=== PATIENT | male | born 1950 | race Caucasian/White ===

== ENCOUNTER 2019-12-22 15:52 | Outpatient (CLI) | payer MEDICARE, SELFPAY ==
[2019-12-22 16:38] LABS: Hemoglobin 11.7 g/dL (14.0-18.0); Mean Corpuscular HGB Conc 34.4 g/dl (32-36); Mean Corpuscular Hemoglobin 28.7 pg (26-34); Mean Corpuscular Volume 83.3 fl (80-100); Mean Platelet Volume 11.1 fl (7.4-10.4); Platelet Count Result 207 k/mm3 (150-375); Red Blood Count 4.08 M/mm3 (4.6-6.20); Red Cell Distribution Width 14.3 % (11.5-14.5); White Blood Count 7.7 K/mm3 (4.5-10.0)
[2019-12-22 16:50] LABS: Alanine Aminotransferase 30 U/L (4-50); Albumin Level 4.1 g/dL (3.5-5.1); Alkaline Phosphatase 61 U/L (38-126); Aspartate Amino Transferase 41 U/L (17-59); Bilirubin,Total 0.4 mg/dL (0.2-1.3)
== END 2019-12-22 15:53 | disposition home or self-care (01) ==
LOC: ANHLAB 15:58
PROVIDERS: Visit Provider Internal Medicine Gastroenterology
DX: R10.11 Right upper quadrant pain (principal)
CPT/HCPCS: 36415; 80076; 85027

== ENCOUNTER 2019-12-27 00:27 | Outpatient (CLI) | payer MEDICARE, SELFPAY ==
[2019-12-27 16:10] LABS: SARS-CoV-2 RNA PCR Negative
== END 2019-12-27 00:28 | disposition home or self-care (01) ==
LOC: ANHCOVIDDT 00:27
PROVIDERS: Visit Provider Internal Medicine Gastroenterology
DX: Z01.818 Encounter for other preprocedural examination (principal); Z11.59 Encounter for screening for other viral diseases; R19.7 Diarrhea, unspecified
CPT/HCPCS: 87635; C9803; U0003

== ENCOUNTER 2019-12-29 01:17 | Day surgery (SDC) | payer MEDICARE, SELFPAY ==
[2019-12-23 11:50] VITALS: BMI 43.0
[2019-12-29] MEDS: LACTATED RINGERS 1,000 ML 150 ML IV CONT (07:42)
[2019-12-29 07:58] LABS: Glucose Point of Care 180 (65-105)
--- NOTE | 2019-12-29 08:06 | WPDANESEPPF ---
Anes - Initial Pre Proc Eval Procedure: Operation Date: 12/29/19 08:30 Proposed Procedures p Esophagogastroduodenoscopy & Colonoscopy - Kelvin Singh MD Date/Time: 12/29/19 08:06 Surgeon: Kelvin Singh MD Pre Op Diagnosis: diarrhea, occult GI bleed Patient Data Age: 69 Gender: M Height: 6 ft 3 in Weight: 156 kg Allergies Allergy/AdvReac Type Severity Reaction Status Date / Time exenatide Allergy Unknown Unknown Verified 12/29/19 07:32 metformin Allergy Unknown Nausea Verified 12/29/19 07:32 nebivolol Allergy Unknown Unknown Verified 12/29/19 07:32 pioglitazone Allergy Unknown sleepiness Verified 12/29/19 07:32 Home Medications Medication Instructions Recorded Confirmed Type furosemide 40 mg tablet 40 mg PO BID #180 tablet 07/26/19 12/23/19 Rx aspirin 81 mg tablet,delayed 81 mg PO DAILY 08/23/19 12/23/19 History release hydrochlorothiazide 25 mg tablet 25 mg PO DAILY 08/23/19 12/23/19 History hmindaspxtwe-vzohumzu-fssmzg 1 tablet PO DAILY 08/23/19 12/23/19 History pantoprazole 40 mg tablet,delayed 40 mg PO QAM 08/23/19 12/06/19 History release ubidecarenone-omega 3-vit E 25 1 cap PO DAILY 08/23/19 12/06/19 History mg-150 (90-60) mg-200 unit capsule insulin syringe-needle U-100 1 mL #200 each 08/24/19 12/06/19 Rx 31 gauge x 5/16 carvedilol 12.5 mg tablet 12.5 mg PO Q12H #60 tablet 09/30/19 12/23/19 Rx amitriptyline 25 mg tablet 25 mg PO .qhs #90 tablet 10/11/19 12/23/19 Rx insulin human U-100 NPH-regulr 65 unit SUB-Q BID 90 Days #120 ml 10/21/19 12/23/19 Rx 70-30 mix 100 unit/mL subcutaneous susp alprazolam 0.5 mg tablet See Rx Instructions PO DAILY #90 11/08/19 12/23/19 Rx tablet clonidine HCl 0.3 mg tablet 0.3 mg PO BID #60 tablet 11/29/19 12/23/19 Rx cholestyramine-aspartame 4 gram 4 gm PO TID #210 gm 12/06/19 12/23/19 Rx oral powder dextroamphetamine-amphetamine 10 10 mg PO BID #60 tablet 12/15/19 12/23/19 Rx mg tablet lisinopril 40 mg PO DAILY 12/23/19 12/23/19 History amlodipine 10 mg PO DAILY 12/29/19 12/29/19 History Laboratory Tests 12/29/19 07:54 POC Capillary Glucose 180 mg/dl H mg/dl (65-105) Patient hx anesthesia problems: none Family hx anesthesia problems: none [facility] Past Medical History Medical History (Updated 12/29/19 @ 07:58 by eNil Perez MD) Acquired lymphedema Lymphedema of upper extremity following lymphadenectomy Morbid obesity LOU (obstructive sleep apnea) Primary central sleep apnea Stress fracture, right foot, subsequent encounter for fracture with routine healing Type 2 diabetes mellitus with hyperglycemia Surgical History Surgical History (Updated 12/06/19 @ 10:56 by Lexi Mar MA) H/O foot surgery RIGHT 3RD TOE History of appendectomy History of cholecystectomy Social History Social History Smoking status: Never smoker Smoking end date: 08/04/94 Alcohol intake: never Gender identity (if verbalized by the patient): Male Anes - Eval Final PreProcedure Day of Procedure 12/29/19 08:06 Patient weight: morbidly obese Heart: regular rate and rhythm Lungs: clear to auscultation Airway: Mallampati scale class III Neurological: alert and oriented Last oral intake: >/= 8 hours ASA classification: IV Emergent: no Anesthetic plan: proceed Anesthesia type and monitoring: general GIVS and standard monitoring Informed Consent: The patient's anesthetic plan and its attendant risks and benefits were discussed with the patient/family/POA. Questions were solicited and answers provided to the satisfaction of the patient/family/POA.
[2019-12-29 08:09] VITALS: PULSE 82; TEMP 36.9; O2SAT 99; BMI 43.2
--- NOTE | 2019-12-29 08:13 | WPDGICN ---
Assessment and Plan Assessment and plan (1) Diarrhea: Code(s): R19.7 - Diarrhea, unspecified Status: Acute Assessment and Plan: Patient has ongoing alteration in bowel habits. He continues to have diarrhea intermittently for several months. Occult blood was noted in the stool sample. Plan is for GI endoscopy to evaluate more thoroughly. Previous right upper quadrant discomfort has improved. Will continue fiber supplements for now. (2) Occult blood in stools: Code(s): R19.5 - Other fecal abnormalities Status: Acute (3) Obesity (BMI 30.0-34.9): Code(s): E66.9 - Obesity, unspecified Status: Acute (4) Diabetes mellitus: Code(s): E11.9 - Type 2 diabetes mellitus without complications Status: Acute GI Consult Note Consult date/time: 12/29/19 08:13 HPI: Gulshan Voss is a 69 year old male Seen in evaluation at the request of Dr. Bhavik Davidson. patient reports diarrhea for the last 2-3 months. He reports intermittent loose stools associated with urgency. He denies any fever. He denies any bleeding. He has had mild right upper quadrant discomfort that has subsequently improved. Recent LFTs were noted. In primary care office found to have occult blood in stool. Family history is noncontributory. Previous surgery includes cholecystectomy. Past medical history is significant for hypertension, elevated cholesterol, he recently was given a trial of Questran which may or may not have helped stools but the diarrhea persists. Review of Systems Review of Systems: All systems reviewed & are unremarkable except as noted in HPI and below PMFSH Past Medical History Medical History Acquired lymphedema Lymphedema of upper extremity following lymphadenectomy Morbid obesity LOU (obstructive sleep apnea) Primary central sleep apnea Stress fracture, right foot, subsequent encounter for fracture with routine healing Type 2 diabetes mellitus with hyperglycemia Surgical History Surgical History H/O foot surgery RIGHT 3RD TOE History of appendectomy History of cholecystectomy Family History Family History Mother Diabetes mellitus Hypertension Cerebrovascular accident Father Family history of cardiovascular disease Other Family history of atrial fibrillation Family history of liver disease Family history of malignant neoplasm Social History Social History Smoking status: Never smoker Smoking end date: 08/04/94 Alcohol intake: never Gender identity (if verbalized by the patient): Male Meds Home Medications and Allergies Home Medications Medication Instructions Recorded Confirmed Type furosemide 40 mg tablet 40 mg PO BID #180 tablet 07/26/19 12/23/19 Rx aspirin 81 mg tablet,delayed 81 mg PO DAILY 08/23/19 12/23/19 History release hydrochlorothiazide 25 mg tablet 25 mg PO DAILY 08/23/19 12/23/19 History gklvxfwrhvvx-ljaammhc-onfloh 1 tablet PO DAILY 08/23/19 12/23/19 History pantoprazole 40 mg tablet,delayed 40 mg PO QAM 08/23/19 12/29/19 History release ubidecarenone-omega 3-vit E 25 1 cap PO DAILY 08/23/19 12/06/19 History mg-150 (90-60) mg-200 unit capsule insulin syringe-needle U-100 1 mL #200 each 08/24/19 12/06/19 Rx 31 gauge x 5/16 carvedilol 12.5 mg tablet 12.5 mg PO Q12H #60 tablet 09/30/19 12/23/19 Rx amitriptyline 25 mg tablet 25 mg PO .qhs #90 tablet 10/11/19 12/23/19 Rx insulin human U-100 NPH-regulr 65 unit SUB-Q BID 90 Days #120 ml 10/21/19 12/29/19 Rx 70-30 mix 100 unit/mL subcutaneous susp alprazolam 0.5 mg tablet See Rx Instructions PO DAILY #90 11/08/19 12/23/19 Rx tablet clonidine HCl 0.3 mg tablet 0.3 mg PO BID #60 tablet 11/29/19 12/23/19 Rx cholestyramine-aspartame 4 gram 4 gm PO TID #210 gm
[2019-12-29] MEDS: BENZOCAINE (*SP) 60 ML SPRAY CAN (HURRICAINE) 1 SPRAY MUCOUS MEM (08:23)
[2019-12-29 08:57] VITALS: BP 157/82; PULSE 72; RESP 17; O2SAT 96
[2019-12-29 09:07] VITALS: BP 166/62; PULSE 69; RESP 19; O2SAT 97
[2019-12-29 09:17] VITALS: BP 164/76; PULSE 67; RESP 22; O2SAT 98
[2019-12-29 09:17] LABS: Glucose Point of Care 171 (65-105)
== END 2019-12-29 09:35 | disposition home or self-care (01) ==
PROVIDERS: Visit Provider Internal Medicine Gastroenterology
PROC: 0DJ08ZZ Inspection of Upper Intestinal Tract, Via Natural or Artificial Opening Endoscopic (ICD-10-PCS; CPT 43235; principal; 2019-12-29 08:30)
DX: R19.5 Other fecal abnormalities (principal); D12.3 Benign neoplasm of transverse colon; K63.5 Polyp of colon; K62.1 Rectal polyp; R19.7 Diarrhea, unspecified; K64.8 Other hemorrhoids; E11.9 Type 2 diabetes mellitus without complications; G47.33 Obstructive sleep apnea (adult) (pediatric); E66.01 Morbid (severe) obesity due to excess calories; Z68.41 Body mass index [BMI] 40.0-44.9, adult; Z79.82 Long term (current) use of aspirin; Z79.4 Long term (current) use of insulin
CPT/HCPCS: 45385; 88305; J2704; J7120

== ENCOUNTER 2020-03-01 12:31 | Emergency (ER) | payer MEDICARE, SELFPAY ==
[2020-03-01] VITALS (26 sets, daily range): BP systolic 121–220; BP diastolic 75–201; PULSE 65–90; RESP 11–20; TEMP 36.4; O2SAT 95–100
--- NOTE | ~2020-03-01 | XR_ITS ---
EXAMINATION: XR chest 2V DATE: 03/01/2020 13:26 INDICATION: Shortness of breath TECHNIQUE: Frontal and lateral views of the chest are obtained COMPARISON: 01/16/2016 FINDINGS: Airspace opacities are present in the mid and lower lung zones. There are small pleural eff usions. No pneumothorax is identified. Cardiomegaly is noted. There are bridging osteophytes at multi ple levels in the spine, consistent with diffuse idiopathic skeletal hyperostosis (DISH). IMPRESSION: 1. Airspace opacities of the mid and lower lung zones, consistent with pneumonia and/or atelectasis a nd/or pulmonary edema. 2. Small pleural effusions. 3. Cardiomegaly. Reviewed, dictated and finalized at location B. IMPRESSION: 1. Airspace opacities of the mid and lower lung zones, consistent with pneumoni a and/or atelectasis and/or pulmonary edema. 2. Small pleural effusions. 3. Cardiomegaly.
--- NOTE | 2020-03-01 12:56 | ECG_ITS ---
Measurements Intervals [place] Rate: 83 P: 47 [place]: 244 QRS: -8 QRSD: 130 T: 101 QT: 388 QTc: 458 Interpretive Statements SINUS RHYTHM WITH FIRST DEGREE AV BLOCK VENTRICULAR PREMATURE COMPLEX LEFT VENTRICULAR HYPERTROPHY AND ST-T CHANGE BORDERLINE ST-T WAVE ABNORMALITY- LATERAL LEADS BASELINE ARTIFACT- I, II, AVR, AVL, AVF, V4-V5 ABNORMAL ECG Electronically Signed On 03-01-2020 13:06:43 CDT by Shelton Wyman D.O.
--- NOTE | 2020-03-01 13:15 | ED.SOB ---
HPI - SOB/Dyspnea General Chief Complaint: Shortness of Breath/Dyspnea Stated Complaint: SOB x1 week Time Seen by Provider: 03/01/20 12:49 History of Present Illness HPI Narrative: Patient presents with his for increasing shortness of breath. He has known asthma and has a Advair inhaler and an albuterol inhaler. He has had an occasional cough. No fever. He has had some chills and sweats. He has no pain. He has chronic bilateral leg edema. He denies congestive heart failure. He has uncontrolled hypertension. He takes his medication but says his pressures always high. He has not had significant wheezing. His appetite is good, bowels are moving. He does not smoke, has 2 alcoholic beverages a year, and does not do marijuana. His surgeries include appendectomy, parotid gland removal. MD elicited complaint: shortness of breath and cough Pertinent past history: asthma Onset (ago): day(s) Timing: constant Severity: moderate Exacerbating factors: exertion Relieving factors: nothing Known history of: asthma Associated symptoms: diaphoresis Treatment prior to arrival: none Related Data Home Medications Medication Instructions Recorded Confirmed aspirin 81 mg tablet,delayed 81 mg PO DAILY 08/23/19 02/25/20 release dhpwaoqivdmm-yyqqqsrl-uujaan 1 tablet PO DAILY 08/23/19 02/25/20 ubidecarenone-omega 3-vit E 25 1 cap PO DAILY 08/23/19 02/25/20 mg-150 (90-60) mg-200 unit capsule lisinopril 40 mg PO DAILY 12/23/19 02/25/20 amlodipine 10 mg PO DAILY 12/29/19 02/25/20 Allergies Allergy/AdvReac Type Severity Reaction Status Date / Time exenatide Allergy Unknown Unknown Verified 03/01/20 12:48 metformin Allergy Unknown Nausea Verified 03/01/20 12:48 nebivolol Allergy Unknown Unknown Verified 03/01/20 12:48 pioglitazone Allergy Unknown sleepiness Verified 03/01/20 12:48 Review of Systems Review of Systems: Narrative: CONSTITUTIONAL: Denies fever, but has had chills, and sweats. EYES: Denies visual changes, redness, or discharge. ENT: Denies rhinorrhea, congestion, sore throat, or otalgia. CARDIOVASCULAR: Denies chest pain, palpitations, but chronic leg edema. RESPIRATORY: Occasional cough, but continued dyspnea. GASTROINTESTINAL: Denies abdominal pain, nausea, vomiting, or diarrhea. GENITOURINARY: Denies dysuria or hematuria. SKIN: Denies rash or itching. MUSCULOSKELETAL: Denies back pain, joint pain, or myalgia. NEUROLOGIC: Denies headache, numbness, or weakness. PSYCHIATRIC: Denies anxiety or depression. [facility] Past Medical History Medical History Acquired lymphedema Hypertension Lymphedema of upper extremity following lymphadenectomy Morbid obesity Normal colonoscopy 4 polyps not cancerous LOU (obstructive sleep apnea) Primary central sleep apnea Stress fracture, right foot, subsequent encounter for fracture with routine healing Type 2 diabetes mellitus with hyperglycemia Surgical History Surgical History H/O foot surgery RIGHT 3RD TOE History of appendectomy History of cholecystectomy Social History Social History (Updated 03/01/20 @ 13:20 by Kristal Johansen MD) Smoking packs per day: 2 Smoking cigarettes per day: 40.0 Years smoked: 25 Smoking pack-years: 50.00 Smoking status: Former smoker Smoking end date: 08/04/94 Alcohol intake: current Alcohol use details: 2 alcoholic beverages a year Substance use: never Gender identity (if verbalized by the patient): Male Exam Narrative: Exam Narrative: GENERAL: Well-appearing, well-nourished, and in no acute distress. Morbid obesity. Charming character. HEAD: Normocephalic, atraumatic. EYES: PERRLA and EOMI. ENT: Nares clear, no rhinorrhea or epistaxis. Mucous membranes moist. NECK: Supple. CHEST: Decreased breath sounds on the left. No wheezes. No crackles. no respiratory distress. HEART: Regular rate and rhythm. No murmur he
[2020-03-01 13:27] LABS: Basophils Absolute Auto 0.1 K/mm3 (0.0-0.1); Eosinophils Absolute Auto 0.3 K/mm3 (0-0.3); Eosinophils Percent Auto 3.3 % (0-4.4); Hematocrit 36.9 % (42.0-52.0); Hemoglobin 12.8 g/dL (14.0-18.0); Immature Granulocyte Absolute 0.05 K/mm3 (0.00-0.031); Immature Granulocyte Percent A 0.6 % (0-0.5); Lymphocytes Absolute Auto 0.96 K/mm3 (0.9-3.2); Lymphocytes Percent Auto 11.6 % (18.3-44.2); Mean Corpuscular HGB Conc 34.7 g/dl (32-36); Mean Corpuscular Volume 83.5 fl (80-100); Mean Platelet Volume 11.7 fl (7.4-10.4); Monocytes Absolute Auto 0.5 K/mm3 (0.1-0.6); Monocytes Percent Auto 5.8 % (2.6-8.5); Neutrophils Absolute Auto 6.4 K/mm3 (1.3-6.7); Neutrophils Percent Auto 77.7 % (45.5-73.1); Platelet Count Result 208 k/mm3 (150-375); Red Blood Count 4.42 M/mm3 (4.6-6.20); Red Cell Distribution Width 14.1 % (11.5-14.5); White Blood Count 8.3 K/mm3 (4.5-10.0)
[2020-03-01] MEDS: ALBUTEROL SULFATE NEB 2.5 MG/3 ML INH 5 MG INHALATION (13:36)
[2020-03-01 13:39] LABS: Anion Gap 12.3 mmol/L (7-16); Blood Urea Nitrogen 18 mg/dL (9-20); Calcium 8.7 mg/dL (8.4-10.2); Carbon Dioxide 31 mmol/L (22-30); Chloride 94 mmol/L (98-107); Estimated CRCL calculation 63 ml/min; Estimated Glomerular Filt Rate 47; Glucose 303 mg/dL (75-110); Potassium 3.3 mmol/L (3.4-5.0); Sodium 134 mmol/L (137-145)
[2020-03-01 13:54] LABS: NT Pro B Type Natriuretic Pept 650 PG/ML (5-100); Troponin I 0.034 ng/mL (0.000-0.034)
[2020-03-01 13:56] LABS: Alveolar/Arterial O2 Gradient 20.9 mmHg; Base Excess ABG 1.8 mEq/l (+/-2.0); Device ROOM AIR; Fractional Inspired Oxygen 21 %; HCO3 ABG 26.4 mEq/l (22.0-26.0); Oxygen Content ABG 17.4 %vol (16.0-22.0); Oxyhemoglobin 94.8 % THb (90.0-100.0); PCO2 ABG 41.2 mmHg (35.0-45.0); PO2 ABG 79.5 mmHg (80.0-100.0); PO2 FiO2 Ratio Arterial Blood 3.79 %; Site Drawn LEFT BRACHIAL; pH ABG 7.424 (7.350-7.450)
[2020-03-01] MEDS: hydrALAZINE HCL 20 MG/ML VIAL 10 MG IV PUSH (13:57)
[2020-03-01 14:23] LABS: Hemoglobin A1C 7.8 % (<5.7)
[2020-03-01] MEDS: FUROSEMIDE INJ 100 MG/10 ML VIAL 80 MG IV PUSH (15:57)
== END 2020-03-01 16:20 | disposition home or self-care (01) ==
PROVIDERS: Emergency Provider Emergency Medicine; PCP Family Medicine
DX: I11.0 Hypertensive heart disease with heart failure (principal); I50.9 Heart failure, unspecified; R94.31 Abnormal electrocardiogram [ECG] [EKG]; Z87.891 Personal history of nicotine dependence; G47.30 Sleep apnea, unspecified; E11.9 Type 2 diabetes mellitus without complications; E66.9 Obesity, unspecified
CPT/HCPCS: 36415; 36600; 71046; 80048; 82805; 83036; 83880; 84484; 85025; 93005; 94640; 96374; 96375; 99284; J0360; J1940

== ENCOUNTER 2020-03-09 09:59 | Inpatient (IN) | payer MEDICARE, SELFPAY ==
[2020-03-09] VITALS (14 sets, daily range): BP systolic 157–195; BP diastolic 87–120; PULSE 69–124; RESP 13–22; TEMP 36.1–36.4; O2SAT 95–100; BMI 39.3
--- NOTE | ~2020-03-09 | XR_ITS ---
XR chest 1V portable DATE: 03/09/2020 10:45 INDICATION: Shortness of breath TECHNIQUE: Portable upright AP view on 03/09/2020 at 1040 hours COMPARISON: 03/01/2022 view chest FINDINGS: There is pulmonary vascular congestion and redistribution. There is prominence of the minor fissure. There are Patsy B-lines. There are bilateral pulmonary infiltrates which are more prominen t centrally and in the lower lung zones, suggestive of pulmonary edema. The right costophrenic angle is excluded from the examination. No apparent left pleural effusion. No pneumothorax. Borderline or increased heart size. Diffuse osteopenia. Degenerative spurring of the thoracic spine. IMPRESSION: Congestive heart failure, pulmonary edema cervical pulmonary edema is mildly increased si nce 03/01/2020 Reviewed, dictated and finalized at location B. IMPRESSION: Congestive heart failure, pulmonary edema cervical pulmonary edema is mildly increased since 03/01/2020
--- NOTE | ~2020-03-09 | US_ITS ---
EXAMINATION: US venous doppler [facility] DATE: 03/09/2020 15:01 INDICATION: Bilateral lower limb edema, respiratory failure TECHNIQUE: Young scale images without and with compression and Doppler images of the bilateral lower e xtremity veins were obtained. COMPARISON: 01/19/2016 FINDINGS: The right common femoral vein, profunda femoral vein, femoral vein, popliteal vein, peroneal trunk, p osterior tibial veins, and greater saphenous vein are patent. The left common femoral vein, profunda femoral vein, femoral vein, popliteal vein, peroneal trunk, po sterior tibial veins, and greater saphenous vein are patent. IMPRESSION: 1. Patent bilateral lower extremity veins. No evidence of deep venous thrombosis. Reviewed, dictated and finalized at location A. IMPRESSION: 1. Patent bilateral lower extremity veins. No evidence of deep venous thrombosi s.
--- NOTE | 2020-03-09 10:01 | ECG_ITS ---
Measurements Intervals [place] Rate: 99 P: 221 [place]: 278 QRS: 0 QRSD: 104 T: 123 QT: 309 QTc: 397 Interpretive Statements SINUS RHYTHM WITH FIRST DEGREE AV BLOCK DELAYED PRECORDIAL R/S TRANSITION LEFT VENTRICULAR HYPERTROPHYWITH ST-T CHANGE BORDERLINE ST-T WAVE ABNORMALITY- HIGH LATERAL LEADS BASELINE ARTIFACT- I, III, AVR, AVL, AVF, V1, V4-V6 ABNORMAL ECG Electronically Signed On 03-09-2020 10:09:27 CDT by Shelton Wyman D.O.
--- NOTE | 2020-03-09 10:01 | PC.NURSE ---
Respiratory in room at pts bedside.
[2020-03-09] MEDS: ONDANSETRON INJ 4 MG/2 ML VIAL (10:15)
[2020-03-09] MEDS: FUROSEMIDE INJ 40 MG/4 ML VIAL IV PUSH ×2 (10:15→20:43)
--- NOTE | 2020-03-09 10:23 | PC.NURSE ---
Pt given urinal to provide u/a.
[2020-03-09 10:34] LABS: Basophils Absolute Auto 0.2 K/mm3 (0.0-0.1); Basophils Percent Auto 1.7 % (0.2-1.2); Eosinophils Absolute Auto 0.6 K/mm3 (0-0.3); Eosinophils Percent Auto 4.5 % (0-4.4); Hematocrit 45.6 % (42.0-52.0); Hemoglobin 15.3 g/dL (14.0-18.0); Immature Granulocyte Absolute 0.07 K/mm3 (0.00-0.031); Immature Granulocyte Percent A 0.6 % (0-0.5); Lymphocytes Absolute Auto 2.99 K/mm3 (0.9-3.2); Lymphocytes Percent Auto 23.8 % (18.3-44.2); Mean Corpuscular HGB Conc 33.6 g/dl (32-36); Mean Corpuscular Hemoglobin 28.7 pg (26-34); Mean Corpuscular Volume 85.4 fl (80-100); Mean Platelet Volume 11.6 fl (7.4-10.4); Monocytes Absolute Auto 0.6 K/mm3 (0.1-0.6); Monocytes Percent Auto 4.7 % (2.6-8.5); Neutrophils Absolute Auto 8.1 K/mm3 (1.3-6.7); Neutrophils Percent Auto 64.7 % (45.5-73.1); Platelet Count Result 390 k/mm3 (150-375); Red Blood Count 5.34 M/mm3 (4.6-6.20); Red Cell Distribution Width 14.4 % (11.5-14.5); White Blood Count 12.5 K/mm3 (4.5-10.0)
[2020-03-09 10:52] LABS: Lactic Acid Reflex 1.6 mmol/L (0.7-2.1)
--- NOTE | 2020-03-09 11:01 | ED.SOB ---
HPI - SOB/Dyspnea General Chief Complaint: Shortness of Breath/Dyspnea Stated Complaint: SOB History of Present Illness HPI Narrative: Patient is a 70-year-old male who presents the ER with sudden onset shortness of breath. Was lying in bed when symptoms began. Recently diagnosed with CHF. Edema in legs going down since he started Lasix. Reports intermittent sweats and chills with cough over the last week that was felt to be related to his CHF. Last saw his PCP couple days ago. Denies fevers. No known COVID exposure. Denies chest pain or chest pressure at this time. Has some mild nausea. Hypoxic for EMS and placed on CPAP. Currently on BiPAP in the ER and feeling much more comfortable. Related Data Home Medications Medication Instructions Recorded Confirmed aspirin 81 mg tablet,delayed 81 mg PO DAILY 08/23/19 03/09/20 release quxebjzufwwd-npqerkvi-zgttpv 1 tablet PO DAILY 08/23/19 03/09/20 lisinopril 40 mg PO DAILY 12/23/19 03/09/20 amitriptyline 10 mg PO .qhs 03/09/20 03/09/20 Allergies Allergy/AdvReac Type Severity Reaction Status Date / Time exenatide Allergy Unknown Unknown Verified 03/09/20 10:04 metformin Allergy Unknown Nausea Verified 03/09/20 10:04 nebivolol Allergy Unknown Unknown Verified 03/09/20 10:04 pioglitazone Allergy Unknown sleepiness Verified 03/09/20 10:04 Review of Systems Review of Systems: All systems reviewed & are unremarkable except as noted in HPI and below Constitutional: Constitutional: Reports chills and Denies fever(s) ENT: Denies nasal congestion and Denies sore throat Cardiovascular: Cardiovascular: Denies chest pain and Denies radiating jaw, neck or arm pain Respiratory: Respiratory: Reports cough, Reports dyspnea and Denies wheezing Gastrointestinal: Gastrointestinal: Denies abdominal pain, Denies nausea and Denies vomiting [facility] Social History Social History Smoking packs per day: 2 Smoking cigarettes per day: 40.0 Years smoked: 25 Smoking pack-years: 50.00 Smoking status: Former smoker Smoking end date: 08/04/94 Alcohol intake: current Substance use: never Gender identity (if verbalized by the patient): Male Spiritual care concerns: No Exam Narrative: Exam Narrative: GENERAL: Ill-appearing, well-nourished, and in mild distress. HEAD: Normocephalic, atraumatic. EYES: PERRL and EOMI. ENT: Mucous membranes moist. CHEST: Coarse Rales bilaterally throughout. Requiring a BiPAP.. HEART: Regular rate and rhythm. Normal peripheral pulses. ABDOMEN: Soft, nontender, nondistended. EXTREMITIES: Normal range of motion. 2+ edema. SKIN: Warm, dry, no rash. NEURO: No focal deficits. Alert and oriented x3. PSYCH: Normal mood and affect. Course Course Emergency Course: Patient and family informed of results. Admit to hospitalist service. Lasix ordered for diuresis. Tolerating BiPAP well. Initially had some nausea that resolved with Zofran. Given sweats and cough over the last week COVID will be ordered. Vital Signs Vital signs: Vital Signs Temperature 97.6 F 03/09/20 09:57 Pulse Rate 108 H 03/09/20 09:57 Respiratory Rate 20 03/09/20 09:57 Blood Pressure 186/111 H 03/09/20 09:57 Pulse Oximetry 96 03/09/20 09:57 Temperature 97.0 F L 03/09/20 16:00 Pulse Rate 71 03/09/20 18:00 Respiratory Rate 20 03/09/20 17:39 Blood Pressure 195/104 H 03/09/20 16:00 Pulse Oximetry 100 03/09/20 17:39 MDM - SOB/Dyspnea Lab Data Result diagrams: 03/09/20 10:17 03/09/20 10:17 Labs: Lab Results 03/09/20 03/09/20 03/09/20 Range/Units 10:17 10:17 10:17 WBC 12.5 H (4.5-10.0) K/mm3 RBC 5.34 (4.6-6.20) M/mm3 Hgb 15.3 (14.0-18.0) g/dL Hct 45.6 (42.0-52.0) % MCV 85.4 (80-100) fl MCH 28.7 (26-34) pg MCHC 33.6 (32-36) g/dl RDW 14.4 (11.5-14.5) % Plt Count 390 H D (150-375) k/mm3 MPV 11.6 H (7.4
[2020-03-09 11:04] LABS: NT Pro B Type Natriuretic Pept 552 PG/ML (5-100); Troponin I 0.022 ng/mL (0.000-0.034)
--- NOTE | 2020-03-09 11:09 | PC.NURSE ---
RN report from
[2020-03-09 11:12] LABS: Anion Gap 12.7 mmol/L (7-16); Blood Urea Nitrogen 23 mg/dL (9-20); Calcium 8.7 mg/dL (8.4-10.2); Carbon Dioxide 29 mmol/L (22-30); Chloride 100 mmol/L (98-107); Estimated CRCL calculation 69 ml/min; Estimated Glomerular Filt Rate 50; Glucose 192 mg/dL (75-110); Potassium 3.7 mmol/L (3.4-5.0); Sodium 138 mmol/L (137-145)
[2020-03-09 11:28] LABS: Add Urine Microscopic? YES; Appearance Urine Clear (Clear); Bacteria Urine Trace /hpf; Bilirubin Urine Negative (Negative); Blood Urine 1+ (Negative); Color Urine Yellow (Yellow); Glucose Urine UA 1+ mg/dL (Negative); Ketones Urine Negative (Negative); Leukocyte Esterase Ur Negative LEU/UL (Negative); Mucus Urine Rare /lpf; Nitrate Urine Negative (Negative); Protein Urine 3+ mg/dL (Negative); RBC Urine 51-75 /hpf (0-2); Specific Grav Ur 1.015 (1.001-1.035); Squamous Epithelial Cell Urine Rare /hpf (Few); Urobilinogen Urine Negative mg/dL (<2.0)
--- NOTE | 2020-03-09 13:00 | PC.NURSE ---
rn at bedside to collect covid swab.
--- NOTE | 2020-03-09 14:20 | ADMGEN ---
This patient, Gulshan Voss, was admitted to Intensive Care Unit-2. Patient/family oriented to hospital policies and general routines including ID bracelet, bed and alarms, visiting hours, pain management, procedures, bathroom and other care routines, personal items, smoking policy, room service/diet, and visiting hours. Valuables list has been completed. Information on how to activate the Rapid Response Team has been discussed. Patient/Family are encouraged to report perceived risks to care and to ask questions if they do not understand what they are told or what they should do.
[2020-03-09 16:13] LABS: Lactate Dehydrogenase 444 U/L (313-618)
[2020-03-09 16:27] LABS: Troponin I 0.045 ng/mL (0.000-0.034)
[2020-03-09 19:28] LABS: Troponin I 0.041 ng/mL (0.000-0.034)
--- NOTE | 2020-03-09 20:10 | PM.IMHP ---
H&P: HPI History of Present Illness Date/Time: 03/09/20 21:00 Chief complaint: I could not breathe Narrative: Gulshan Voss is a 70 year old male with a past medical history of uncontrolled hypertension, insulin-dependent diabetes and recent diagnosis of CHF who presented to the ER with worsening shortness of breath. The patient does have a history of diastolic dysfunction on prior echocardiogram. He was evaluated in the ER on 03/01/2020 due to increasing shortness of breath and increased leg swelling. The patient had been having symptoms of shortness of breath for the last 2 weeks. He reports that he has been on Lasix for several years and review of his primary care physician's note states that if patient is on b.i.d. Lasix 40 mg. The patient was given a prescription for an additional 20 mg of Lasix and discharged home. With increased Lasix he thinks that his swelling in his legs may have improved slightly. however he has developed increasing orthopnea and paroxysmal nocturnal dyspnea over the last 3-4 days. His symptoms became precipitously worse just prior to coming to the ER. He reports that he was in so much distress he told his to call the ambulance. He denies any chest pain or palpitations. He reports that he has been eating a low-sodium diet. The patient jokingly asked me for a beebe sandwich before I left the room. He denies any recent cough or congestion instilled just before coming to the ER. He reported that when he tried to lay down he developed a cough that was dry. His cough went away after he received IV Lasix in the ER. His symptoms also improved on BiPAP. When the patient arrived to the ICU he was pulling 1200 in tidal volumes. He was not tolerating his mask very well. His initial BiPAP settings were discontinued and he decreased him back down to his home CPAP settings. Patient was satting 100% on 40% FiO2 with a CPAP of 15. He was resting comfortably and in no distress. Had resolution of his previously documented crackles. However shortly after my interview the patient attempted to get out of bed alone and climbed down to the foot of the bed. He pulled his CPAP often was not wearing oxygen. When nursing staff arrived at the bedside the patient's oxygen saturations were down in the 70s and he was tachypneic. he was diaphoretic and had labored respirations. The patient had had an incontinent urine all over the floor. This was his 2nd incontinent episode since arrival to the ICU. Subsequently a Mullins catheter was placed. Patient denies any difficulty with hematuria or urinary frequency at baseline. He states he does not usually have difficulty starting or stopping his urinary stream. He denies history of urinary incontinence. He did have a history in the past bowel issues but had an EGD and colonoscopy in recent months. He had a gastric polyp resected. He was supposed to follow-up this week for repeat EGD but has not done so. He denies any further GI symptoms. He denies any recent ill contacts/COVID-19. He has not been having fevers or chills. The patient's home med rec according to primary care physician's office is lisinopril 40 mg p.o. daily, clonidine 0.3 mg p.o. b.i.d., Lasix 40 mg p.o. b.i.d., hydrochlorothiazide 25 mg p.o. daily, Norvasc 10 mg p.o. daily, and his Coreg was increased on 03/08/2020 up to 12.5 mg p.o. daily. The patient's blood pressures as primary care physician's office were 170s over 90s. Review of Systems Review of Systems: Narrative: 12 systems were reviewed with pertinent positives and negatives per HPI. Except as documented in the HPI, all other systems were reviewed and are negative. [facility] Past Medical History Medical History (Updated 03/10/20 @ 01:07 by Violetta Martinez, ) Acquired lymphedema CHF (congestive heart failure) echocardiogram 2015 demonstrating normal ejection fraction with moderate left ventricular hypertrophy and diastolic dysfunction with mild left a
[2020-03-09] MEDS: ALPRAZolam 0.5 MG TABLET 1 MG PO (22:26)
[2020-03-09] MEDS: AMITRIPTYLINE HCL 10 MG TABLET PO (22:28)
[2020-03-09] MEDS: carvediloL 12.5 MG TABLET PO (22:28)
[2020-03-09 22:44] LABS: Glucose Point of Care 171 (65-105)
[2020-03-09] MEDS: hydrALAZINE HCL 20 MG/ML VIAL 10 MG IV PUSH (22:57)
[2020-03-09 23:54] LABS: SARS-CoV-2 RNA PCR Negative
[2020-03-10] VITALS (20 sets, daily range): BP systolic 125–190; BP diastolic 48–102; PULSE 64–93; RESP 16–22; TEMP 36.2–36.6; O2SAT 96–99
--- NOTE | 2020-03-10 | ECHO_ITS ---
Patient Info Name: Gulshan Voss Age: 70 years : 1950 Gender: Male Ht: 75 in Wt: 315 lbs BSA: 2.80 m2 HR: 82 bpm BP: 149 / 66 mmHg Heart Rhythm: Sinus Rhythm Technical Quality: Good Exam Date: 03/10/2020 9:38 AM Exam Location: [facility] Patient Status: Inpatient Admit Date: 03/09/2020 Staff Ordering Physician: Zhane Avila PA-C Biomedical Scientist: Jimmie Francisco RDCS Attending Provider: Deb Alex PA-C Referring Physician: Margarita HALEY; Exam Type: CA echo dop color flow w con Study Info Indications J81.0 - Acute pulmonary edema Complete two-dimensional, color flow and Doppler transthoracic echocardiogram is performed with contrast to opacify the left ventricle and to improve the deliniation of the left ventricle endocardial borders. Contrast/Agitated Saline Contrast/Ag. Saline: Definity Amount: 3.00 ml Administered By: Lesly Ennis RN Existing IV Access: Yes History/Risk Factors HFpEF w/ SOB and elevated trops; DM2, HTN, pulmonary edema. Summary 1. Left ventricular chamber dimension is mildly enlarged. 2. Left ventricular systolic function is mildly reduced, estimated at 40-45%. 3. Left atrial chamber dimension is mildly enlarged. 4. There is mild aortic valve sclerosis. 5. There is no mitral valve regurgitation. Left Ventricle Left ventricular chamber dimension is mildly enlarged. Left ventricular systolic function is mildly reduced, estimated at 40-45%. The left ventricular diastolic function is normal. Right Ventricle Right ventricular chamber dimension is normal. Left Atria Left atrial chamber dimension is mildly enlarged. Right Atria Right atrial chamber dimension is not well visualized. Aortic Valve The aortic valve is trileaflet. There is mild aortic valve sclerosis. Pulmonic Valve The pulmonic valve is not well visualized. Mitral Valve The mitral valve has normal leaflets. There is no mitral valve regurgitation. The mitral valve annulus is mildly calcified. Tricuspid Valve The tricuspid valve leaflets are not well visualized. Pericardium/Pleural The pericardium appears normal. Aorta The aortic root size at the sinus of Valsalva is normal. Left Ventricular Outflow Tract Name Value Normal LVOT 2D LVOT Diameter 2.07 cm LVOT Doppler LVOT Peak Gradient 6 mmHg LVOT Mean Gradient 3 mmHg LVOT VTI 23.35 cm LVOT VTI/AV VTI Ratio 0.72 LVOT Stroke Volume 78.67 ml LVOT CO 6.36 l/min LVOT CI 2.27 L/min/m2 Mitral Valve Name Value Normal MV Doppler MV Decel [place] 541.15 cm/s2 MV PHT
[2020-03-10] MEDS: cloNIDine HCL 0.1 MG TABLET 0.3 MG PO ×4 (01:27→21:11)
--- NOTE | 2020-03-10 02:32 | PC.NURSE ---
This patient, Gulshan Voss, was received from ICU-2 on 03/10/20 at 0232. REPORT FROM RUSTAM Paul RN Personal belongings list checked and signed. Patient/family oriented to unit policies and routines
--- NOTE | 2020-03-10 02:50 | PC.NURSE ---
This patient, Gulshan Voss, was transferred to [facility] [place] on 03/10/20 at 0230. Personal belongings sent with patient. Belongings list checked and signed with receiving. Report given to TYLER Al. Appropriate documentation sent with patient.
[2020-03-10 04:50] LABS: Basophils Absolute Auto 0.1 K/mm3 (0.0-0.1); Basophils Percent Auto 0.8 % (0.2-1.2); Eosinophils Absolute Auto 0.2 K/mm3 (0-0.3); Eosinophils Percent Auto 1.4 % (0-4.4); Hemoglobin 12.6 g/dL (14.0-18.0); Immature Granulocyte Absolute 0.06 K/mm3 (0.00-0.031); Immature Granulocyte Percent A 0.5 % (0-0.5); Lymphocytes Absolute Auto 0.99 K/mm3 (0.9-3.2); Lymphocytes Percent Auto 8.4 % (18.3-44.2); Mean Corpuscular HGB Conc 34.1 g/dl (32-36); Mean Corpuscular Volume 85.3 fl (80-100); Monocytes Absolute Auto 0.7 K/mm3 (0.1-0.6); Monocytes Percent Auto 6.1 % (2.6-8.5); Neutrophils Absolute Auto 9.7 K/mm3 (1.3-6.7); Neutrophils Percent Auto 82.8 % (45.5-73.1); Platelet Count Result 237 k/mm3 (150-375); Red Blood Count 4.34 M/mm3 (4.6-6.20); Red Cell Distribution Width 14.4 % (11.5-14.5); White Blood Count 11.8 K/mm3 (4.5-10.0)
[2020-03-10 05:09] LABS: Alanine Aminotransferase 26 U/L (4-50); Albumin Level 3.6 g/dL (3.5-5.1); Alkaline Phosphatase 72 U/L (38-126); Anion Gap 11.1 mmol/L (7-16); Aspartate Amino Transferase 28 U/L (17-59); Bilirubin,Total 0.4 mg/dL (0.2-1.3); Blood Urea Nitrogen 26 mg/dL (9-20); Calcium 8.2 mg/dL (8.4-10.2); Carbon Dioxide 29 mmol/L (22-30); Chloride 101 mmol/L (98-107); Estimated CRCL calculation 73 ml/min; Estimated Glomerular Filt Rate 50; Glucose 213 mg/dL (75-110); Potassium 4.1 mmol/L (3.4-5.0); Sodium 137 mmol/L (137-145)
[2020-03-10] MEDS: FLUTICASONE/SALMETEROL 115-21 MCG INHALER 1 PUFF 2 PUFF INHALATION ×2 (08:46→21:31)
[2020-03-10] MEDS: carvediloL 12.5 MG TABLET PO ×2 (09:39→21:10)
[2020-03-10] MEDS: OPTI-GEN TAB 1 TABLET PO (09:39)
[2020-03-10] MEDS: FUROSEMIDE INJ 40 MG/4 ML VIAL IV PUSH ×2 (09:39→21:10)
[2020-03-10] MEDS: ASPIRIN 81 MG ENTERIC TABLET PO (09:40)
[2020-03-10] MEDS: hydroCHLOROthiazide 25 MG TABLET PO (09:40)
[2020-03-10] MEDS: amLODIPine BESYLATE 5 MG TABLET 10 MG PO (09:40)
[2020-03-10] MEDS: GLIMEPIRIDE 2 MG TABLET PO ×3 (09:40→17:01)
[2020-03-10] MEDS: ALPRAZolam 0.5 MG TABLET PO ×2 (09:41→17:00)
[2020-03-10] MEDS: ACETAMINOPHEN 325 MG TABLET 650 MG PO (09:41)
[2020-03-10] MEDS: lisinopriL 20 MG TABLET 40 MG PO (09:41)
[2020-03-10] MEDS: PANTOPRAZOLE 40 MG TABLET PO (09:41)
[2020-03-10] MEDS: ENOXAPARIN 40 MG/0.4 ML SYRINGE SUB-Q (09:42)
[2020-03-10] MEDS: CHOLESTYRAMINE LIGHT 4 GM POWD.PACK PO ×3 (09:44→22:48)
[2020-03-10] MEDS: PERFLUTREN LIPID MICROSPHERES 1.5 ML VIAL DILUTED TO 10 ML TOTAL VOLUME IV PUSH (10:09)
[2020-03-10 10:15] LABS: NT Pro B Type Natriuretic Pept 749 PG/ML (5-100)
[2020-03-10] MEDS: INSULIN HUMAN ISOPHAN/REGULAR 70/30 (*BKC) 100 UNITS/ML 65 UNITS SUB-Q ×2 (12:00→17:01)
[2020-03-10] MEDS: INSULIN ASPART (*BKC) 100 UNITS/ML SUB-Q (12:01)
[2020-03-10 12:23] LABS: Glucose Point of Care 217 (65-105)
--- NOTE | 2020-03-10 13:02 | PM.CNCAR ---
Assessment and Plan Additional Plan 70-year-old gentleman with longstanding hypertension relatively severe hypertension judging by the medical regimen that is required to control this as mentioned above. He presents with decompensated congestive heart failure chronic edema but also evidence of some left-sided congestion on chest x-ray. He is better after about 24 hours of intravenous furosemide. Echocardiogram this morning demonstrates mild left ventricular systolic dysfunction with mild LV enlargement and modest systolic hypokinesis. He is not having any ischemic symptoms but obviously is at high risk for coronary artery disease given his comorbidities. I would recommend continuing IV furosemide at least until tomorrow. Then he should be shifted to an oral regimen. When he is euvolemic hopefully he will be able to come off of oxygen supplementation to be discharged home. My expectation would be to perform an ischemia evaluation with a Lexiscan nuclear study as an outpatient and consider angiography if this is found to be significantly abnormal. He does have some chronic kidney disease which is of some concern regarding contrast exposure. Thank you for asking me to see this man in consultation Cory Delacruz MD [facility] History of Present Illness History of Present Illness Consult date/time: 03/10/20 13:02 Consult reason: congestive heart failure Reason For Visit: I could not breathe Narrative: this is a 70-year-old man I am seeing at the request of the hospitalist for assistance with the management of congestive heart failure. The patient states that up until full recently he has not been found or known to have any cardiac problems but he has been seen by his PCP a couple of times recently and been told of evidence of congestive heart failure. Medical therapy with diuretics has been attempted as an outpatient but he continued to get progressively more short of breath and yesterday was hospitalized with relatively severe dyspnea. He denies any sense of chest pain pressure or heaviness. He does have chronic lower extremity edema and he does not perceive this to be any worse than the baseline. Again he denies any previous knowledge of cardiac problems. He has severe hypertension and is on a multi-drug regimen including amlodipine, carvedilol, clonidine and lisinopril. He also takes hydrochlorothiazide. Since admission to the hospital yesterday he has been treated with intravenous furosemide and has noticed prompt improvement in his breathing. His chest x-ray on admission does show some cardiomegaly with mild bibasilar pulmonary congestion according to my review of the films. His electrocardiogram shows a sinus mechanism with some nonspecific ST segment changes. He states that he was referred by his PCP for a stress test he describes having had what sounds like a Lexiscan nuclear study about 6 or 7 years ago by his estimation. He can't remember what was going on at that time a while stress test was done. He has never had a coronary angiogram performed. The patient's comorbidities include morbid obesity his BMI is 43 he has longstanding hypertension as well as diabetes. Review of Systems Constitutional: Constitutional: Reports lethargy Eyes: Eyes: Reports no additional eye complaints ENT: Reports system reviewed and no additional complaints, except as documented Cardiovascular: Cardiovascular: Reports as per HPI Gastrointestinal: Gastrointestinal: Reports no additional gastrointestinal complaints Genitourinary: Genitourinary: Reports no additional male genitourinary complaints Musculoskeletal: Musculoskeletal: Reports arthralgias Integumentary/Breasts: Skin/Breast: Reports system reviewed and no additional complaints, except as docu Neurologic: Reports system reviewed and no additional complaints, except as documented Psychiatric: Psychiatric: Reports no additional psychiatric complaints Endocrine: Endocrine: Reports no a
--- NOTE | 2020-03-10 15:33 | PM.IMPN ---
Progress Note: A&P Assessment and Plan (1) Acute respiratory failure: Qualifiers: Respiratory failure complication: hypoxia Qualified Code(s): J96.01 - Acute respiratory failure with hypoxia Code(s): J96.00 - Acute respiratory failure, unspecified whether with hypoxia or hypercapnia Status: Acute Assessment and Plan: Due to acute CHF exacerbation and uncontrolled hypertension. he is now resting comfortably on 2 L via nasal cannula. He is no longer requiring a BiPAP at this time. we will continue with IV Lasix and continue monitoring the patient's symptoms and slowly wean him off oxygen as tolerated Continue diuretic therapy and strict input and output measurements as well as daily weights. (2) CHF exacerbation: Qualifiers: Heart failure type: unspecified Qualified Code(s): I50.9 - Heart failure, unspecified Code(s): I50.9 - Heart failure, unspecified Status: Acute Assessment and Plan: Acute on chronic systolic CHF exacerbation.BNP was elevated at 749. Echo shows mild systolic congestive heart failure With an EF of 40-45%. Dr. Delacruz evaluated the patient and would like to continue with IV Lasix overnight and see how he is doing at that point. He would like an outpatient follow up for a Lexiscan stress test and further evaluation for his systolic CHF. Continue monitoring patient's symptoms.Strict input and output measurements via Mullins catheter. (3) Person under investigation for COVID-19: Code(s): Z20.828 - Contact with and (suspected) exposure to other viral communicable diseases Status: Acute Assessment and Plan: COVID-19 testing is negative (4) Uncontrolled hypertension: Code(s): I10 - Essential (primary) hypertension Status: Acute Assessment and Plan: patient is on multiple blood pressure medications and today it was much better controlled. Blood pressure at noon was 125/61. Stable. Continue monitoring patient's blood pressure and cardiology's input is greatly appreciated for dosing changes to regimen. (5) Type 2 diabetes mellitus with hyperglycemia: Code(s): E11.65 - Type 2 diabetes mellitus with hyperglycemia Status: Acute Assessment and Plan: the patient's most recent hemoglobin A1c was 7.1. H is glucoses were elevated to 303 192 on arrival to the ER. He has not checked his sugars or taking his insulin prior to arrival this morning glucose was 213. Will give him a partial dose of his evening 70 30 insulin. Continue monitoring Accu-Cheks and moderate sliding scale insulin have been ordered. Time Spent With Patient Time with patient: 25 - 35 minutes Subjective Date/time seen: 03/10/20 15:33 Interval history: date of service 03/10/2020: patient states he is feeling much better today and he is still requiring 2 L via nasal cannula. He does not feel as short of breath, denies any more coughing. He has chronic lymphedema in denies much increased to his lower extremity swelling. He denies any chest pain, fever, chills, nausea, vomiting, abdominal pain, constipation, diarrhea, calf pain or any other symptoms at this time. Review of Systems Review of Systems: All systems reviewed & are unremarkable except as noted in HPI and below Exam Narrative: Exam Narrative: General: 70-year-old man sitting up in bed resting comfortably on 2 L via nasal cannula. Appears comfortable. In no acute distress. Skin: No jaundice or cyanosis. Good skin turgor. Neck: Full range of motion. Supple. Respiratory: inspiratory crackles noted to bilateral lung bases. No wheezing.No bony chest wall tenderness. Cardiovascular: The heart has a reg
[2020-03-10 16:47] LABS: Glucose Point of Care 148 (65-105)
[2020-03-10] MEDS: ALPRAZolam 0.5 MG TABLET 1 MG PO (21:09)
[2020-03-10] MEDS: AMITRIPTYLINE HCL 10 MG TABLET PO (21:09)
[2020-03-10 23:38] LABS: Glucose Point of Care 98 (65-105)
[2020-03-11] VITALS (21 sets, daily range): BP systolic 120–168; BP diastolic 53–94; PULSE 54–111; RESP 12–27; TEMP 35.5–36.6; O2SAT 91–100
[2020-03-11 04:05] LABS: Glucose Point of Care 66 (65-105)
[2020-03-11] MEDS: GLUCOSE ORAL GEL 15 GM OF GLUCSE IN 37.5 GM TUBE PO (04:05)
[2020-03-11 04:35] LABS: Glucose Point of Care 104 (65-105)
[2020-03-11 04:58] LABS: Basophils Absolute Auto 0.1 K/mm3 (0.0-0.1); Basophils Percent Auto 0.7 % (0.2-1.2); Eosinophils Absolute Auto 0.2 K/mm3 (0-0.3); Eosinophils Percent Auto 2.5 % (0-4.4); Hematocrit 36.1 % (42.0-52.0); Hemoglobin 12.2 g/dL (14.0-18.0); Immature Granulocyte Absolute 0.05 K/mm3 (0.00-0.031); Immature Granulocyte Percent A 0.6 % (0-0.5); Lymphocytes Absolute Auto 0.91 K/mm3 (0.9-3.2); Lymphocytes Percent Auto 10.1 % (18.3-44.2); Mean Corpuscular HGB Conc 33.8 g/dl (32-36); Mean Corpuscular Volume 85.7 fl (80-100); Mean Platelet Volume 11.3 fl (7.4-10.4); Monocytes Absolute Auto 0.4 K/mm3 (0.1-0.6); Monocytes Percent Auto 4.7 % (2.6-8.5); Neutrophils Absolute Auto 7.4 K/mm3 (1.3-6.7); Neutrophils Percent Auto 81.4 % (45.5-73.1); Platelet Count Result 215 k/mm3 (150-375); Red Blood Count 4.21 M/mm3 (4.6-6.20); Red Cell Distribution Width 14.3 % (11.5-14.5)
[2020-03-11 05:12] LABS: Anion Gap 7 mmol/L (8-16); Blood Urea Nitrogen 30 mg/dL (9-20); Calcium 8.4 mg/dL (8.4-10.2); Carbon Dioxide 30 mmol/L (22-30); Chloride 99 mmol/L (98-107); Estimated CRCL calculation 57 ml/min; Estimated Glomerular Filt Rate 38; Glucose 109 mg/dL (75-110); Magnesium 1.9 mg/dL (1.6-2.3); Potassium 3.4 mmol/L (3.4-5.0); Sodium 136 mmol/L (137-145)
[2020-03-11] MEDS: cloNIDine HCL 0.1 MG TABLET 0.3 MG PO ×3 (06:50→21:31)
[2020-03-11 07:46] LABS: Glucose Point of Care 165 (65-105)
[2020-03-11] MEDS: FLUTICASONE/SALMETEROL 115-21 MCG INHALER 1 PUFF 2 PUFF INHALATION (08:30)
[2020-03-11] MEDS: ALPRAZolam 0.5 MG TABLET PO (10:03)
[2020-03-11] MEDS: PANTOPRAZOLE 40 MG TABLET PO (10:03)
[2020-03-11] MEDS: GLIMEPIRIDE 2 MG TABLET PO ×3 (10:04→17:32)
[2020-03-11] MEDS: hydroCHLOROthiazide 25 MG TABLET PO (10:04)
[2020-03-11] MEDS: amLODIPine BESYLATE 5 MG TABLET 10 MG PO (10:04)
[2020-03-11] MEDS: carvediloL 12.5 MG TABLET PO ×2 (10:04→20:06)
[2020-03-11] MEDS: lisinopriL 20 MG TABLET 40 MG PO (10:04)
[2020-03-11] MEDS: ASPIRIN 81 MG ENTERIC TABLET PO (10:04)
[2020-03-11] MEDS: INSULIN HUMAN ISOPHAN/REGULAR 70/30 (*BKC) 100 UNITS/ML 50 UNITS SUB-Q ×2 (10:06→17:33)
[2020-03-11] MEDS: FUROSEMIDE INJ 40 MG/4 ML VIAL IV PUSH (10:06)
[2020-03-11] MEDS: ENOXAPARIN 40 MG/0.4 ML SYRINGE SUB-Q (10:06)
[2020-03-11] MEDS: OPTI-GEN TAB 1 TABLET PO (10:11)
[2020-03-11 11:33] LABS: Glucose Point of Care 189 (65-105)
--- NOTE | 2020-03-11 12:18 | PM.PNCARD ---
Progress Note: A&P Assessment and Plan (1) Acute combined systolic and diastolic CHF, NYHA class 1: Code(s): I50.41 - Acute combined systolic (congestive) and diastolic (congestive) heart failure Status: Acute Assessment and Plan: New onset of acute CHF , likely due to hypertensive heart disease. He may have some underlying ischemic disease as well.. Excellent diuresis. Will change Lasix to p.o. Starting tomorrow. Ambulate, probably discontinue Mullins. Perhaps home tomorrow? (2) Hypertensive heart disease: Code(s): I11.9 - Hypertensive heart disease without heart failure Status: Acute Assessment and Plan: Resistant hypertension, on multiple meds. Clonidine and carvedilol have been increased this hospitalization Will change hydrochlorothiazide to spironolactone, but will need to follow his potassium levels. (3) Acute renal failure superimposed on chronic kidney disease: Code(s): N17.9 - Acute kidney failure, unspecified; N18.9 - Chronic kidney disease, unspecified Status: Acute Assessment and Plan: Rising BUN and creatinine noted ; will discontinue IV Lasix. Stage II CKD on admission. BMP tomorrow (4) Cardiomyopathy: Code(s): I42.9 - Cardiomyopathy, unspecified Status: Acute Assessment and Plan: Cardiomyopathy, hypertensive and possibly ischemic, EF 40-45% Taking lisinopril and carvedilol, and I will add spironolactone (5) Sleep apnea with hypersomnolence: Code(s): G47.10 - Hypersomnia, unspecified; G47.30 - Sleep apnea, unspecified Status: Acute Assessment and Plan: Patient told respiratory therapy that the fountain jerk told him he did not need to wear his BiPAP. Encouraging CPAP Subjective Date/time seen: 03/11/20 12:18 Follow-up for New onset decompensated CHF, hypertension and cardiomyopathy with EF of 40-45% and left ventricular enlargement. Date of service 03/11/2020: Feels good enough to go home, but has not been out of bed. No breathing problems anymore and no swelling. Systolic blood pressure 135-168 mmHg. Diuresing well, 1700 cc yesterday and 1200 out so far today. Review of Systems Constitutional: Constitutional: Denies fatigue and Denies weakness ENT: Denies epistaxis Cardiovascular: Cardiovascular: Denies chest pain, Reports pedal edema, Reports leg edema ( Chronic lymphedema with foot pumps at home), Denies lightheadedness and Denies palpitations Respiratory: Respiratory: Denies chest congestion and Denies dyspnea Gastrointestinal: Gastrointestinal: Denies abdominal pain Genitourinary: Genitourinary: Denies dysuria ( has a catheter) Musculoskeletal: Musculoskeletal: Denies back pain Integumentary/Breasts: Skin/Breast: Reports erythema ( chronic skin changes secondary to lymphedema) and Denies rash Neurologic: Denies confusion Psychiatric: Psychiatric: Denies behavioral changes Exam Const: General: comfortable and no acute distress HENMT: General nose exam: no epistaxis Eyes: EOM: EOMs intact bilaterally Neck: Neck: supple Resp: Effort & Inspection: normal respiratory effort Auscultation: clear to auscultation bilaterally Cardio: Rate: regular rate Rhythm: regular rhythm Heart sounds: no murmurs GI: Inspection: non-distended Other: soft and nontender Urinary Catheter: Urinary Catheter: patent and draining and urine clear Skin: General skin exam: erythema ( chronic skin changes of over lower extremities secondary to lymphedema) Neuro: Speech: normal speech Motor exam (neuro): Normal motor muscle tone present throughout Extrem: General: edema ( trace lower extremity edema) Psych: Mental Status: mental status grossly normal Affect: normal affect Objective Data Vital
[2020-03-11] MEDS: CHOLESTYRAMINE LIGHT 4 GM POWD.PACK PO ×3 (12:22→21:32)
--- NOTE | 2020-03-11 14:33 | PM.IMPN ---
Progress Note: A&P Assessment and Plan (1) Acute respiratory failure: Qualifiers: Respiratory failure complication: hypoxia Qualified Code(s): J96.01 - Acute respiratory failure with hypoxia Code(s): J96.00 - Acute respiratory failure, unspecified whether with hypoxia or hypercapnia Status: Acute Assessment and Plan: Due to acute CHF exacerbation and uncontrolled hypertension. he is now resting comfortably on room air. He is no longer requiring a BiPAP at this time. we will continue with IV Lasix and continue monitoring the patient's symptom Continue diuretic therapy and strict input and output measurements as well as daily weights. (2) CHF exacerbation: Qualifiers: Heart failure type: unspecified Qualified Code(s): I50.9 - Heart failure, unspecified Code(s): I50.9 - Heart failure, unspecified Status: Acute Assessment and Plan: Acute on chronic systolic CHF exacerbation.BNP was elevated at 749. Echo shows mild systolic congestive heart failure With an EF of 40-45%. Dr. Harris evaluated the patient and would like to continue with IV Lasix overnight and start PO in the morning. He would like an outpatient follow up for a Lexiscan stress test and further evaluation for his systolic CHF. Continue monitoring patient's symptoms.Strict input and output measurements via Mullins catheter. (3) Person under investigation for COVID-19: Code(s): Z20.828 - Contact with and (suspected) exposure to other viral communicable diseases Status: Acute Assessment and Plan: COVID-19 testing is negative (4) Uncontrolled hypertension: Code(s): I10 - Essential (primary) hypertension Status: Acute Assessment and Plan: patient is on multiple blood pressure medications and today it was much better controlled. Blood pressure at noon was 138/60. Stable. Continue monitoring patient's blood pressure and cardiology's input is greatly appreciated for dosing changes to regimen. (5) Type 2 diabetes mellitus with hyperglycemia: Code(s): E11.65 - Type 2 diabetes mellitus with hyperglycemia Status: Acute Assessment and Plan: the patient's most recent hemoglobin A1c was 7.1. H is glucoses were elevated to 303 192 on arrival to the ER. He has not checked his sugars or taking his insulin prior to arrival this morning glucose was 189 Will give him a partial dose of his evening 70 30 insulin. Continue monitoring Accu-Cheks and moderate sliding scale insulin have been ordered. Time Spent With Patient Time with patient: 25 - 35 minutes Subjective Date/time seen: 03/11/20 14:33 Interval history: date of service 03/11/2020: Patient states he is feeling much better today and is breathing on room air. He has narcolepsy and has been falling asleep all day. His states we held his medication for narcolepsy and she wants to know if we will restart it. He does not feel as short of breath, denies any more coughing. He has chronic lymphedema in denies much increased to his lower extremity swelling. He denies any chest pain, fever, chills, nausea, vomiting, abdominal pain, constipation, diarrhea, calf pain or any other symptoms at this time. Review of Systems Review of Systems: All systems reviewed & are unremarkable except as noted in HPI and below Exam Narrative: Exam Narrative: General: 70-year-old man sitting up in bed resting comfortably on room air. Appears comfortable. In no acute distress. Skin: No jaundice or cyanosis. Good skin turgor. Neck: Full range of motion. Supple. Respiratory: inspiratory crackles noted to bilateral lung bases. No wheezing.No bony chest
--- NOTE | 2020-03-11 15:14 | PCOTNOTE ---
Attempted OT evaluation. Patient declined. Patient states he does not feel that he needs any therapy at this time.
--- NOTE | 2020-03-11 15:16 | PCPTNOTE ---
PT/OT orders to eval and treat...patient declined...not interested in any more ...of that crap
[2020-03-11 17:09] LABS: Glucose Point of Care 189 (65-105)
[2020-03-11] MEDS: AMITRIPTYLINE HCL 10 MG TABLET PO (20:06)
[2020-03-11] MEDS: ALPRAZolam 0.5 MG TABLET 1 MG PO (20:06)
[2020-03-11 21:12] LABS: Glucose Point of Care 195 (65-105)
[2020-03-12] VITALS (9 sets, daily range): BP systolic 159–168; BP diastolic 74–77; PULSE 60–88; RESP 18–20; TEMP 36.6; O2SAT 92–96
[2020-03-12 05:11] LABS: Anion Gap 6 mmol/L (8-16); Blood Urea Nitrogen 28 mg/dL (9-20); Calcium 8.6 mg/dL (8.4-10.2); Carbon Dioxide 30 mmol/L (22-30); Chloride 98 mmol/L (98-107); Estimated CRCL calculation 60 ml/min; Estimated Glomerular Filt Rate 40; Glucose 72 mg/dL (75-110); Potassium 3.3 mmol/L (3.4-5.0); Sodium 134 mmol/L (137-145)
[2020-03-12] MEDS: cloNIDine HCL 0.1 MG TABLET 0.3 MG PO (05:30)
[2020-03-12 07:52] LABS: Glucose Point of Care 74 (65-105)
[2020-03-12 08:31] LABS: Magnesium 1.9 mg/dL (1.6-2.3)
[2020-03-12] MEDS: INSULIN HUMAN ISOPHAN/REGULAR 70/30 (*BKC) 100 UNITS/ML 50 UNITS SUB-Q (08:31)
[2020-03-12] MEDS: carvediloL 12.5 MG TABLET PO (08:34)
[2020-03-12] MEDS: POTASSIUM CHLORIDE 20 MEQ TABLET 40 MEQ PO (08:35)
[2020-03-12] MEDS: SPIRONOLACTONE 25 MG TABLET PO (08:35)
[2020-03-12] MEDS: FUROSEMIDE 40 MG TABLET PO (08:35)
[2020-03-12] MEDS: OPTI-GEN TAB 1 TABLET PO (08:35)
[2020-03-12] MEDS: ALPRAZolam 0.5 MG TABLET PO (08:35)
[2020-03-12] MEDS: GLIMEPIRIDE 2 MG TABLET PO (08:35)
[2020-03-12] MEDS: PANTOPRAZOLE 40 MG TABLET PO (08:35)
[2020-03-12] MEDS: ASPIRIN 81 MG ENTERIC TABLET PO (08:35)
[2020-03-12] MEDS: lisinopriL 20 MG TABLET 40 MG PO (08:35)
[2020-03-12] MEDS: amLODIPine BESYLATE 5 MG TABLET 10 MG PO (08:35)
[2020-03-12] MEDS: ENOXAPARIN 40 MG/0.4 ML SYRINGE SUB-Q (08:36)
[2020-03-12] MEDS: FLUTICASONE/SALMETEROL 115-21 MCG INHALER 1 PUFF 2 PUFF INHALATION (08:47)
--- NOTE | 2020-03-12 10:53 | PM.PNCARD ---
Progress Note: A&P Assessment and Plan (1) Acute combined systolic and diastolic CHF, NYHA class 1: Code(s): I50.41 - Acute combined systolic (congestive) and diastolic (congestive) heart failure Status: Acute Assessment and Plan: New onset of acute CHF , likely due to hypertensive heart disease. There are case reports of Adderall causing cardiomyopathy as well. He may have some underlying ischemic disease as well. Outpatient Lexiscan is planned. Excellent diuresis. Okay for discharge from my point of view. Has an appointment in our office on March 28, and also instructions to get a BMP prior to the visit. (2) Hypertensive heart disease: Code(s): I11.9 - Hypertensive heart disease without heart failure Status: Acute Assessment and Plan: Resistant hypertension, on multiple meds. Clonidine and carvedilol have been increased this hospitalization Will change hydrochlorothiazide to spironolactone, but will need to follow his potassium levels. Potassium is a bit low today. (3) Acute renal failure superimposed on chronic kidney disease: Code(s): N17.9 - Acute kidney failure, unspecified; N18.9 - Chronic kidney disease, unspecified Status: Acute Assessment and Plan: Rising BUN and creatinine noted ; will discontinue IV Lasix. Stage II CKD on admission. Renal function is slightly improved today. (4) Cardiomyopathy: Code(s): I42.9 - Cardiomyopathy, unspecified Status: Acute Assessment and Plan: Cardiomyopathy, hypertensive and possibly ischemic, EF 40-45% Taking lisinopril and carvedilol, and added spironolactone (5) Sleep apnea with hypersomnolence: Code(s): G47.10 - Hypersomnia, unspecified; G47.30 - Sleep apnea, unspecified Status: Acute Assessment and Plan: Has sleep apnea , compliant with CPAP at home, and narcolepsy. Takes Adderall. Literature shows that Adderall can increase blood pressure, increase risk of a arrhythmias ( AFib in ventricular arrhythmias), and there are case reports of long-term use resulting in cardiomyopathy and PA secondary to vasospasm. The FDA says amphetamine is contraindicated with any cardiovascular disease. I recommend he talk to Dr. Bruno or see a sleep medicine doctor to find an alternative. Subjective Date/time seen: 03/12/20 10:53 Follow-up for New onset decompensated CHF, hypertension and cardiomyopathy with EF of 40-45% and left ventricular enlargement. Date of Visit 03/11/2020: Feels good enough to go home, but has not been out of bed. No breathing problems anymore and no swelling. Systolic blood pressure 135-168 mmHg. Diuresing well, 1700 cc yesterday and 1200 out so far today. Date of service 03/12/2020: Very eager to go home. Slept all day yesterday but could not sleep last night. No shortness of breath walking to the bathroom, swelling is better. BP 1 20-170 / 50/94 mmHg. I's and O's yesterday were 2700/ 5000 . Review of Systems Constitutional: Constitutional: Reports fatigue Eyes: Eyes: Reports no additional eye complaints ENT: Denies epistaxis Cardiovascular: Cardiovascular: Denies chest pain, Reports pedal edema, Denies lightheadedness and Denies palpitations Respiratory: Respiratory: Denies chest congestion, Denies dyspnea and Denies dyspnea on exertion Gastrointestinal: Gastrointestinal: Denies abdominal pain Genitourinary: Genitourinary: Denies dysuria Musculoskeletal: Musculoskeletal: Denies back pain Integumentary/Breasts: Skin/Breast: Denies rash Neurologic: Reports system reviewed and no additional complaints, except as documented Psychiatric: Psychiatric: Reports no additional psychiatric complaints Exam Narrative: Exam Narrative: Obese male sitting up in chair, does not ap
--- NOTE | 2020-03-12 11:27 | PM.DS ---
DS: Admitting Diagnosis Admitting Diagnosis Admitting Diagnosis: Acute respiratory failure with hypoxia DS: Discharge Diagnosis Discharge Diagnosis (1) Acute respiratory failure: Qualifiers: Respiratory failure complication: hypoxia Qualified Code(s): J96.01 - Acute respiratory failure with hypoxia Code(s): J96.00 - Acute respiratory failure, unspecified whether with hypoxia or hypercapnia Status: Acute Assessment and Plan: Due to acute CHF exacerbation and uncontrolled hypertension. he is now resting comfortably on room air. He is no longer requiring a BiPAP at this time. he is feeling much better at this time in stable for discharge. (2) CHF exacerbation: Qualifiers: Heart failure type: unspecified Qualified Code(s): I50.9 - Heart failure, unspecified Code(s): I50.9 - Heart failure, unspecified Status: Acute Assessment and Plan: Acute systolic CHF exacerbation. BNP was elevated at 749. Echo shows mild systolic congestive heart failure with an EF of 40-45%. Dr. Harris evaluated the patient And started him on oral Lasix today and otherwise feels he is stable for discharge. He would like an outpatient follow up for a Lexiscan stress test and further evaluation for his systolic CHF. (3) Person under investigation for COVID-19: Code(s): Z20.828 - Contact with and (suspected) exposure to other viral communicable diseases Status: Acute Assessment and Plan: COVID-19 testing is negative (4) Uncontrolled hypertension: Code(s): I10 - Essential (primary) hypertension Status: Acute Assessment and Plan: patient is on multiple blood pressure medications and today it was much better controlled. Blood pressure at noon was 159/77. Stable. 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 (5) Type 2 diabetes mellitus with hyperglycemia: Code(s): E11.65 - Type 2 diabetes mellitus with hyperglycemia Status: Acute Assessment and Plan: the patient's most recent hemoglobin A1c was 7.1. H Have him continue his home insulin and oral medications. Recommended checking his glucose 5 times a day and hypoglycemic warnings given. DS: Summary Hospital Course Reason for hospitalization: patient is a 70-year-old man with a history of uncontrolled hypertension, insulin-dependent diabetes, and recent diagnosis of Diastolic CHF, who presented to the emergency department with worsening shortness of breath. initial vitals showed temperature of 97.6?, elevated blood pressure to 186/111, tachycardic heart rate 108, respiratory rate 20, oxygen saturation 96% on CPAP via EMS. Initial labs showed leukocytosis at 12,500, normal neutrophil count, slightly elevated platelets at 390, BMP showed baseline creatinine at 1.4, BUN 23, glucose 192. troponins were slightly elevated at 0.022, 0.045, 0.041. Urinalysis showed 3+ protein, 1+ glucose, 51-75 RBCs, and white blood cells 4-6. COVID test was negative. Chest x-ray showed congestive heart failure, pulmonary edema, cervical pulmonary edema it is mildly increased since 03/01/2020. patient was admitted into the hospital and given IV Lasix and state on a BiPAP until stable. Cardiology was consulted for further evaluation workup, venous Doppler ultrasounds, echocardiogram and further diuresis. Please see above under each diagnosis as a what transpired during his admission. Status at Discharge Cognitive/behavi
== END 2020-03-12 12:19 | disposition home or self-care (01) | DRG 291 ==
LOC: ANHED 11:21 → ANHICU 12:17 → ANHIMU 03-10 02:34 → ANHICU 03-15 13:14 → ANHIMU 03-15 13:14
PROVIDERS: Internal Medicine Cardiovascular Disease; Physician Assistant; Admitting Provider Family Medicine; Emergency Provider Emergency Medicine; PCP Family Medicine; Visit Provider Physician Assistant
DX: I13.0 Hypertensive heart and chronic kidney disease with heart failure and stage 1 through stage 4 chronic kidney disease, or unspecified chronic kidney disease (principal); J96.00 Acute respiratory failure, unspecified whether with hypoxia or hypercapnia; I50.23 Acute on chronic systolic (congestive) heart failure; N17.9 Acute kidney failure, unspecified; I42.9 Cardiomyopathy, unspecified; Z20.828 Contact with and (suspected) exposure to other viral communicable diseases; E11.40 Type 2 diabetes mellitus with diabetic neuropathy, unspecified; G47.33 Obstructive sleep apnea (adult) (pediatric); E78.5 Hyperlipidemia, unspecified; E11.65 Type 2 diabetes mellitus with hyperglycemia; E11.22 Type 2 diabetes mellitus with diabetic chronic kidney disease; N18.2 Chronic kidney disease, stage 2 (mild); G47.30 Sleep apnea, unspecified
CPT/HCPCS: 36415; 71045; 80048; 80053; 81001; 82728; 83605; 83615; 83735; 83880; 84484; 85025; 86140; 87086; 87635; 93005; 93970; 94002; 94640; 96374; 96375; 97161; 97165; 99291; A9270; C8929; C9803; J0360; J1650; J1815; J1940; J2405; Q9957; U0003

== ENCOUNTER 2020-03-21 07:59 | Outpatient (CLI) | payer MEDICARE, SELFPAY ==
[2020-03-21 08:55] LABS: Anion Gap 7 mmol/L (8-16); Blood Urea Nitrogen 30 mg/dL (9-20); Calcium 8.8 mg/dL (8.4-10.2); Carbon Dioxide 27 mmol/L (22-30); Chloride 101 mmol/L (98-107); Estimated Glomerular Filt Rate 43; Glucose 187 mg/dL (75-110); Potassium 4.7 mmol/L (3.4-5.0); Sodium 135 mmol/L (137-145)
== END 2020-03-21 08:00 | disposition home or self-care (01) ==
LOC: ANHLAB 08:01
PROVIDERS: PCP Family Medicine; Visit Provider Nurse Practitioner Adult Health
DX: I50.20 Unspecified systolic (congestive) heart failure (principal)
CPT/HCPCS: 36415; 80048

== ENCOUNTER 2020-05-02 01:21 | Outpatient (CLI) | payer MEDICARE, SELFPAY ==
[2020-05-02 19:24] LABS: SARS-CoV-2 RNA PCR Negative
== END 2020-05-02 01:22 | disposition home or self-care (01) ==
LOC: ANHCOVIDDT 01:22
PROVIDERS: PCP Family Medicine; Visit Provider Internal Medicine Cardiovascular Disease
DX: Z01.812 Encounter for preprocedural laboratory examination (principal); Z20.828 Contact with and (suspected) exposure to other viral communicable diseases
CPT/HCPCS: 87635; C9803; U0003

== ENCOUNTER 2020-05-02 09:35 | Outpatient (CLI) | payer MEDICARE, SELFPAY ==
[2020-05-02 10:34] LABS: Anion Gap 7 mmol/L (8-16); Blood Urea Nitrogen 37 mg/dL (9-20); Calcium 8.9 mg/dL (8.4-10.2); Carbon Dioxide 31 mmol/L (22-30); Chloride 104 mmol/L (98-107); Estimated Glomerular Filt Rate 40; Glucose 209 mg/dL (75-110); Potassium 4.1 mmol/L (3.4-5.0); Sodium 142 mmol/L (137-145)
== END 2020-05-02 09:36 | disposition home or self-care (01) ==
PROVIDERS: PCP Family Medicine; Visit Provider Nurse Practitioner Adult Health
DX: I50.42 Chronic combined systolic (congestive) and diastolic (congestive) heart failure (principal)
CPT/HCPCS: 36415; 80048; 87635; C9803; U0003

== ENCOUNTER 2020-05-04 05:18 | Day surgery (SDC) | payer MEDICARE, SELFPAY ==
[2020-05-04] VITALS (29 sets, daily range): BP systolic 137–188; BP diastolic 61–97; PULSE 59–73; RESP 10–20; TEMP 36.2–37.4; O2SAT 92–100; BMI 43.5
[2020-05-04 08:39] LABS: Basophils Absolute Auto 0.1 K/mm3 (0.0-0.1); Basophils Percent Auto 1.1 % (0.2-1.2); Eosinophils Absolute Auto 0.4 K/mm3 (0-0.3); Eosinophils Percent Auto 5.6 % (0-4.4); Hematocrit 32.7 % (42.0-52.0); Hemoglobin 11.3 g/dL (14.0-18.0); Immature Granulocyte Absolute 0.04 K/mm3 (0.00-0.031); Immature Granulocyte Percent A 0.6 % (0-0.5); Lymphocytes Absolute Auto 1.68 K/mm3 (0.9-3.2); Lymphocytes Percent Auto 23.6 % (18.3-44.2); Mean Corpuscular HGB Conc 34.6 g/dl (32-36); Mean Corpuscular Hemoglobin 30.5 pg (26-34); Mean Corpuscular Volume 88.1 fl (80-100); Mean Platelet Volume 11.4 fl (7.4-10.4); Monocytes Absolute Auto 0.4 K/mm3 (0.1-0.6); Neutrophils Absolute Auto 4.5 K/mm3 (1.3-6.7); Neutrophils Percent Auto 63.1 % (45.5-73.1); Platelet Count Result 182 k/mm3 (150-375); Red Blood Count 3.71 M/mm3 (4.6-6.20); Red Cell Distribution Width 15.2 % (11.5-14.5); White Blood Count 7.1 K/mm3 (4.5-10.0)
[2020-05-04 08:49] LABS: INR 1.1; Prothrombin Time 13.4 Seconds (11.1-14.7)
[2020-05-04 08:51] LABS: Anion Gap 9 mmol/L (8-16); Blood Urea Nitrogen 38 mg/dL (9-20); Calcium 8.8 mg/dL (8.4-10.2); Carbon Dioxide 26 mmol/L (22-30); Chloride 105 mmol/L (98-107); Estimated Glomerular Filt Rate 43; Glucose 122 mg/dL (75-110); Potassium 4.3 mmol/L (3.4-5.0); Sodium 140 mmol/L (137-145)
--- NOTE | 2020-05-04 10:46 | WPDMODSED ---
Moderate Sedation Note-Pt Data Patient Data Diagnosis: New cardiomyopathy, abnormal stress test Present Complaint: none Procedure to be performed/Plan: left heart catheterization with selective left and right coronary angiography with left ventriculography and hemodynamics and possible percutaneous intervention and stent implantation. Allergies Allergy/AdvReac Type Severity Reaction Status Date / Time exenatide Allergy Unknown Unknown Verified 05/03/20 16:05 metformin Allergy Unknown Nausea Verified 05/03/20 16:05 nebivolol Allergy Unknown Unknown Verified 05/03/20 16:05 pioglitazone Allergy Unknown sleepiness Verified 05/03/20 16:05 Home Medications Medication Instructions Recorded Confirmed Type aspirin 81 mg tablet,delayed 81 mg PO DAILY 08/23/19 05/04/20 History release qxwfsxyppmxj-feruozdk-ltoksi 1 tablet PO DAILY 08/23/19 05/04/20 History pantoprazole 40 mg tablet,delayed 40 mg PO QAM #90 tablet 01/06/20 05/04/20 Rx release albuterol sulfate 90 mcg/actuation 2 inhalation INHALATION Q4H #8.5 gm 02/09/20 05/04/20 Rx aerosol inhaler glimepiride 2 mg tablet 2 mg PO TID 90 Days #270 tablet 02/25/20 05/04/20 Rx insulin human U-100 NPH-regulr 65 unit SUB-Q BID 90 Days #120 ml 02/25/20 05/04/20 Rx 70-30 mix 100 unit/mL subcutaneous susp insulin syringe-needle U-100 1 mL #200 each 02/25/20 05/04/20 Rx 31 gauge x 5/16 alprazolam 1 mg PO HS 03/09/20 05/04/20 History amitriptyline 10 mg PO .qhs 03/09/20 05/04/20 History amlodipine 10 mg PO DAILY 03/10/20 05/04/20 History clonidine HCl 0.3 mg PO Q8H 30 Days #90 tablet 03/12/20 05/04/20 Rx furosemide 40 mg PO BID #60 tablet 03/12/20 05/04/20 Rx carvedilol 25 mg tablet 25 mg PO Q12H #60 tablet 03/17/20 05/04/20 Rx alprazolam 0.5 mg tablet 0.5 mg PO DAILY #120 tablet 04/11/20 05/04/20 Rx cholestyramine-aspartame 4 gram 4 gm PO TID #210 gm 04/11/20 05/04/20 Rx oral powder lisinopril 40 mg tablet 40 mg PO DAILY #90 tablet 04/17/20 05/04/20 Rx spironolactone 25 mg tablet 25 mg PO QAM #30 tablet 04/17/20 05/04/20 Rx Current Medications: Active Medications Sodium Chloride (Normal Saline Iv) 500 mls @ 100 mls/hr IV CONT .Q5H [facility] Sedation/Anesthesia: No previous sedation/anesthesia problems (including family history). [facility] Past Medical History Medical History Acquired lymphedema Cardiomyopathy CHF (congestive heart failure) echocardiogram 2015 demonstrating normal ejection fraction with moderate left ventricular hypertrophy and diastolic dysfunction with mild left atrial enlargement Chronic venous stasis dermatitis Diabetes mellitus on long-term insulin therapy with a last hemoglobin A1c of 7.1 Diabetic neuropathy Essential (primary) hypertension Hepatic steatosis Hypertensive heart disease Lymphedema of upper extremity following lymphadenectomy Mixed hyperlipidemia Morbid obesity Narcolepsy per patient report. He has never had a multi sleep latency test. 8- he did have a multiple sleep latency test that showed the narcolepsy Obesity (BMI 30.0-34.9) LOU (obstructive sleep apnea) Stress fracture, right foot, subsequent encounter for fracture with routine healing Surgical History Surgical History H/O foot surgery June 2016 debridement of the right diabetic foot ulcer with proximal resection of 2nd and 3rd metatarsal head performed by Dr. Chahal History of appendectomy in the 1980s History of cholecystectomy in the History of colonoscopy with polypectomy for polyps resected that were benign History of esophagogastroduodenoscopy (EGD) with gastric polypectomy December 2019 History of parotid gland excision 1998 with benign pathology Status post excision of lipoma left neck September 2018 Family History Family History Mother Diabetes mellitus Hypertension Cerebr
--- NOTE | 2020-05-04 10:49 | WPDHPUPDATE1 ---
History and Physical Update Update Date/Time: 05/04/20 10:49 History and Physical has been reviewed, including an updated exam of the patient. There are NO changes in the patient's condition. Risks, benefits, and alternatives have been discussed and questions answered. Patient agrees to proceed with procedure.
--- NOTE | 2020-05-04 10:49 | PM.PROC ---
Procedure Note - Detailed Date of procedure: 05/04/20 Pre-op diagnosis: Abnormal Stress Test new diagnosis cardiomyopathy Post-op diagnosis: same Procedure performed: left heart catheterization with selective left and right coronary angiography with left ventricular hemodynamics Description of procedure: BRIEF HISTORY OF PRESENT ILLNESS: Patient is a pleasant 70-year-old male with a history of hypertension, diabetes mellitus, dyslipidemia admitted with recent heart failure found have LV dysfunction for which she underwent noninvasive ischemic evaluation as an outpatient which was abnormal with ischemia in the basal anteroseptal and mid anteroseptal wall and fixed infarction the apex.EF by Echo 40-45% and Lexiscan stress test 51%. He was referred for coronary angiography for delineation of his coronary anatomy PROCEDURES PERFORMED: 1. Left heart catheterization 2. Selective left and right coronary angiography 3. Left ventricular hemodynamics 4. Moderate/conscious sedation administration CATHETERS UTILIZED: Left coronary system- 5 Micronesian JL4 catheter Right coronary system- 5 Micronesian JR4 catheter Left ventricular hemodynamics- 5 Micronesian angled pigtail catheter PROCEDURE IN DETAIL: After verbal and written informed consent was obtained the patient, risks, benefits, and alternatives explained in detail the patient agreed to proceed with the plan of care as outlined above. The patient was subsequently brought to the cardiac catheterization lab, placed on the cardiac catheterization table, and prepped and draped in the usual sterile fashion. Utilizing approximately 15cc of 1% subcutaneous Lidocaine, the right groin was then locally anesthetized. Utilizing the modified Seldinger technique, a 5 Micronesian arterial vascular access sheath was inserted in the right common femoral artery easily and without complications. Through this access, coronary angiography was subsequently obtained in multiple standard re-projections. Following this, a 5 Micronesian angled pigtail catheter was advanced retrograde across aortic valve into the cavity of the left ventricle. Left ventricular hemodynamics were obtained and pullback across aortic valve was subsequently recorded. The vascular access sheath and angiographic catheters were flushed before and after catheter exchanges. At the conclusion of the diagnostic portion of the procedure, all angiographic guidewires and catheters were removed and the 5 Micronesian arterial vascular access sheath left in place in anticipation for percutaneous intervention There no complications noted at the conclusion of the diagnostic portion of the study. MODERATE SEDATION/ANESTHESIA ADMINISTRATION: Patient reports no prior problems with sedation/anesthesia. Please see pre-sedation noted for physical examination documentation. Sedation start time was 1100 and end time was 1132 for a total intra-service/procedure face-face time of 32 minutes. A total of 1 mg intravenous Versed and a total of 50 mcg intravenous Fentanyl in multiple divided doses was administered for moderate sedation. Moderate sedation was administered by qualified/certified observer Merly Pastor RN under my supervision with intra-procedure [id number] observation and management throughout the entirety of the procedure. There were no other issues or complications and patient tolerated the procedure well. See post-anesthesia documentation. Anesthesia: local and other ( moderate/conscious sedation) Surgeon: Praveen Lawrence MD Drains: No Packing: No Pathology: none sent Complications: No immediate complications Condition: stable Disposition: same day Findings: CORONARY ANGIOGRAPHY: The LEFT MAIN arose from the left coronary cusp and was without angiographically significant disease. The left main then bifurcated into the left anterior descending artery and circumflex coronary artery. LEFT ANTERIOR DESCENDING ARTERY: Moderate to large caliber vessel extending to
--- NOTE | 2020-05-04 12:15 | P.PCNCC_ITS ---
Cardiac Cath Procedure Note Date of procedure:: 05/04/20 Performing physician:: Candido Andrade MD Date of service 05/04/2020 Indication:: abnormality coronary angiogram abnormal stress test. Brief clinical history:: This 70-year-old patient who was recently diagnosed with CHF and mild systolic dysfunction. As part of his evaluation he underwent stress test that shows some abnormality in the LAD territory and therefore he just had a coronary angiogram by that showed to intermediate lesions in the LAD 1 in the proximal 2nd 1 in the mid segment. Each is about 60 to 70%. I was asked to evaluate this and to see if we need to stent. Procedure Procedure performed:: 1- IFR of LAD. 2- deployed drug-eluting stent 2.75 x 15 to mid LAD. 3- Selective right common femoral arterial angiogram. Sedation/Medication given:: Moderate sedation was given during the previously and therefore I did not have to give more sedation. Access site:: right common femoral artery. Estimated blood loss:: 5cc Procedure note:: after informed consent the 5 Kiswahili right femoral sheath was exchanged for 6 Kiswahili sheath. After that 6 Kiswahili guide catheter CLS 3.5 was advanced and engaged in the left main. IFR wire was zeroed outside the body and advanced through the guide and outside the guide and normalization pressure is done. The pressure wire was advanced to distal LAD and Measurement of ifr was done. the measurement was 0.88. At that time we decided to intervene on the mid LAD and therefore we took 2.5 x 12 balloon and inflated it on the 16 DALI for 25 seconds. And then deployment ofdrug-eluting stent 2.75 by 15 under normal pressure for 25 seconds. Then after that we pulled the wire to proximal to the stent and we measured again IFR and at that time it was 0.94 and determined that the proximal lesion was not significant enough to be fixed. the right common femoral artery angiogram was done. Findings:: 1- IFR on the combination of the proximal and mid LAD stenosis was 0.88 2- IFR over the proximal LAD stenosis after fixing the mid LAD stenosis was 0.94. 3- right common femoral artery angiogram shows no significant disease of the right common femoral artery however the sheath has entered at the bifurcation. Conclusion:: Successful stenting of mid LAD stenosis. there is stenosis of the proximal LAD but By ifr was not significant to be fixed and therefore will be managed medically. Assessment and Plan Additional Plan 1- Continue aspirin and Brilinta. 2- continue risk factor modification for CAD.
--- NOTE | 2020-05-04 12:23 | SUR.PHASEII ---
BEGIN PHASE II RECOVERY. RETURNS TO [facility]IRD 4 S/P C W/ PCI W/ DR'S LESVIA AND ALEXANDREA. AWAKE AND ALERT ON RETURN. DENIES CP OR SOB. REVIEWED POST PROCEDURE ORDERS, PLAN OF CARE AND BEDREST ACTIVITY RESTRICTIONS. 6FR SHEATH INTACT R. GROIN POST PROCEDURE. SITE CLEAR, NO DRAINAGE. GUAZE DRESSING C/D/I. R. PEDAL PULSE STRONG. EKG POST PROCEDURE IN PROGRESS AND DR. LAKHANI HERE TO SPEAK W/ PT'S . WILL CONTINUE TO MONITOR. SHEATH ABLE TO BE DISCONTINUED AFTER 1405 DUE TO 1205 ENDING OF ANGIOMAX.
--- NOTE | 2020-05-04 12:28 | ECG_ITS ---
Measurements Intervals [place] Rate: 66 P: 51 CO: 255 QRS: -13 QRSD: 117 T: 135 QT: 415 QTc: 438 Interpretive Statements SINUS RHYTHM WITH FIRST DEGREE AV BLOCK INTRAVENTRICULAR CONDUCTION DELAY DELAYED PRECORDIAL R/S TRANSITION ST-T WAVE ABNORMALITY IN HIGH LATERAL LEADS- CONSIDER ISCHEMIA BASELINE ARTIFACT- I, III, AVL, AVF ABNORMAL ECG Electronically Signed On 05-04-2020 12:35:36 CDT by Shelton Wyman D.O.
[2020-05-04] MEDS: SODIUM CHLORIDE 0.9% IV 1,000 ML 100 ML IV CONT (14:00)
--- NOTE | 2020-05-04 14:25 | SUR.PHASEII ---
MANUAL SHEATH PULL FROM R. GROIN PER PROTOCOL BY SHWAN HOGUE RN. FIRM, STEADY MANUAL PRESSURE TO SITE UNTIL HEMOSTASIS ACHIEVED. KAMERON WELL. WILL CONTINUE TO MONITOR.
--- NOTE | 2020-05-04 15:00 | SUR.PHASEII ---
HEMOSTASIS ACHIEVED TO R. GROIN PUNCTURE SITE AFTER 35 MINUTES MANUAL PRESSURE HOLD TO SITE BY SHAWN HOGUE RN. TOLERATED WELL. BEDREST X 6 HOURS BEGINS. UP AT 2100. REVIEWED BEDREST ACTIVITY RESTRICTIONS TO PT, . BOTH VOICED UNDERSTANDING.
--- NOTE | 2020-05-04 16:00 | SUR.PHASEII ---
END PHASE II RECOVERY AT THIS TIME. NO NEW CHANGES NOTED TO R. GROIN PUNCTURE SITE AND DRESSING. VOICES NO C/O. VOIDING WELL VIA URINAL. R. PEDAL PULSE REMAINS STRONG. WILL CONTINUE TO MONITOR CLOSELY. TO REMAIN IN AIR QUALITY CHEMIST 4 AT THIS TIME EXTENDED RECOVERY AFTER OUTPT. PROCEDURE. SEE PCS FOR FURTHER DOCUMENTATION.
--- NOTE | 2020-05-04 16:01 | ADMGEN ---
This patient, Gulshan Voss, was admitted TO THE [facility] 4 EXTENDED RECOVERY POST OUTPATIENT [facility] W/ PCI W/ DR. LAKHANI AND DR. LECHUGA. SEE [facility] PHASE II FOR PREVIOUS DOCUMENTATION. HEMOSTASIS TO R. GROIN PUNCTURE SITE AFTER 35 MINUTES MANUAL PRESSURE HOLD AT 1500. BEDREST CONTINUES X 6 HOURS UNTIL 2100. HAVE REVIEWED BEDREST ACTIVITY RESTRICTIONS W/ PT AND . BOTH VOICE UNDERSTANDING. R. GROIN PUNCTURE SITE W/ C/D/I STAT SEAL AND TEGADERM DRESSING. SITE SOFT, NONTENDER. NO BLEEDING OR HEMATOMA NOTED. STRONG R. PEDAL PULSE PRESENT. Patient/family oriented to hospital policies and general routines including ID bracelet, bed and alarms, visiting hours, pain management, procedures, bathroom and other care routines, personal items, smoking policy, room service/diet, and visiting hours. Valuables list has been completed. Information on how to activate the Rapid Response Team has been discussed. Patient/Family are encouraged to report perceived risks to care and to ask questions if they do not understand what they are told or what they should do.
--- NOTE | 2020-05-04 16:06 | SUR.PHASEII ---
SEAL MIXER Tika Rainey made aware of patient's blood pressure and CPAP requirements. Awaiting further orders at this time.
[2020-05-04 16:11] LABS: Glucose Point of Care 127 (65-105)
[2020-05-04] MEDS: cloNIDine HCL 0.1 MG TABLET PO (16:55)
[2020-05-04] MEDS: cloNIDine HCL 0.2 MG TABLET PO (16:55)
[2020-05-04 20:50] LABS: Glucose Point of Care 187 (65-105)
--- NOTE | 2020-05-04 21:39 | PC.NURSE ---
Patient to take 2100 medications before he goes to sleep. Does not want meds at this time.
[2020-05-04] MEDS: ALPRAZolam (*CRX) 0.5 MG TABLET 1 MG PO (22:33)
[2020-05-04] MEDS: TICAGRELOR 90 MG TABLET PO (22:33)
[2020-05-04] MEDS: AMITRIPTYLINE HCL 10 MG TABLET PO (22:33)
[2020-05-04] MEDS: carvediloL 25 MG TABLET PO (22:34)
[2020-05-05] VITALS (9 sets, daily range): BP systolic 133–143; BP diastolic 60–65; PULSE 60–72; RESP 16–18; TEMP 36.3–36.6; O2SAT 98–99
[2020-05-05 05:32] LABS: Anion Gap 10 mmol/L (8-16); Blood Urea Nitrogen 26 mg/dL (9-20); Calcium 8.6 mg/dL (8.4-10.2); Carbon Dioxide 26 mmol/L (22-30); Chloride 103 mmol/L (98-107); Estimated CRCL calculation 64 ml/min; Estimated Glomerular Filt Rate 43; Glucose 200 mg/dL (75-110); Potassium 3.7 mmol/L (3.4-5.0); Sodium 139 mmol/L (137-145)
[2020-05-05] MEDS: cloNIDine HCL 0.1 MG TABLET PO (05:57)
[2020-05-05] MEDS: cloNIDine HCL 0.2 MG TABLET PO (05:57)
[2020-05-05] MEDS: carvediloL 25 MG TABLET PO (08:33)
[2020-05-05] MEDS: TICAGRELOR 90 MG TABLET PO (08:33)
[2020-05-05] MEDS: PANTOPRAZOLE 40 MG TABLET PO (08:33)
[2020-05-05] MEDS: ASPIRIN 81 MG ENTERIC TABLET PO (08:33)
[2020-05-05] MEDS: ALPRAZolam (*CRX) 0.5 MG TABLET PO (08:33)
[2020-05-05] MEDS: SPIRONOLACTONE 25 MG TABLET PO (08:34)
[2020-05-05] MEDS: amLODIPine BESYLATE 5 MG TABLET 10 MG PO (08:34)
--- NOTE | 2020-05-05 11:43 | PM.DS ---
DS: Admitting Diagnosis Admitting Diagnosis Admitting Diagnosis: Abnormal Stress Test DS: Discharge Diagnosis Discharge Diagnosis (1) CAD (coronary artery disease): Code(s): I25.10 - Atherosclerotic heart disease of [place] coronary artery without angina pectoris Status: Acute Assessment and Plan: Status post stent to mid LAD 05/04/2020. Aspirin 81 mg daily, Brilinta 90 mg every 12 hours. Rosuvastatin 20 mg daily added to his regimen. Continue carvedilol 25 mg q.12 hours, lisinopril 40 mg daily, spironolactone 25 mg daily. Recheck BMP next week. DS: Summary Hospital Course Reason for hospitalization: Abnormal stress test Hospital Course: 70-year-old male with a history of hypertension, diabetes mellitus, dyslipidemia admitted with recent heart failure found have LV dysfunction for which he underwent noninvasive ischemic evaluation as an outpatient which was abnormal with ischemia in the basal anteroseptal and mid anteroseptal wall and fixed infarction the apex.EF by Echo 40-45% and Lexiscan stress test 51% He was referred for coronary angiography for delineation of his coronary anatomy. Cardiac catheterization was performed by Dr. Lawrence on 05/04/2020 with a significant findings of:One vessel severe obstructive coronary disease with tandem 70% and 80% lesions in the proximal and mid LAD, respectively. Systemic hypertension Moderate elevation left ventricular end-diastolic filling pressures consistent with diastolic dysfunction. He proceeded on to intervention with Dr Andrade: IFR on the combination of the proximal and mid LAD stenosis was 0.88. IFR over the proximal LAD stenosis after fixing the mid LAD stenosis was 0.94. This was treated with successful with drug-eluting stent 2.75 x 15 to mid LAD. There is stenosis of the proximal LAD but by IFR was not significant enough to be fixed. Therefore will be managed medically. He was monitored overnight. No arrhythmias. Right femoral groin site was without swelling or bleeding. No femoral bruit. Distal pulses intact. He was discharged home in stable and pain-free condition. Status at Discharge Functional status at discharge: independent ambulation Overall status at discharge: patient is back to baseline Time Spent with Patient Time attestation: Total time spent providing and/or coordinating discharge services: 25 minutes in the room with his present discussing medications, diet, activity restrictions, coronary artery disease, cardiomyopathy, CHF. Questions were answered to her satisfaction.meds diet exercise coronary artery disease cardiomyopathy with . 10 minutes to do discharge order. 15 minutes to discharge summary. Total time spent on discharge: 50 minutes Exam Const: General: cooperative and comfortable Nutritional Appearance: obese Orientation/consciousness: patient oriented x3 Limitations: no limitations HENMT: General nose exam: Normal nares present Mouth: Yes moist mucous membranes Eyes: General: appearance normal, both eyes and all related structures Neck: Neck: supple and no JVD Resp: Effort & Inspection: normal respiratory effort and able to speak in complete sentences Auscultation: clear to auscultation bilaterally Cardio: Jugular venous distension: no JVD Rate: regular rate Rhythm: regular rhythm Heart sounds: no murmurs Bruits: no femoral bruits Peripheral pulses: Peripheral pulses 2+ throughout Other: Right groin site without swelling or bleeding. Faint ecchymosis at the lateral side of the puncture site. No femoral bruit. Distal pulses intact. GI: Inspection: obesity GI Palp: Yes Soft to palpation Auscultation: normal bowel sounds Skin: General skin exam: normal color and no rashes or lesions noted Neuro: General: patient oriented x3 Cognition (Neuro): normal cognition Speech: normal speech Extrem: General: nati
== END 2020-05-05 12:35 | disposition home or self-care (01) ==
LOC: ANHCATHLAB 08:36 → ANHCPC 16:10 → ANHIMU 05-05 11:26
PROVIDERS: Internal Medicine Cardiovascular Disease; Nurse Practitioner Adult Health; PCP Family Medicine; Visit Provider Internal Medicine Cardiovascular Disease
PROC: 4A023N7 Measurement of Cardiac Sampling and Pressure, Left Heart, Percutaneous Approach (ICD-10-PCS; CPT 93452; principal; 2020-05-04 10:00)
PROC: 4A033BC Measurement of Arterial Pressure, Coronary, Percutaneous Approach (ICD-10-PCS; CPT 93571; 2020-05-04 10:00)
DX: I25.10 Atherosclerotic heart disease of native coronary artery without angina pectoris (principal); R94.39 Abnormal result of other cardiovascular function study; I42.9 Cardiomyopathy, unspecified; I11.0 Hypertensive heart disease with heart failure; I50.1 Left ventricular failure, unspecified; I50.30 Unspecified diastolic (congestive) heart failure; I87.8 Other specified disorders of veins; K76.0 Fatty (change of) liver, not elsewhere classified; E11.40 Type 2 diabetes mellitus with diabetic neuropathy, unspecified; E78.2 Mixed hyperlipidemia; G47.33 Obstructive sleep apnea (adult) (pediatric); Z79.82 Long term (current) use of aspirin; Z79.4 Long term (current) use of insulin; Z87.891 Personal history of nicotine dependence
CPT/HCPCS: 36415; 80048; 85025; 85610; 93005; 93458; 93571; A9270; C1725; C1769; C1874; C1887; C1894; C9600; J0583; J1644; J2250; J3010; J7030; J7040

== ENCOUNTER 2020-05-10 10:49 | Outpatient (CLI) | payer MEDICARE, SELFPAY ==
[2020-05-10 12:34] LABS: Anion Gap 8 mmol/L (8-16); Blood Urea Nitrogen 33 mg/dL (9-20); Carbon Dioxide 29 mmol/L (22-30); Chloride 102 mmol/L (98-107); Estimated Glomerular Filt Rate 43; Glucose 144 mg/dL (75-110); Sodium 139 mmol/L (137-145)
== END 2020-05-10 10:50 | disposition home or self-care (01) ==
PROVIDERS: PCP Family Medicine; Visit Provider Nurse Practitioner Adult Health
DX: I25.10 Atherosclerotic heart disease of native coronary artery without angina pectoris (principal); I42.9 Cardiomyopathy, unspecified; Z98.890 Other specified postprocedural states
CPT/HCPCS: 36415; 80048

== ENCOUNTER 2020-07-04 15:40 | Outpatient (CLI) | payer MEDICARE, SELFPAY ==
[2020-07-04 16:23] LABS: Basophils Absolute Auto 0.1 K/mm3 (0.0-0.1); Basophils Percent Auto 0.8 % (0.2-1.2); Eosinophils Absolute Auto 0.4 K/mm3 (0-0.3); Hematocrit 29.2 % (42.0-52.0); Hemoglobin 9.8 g/dL (14.0-18.0); Immature Granulocyte Absolute 0.02 K/mm3 (0.00-0.031); Immature Granulocyte Percent A 0.3 % (0-0.5); Lymphocytes Absolute Auto 1.27 K/mm3 (0.9-3.2); Lymphocytes Percent Auto 17.8 % (18.3-44.2); Mean Corpuscular HGB Conc 33.6 g/dl (32-36); Mean Corpuscular Hemoglobin 30.3 pg (26-34); Mean Corpuscular Volume 90.4 fl (80-100); Mean Platelet Volume 11.4 fl (7.4-10.4); Monocytes Absolute Auto 0.4 K/mm3 (0.1-0.6); Monocytes Percent Auto 5.5 % (2.6-8.5); Neutrophils Absolute Auto 5.1 K/mm3 (1.3-6.7); Neutrophils Percent Auto 70.6 % (45.5-73.1); Platelet Count Result 199 k/mm3 (150-375); Red Blood Count 3.23 M/mm3 (4.6-6.20); White Blood Count 7.2 K/mm3 (4.5-10.0)
[2020-07-04 16:34] LABS: Anion Gap 6 mmol/L (8-16); Blood Urea Nitrogen 41 mg/dL (9-20); Calcium 8.9 mg/dL (8.4-10.2); Carbon Dioxide 30 mmol/L (22-30); Chloride 102 mmol/L (98-107); Estimated Glomerular Filt Rate 43; Glucose 101 mg/dL (75-110); Sodium 138 mmol/L (137-145)
== END 2020-07-04 15:41 | disposition home or self-care (01) ==
LOC: ANHLAB 15:45
PROVIDERS: PCP Family Medicine; Visit Provider Internal Medicine Cardiovascular Disease
DX: R42 Dizziness and giddiness (principal)
CPT/HCPCS: 36415; 80048; 85025

== ENCOUNTER 2020-07-10 12:12 | Outpatient (CLI) | payer MEDICARE, SELFPAY ==
[2020-07-10 12:55] LABS: Basophils Absolute Auto 0.1 K/mm3 (0.0-0.1); Basophils Percent Auto 1.1 % (0.2-1.2); Eosinophils Absolute Auto 0.5 K/mm3 (0-0.3); Eosinophils Percent Auto 5.6 % (0-4.4); Hematocrit 30.8 % (42.0-52.0); Hemoglobin 10.3 g/dL (14.0-18.0); Immature Granulocyte Absolute 0.04 K/mm3 (0.00-0.031); Immature Granulocyte Percent A 0.5 % (0-0.5); Immature Reticulocyte Fraction 15.6 % (3.0-15.9); Lymphocytes Absolute Auto 1.36 K/mm3 (0.9-3.2); Lymphocytes Percent Auto 15.4 % (18.3-44.2); Mean Corpuscular HGB Conc 33.4 g/dl (32-36); Mean Corpuscular Hemoglobin 29.9 pg (26-34); Mean Corpuscular Volume 89.5 fl (80-100); Mean Platelet Volume 11.3 fl (7.4-10.4); Monocytes Absolute Auto 0.5 K/mm3 (0.1-0.6); Monocytes Percent Auto 5.5 % (2.6-8.5); Neutrophils Absolute Auto 6.4 K/mm3 (1.3-6.7); Neutrophils Percent Auto 71.9 % (45.5-73.1); Platelet Count Result 205 k/mm3 (150-375); Red Blood Count 3.44 M/mm3 (4.6-6.20); Reticulocyte Hemoglobin Conten 35.1 pg (28.2-35.7); Reticulocyte Percent 2.33 % (0.7-4.3); Reticulocytes Absolute 0.08 B/L (32.2-175.7); White Blood Count 8.9 K/mm3 (4.5-10.0)
[2020-07-13 14:32] LABS: Red Blood Cell Folate >1000 ng/mL RBC (>280)
== END 2020-07-10 12:13 | disposition home or self-care (01) ==
LOC: ANHLAB 12:13
PROVIDERS: PCP Family Medicine; Visit Provider Family Medicine
DX: D64.9 Anemia, unspecified (principal); R60.9 Edema, unspecified
CPT/HCPCS: 36415; 82607; 82747; 85025; 85046

== ENCOUNTER 2020-07-23 07:34 | Outpatient (CLI) | payer MEDICARE, SELFPAY ==
--- NOTE | ~2020-07-23 | US_ITS ---
EXAMINATION: US renal BI DATE: 07/23/2020 08:14 INDICATION: Disorder of kidney and ureter. TECHNIQUE: Multiple ultrasound grayscale images of the kidneys were obtained. COMPARISON: Ultrasound 01/17/2016 FINDINGS: The right kidney measures 13.8 x 5.3 x 5.1 cm. The left kidney measures 13.1 x 6.1 x 8.0 cm. The kidn eys demonstrate normal parenchymal echogenicity. There is no hydronephrosis. The bladder is normal. T here is diffuse hepatic steatosis. IMPRESSION: 1. Normal kidneys. No hydronephrosis. 2. Diffuse hepatic steatosis. Reviewed, dictated and finalized at location A. OR HRIS ANALYST
== END 2020-07-23 07:35 | disposition home or self-care (01) ==
LOC: ANHIMG 07:35
PROVIDERS: PCP Family Medicine; Visit Provider Family Medicine
DX: N28.9 Disorder of kidney and ureter, unspecified (principal); D64.9 Anemia, unspecified; K76.0 Fatty (change of) liver, not elsewhere classified
CPT/HCPCS: 76775

== ENCOUNTER 2020-09-22 11:42 | Outpatient (CLI) | payer MEDICARE, SELFPAY ==
[2020-09-22 12:02] LABS: Hematocrit 33.2 % (42.0-52.0); Hemoglobin 11.3 g/dL (14.0-18.0); Mean Corpuscular Hemoglobin 29.9 pg (26-34); Mean Corpuscular Volume 87.8 fl (80-100); Mean Platelet Volume 11.1 fl (7.4-10.4); Platelet Count Result 209 k/mm3 (150-375); Red Blood Count 3.78 M/mm3 (4.6-6.20); Red Cell Distribution Width 13.8 % (11.5-14.5)
== END 2020-09-22 11:43 | disposition home or self-care (01) ==
LOC: ANHLAB 11:43
PROVIDERS: PCP Family Medicine; Visit Provider Nurse Practitioner Adult Health
DX: D64.9 Anemia, unspecified (principal)
CPT/HCPCS: 36415; 85027

== ENCOUNTER 2020-11-03 01:05 | Observation (INO) | payer MEDICARE, SELFPAY ==
[2020-11-03] VITALS (20 sets, daily range): BP systolic 130–182; BP diastolic 64–99; PULSE 61–98; RESP 13–21; TEMP 36.4–38.5; O2SAT 94–99
--- NOTE | ~2020-11-03 | CT_ITS ---
EXAMINATION: CT brain wo con DATE: 11/03/2020 02:26 INDICATION: Status post fall. Altered mental status. TECHNIQUE: Computed tomography (CT) of the abdomen and pelvis was performed without intravenous contr ast. The dose-length product was 681.00 mGy-cm. Automated exposure control and iterative reconstructi on technique were employed. COMPARISON: CT dated 01/06/2016 FINDINGS: Generalized atrophy. There are scattered mild periventricular and subcortical white matter changes, most likely related to small vessel ischemic disease (microangiopathy). No acute intracrania l hemorrhage, infarction, mass or mass effect. No ventriculomegaly or midline shift. Minimal mucosal thickening of the white sinuses. Mastoids are pneumatized. No depressed skull fractures. There is int racranial atherosclerosis. IMPRESSION: 1. No acute intracranial abnormality. Reviewed, dictated and finalized at location B.
--- NOTE | ~2020-11-03 | CT_ITS ---
EXAMINATION: CT abdomen pelvis w con DATE: 11/03/2020 02:27 INDICATION: Nausea and vomiting TECHNIQUE: Computed tomography (CT) of the abdomen and pelvis was performed with 100 cc Omnipaque 350 intravenous contrast. The dose-length product was 1763.77 mGy-cm. Automated exposure control and ite rative reconstruction technique were employed. COMPARISON: CT dated 04/14/2012 FINDINGS: Lung bases are unremarkable. Dependent atelectasis. Cardiomegaly. No significant pleural or pericardial effusion. There are calcified granulomas of the liver. There is hepatosplenomegaly. No s ignificant vascular abnormality. No lymphadenopathy. Mild distal esophageal wall thickening, suspicio us for esophagitis. Nonobstructive bowel gas pattern. Moderate colonic fecal loading. Fatty infiltration of the liver. The adrenal glands and kidneys are unremarkable. Status post cholecy stectomy. Moderate lower thoracic and lumbar spondylosis. No focal lytic or blastic lesions. IMPRESSION: 1. No acute abdominal abnormality. 2: Hepatosplenomegaly. 3: Cardiomegaly. Reviewed, dictated and finalized at location B.
--- NOTE | 2020-11-03 01:14 | ED.NAVMDI ---
HPI - Nausea/Vomiting/Diarrhea General Chief complaint: Nausea/Vomiting/Diarrhea Stated complaint: N/V/D Time Seen by Provider: 11/03/20 01:11 History of Present Illness HPI Narrative: 70 yo male brought in by EMS from home for nausea and vomiting. He reports that symptoms started today. No abdominal pain. unsure if he has had any diarrhea. He did have a syncopal or near syncopal episode. It is unclear if he hit his head in the fall. No cough, congestion, SOB. He was febrile during triage. History limited by mental status. Related Data Home Medications Medication Instructions Recorded Confirmed aspirin 81 mg tablet,delayed 81 mg PO DAILY 08/23/19 06/02/20 release yiqrvsblhnde-elqklfqe-dykain tablet 1 tablet PO DAILY 08/23/19 06/02/20 alprazolam 1 mg PO HS 03/09/20 06/02/20 Allergies Allergy/AdvReac Type Severity Reaction Status Date / Time exenatide Allergy Unknown Unknown Verified 11/03/20 03:07 metformin Allergy Unknown Nausea Verified 11/03/20 03:07 nebivolol Allergy Unknown Unknown Verified 11/03/20 03:07 pioglitazone Allergy Unknown sleepiness Verified 11/03/20 03:07 Review of Systems Review of Systems: ROS unobtainable: Yes unobtainable due to mental status Genitourinary: Genitourinary: Reports urinary incontinence [facility] Past Medical History Medical History Acquired lymphedema Cardiomyopathy CHF (congestive heart failure) echocardiogram 2015 demonstrating normal ejection fraction with moderate left ventricular hypertrophy and diastolic dysfunction with mild left atrial enlargement Chronic venous stasis dermatitis Diabetes mellitus on long-term insulin therapy with a last hemoglobin A1c of 7.1 Diabetic neuropathy Diarrhea Essential (primary) hypertension Hepatic steatosis Hypertension Hypertensive heart disease Lymphedema of upper extremity following lymphadenectomy Mixed hyperlipidemia Morbid obesity Mucous in stools Narcolepsy per patient report. He has never had a multi sleep latency test. - he did have a multiple sleep latency test that showed the narcolepsy Obesity (BMI 30.0-34.9) LOU (obstructive sleep apnea) Other obesity Person under investigation for COVID-19 Stress fracture, right foot, subsequent encounter for fracture with routine healing Surgical History Surgical History H/O foot surgery June 2016 debridement of the right diabetic foot ulcer with proximal resection of 2nd and 3rd metatarsal head performed by Dr. Chahal History of appendectomy in the History of cholecystectomy in the History of colonoscopy with polypectomy for polyps resected that were benign History of esophagogastroduodenoscopy (EGD) with gastric polypectomy December 2019 History of parotid gland excision 1998 with benign pathology Status post excision of lipoma left neck September 2018 Family History Family History Mother Diabetes mellitus Hypertension Cerebrovascular accident Pancreatic cancer Father Coronary artery disease his father had a total of 7 coronary stents and at age 71. Atrial fibrillation Sibling Healthy female adult Social History Social History Social History: Primary care physician: Dr. Bhavik Davidson Code status: Full code per patient request Smoking packs per day: 2 Smoking cigarettes per day: 40.0 Years smoked: 25 Smoking pack-years: 50.00 Smoking end date: 08/04/94 Alcohol intake: former Substance use: never Additional living arrangements comments: He lives with his of nearly 40 years. He has 1 biological child and 2 step children. 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 Gender identity (if verbalized by the patient): Male
[2020-11-03 01:30] LABS: Basophils Absolute Auto 0.1 K/mm3 (0.0-0.1); Basophils Percent Auto 0.5 % (0.2-1.2); Eosinophils Percent Auto 0.4 % (0-4.4); Hemoglobin 12.1 g/dL (14.0-18.0); Immature Granulocyte Absolute 0.06 K/mm3 (0.00-0.031); Immature Granulocyte Percent A 0.6 % (0-0.5); Lymphocytes Absolute Auto 0.24 K/mm3 (0.9-3.2); Lymphocytes Percent Auto 2.2 % (18.3-44.2); Mean Corpuscular HGB Conc 34.6 g/dl (32-36); Mean Corpuscular Hemoglobin 29.9 pg (26-34); Mean Corpuscular Volume 86.4 fl (80-100); Mean Platelet Volume 11.5 fl (7.4-10.4); Monocytes Absolute Auto 0.3 K/mm3 (0.1-0.6); Monocytes Percent Auto 2.4 % (2.6-8.5); Neutrophils Absolute Auto 10.1 K/mm3 (1.3-6.7); Neutrophils Percent Auto 93.9 % (45.5-73.1); Platelet Count Result 232 k/mm3 (150-375); Red Blood Count 4.05 M/mm3 (4.6-6.20); Red Cell Distribution Width 14.5 % (11.5-14.5); White Blood Count 10.7 K/mm3 (4.5-10.0)
--- NOTE | 2020-11-03 01:37 | PC.NURSE ---
added on labs. PTT and PT INR . Called down to LAB .
--- NOTE | 2020-11-03 01:40 | PC.NURSE ---
Pt. asked for urine thinks he cannot go at this time.
[2020-11-03] MEDS: ONDANSETRON INJ 4 MG/2 ML VIAL IV PUSH (01:47)
[2020-11-03] MEDS: SODIUM CHLORIDE 0.9% IV 1,000 ML 999 ML IV CONT ×2 (01:47→02:46)
[2020-11-03 01:49] LABS: Alanine Aminotransferase 33 U/L (4-50); Albumin Level 4.8 g/dL (3.5-5.1); Alkaline Phosphatase 61 U/L (38-126); Anion Gap 15 mmol/L (8-16); Aspartate Amino Transferase 38 U/L (17-59); Bilirubin,Total 0.6 mg/dL (0.2-1.3); Blood Urea Nitrogen 46 mg/dL (9-20); Carbon Dioxide 21 mmol/L (22-30); Chloride 104 mmol/L (98-107); Estimated CRCL calculation 52 ml/min; Estimated Glomerular Filt Rate 35; Glucose 285 mg/dL (75-110); Lipase 116 U/L (23-300); Potassium 3.9 mmol/L (3.4-5.0); Sodium 140 mmol/L (137-145)
--- NOTE | 2020-11-03 01:55 | PC.NURSE ---
Pt. provided with urinal for urine sample.
--- NOTE | 2020-11-03 02:00 | PC.NURSE ---
P. did not provided urine at this time.
--- NOTE | 2020-11-03 02:00 | PC.NURSE ---
Pt. to CT
[2020-11-03 02:03] LABS: CRP 1.9 mg/dL (<1.0)
[2020-11-03 02:04] LABS: INR 1.2; Prothrombin Time 15.4 Seconds (11.1-14.7)
[2020-11-03 02:05] LABS: Partial Thromboplastin Time 32.3 SECONDS (22.3-36.8)
[2020-11-03 02:08] LABS: Beta-Hydroxybutyrate/Acetoacetate 0.23 mmol/L (0.02-0.27)
[2020-11-03 02:26] LABS: Lactic Acid Reflex 3.4 mmol/L (0.7-2.1)
[2020-11-03 03:23] LABS: Add Urine Microscopic? YES; Appearance Urine Clear (Clear); Bacteria Urine Trace /hpf; Bilirubin Urine Negative (Negative); Blood Urine Negative (Negative); Color Urine Yellow (Yellow); Glucose Urine UA 1+ mg/dL (Negative); Ketones Urine Negative (Negative); Leukocyte Esterase Ur Negative LEU/UL (Negative); Nitrate Urine Negative (Negative); Protein Urine 3+ mg/dL (Negative); RBC Urine 0-2 /hpf (0-2); Specific Grav Ur 1.022 (1.001-1.035); Squamous Epithelial Cell Urine Rare /hpf (Few); Urobilinogen Urine Negative mg/dL (<2.0); WBC Urine 0-3 /hpf
--- NOTE | 2020-11-03 04:28 | PM.IMHP ---
H&P: HPI History of Present Illness Date/Time: 11/03/20 04:28 Chief Complaint: nausea and vomiting Narrative: This is a morbidly obese 70-year-old diabetic male with known history of coronary artery disease status post #1 stent placed, GERD, hyperlipidemia, and hypertension who presented to the hospital [facility] with a complaint of increased confusion, falls, nausea and vomiting. The patient's who is at bedside remarks that his symptoms started yesterday morning. She noticed that he was increasingly confused and started experiencing nausea and vomiting. She tried to give him a Sprite although he immediately vomited up. Throughout the day the patient did fall twice while in the bathroom. She reports that he had about 10-12 episodes of nonbloody emesis. In the afternoon the patient started to have episodes of diarrhea. She denies that he has been on any recent antibiotics. No one else is sick at home. The patient did not take his insulin yesterday as he could not eat any food secondary to nausea and vomiting. Patient denies any fevers, chills, headache, blurry vision, chest pain, abdominal pain, dysuria, hematuria, rectal bleeding, or focal neurological deficits. He was evaluated emergency room [facility] and found to be dehydrated as well as acidotic. CT abdomen pelvis was obtained which was concerning for possible enteritis. He was also found to have an elevated lactic acid of 3.4. CT brain was unremarkable for any acute pathology. We been asked to admit the patient to the hospital for his acute dehydration, metabolic acidosis, and confusion. Review of Systems Review of Systems: All systems reviewed & are unremarkable except as noted in HPI and below PMFSH Past Medical History Medical History Acquired lymphedema Cardiomyopathy CHF (congestive heart failure) echocardiogram 2016 demonstrating normal ejection fraction with moderate left ventricular hypertrophy and diastolic dysfunction with mild left atrial enlargement Chronic venous stasis dermatitis Diabetes mellitus on long-term insulin therapy with a last hemoglobin A1c of 7.1 Diabetic neuropathy Diarrhea Essential (primary) hypertension Hepatic steatosis Hypertension Hypertensive heart disease Lymphedema of upper extremity following lymphadenectomy Mixed hyperlipidemia Morbid obesity Mucous in stools Narcolepsy per patient report. He has never had a multi sleep latency test. 8-20 he did have a multiple sleep latency test that showed the narcolepsy Obesity (BMI 30.0-34.9) LOU (obstructive sleep apnea) Other obesity Person under investigation for COVID-19 Stress fracture, right foot, subsequent encounter for fracture with routine healing Surgical History Surgical History H/O foot surgery June 2016 debridement of the right diabetic foot ulcer with proximal resection of 2nd and 3rd metatarsal head performed by Dr. Chahal History of appendectomy in the History of cholecystectomy in the History of colonoscopy with polypectomy for polyps resected that were benign History of esophagogastroduodenoscopy (EGD) with gastric polypectomy December 2019 History of parotid gland excision 1998 with benign pathology Status post excision of lipoma left neck September 2018 Family History Family History Mother Diabetes mellitus Hypertension Cerebrovascular accident Pancreatic cancer Father Coronary artery disease his father had a total of 7 coronary stents and at age 71. Atrial fibrillation Sibling Healthy female adult Social History Social History Social History: Primary care physician: Dr. Bhavik Davidson Code status: Full code per patient request Smoking packs per day: 1 Smoking cigarettes per day: 20.0 Years smoked: 25 Sm
[2020-11-03 05:10] LABS: Reflex Lactic Acid Yes or No Add Lactic
[2020-11-03] MEDS: LACTATED RINGERS 1,000 ML 75 ML IV CONT (05:17)
--- NOTE | 2020-11-03 05:40 | PC.NURSE ---
This patient, Gulshan Voss, was admitted to 2 Medical Room 248-. Patient/family oriented to hospital policies and general routines including ID bracelet, bed and alarms, visiting hours, pain management, procedures, bathroom and other care routines, personal items, smoking policy, room service/diet, and visiting hours. Information on how to activate the Rapid Response Team has been discussed. Patient/Family are encouraged to report perceived risks to care and to ask questions if they do not understand what they are told or what they should do. Attempted to call to clarify meds there was no answer, will try again.
[2020-11-03] MEDS: INSULIN ASPART (*BKC) 100 UNITS/ML SUB-Q ×3 (06:20→16:55)
[2020-11-03 06:25] LABS: Lactic Acid 2.4 mmol/L (0.7-2.1)
[2020-11-03 08:12] LABS: Glucose Point of Care 253 (65-105)
--- NOTE | 2020-11-03 09:57 | PC.NURSE ---
Morning meds given late as meds had to be clarified with pharmacy.
--- NOTE | 2020-11-03 10:14 | P.PNIM_ITS ---
Progress Note: A&P Assessment and Plan (1) Enteritis: Code(s): K52.9 - Noninfective gastroenteritis and colitis, unspecified Status: Acute Assessment and Plan: Preliminary read on CT abd/pelvis suggested enteritis. Symptoms appear to have improved. Possibly viral. * ADAT to bland diabetic diet * If tolerating diet, likely home tomorrow * Will d/c fluids after current bag completed * Monitor (2) Dehydration: Code(s): E86.0 - Dehydration Status: Acute Assessment and Plan: Likely 2/2 above. Appears hydrated this morning. Willing to advance diet * Continue IV hydration; d/c fluids when bag complete. * Monitor urine output and vital signs. * Hold diuretics for now (3) Acute confusion: Code(s): R41.0 - Disorientation, unspecified Status: Acute Assessment and Plan: Likely secondary to enteritis and metabolic acidosis. CT brain was unremarkable for acute pathology. This appears to have resolved * Neurochecks. * Monitor Labs (4) Metabolic acidosis: Code(s): E87.2 - Acidosis Status: Acute Assessment and Plan: Likely secondary to acute dehydration from N/V/D. * Continue IV fluids. * Monitor acid-base status this afternoon (5) Sepsis: Qualifiers: Sepsis type: sepsis due to unspecified organism Sepsis acute organ dysfunction status: with acute organ dysfunction Severe sepsis acute organ dysfunction type: encephalopathy Severe sepsis shock status: without septic shock Qualified Code(s): A41.9 - Sepsis, unspecified organism; R65.20 - Severe sepsis without septic shock; G93.40 - Encephalopathy, unspecified Code(s): A41.9 - Sepsis, unspecified organism Status: Acute Assessment and Plan: w/ fever, tachycardia, and elevated lactic acid. Source of sepsis appears to be GI and likely enteritis. * Continue IV fluids. * Monitor acid-base status, urine output, vital signs. * Blood cultures pending. Follow after d/c (6) Chronic anemia: Code(s): D64.9 - Anemia, unspecified Status: Chronic Assessment and Plan: No signs of acute blood loss. * Monitor H/H, transfuse prn. (7) Elevated lactic acid level: Code(s): R79.89 - Other specified abnormal findings of blood chemistry Status: Acute Assessment and Plan: May be secondary to acute dehydration. Lactic acid improving today * Monitor (8) Essential (primary) hypertension: Code(s): I10 - Essential (primary) hypertension Status: Chronic Assessment and Plan: BP 140s sys this morning * Monitor blood pressure. * PRN IV antihypertensives and * resume lisinopril, amlodipine, carvedilol, clinidine today * Hold diuretics for now (9) CAD (coronary artery disease): Qualifiers: Coronary Disease-Associated Artery/Lesion type: [place] artery [place] vs. transplanted heart: [place] heart Associated angina: without angina Qualified Code(s): I25.10 - Atherosclerotic heart disease of [place] coronary artery without angina pectoris Code(s): I25.10 - Atherosclerotic heart disease of [place] coronary artery without angina pectoris Status: Chronic Assessment and Plan: stable. * Continue Brillinta and aspirin
--- NOTE | 2020-11-03 10:14 | PM.IMPN ---
Progress Note: A&P Assessment and Plan (1) Enteritis: Code(s): K52.9 - Noninfective gastroenteritis and colitis, unspecified Status: Acute Assessment and Plan: Preliminary read on CT abd/pelvis suggested enteritis. Symptoms appear to have improved. Possibly viral. ADAT to bland diabetic diet If tolerating diet, likely home tomorrow Will d/c fluids after current bag completed Monitor (2) Dehydration: Code(s): E86.0 - Dehydration Status: Acute Assessment and Plan: Likely 2/2 above. Appears hydrated this morning. Willing to advance diet Continue IV hydration; d/c fluids when bag complete. Monitor urine output and vital signs. Hold diuretics for now (3) Acute confusion: Code(s): R41.0 - Disorientation, unspecified Status: Acute Assessment and Plan: Likely secondary to enteritis and metabolic acidosis. CT brain was unremarkable for acute pathology. This appears to have resolved Neurochecks. Monitor Labs (4) Metabolic acidosis: Code(s): E87.2 - Acidosis Status: Acute Assessment and Plan: Likely secondary to acute dehydration from N/V/D. Continue IV fluids. Monitor acid-base status this afternoon (5) Sepsis: Qualifiers: Sepsis type: sepsis due to unspecified organism Sepsis acute organ dysfunction status: with acute organ dysfunction Severe sepsis acute organ dysfunction type: encephalopathy Severe sepsis shock status: without septic shock Qualified Code(s): A41.9 - Sepsis, unspecified organism; R65.20 - Severe sepsis without septic shock; G93.40 - Encephalopathy, unspecified Code(s): A41.9 - Sepsis, unspecified organism Status: Acute Assessment and Plan: w/ fever, tachycardia, and elevated lactic acid. Source of sepsis appears to be GI and likely enteritis. Continue IV fluids. Monitor acid-base status, urine output, vital signs. Blood cultures pending. Follow after d/c (6) Chronic anemia: Code(s): D64.9 - Anemia, unspecified Status: Chronic Assessment and Plan: No signs of acute blood loss. Monitor H/H, transfuse prn. (7) Elevated lactic acid level: Code(s): R79.89 - Other specified abnormal findings of blood chemistry Status: Acute Assessment and Plan: May be secondary to acute dehydration. Lactic acid improving today Monitor (8) Essential (primary) hypertension: Code(s): I10 - Essential (primary) hypertension Status: Chronic Assessment and Plan: BP 140s sys this morning Monitor blood pressure. PRN IV antihypertensives and resume lisinopril, amlodipine, carvedilol, clinidine today Hold diuretics for now (9) CAD (coronary artery disease): Qualifiers: Coronary Disease-Associated Artery/Lesion type: [place] artery [place] vs. transplanted heart: [place] heart Associated angina: without angina Qualified Code(s): I25.10 - Atherosclerotic heart disease of [place] coronary artery without angina pectoris Code(s): I25.10 - Atherosclerotic heart disease of [place] coronary artery without angina pectoris Status: Chronic Assessment and Plan: stable. 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
[2020-11-03] MEDS: INSULIN HUMAN ISOPHAN/REGULAR 70/30 (*BKC) 100 UNITS/ML 37 UNITS SUB-Q (10:17)
[2020-11-03] MEDS: lisinopriL 20 MG TABLET 40 MG PO (10:21)
[2020-11-03] MEDS: cloNIDine HCL 0.1 MG TABLET 0.3 MG PO ×2 (10:21→21:11)
[2020-11-03] MEDS: PANTOPRAZOLE 40 MG TABLET PO (10:21)
[2020-11-03] MEDS: ASPIRIN 81 MG ENTERIC TABLET PO (10:21)
[2020-11-03] MEDS: amLODIPine BESYLATE 5 MG TABLET 10 MG PO (11:19)
[2020-11-03] MEDS: TICAGRELOR 90 MG TABLET PO ×2 (11:20→21:12)
[2020-11-03] MEDS: carvediloL 6.25 MG TABLET PO ×2 (11:20→21:11)
[2020-11-03 13:17] LABS: Glucose Point of Care 284 (65-105)
[2020-11-03 13:45] LABS: Basophils Percent Auto 0.4 % (0.2-1.2); Eosinophils Percent Auto 0.1 % (0-4.4); Hematocrit 29.5 % (42.0-52.0); Hemoglobin 9.8 g/dL (14.0-18.0); Immature Granulocyte Absolute 0.05 K/mm3 (0.00-0.031); Immature Granulocyte Percent A 0.7 % (0-0.5); Lymphocytes Absolute Auto 0.43 K/mm3 (0.9-3.2); Lymphocytes Percent Auto 6.4 % (18.3-44.2); Mean Corpuscular HGB Conc 33.2 g/dl (32-36); Mean Corpuscular Hemoglobin 29.6 pg (26-34); Mean Corpuscular Volume 89.1 fl (80-100); Mean Platelet Volume 11.6 fl (7.4-10.4); Monocytes Absolute Auto 0.4 K/mm3 (0.1-0.6); Neutrophils Absolute Auto 5.8 K/mm3 (1.3-6.7); Neutrophils Percent Auto 86.4 % (45.5-73.1); Platelet Count Result 170 k/mm3 (150-375); Red Blood Count 3.31 M/mm3 (4.6-6.20); Red Cell Distribution Width 14.9 % (11.5-14.5); White Blood Count 6.7 K/mm3 (4.5-10.0)
[2020-11-03 13:59] LABS: Hemoglobin A1C 6.2 % (<5.7)
[2020-11-03 14:02] LABS: Alanine Aminotransferase 26 U/L (4-50); Albumin Level 3.9 g/dL (3.5-5.1); Alkaline Phosphatase 45 U/L (38-126); Anion Gap 10 mmol/L (8-16); Aspartate Amino Transferase 33 U/L (17-59); Bilirubin,Total 0.5 mg/dL (0.2-1.3); Blood Urea Nitrogen 45 mg/dL (9-20); Carbon Dioxide 23 mmol/L (22-30); Chloride 103 mmol/L (98-107); Estimated CRCL calculation 52 ml/min; Estimated Glomerular Filt Rate 35; Glucose 314 mg/dL (75-110); Magnesium 1.6 mg/dL (1.6-2.3); Potassium 3.6 mmol/L (3.4-5.0); Sodium 136 mmol/L (137-145)
--- NOTE | 2020-11-03 14:25 | PC.NURSE ---
On 11/03/20, the student, [Scott Cantu], provided care and [facility]. I have reviewed the student's documentation and agree with the findings.
--- NOTE | 2020-11-03 14:26 | PCOTNOTE ---
Patient refusal of all therapy services on multiple occasions this date. Physician notified and agreeable to D/C patient from skilled therapy services this date.
[2020-11-03] MEDS: INSULIN HUMAN ISOPHAN/REGULAR 70/30 (*BKC) 100 UNITS/ML 50 UNITS SUB-Q (16:56)
[2020-11-03 17:03] LABS: Glucose Point of Care 251 (65-105)
[2020-11-03] MEDS: AMITRIPTYLINE HCL 25 MG TABLET PO (21:11)
[2020-11-03] MEDS: FLUTICASONE/SALMETEROL 115-21 MCG INHALER 1 PUFF 2 PUFF INHALATION (21:21)
[2020-11-03 21:50] LABS: Glucose Point of Care 197 (65-105)
[2020-11-04] VITALS: PULSE 74
[2020-11-04 05:13] VITALS: BP 147/61; PULSE 65; RESP 20; TEMP 36.6; O2SAT 95
[2020-11-04 06:09] LABS: Basophils Absolute Auto 0.1 K/mm3 (0.0-0.1); Basophils Percent Auto 0.6 % (0.2-1.2); Eosinophils Absolute Auto 0.2 K/mm3 (0-0.3); Eosinophils Percent Auto 2.6 % (0-4.4); Hematocrit 30.1 % (42.0-52.0); Hemoglobin 10.1 g/dL (14.0-18.0); Immature Granulocyte Absolute 0.02 K/mm3 (0.00-0.031); Immature Granulocyte Percent A 0.3 % (0-0.5); Lymphocytes Absolute Auto 1.41 K/mm3 (0.9-3.2); Mean Corpuscular HGB Conc 33.6 g/dl (32-36); Mean Corpuscular Hemoglobin 29.5 pg (26-34); Mean Platelet Volume 11.6 fl (7.4-10.4); Monocytes Absolute Auto 0.7 K/mm3 (0.1-0.6); Monocytes Percent Auto 8.4 % (2.6-8.5); Neutrophils Absolute Auto 5.5 K/mm3 (1.3-6.7); Neutrophils Percent Auto 70.1 % (45.5-73.1); Platelet Count Result 193 k/mm3 (150-375); Red Blood Count 3.42 M/mm3 (4.6-6.20); Red Cell Distribution Width 14.7 % (11.5-14.5); White Blood Count 7.8 K/mm3 (4.5-10.0)
[2020-11-04 06:25] LABS: Anion Gap 9 mmol/L (8-16); Blood Urea Nitrogen 42 mg/dL (9-20); Calcium 8.3 mg/dL (8.4-10.2); Carbon Dioxide 26 mmol/L (22-30); Chloride 103 mmol/L (98-107); Estimated CRCL calculation 48 ml/min; Estimated Glomerular Filt Rate 32; Glucose 115 mg/dL (75-110); Magnesium 1.8 mg/dL (1.6-2.3); Potassium 3.5 mmol/L (3.4-5.0); Sodium 138 mmol/L (137-145)
[2020-11-04 07:42] LABS: Glucose Point of Care 103 (65-105)
[2020-11-04] MEDS: TICAGRELOR 90 MG TABLET PO (08:47)
[2020-11-04] MEDS: PANTOPRAZOLE 40 MG TABLET PO (08:47)
[2020-11-04 08:48] VITALS: PULSE 65
[2020-11-04] MEDS: lisinopriL 20 MG TABLET 40 MG PO (08:48)
[2020-11-04] MEDS: carvediloL 6.25 MG TABLET PO (08:48)
[2020-11-04] MEDS: amLODIPine BESYLATE 5 MG TABLET 10 MG PO (08:48)
[2020-11-04] MEDS: cloNIDine HCL 0.1 MG TABLET 0.3 MG PO (08:49)
[2020-11-04] MEDS: INSULIN HUMAN ISOPHAN/REGULAR 70/30 (*BKC) 100 UNITS/ML 37 UNITS SUB-Q (08:49)
--- NOTE | 2020-11-04 08:51 | PM.DS ---
DS: Admitting Diagnosis Admitting Diagnosis Admitting Diagnosis: Enteritis, sepsis, dehydration, lactic acidosis, metabolic acidosis DS: Discharge Diagnosis Discharge Diagnosis (1) Enteritis: Code(s): K52.9 - Noninfective gastroenteritis and colitis, unspecified Status: Acute Assessment and Plan: Preliminary read on CT abd/pelvis suggested enteritis. Symptoms appear to have improved/resolved; tolerating diet. Possibly viral, as has same symptoms now at home. Dare diabetic diet He has appt with PCP on 11/06 (2) Dehydration: Code(s): E86.0 - Dehydration Status: Acute Assessment and Plan: Likely 2/2 above. Appears hydrated this morning. Tolerating diet Encouraged PO intake Monitor BMP 11/06 Hold diuretics until 11/06 when he sees his PCP (3) Acute renal failure superimposed on chronic kidney disease: Code(s): N17.9 - Acute kidney failure, unspecified; N18.9 - Chronic kidney disease, unspecified Status: Acute Assessment and Plan: Cr 2.10 today; likely from dehydration from #1; improved PO intake. He has gotten several L of IV fluids during stay, as well. Baseline ~1.60-1.70, but am wondering if he possibly has some worsening of his CKD Instructed him to hold diuretics until 11/06 when he sees his PCP or if he showing signs of volume overload (ie, sob, LE swelling, etc.) BMP on 11/06 prior to PCP visit Further management per PCP (4) Acute confusion: Code(s): R41.0 - Disorientation, unspecified Status: Acute Assessment and Plan: Likely secondary to enteritis and metabolic acidosis. CT brain was unremarkable for acute pathology. This appears to have resolved; A&Ox4, answering questions appropriately Neurochecks during stay. BMP on 11/06 (5) Metabolic acidosis: Code(s): E87.2 - Acidosis Status: Resolved Assessment and Plan: Likely secondary to acute dehydration from N/V/D. IV fluids during stay BMP on 11/06 (6) Sepsis: Qualifiers: Sepsis acute organ dysfunction status: with acute organ dysfunction Sepsis type: sepsis due to unspecified organism Severe sepsis acute organ dysfunction type: encephalopathy Severe sepsis shock status: without septic shock Qualified Code(s): A41.9 - Sepsis, unspecified organism; R65.20 - Severe sepsis without septic shock; G93.40 - Encephalopathy, unspecified Code(s): A41.9 - Sepsis, unspecified organism Status: Acute Assessment and Plan: w/ fever, tachycardia, and elevated lactic acid. Source of sepsis appears to be GI and likely enteritis. VSS, afebrile, normal WBC IV fluids during stay. Blood cultures pending. Follow after d/c (7) Chronic anemia: Code(s): D64.9 - Anemia, unspecified Status: Chronic Assessment and Plan: No signs of acute blood loss. (8) Elevated lactic acid level: Code(s): R79.89 - Other specified abnormal findings of blood chemistry Status: Acute Assessment and Plan: May be secondary to acute dehydration. Lactic acid improving during stay (9) Essential (primary) hypertension: Code(s): I10 - Essential (primary) hypertension Status: Chronic Assessment and Plan: BP 140s sys this morning Monitor blood pressure at home Continue lisinopril, amlodipine, carvedilol, clonidine Hold diuretics until at least jeanine 4/5 when he sees his PCP (10) CAD (coronary artery disease): Qualifiers: Associated angina: without angina Coronary Disease-Associated Artery/Lesion type: [place] artery [place] vs. transplanted heart: [place] heart Qualified Code(s): I25
[2020-11-04] MEDS: FLUTICASONE/SALMETEROL 115-21 MCG INHALER 1 PUFF 2 PUFF INHALATION (08:53)
[2020-11-04 09:01] VITALS: RESP 20; O2SAT 94
--- NOTE | 2020-11-09 13:32 | PC.NURSE ---
Blood cx are negative.
== END 2020-11-04 10:05 | disposition home or self-care (01) ==
LOC: ANHED 03:49 → ANH2MED 04:09
PROVIDERS: Physician Assistant; Admitting Provider Family Medicine; Emergency Provider Emergency Medicine; PCP Family Medicine; Visit Provider Internal Medicine
DX: K52.9 Noninfective gastroenteritis and colitis, unspecified (principal); E86.0 Dehydration; I13.0 Hypertensive heart and chronic kidney disease with heart failure and stage 1 through stage 4 chronic kidney disease, or unspecified chronic kidney disease; I50.42 Chronic combined systolic (congestive) and diastolic (congestive) heart failure; N17.9 Acute kidney failure, unspecified; N18.9 Chronic kidney disease, unspecified; E78.5 Hyperlipidemia, unspecified; E66.01 Morbid (severe) obesity due to excess calories; E11.22 Type 2 diabetes mellitus with diabetic chronic kidney disease; E11.65 Type 2 diabetes mellitus with hyperglycemia; F17.210 Nicotine dependence, cigarettes, uncomplicated; K21.9 Gastro-esophageal reflux disease without esophagitis; Z68.41 Body mass index [BMI] 40.0-44.9, adult; Z95.5 Presence of coronary angioplasty implant and graft; Z79.4 Long term (current) use of insulin
CPT/HCPCS: 36415; 51701; 70450; 74177; 80048; 80053; 81001; 82010; 83036; 83605; 83690; 83735; 85025; 85610; 85730; 86140; 87040; 94640; 96361; 96374; 96375; 97161; 99285; A9270; G0378; J0131; J1815; J2405; J7030; J7120; Q9967

== ENCOUNTER 2020-11-06 15:33 | Outpatient (CLI) | payer MEDICARE, SELFPAY ==
[2020-11-06 16:18] LABS: Anion Gap 8 mmol/L (8-16); Blood Urea Nitrogen 29 mg/dL (9-20); Calcium 8.9 mg/dL (8.4-10.2); Carbon Dioxide 27 mmol/L (22-30); Chloride 107 mmol/L (98-107); Estimated Glomerular Filt Rate 38; Glucose 150 mg/dL (75-110); Potassium 4.2 mmol/L (3.4-5.0); Sodium 142 mmol/L (137-145)
== END 2020-11-06 15:34 | disposition home or self-care (01) ==
PROVIDERS: PCP Family Medicine; Visit Provider Physician Assistant
DX: N17.9 Acute kidney failure, unspecified (principal); N18.9 Chronic kidney disease, unspecified
CPT/HCPCS: 36415; 80048

== ENCOUNTER 2021-03-22 12:15 | Outpatient (CLI) | payer MEDICARE, SELFPAY ==
--- NOTE | ~2021-03-22 | XR_ITS ---
XR wrist RT min 3V DATE: 03/22/2021 12:37 INDICATION: Recurring falls with right wrist injury, pain TECHNIQUE: 4 views of right wrist COMPARISON: None FINDINGS: There is osteoarthritis involving first carpometacarpal and second metacarpophalangeal join ts. No fracture or dislocation, periosteal reaction or bone destruction. IMPRESSION: Osteoarthritis No fracture or dislocation Reviewed, dictated and finalized at location A.
[2021-03-22 12:55] LABS: Basophils Absolute Auto 0.1 K/mm3 (0.0-0.1); Eosinophils Absolute Auto 0.5 K/mm3 (0-0.3); Eosinophils Percent Auto 5.3 % (0-4.4); Hematocrit 35.2 % (42.0-52.0); Hemoglobin 11.8 g/dL (14.0-18.0); Immature Granulocyte Absolute 0.05 K/mm3 (0.00-0.031); Immature Granulocyte Percent A 0.5 % (0-0.5); Lymphocytes Absolute Auto 2.37 K/mm3 (0.9-3.2); Lymphocytes Percent Auto 23.9 % (18.3-44.2); Mean Corpuscular HGB Conc 33.5 g/dl (32-36); Mean Corpuscular Hemoglobin 29.4 pg (26-34); Mean Corpuscular Volume 87.8 fl (80-100); Mean Platelet Volume 10.9 fl (7.4-10.4); Monocytes Absolute Auto 0.7 K/mm3 (0.1-0.6); Monocytes Percent Auto 7.2 % (2.6-8.5); Neutrophils Absolute Auto 6.2 K/mm3 (1.3-6.7); Neutrophils Percent Auto 62.1 % (45.5-73.1); Platelet Count Result 271 k/mm3 (150-375); Red Blood Count 4.01 M/mm3 (4.6-6.20); Red Cell Distribution Width 14.2 % (11.5-14.5); White Blood Count 9.9 K/mm3 (4.5-10.0)
[2021-03-22 13:10] LABS: Hemoglobin A1C 6.5 % (<5.7)
[2021-03-22 13:11] LABS: Alanine Aminotransferase 26 U/L (4-50); Albumin Level 4.7 g/dL (3.5-5.1); Alkaline Phosphatase 52 U/L (38-126); Anion Gap 8 mmol/L (8-16); Aspartate Amino Transferase 32 U/L (17-59); Bilirubin,Total 0.5 mg/dL (0.2-1.3); Blood Urea Nitrogen 32 mg/dL (9-20); Calcium 9.4 mg/dL (8.4-10.2); Carbon Dioxide 27 mmol/L (22-30); Chloride 106 mmol/L (98-107); Cholesterol 110 mg/dL (0-200); Estimated Glomerular Filt Rate 30; Glucose 113 mg/dL (65-110); HDL Direct 31 mg/dL; Potassium 4.3 mmol/L (3.4-5.0); Sodium 141 mmol/L (137-145); Triglycerides 241 mg/dL (<150)
[2021-03-22 13:23] LABS: LDL Cholesterol Direct 42 mg/dL
[2021-03-22 13:43] LABS: Prostate Specific Antigen 0.7 ng/mL (< OR = 4.0)
[2021-03-22 13:59] LABS: Hypochromasia 1+ (NORMAL); Platelet Estimate Adequate (Adequate)
[2021-03-22 14:02] LABS: Iron 71 ug/dL (49-181)
[2021-03-22 14:12] LABS: Percent Iron Saturation 18 % (20-50)
[2021-03-22 14:19] LABS: Free T4 Free Thyroxine 1.06 ng/mL (0.78-2.19)
[2021-03-27 13:50] LABS: Red Blood Cell Folate >1000 ng/mL RBC (>280)
== END 2021-03-22 12:16 | disposition home or self-care (01) ==
LOC: ANHIMG 12:18
PROVIDERS: PCP Family Medicine; Visit Provider Family Medicine
DX: M25.539 Pain in unspecified wrist (principal); D64.9 Anemia, unspecified; E11.65 Type 2 diabetes mellitus with hyperglycemia; E16.2 Hypoglycemia, unspecified; E88.81 Metabolic syndrome and other insulin resistance; I10 Essential (primary) hypertension; I50.42 Chronic combined systolic (congestive) and diastolic (congestive) heart failure; N17.9 Acute kidney failure, unspecified; N18.9 Chronic kidney disease, unspecified; Z79.4 Long term (current) use of insulin; Z79.899 Other long term (current) drug therapy; E11.42 Type 2 diabetes mellitus with diabetic polyneuropathy; Z12.5 Encounter for screening for malignant neoplasm of prostate; M19.031 Primary osteoarthritis, right wrist
CPT/HCPCS: 36415; 73110; 80053; 80061; 82607; 82728; 82747; 83036; 83540; 83550; 84153; 84439; 84443; 85025; G0103

== ENCOUNTER 2021-03-29 00:04 | Emergency (ER) | payer MEDICARE, SELFPAY ==
--- NOTE | ~2021-03-29 | XR_ITS ---
EXAMINATION: XR chest 2V EXAM DATE: 03/29/2021 00:29 INDICATION: Shortness of breath. Asthma. Hypertension. TECHNIQUE: Frontal and lateral projections of the chest obtained and reviewed. Comparison is made to prior examination from 03/09/2020. FINDINGS: The lungs are clear. There are no pleural effusions. Cardiac silhouette is prominent but magnified on this AP technique. There is no pneumothorax suspected. Patient has diffuse idiopathic skeletal hyperostosis (DISH). IMPRESSION: No acute cardiopulmonary findings. Reviewed, dictated and finalized at location A.
--- NOTE | 2021-03-29 00:10 | ECG_ITS ---
Measurements Intervals [place] Rate: 60 P: 39 VA: 250 QRS: -14 QRSD: 111 T: 145 QT: 410 QTc: 410 Interpretive Statements SINUS RHYTHM WITH FIRST DEGREE AV BLOCK INTRAVENTRICULAR CONDUCTION DELAY ST-T WAVE ABNORMALITY IN HIGH LATERAL LEADS- CONSIDER ISCHEMIA ABNORMAL ECG Electronically Signed On 03-29-2021 5:53:02 CDT by Shelton Wyman D.O.
[2021-03-29 00:11] VITALS: BP 182/77; PULSE 61; RESP 16; TEMP 36.9; O2SAT 99
[2021-03-29 00:31] LABS: Basophils Absolute Auto 0.1 K/mm3 (0.0-0.1); Eosinophils Absolute Auto 0.4 K/mm3 (0-0.3); Eosinophils Percent Auto 3.9 % (0-4.4); Hematocrit 34.5 % (42.0-52.0); Hemoglobin 11.4 g/dL (14.0-18.0); Immature Granulocyte Absolute 0.04 K/mm3 (0.00-0.031); Immature Granulocyte Percent A 0.4 % (0-0.5); Lymphocytes Absolute Auto 1.28 K/mm3 (0.9-3.2); Lymphocytes Percent Auto 14.3 % (18.3-44.2); Mean Corpuscular Hemoglobin 29.8 pg (26-34); Mean Corpuscular Volume 90.1 fl (80-100); Mean Platelet Volume 11.2 fl (7.4-10.4); Monocytes Absolute Auto 0.5 K/mm3 (0.1-0.6); Monocytes Percent Auto 5.5 % (2.6-8.5); Neutrophils Absolute Auto 6.7 K/mm3 (1.3-6.7); Neutrophils Percent Auto 74.9 % (45.5-73.1); Platelet Count Result 238 k/mm3 (150-375); Red Blood Count 3.83 M/mm3 (4.6-6.20); Red Cell Distribution Width 14.3 % (11.5-14.5)
[2021-03-29 00:40] LABS: Anion Gap 7 mmol/L (8-16); Blood Urea Nitrogen 34 mg/dL (9-20); Calcium 9.2 mg/dL (8.4-10.2); Carbon Dioxide 27 mmol/L (22-30); Chloride 103 mmol/L (98-107); Estimated CRCL calculation 46 ml/min; Estimated Glomerular Filt Rate 30; Glucose 108 mg/dL (65-110); Potassium 4.9 mmol/L (3.4-5.0); Sodium 137 mmol/L (137-145)
[2021-03-29 00:52] LABS: NT Pro B Type Natriuretic Pept 184 pg/mL (5-100); Troponin I < 0.012 ng/mL (0.000-0.034)
[2021-03-29 01:11] VITALS: PULSE 60; RESP 12; O2SAT 98
[2021-03-29 01:22] LABS: INR 1.1; Prothrombin Time 14.3 Seconds (11.1-14.7)
[2021-03-29 01:23] LABS: Partial Thromboplastin Time 32.1 SECONDS (22.3-36.8)
--- NOTE | 2021-03-29 01:48 | ED.SOB ---
HPI - SOB/Dyspnea General Chief Complaint: Shortness of Breath/Dyspnea Stated Complaint: diff breathing Time Seen by Provider: 03/29/21 01:39 Source: patient Mode of arrival: ambulatory Limitations: no limitations History of Present Illness HPI Narrative: Patient is a 71-year-old male complaining of shortness of breath that started today. Patient currently denies being short of breath. Patient also noticed increased lower extremity edema for the past week. Patient denies any cough, chest congestion, chest pain, abdominal pain or distention, nausea, vomiting, diaphoresis, fever or chills. Related Data Home Medications Medication Instructions Recorded Confirmed aspirin 81 mg tablet,delayed 81 mg PO DAILY 08/23/19 03/21/21 release [id number] tablet 1 tablet PO DAILY 08/23/19 03/21/21 amlodipine 10 mg PO DAILY 11/03/20 03/21/21 calcium carbonate 600 mg PO HS 11/03/20 03/21/21 carvedilol 6.25 mg PO Q12H 11/03/20 03/21/21 clonidine HCl 0.3 mg PO BID 11/03/20 03/21/21 fenofibrate 160 mg PO HS 11/03/20 03/21/21 furosemide 40 mg PO HS 11/03/20 03/21/21 hydrochlorothiazide 25 mg PO DAILY 11/03/20 03/21/21 magnesium 250 mg PO DAILY 11/03/20 03/21/21 Allergies Allergy/AdvReac Type Severity Reaction Status Date / Time exenatide Allergy Unknown Unknown Verified 03/29/21 01:16 metformin Allergy Unknown Nausea Verified 03/29/21 01:16 nebivolol Allergy Unknown Unknown Verified 03/29/21 01:16 pioglitazone Allergy Unknown sleepiness Verified 03/29/21 01:16 Review of Systems Review of Systems: All systems reviewed & are unremarkable except as noted in HPI and below Constitutional: Constitutional: Denies body ache(s), Denies chills, Denies excessive sweating, Denies fatigue, Denies fever(s), Denies headache(s), Denies lethargy, Denies malaise, Denies weakness and Denies weight loss Eyes: Eyes: Denies blurry vision, Denies change in vision and Denies loss of vision ENT: Denies dizziness, Denies ear discharge, Denies headache(s), Denies lip swelling, Denies epistaxis, Denies nasal congestion, Denies neck pain, Denies throat swelling and Denies tongue swelling Cardiovascular: Cardiovascular: Denies chest pain, Denies chest pain at rest, Denies chest pain with activity, Denies diaphoresis, Denies rapid heart rate, Denies irregular heart rhythm, Denies lightheadedness and Denies palpitations Respiratory: Respiratory: Denies chest congestion, Denies cough and Denies hemoptysis Gastrointestinal: Gastrointestinal: Denies abdominal pain, Denies melena, Denies hematochezia, Denies diarrhea, Denies nausea, Denies vomiting and Denies hematemesis Musculoskeletal: Musculoskeletal: Denies abnormal gait, Denies deformity, Denies joint swelling, Denies limited range of motion, Denies neck pain and Denies numbness Neurologic: Denies Abnormal speech present, Denies abnormal gait, Denies confusion, Denies dizziness, Denies headache(s), Denies focal weakness, Denies loss of vision, Denies numbness, Denies Other visual disturbances, Denies Sensory deficit (Neuro) and Denies weakness Psychiatric: Psychiatric: Denies confusion, Denies depression, Denies auditory hallucinations, Denies homicidal ideation and Denies suicidal ideation Endocrine: Endocrine: Denies cold intolerance, Denies excessive sweating, Denies fatigue, Denies heat intolerance and Denies palpitations Hematologic/Lymphatic: Hematologic/Lymphatic: Denies easy bleeding and Denies easy bruising Allergic/Immunologic: Allergic/Immunologic: Denies lip swelling, Denies throat swelling and Denies tongue swelling PMFSH Past Medical History Medical History Acquired lymphedema Acute confusion Acute renal failure superimposed on chronic kidney disease Adenomatous polyps repeat colonoscopy 2024 Cardiomyopathy CHF (congestive heart failure) echocardiogram 2016 demonstrating normal ejection fraction with moderate left ventricular hypertr
[2021-03-29] MEDS: FUROSEMIDE INJ 40 MG/4 ML VIAL 20 MG IV PUSH (02:01)
[2021-03-29 02:45] VITALS: BP 181/91; PULSE 68; RESP 18; O2SAT 98
== END 2021-03-29 02:45 | disposition home or self-care (01) ==
PROVIDERS: Emergency Provider Emergency Medicine; PCP Family Medicine
DX: I13.0 Hypertensive heart and chronic kidney disease with heart failure and stage 1 through stage 4 chronic kidney disease, or unspecified chronic kidney disease (principal); I50.9 Heart failure, unspecified; E11.22 Type 2 diabetes mellitus with diabetic chronic kidney disease; N18.9 Chronic kidney disease, unspecified; N17.9 Acute kidney failure, unspecified; Z79.4 Long term (current) use of insulin; Z79.82 Long term (current) use of aspirin; I89.0 Lymphedema, not elsewhere classified; E11.40 Type 2 diabetes mellitus with diabetic neuropathy, unspecified; E78.2 Mixed hyperlipidemia; E66.01 Morbid (severe) obesity due to excess calories; Z68.41 Body mass index [BMI] 40.0-44.9, adult; G47.419 Narcolepsy without cataplexy; G47.33 Obstructive sleep apnea (adult) (pediatric); Z86.010 Personal history of colon polyps; Z87.891 Personal history of nicotine dependence; I44.0 Atrioventricular block, first degree; R94.31 Abnormal electrocardiogram [ECG] [EKG]
CPT/HCPCS: 36415; 71046; 80048; 83880; 84484; 85025; 85610; 85730; 93005; 96374; 99284; J1940

== ENCOUNTER 2021-06-14 14:07 | Outpatient (CLI) | payer MEDICARE, SELFPAY ==
[2021-06-14 15:02] LABS: Albumin Level 4.6 g/dL (3.5-5.1); Anion Gap 10 mmol/L (8-16); Blood Urea Nitrogen 32 mg/dL (9-20); Calcium 9.3 mg/dL (8.4-10.2); Carbon Dioxide 25 mmol/L (22-30); Chloride 104 mmol/L (98-107); Estimated Glomerular Filt Rate 30; Glucose 169 mg/dL (65-110); Phosphorus 3.4 mg/dL (2.5-4.5); Sodium 139 mmol/L (137-145)
[2021-06-14 15:09] LABS: Complement C3 119 mg/dL (88-165)
[2021-06-18 16:25] LABS: Albumin 4.2 g/dL (3.8-4.8); Alpha 1 Globulin 0.3 g/dL (0.2-0.3); Alpha 2 Globulin 0.7 g/dL (0.5-0.9); Beta 1 Globulin 0.5 g/dL (0.4-0.6); Gamma Globulin 1.2 g/dL (0.8-1.7); Protein, Total 7.2 g/dL (6.1-8.1)
[2021-06-19 11:52] LABS: ANCA Screen Negative (Negative)
[2021-06-20 12:48] LABS: Anti Glomerular Basement Memb <1.0 AI (<1.0)
== END 2021-06-14 14:08 | disposition home or self-care (01) ==
PROVIDERS: PCP Family Medicine; Visit Provider Internal Medicine Nephrology
DX: E11.29 Type 2 diabetes mellitus with other diabetic kidney complication (principal); I12.9 Hypertensive chronic kidney disease with stage 1 through stage 4 chronic kidney disease, or unspecified chronic kidney disease; N18.32 Chronic kidney disease, stage 3b
CPT/HCPCS: 36415; 80069; 83520; 84155; 84165; 86021; 86038; 86160; 86225

== ENCOUNTER 2021-06-19 14:03 | Outpatient (CLI) | payer OTHER, MEDICARE, SELFPAY ==
[2021-06-19 15:41] LABS: HIV 1/2 Ab P24 Ag Result Negative (Negative)
[2021-06-19 15:51] LABS: HAV RESULT Negative (Negative); Hepatitis B Core IgM Result Negative (Negative); Hepatitis B Surface Antigen Negative (Negative)
[2021-06-19 16:15] LABS: Hepatitis C Virus Antibody Negative (Negative)
== END 2021-06-19 14:04 | disposition home or self-care (01) ==
LOC: ANHLAB 14:15
PROVIDERS: PCP Family Medicine; Visit Provider Family Medicine
DX: Z11.4 Encounter for screening for human immunodeficiency virus [HIV] (principal)
CPT/HCPCS: 36415; 80074; 86703; G0432

== ENCOUNTER 2021-06-19 14:23 | Outpatient (CLI) | payer MEDICARE, SELFPAY ==
[2021-06-19 14:53] LABS: Total Protein Urine Random 163 mg/dL; Ur Ttl Prot Creatinine Ratio 1.27 mg/mg (0-0.20)
[2021-06-19 15:53] LABS: Eosinophil Urine Rare % (None Seen)
[2021-06-23 21:23] LABS: Creatinine, Random Urine 126 mg/dL (20-320); Total Protein/Creatinine Ratio 1048 mg/g creat (22-128)
== END 2021-06-19 14:24 | disposition home or self-care (01) ==
LOC: ANHLAB 14:25
PROVIDERS: PCP Family Medicine; Visit Provider Internal Medicine Nephrology
DX: E11.29 Type 2 diabetes mellitus with other diabetic kidney complication (principal); I12.9 Hypertensive chronic kidney disease with stage 1 through stage 4 chronic kidney disease, or unspecified chronic kidney disease; N18.32 Chronic kidney disease, stage 3b
CPT/HCPCS: 82570; 84156; 84166; 85999

== ENCOUNTER 2021-06-27 13:41 | Outpatient (CLI) | payer MEDICARE, SELFPAY ==
--- NOTE | ~2021-06-27 | US_ITS ---
US renal BI 06/27/2021 14:25 Procedure: Realtime transabdominal ultrasound of the kidneys and bladder. Indication: Chronic kidney disease. Comparison: Ultrasound dated 07/23/2020 Findings: Renal echotexture is normal bilaterally without hydronephrosis, contour deforming mass or r enal calculus. The right kidney measures 13 cm and left kidney measures 12.4 cm. Bladder within norm al limits. Incidental note is made of hepatic steatosis. Impression: 1: Unremarkable renal ultrasound. No stones, masses or hydronephrosis. Reviewed, dictated and finalized at location A. RONMENTAL RESEARCH SCIENTIST Impression: 1: Unremarkable renal ultrasound. No stones, masses or hydronephrosis.
== END 2021-06-27 13:42 | disposition home or self-care (01) ==
PROVIDERS: PCP Family Medicine; Visit Provider Internal Medicine Nephrology
DX: N18.32 Chronic kidney disease, stage 3b (principal)
CPT/HCPCS: 76775

== ENCOUNTER 2021-07-24 13:00 | Outpatient (RCR) | payer MEDICARE, SELFPAY ==
--- NOTE | 2021-06-06 17:06 | PTOPEVAL ---
PHYSICAL THERAPY EVALUATION AND PLAN OF CARE Thank you for referring Gulshan Voss to [facility].? The patient is scheduled to be seen for therapy? 2x/week for 4 weeks. Please review, sign, date and return this plan of care RICKY. I agree with and certify that the following plan of care is medically necessary. Referring Physician Date Attending Provider: Ellis Davidson MD Evaluation Outpatient Past Medical History Neurological History Hx Neurological Disorders No Significant History Cardiovascular History Hx Coronary Stent Yes Hx Hypercholesterolemia Yes Hx Hypertension Yes Respiratory History Hx Asthma Yes Hx Sleep Apnea Yes Gastrointestinal History Hx Appendectomy Yes Hx Cholecystectomy Yes Hx Gastroesophageal Reflux Disease Yes Hx Polyps Yes: colon and gastric polyps Endocrine History Hx Diabetes Yes: insulin controlled Diagnosis poor balance, falls Onset 6months Subjective Information Gulshan is here today because Query Text:As Reported By Patient/ of increased falling at home. Family There have been at least 4 falls in the last 2 months that caused physical damange to his home, but he states there have been more. There has been one fall outside the home where he fell in the grass. States no injuries from falls. Usually gets up by pulling himself up from the floor with a chair. Does have a lot of neuropathy in bilateral feet. Has 2 steps to enter the home right now - no rail but thinks he could have them put in. Prior Level of Function Home Setting Mobility Assistive Devices (Used Last 3 Cane Months) Pain Assessment Timing of Pain Assessment Timing of Pain Assessment Assessment Self Report Self Report Pain Level 0 Pain Score Pain Score 0: Self Report Lower Extremity Range of Motion General Lower Extremity Range of Motion Reason Not Measured WFL/Left,WFL/Right Lower Extremity Muscle Strength Testing Hip Strength Bilateral Hip Flexion Strength 4+ Good + Hip Extension Strength 3- Fair - Hip Abduction Strength 3- Fair - Knee Strength Bilateral Knee Flexion Strength 5 Normal Knee Extension Strength 5 Normal Ankle Strength Bilateral Ankle Dorsiflexion Strength
--- NOTE | 2021-06-15 09:01 | PCPTNOTE ---
Patient called & cancelled scheduled appointment this date due to not feeling well after covid booster shot.
--- NOTE | 2021-06-29 12:47 | PCPTNOTE ---
Patient called and states he needs to cancel appointment because he does not have a ride this date.
--- NOTE | 2021-07-05 13:12 | PTOPEVAL ---
PHYSICAL THERAPY PROGRESS REPORT Thank you for referring Gulshan Voss to [facility] [place].? The patient is scheduled to be seen for therapy? 1x/week for 5 weeks. Please review, sign, date and return this plan of care RICKY. I agree with and certify that the following plan of care is medically necessary. Referring Physician Date Attending Provider: Ellis Davidson MD Progress Diagnosis poor balance, falls Onset 6months Subjective Information Gulshan reports that he does Query Text:As Reported By Patient/ see some benefit from therapy. Family His last fall was a week ago - states that he fell off the toilet by leaning forward too far. He was able to get himself up off the floor using the door jam. States he cannot recall the last time he fell while standing or from walking. 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 Pain Assessment Timing of Pain Assessment Timing of Pain Assessment Assessment Self Report Self Report Pain Level 0 Pain Score Pain Score 0: Self Report Lower Extremity Muscle Strength Testing Hip Strength Bilateral Hip Flexion Strength 4+ Good + Hip Extension Strength 3 Fair Hip Abduction Strength 3 Fair Knee Strength Bilateral Knee Flexion Strength 5 Normal Knee Extension Strength 5 Normal Ankle Strength Bilateral Ankle Dorsiflexion Strength 4- Good - Ankle Plantarflexion Strength 4- Good - Balance Assessment Simms Balance Assessment Sitting to Standing Independent w/Hands Unsupported Stance Ability Supervision- 2 minutes Sitting Unsupported, Feet on Floor Safely- 2 minutes Standing to Sitting Assist, Control w/Hands Transfer Ability Supervision, Verbal Cues Unsupported Stance- Eyes Closed 3 seconds Unsupported Stance- Feet Together Supervision to maintain Reaching Forward while Standing Supervision 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
--- NOTE | 2021-07-31 12:39 | PCPTNOTE ---
Patient called & cancelled scheduled appointment this date due to being bed with a headache.
--- NOTE | 2021-08-06 13:36 | PCPTNOTE ---
Patient did not show up for scheduled appointment this date. Called patient. Unable to leave a voicemail.
--- NOTE | 2021-08-14 10:11 | PCPTNOTE ---
PHYSICAL THERAPY DISCHARGE NOTE Attending Provider: Ellis Davidson MD Patient:Gulshan Voss Date of :1950 Patient has not returned for any further treatments since 07/24/2021, therefore he will be discharged at this time. Patient?s initial visit was on 06/06/2021 and had a total of 9 visits. The goals were partially met. Thank you [facility] referring this patient [facility]. Please review, sign, date and return this discharge summary RICKY. I have been updated about the patient's current status and I agree with discharge from the above service at this time. Referring Physician Date
== END 2021-08-14 13:56 | disposition home or self-care (01) ==
LOC: ANHPT 13:00
PROVIDERS: PCP Family Medicine; Visit Provider Family Medicine
DX: R26.89 Other abnormalities of gait and mobility (principal)
CPT/HCPCS: 97110; 97116; 97163

== ENCOUNTER 2021-12-04 20:24 | Emergency (ER) | payer MEDICARE, SELFPAY ==
--- NOTE | ~2021-12-04 | CT_ITS ---
EXAMINATION: CT facial & cervical spine wo DATE: 12/04/2021 21:25 INDICATION: glf TECHNIQUE: Computed tomography (CT) of the maxillofacial region and cervical spine was performed with out intravenous contrast. Automated exposure control and iterative reconstruction technique were empl oyed. The dose-length product was 684.90 mGy-cm. COMPARISON: None FINDINGS: CERVICAL: Counting reference: Craniocervical junction. There are seven cervical type vertebral bodies.. Anatomic Variants: None.. Vertebral Body Alignment: Intact. Craniocervical junction: Moderate degenerative change. Alignment intact. Osseous structures/fracture: No evidence of a lytic or blastic process in the visualized spine. N o evidence of acute fracture. Cervical soft tissues: The paraspinal soft tissues planes are maintained. Degenerative changes: Multilevel severe degenerative disc disease and severe bilateral neural foramin al narrowing. FACE: Soft Tissues: Significant soft tissue swelling over the right orbit. Facial bones: Inferiorly displaced right orbital floor fracture. Minimally displaced right medial or bital wall fracture.. No lytic or blastic process. Eyes: The globes are intact. Heterogeneous density material and subcutaneous gas extend from the rig ht maxillary sinus into the right orbit. Marked herniation of orbital fat on the right, with right pr optosis. Paranasal Sinuses: Air-fluid levels present in right frontal anterior ethmoid and left maxillary sin uses. Retention cyst or polyp in the left inferior maxillary sinus. Near complete opacification of th e right maxillary sinus. Foreign Bodies: No radiopaque foreign bodies. Other Findings: None. IMPRESSION: No acute fracture or traumatic malalignment in the cervical spine. Right orbital blow in type fractur e with marked proptosis and herniation of orbital fat. Reviewed, dictated and finalized at location K. IMPRESSION: No acute fracture or traumatic malalignment in the cervical spine. Right orbita l blow in type fracture with marked proptosis and herniation of orbital fat.
--- NOTE | ~2021-12-04 | CT_ITS ---
EXAMINATION: CT brain wo con DATE: 12/04/2021 21:22 INDICATION: glf TECHNIQUE: Computed tomography (CT) of the head was performed without intravenous contrast. The mA wa s adjusted according to patient size. Iterative reconstruction technique was employed. The dose-lengt h product was 681.00 mGy-cm. COMPARISON: 11/03/20 FINDINGS: No acute intracranial hemorrhage or extra-axial fluid collection. No hydrocephalus, mass, or herniation. No acute ischemic infarct. Unremarkable dural venous sinus attenuation. No acute osseous abnormality. Multiple air-fluid levels in the paranasal sinuses. The mastoid air cells are clear. Mild atrophy and chronic white matter change. Atherosclerotic intracranial calcifications. IMPRESSION: No acute intracranial process. Reviewed, dictated and finalized at location K.
--- NOTE | ~2021-12-04 | CT_ITS ---
EXAMINATION: CT chest abdomen pelvis w con DATE: 12/04/2021 21:24 INDICATION: Ground-level fall TECHNIQUE: Computed tomography (CT) of the chest, abdomen, and pelvis was performed with 100 mL Omnip aque-350 intravenous contrast. Automated exposure control and iterative reconstruction technique were employed. The dose-length product was 1992.06 mGy-cm. COMPARISON: CT abdomen and pelvis 11/03/2020 FINDINGS: CHEST: No thoracic aortic injury. No mediastinal hematoma. No pericardial effusion. No acute lung injury. No pleural effusion or pneumothorax. ABDOMEN/PELVIS: No solid organ injury. No evidence of bowel or mesenteric injury. No free fluid or free air. No retroperitoneal hematoma. Pelvic contents are atraumatic. MUSCULOSKELETAL: No acute fracture. No fracture or traumatic malalignment of the thoracic or lumbar spine. IMPRESSION: No acute process detected in the chest, abdomen, or pelvis. Reviewed, dictated and finalized at location K.
--- NOTE | 2021-12-04 20:27 | ECG_ITS ---
Measurements Intervals [place] Rate: 65 P: 73 MN: 208 QRS: -6 QRSD: 117 T: 124 QT: 429 QTc: 447 Interpretive Statements ATRIAL FLUTTER/TACHYCARDIA INTRAVENTRICULAR CONDUCTION DELAY BASELINE ARTIFACT- I, II, III, AVR, AVF ABNORMAL ECG Electronically Signed On 12-05-2021 7:03:35 CDT by Shelton Wyman D.O.
--- NOTE | 2021-12-04 20:27 | ED.ABDPAIN ---
HPI - Abdominal Pain General Chief Complaint: Abdominal Pain Stated Complaint: LEFT SIDE ABD PAIN WITH PARTIAL BLOCKAGE Time Seen by Provider: 12/04/21 20:26
[2021-12-04 20:38] VITALS: BP 227/135; PULSE 74; RESP 22; TEMP 36.6; O2SAT 100
[2021-12-04 20:43] LABS: Basophils Absolute Auto 0.2 K/mm3 (0.0-0.1); Basophils Percent Auto 1.1 % (0.2-1.2); Eosinophils Absolute Auto 0.6 K/mm3 (0-0.3); Eosinophils Percent Auto 4.5 % (0-4.4); Hematocrit 39.9 % (42.0-52.0); Hemoglobin 13.2 g/dL (14.0-18.0); Immature Granulocyte Absolute 0.08 K/mm3 (0.00-0.031); Immature Granulocyte Percent A 0.6 % (0-0.5); Lymphocytes Absolute Auto 2.88 K/mm3 (0.9-3.2); Lymphocytes Percent Auto 20.1 % (18.3-44.2); Mean Corpuscular HGB Conc 33.1 g/dl (32-36); Mean Corpuscular Hemoglobin 30.1 pg (26-34); Mean Corpuscular Volume 90.9 fl (80-100); Mean Platelet Volume 11.5 fl (7.4-10.4); Monocytes Absolute Auto 1.3 K/mm3 (0.1-0.6); Monocytes Percent Auto 8.7 % (2.6-8.5); Neutrophils Absolute Auto 9.3 K/mm3 (1.3-6.7); Platelet Count Result 367 k/mm3 (150-375); Red Blood Count 4.39 M/mm3 (4.6-6.20); Red Cell Distribution Width 14.5 % (11.5-14.5); White Blood Count 14.3 K/mm3 (4.5-10.0)
[2021-12-04] MEDS: SODIUM CHLORIDE 0.9% IV 1,000 ML 999 ML IV CONT (20:43)
[2021-12-04] MEDS: ONDANSETRON INJ 4 MG/2 ML VIAL IV PUSH (20:43)
[2021-12-04 20:45] LABS: Appearance Urine Clear (Clear); Bilirubin Urine Negative (Negative); Blood Urine 2+ (Negative); Color Urine Yellow (Yellow); Glucose Urine UA Negative (Negative); Ketones Urine Negative (Negative); Leukocyte Esterase Ur Negative LEU/UL (Negative); Nitrate Urine Negative (Negative); Protein Urine 3+ mg/dL (Negative); Urobilinogen Urine 0.2 mg/dL (<2.0)
[2021-12-04] MEDS: FLUORESCEIN SOD 1 MG/STRIP EACH EYE (20:45)
[2021-12-04 20:47] VITALS: RESP 22
[2021-12-04 20:48] VITALS: BP 211/111; PULSE 66; RESP 18; O2SAT 100
[2021-12-04 20:50] LABS: Bacteria Urine Trace /hpf; Mucus Urine Rare /lpf; Squamous Epithelial Cell Urine Rare /hpf (Few); WBC Urine 0-3 /hpf
[2021-12-04 20:55] LABS: INR 1.2; Prothrombin Time 14.8 Seconds (11.1-14.7)
[2021-12-04 20:56] LABS: Add Urine Microscopic? YES; Partial Thromboplastin Time 32.6 SECONDS (22.3-36.8)
[2021-12-04 20:56] LABS: Glucose Point of Care 191 mg/dl (65-105)
[2021-12-04 20:57] LABS: Alanine Aminotransferase 28 U/L (4-50); Albumin Level 5.2 g/dL (3.5-5.1); Alkaline Phosphatase 52 U/L (38-126); Anion Gap 14 mmol/L (8-16); Aspartate Amino Transferase 44 U/L (17-59); Bilirubin,Total 0.5 mg/dL (0.2-1.3); Blood Urea Nitrogen 41 mg/dL (9-20); Calcium 9.4 mg/dL (8.4-10.2); Carbon Dioxide 19 mmol/L (22-30); Chloride 105 mmol/L (98-107); Estimated CRCL calculation 43 ml/min; Estimated Glomerular Filt Rate 30; Glucose 187 mg/dL (65-110); Potassium 4.6 mmol/L (3.4-5.0); Sodium 138 mmol/L (137-145)
--- NOTE | 2021-12-04 20:58 | ED.FALL ---
HPI - Fall General Chief Complaint: Fall Stated Complaint: fall Time Seen by Provider: 12/04/21 20:26 Source: patient History of Present Illness HPI Narrative: Patient presents with a fall. Patient was walking outside reports he tripped on the ground and fell to the concrete he did strike his face he denied any loss of consciousness. Reports he was previously on Brilinta but stopped that in August and is only taking a baby aspirin. Reports severe headache nausea and a bloody nose. Rates pain around his right orbit as well as his right hip. Denied prodrome prior to fall such as chest pain, lightheadedness, dizziness Related Data Allergies Allergy/AdvReac Type Severity Reaction Status Date / Time No Known Allergies Allergy Verified 12/04/21 20:41 Review of Systems Review of Systems: CONSTITUTIONAL: Denies fever, chills, or sweats. EYES: Denies visual changes, redness, or discharge. ENT: Denies rhinorrhea, congestion, sore throat, or otalgia. CARDIOVASCULAR: Denies chest pain, palpitations, or edema. RESPIRATORY: Denies cough or dyspnea. GASTROINTESTINAL: Denies abdominal pain, nausea, vomiting, or diarrhea. GENITOURINARY: Denies dysuria or hematuria. SKIN: Denies rash or itching. MUSCULOSKELETAL: Denies back pain, or myalgia. NEUROLOGIC: Denies numbness, dizziness, or weakness. PSYCHIATRIC: Denies anxiety or depression. All systems reviewed & are unremarkable except as noted in HPI and below PMFSH Social History Social History (Updated 12/04/21 @ 21:01 by Rui Jules MD) Living arrangements: with family Exam Narrative: GENERAL: Well-appearing, well-nourished, and in no acute distress. HEAD: Large periorbital edema around the right orbit EYES: PERRLA and EOMI. there is severe periorbital edema around the right arm with severe chemosis anterior chamber does appear quiet. Right ocular exam is limited due to severity of edema there is no fluorescein uptake on the part of the eye that was visualized intraocular pressure on the right eyes 60, 16 on the left eye ENT: Bilateral epistaxis NECK: Supple. No masses. No JVD CHEST: Clear to auscultation. No respiratory distress. No wheezes rales or rhonchi HEART: Regular rate and rhythm. No murmur heard. Normal peripheral pulses. ABDOMEN: Soft, nontender, nondistended, normal active bowel sounds. EXTREMITIES: Normal range of motion. No edema. SKIN: Warm, dry, no rash. NEURO: No nerves II through XII are intact patient is 5 out of 5 strength in all extremities sensation intact light touch in all extremities alert and oriented x3. PSYCH: Normal mood and affect. Course Reevaluation(s) Reevaluation #1: Patient feeling somewhat improved after a lateral canthotomy reports his vision is slightly better and his pain is improved. Date: 12/04/21 Time: 21:38 Vital Signs Vital signs: Vital Signs Temperature 36.6 C 12/04/21 20:38 Pulse Rate 74 12/04/21 20:38 Respiratory Rate 22 H 12/04/21 20:38 Blood Pressure 227/135 H 12/04/21 20:38 Pulse Oximetry 100 12/04/21 20:38 Temperature 36.6 C 12/04/21 20:38 Pulse Rate 88 12/04/21 22:03 Respiratory Rate 18 12/04/21 22:03 Blood Pressure 218/110 H 12/04/21 22:03 Pulse Oximetry 98 12/04/21 22:03 Procedures Other Procedure Procedure 1: Other Procedure: 213412/04/2021 discussed canthotomy with the patient and family only verbal consent was obtained due to the emergent nature of the procedure. The lateral canthus was cleaned with alcohol and was patient anesthetized with 1% lidocaine proxy 1 mL. Hemostasis was obtained with hemostats along the lateral canthus. Lateral canthal tendons were felt with scissors and cut. Repeat ocular pressures were 10. MDM - Fall MDM Narrative Medical decision making narrative: Patient presented after a mechanical ground-level fall striking his face. He had severe periorbital edema on the right side with diminished vision on that right side. Labs and imaging ordered.
--- NOTE | 2021-12-04 21:03 | PC.NURSE ---
pt in CT
[2021-12-04 21:22] VITALS: BP 201/132; PULSE 68; RESP 18; O2SAT 98
--- NOTE | 2021-12-04 21:25 | PC.NURSE ---
Pt noted to have approx 200 ml bloody emesis. ERp primo and ERP Rajeev at bedside for procedure.
[2021-12-04] MEDS: LIDO 1%/EPINEPHRINE 1:100,000 10 ML VIAL (21:26)
[2021-12-04 21:36] VITALS: BP 268/100; PULSE 67; RESP 12; O2SAT 95
--- NOTE | 2021-12-04 21:42 | PC.NURSE ---
Stefany has been called for standy by and DESIRAE tillman on phone with [facility]
--- NOTE | 2021-12-04 21:43 | PC.NURSE ---
ct contacted to push images to [facility] and print a disk at this time.
--- NOTE | 2021-12-04 21:47 | PC.NURSE ---
Call [facility] at [phone].
--- NOTE | 2021-12-04 21:48 | PC.NURSE ---
vrbo erp dr tillman 4mg morphine iv push.
[2021-12-04] MEDS: MORPHINE SULFATE (*CRX) 4 MG/ML INJ IV PUSH (21:50)
[2021-12-04 22:03] VITALS: BP 218/110; PULSE 88; RESP 18; O2SAT 98
[2021-12-04 23:40] LABS: Reflex Lactic Acid Yes or No Add Lactic
== END 2021-12-04 22:04 | disposition short-term general hospital (02) ==
PROVIDERS: Emergency Medicine; Emergency Provider Emergency Medicine; PCP Family Medicine
DX: S02.31XA Fracture of orbital floor, right side, initial encounter for closed fracture (principal); S09.90XA Unspecified injury of head, initial encounter; R04.0 Epistaxis; I10 Essential (primary) hypertension; E11.40 Type 2 diabetes mellitus with diabetic neuropathy, unspecified; Z79.4 Long term (current) use of insulin; Z79.84 Long term (current) use of oral hypoglycemic drugs; Z79.82 Long term (current) use of aspirin; Z87.891 Personal history of nicotine dependence; W01.0XXA Fall on same level from slipping, tripping and stumbling without subsequent striking against object, initial encounter; I48.92 Unspecified atrial flutter; R00.0 Tachycardia, unspecified; I45.9 Conduction disorder, unspecified
CPT/HCPCS: 36415; 67715; 70450; 70486; 71260; 72125; 74177; 80053; 81001; 82948; 83605; 85025; 85610; 85730; 93005; 96361; 96374; 96375; 99285; J2270; J2405; J7030; Q9967

== ENCOUNTER 2022-01-23 15:46 | Outpatient (CLI) | payer MEDICARE, SELFPAY ==
[2022-01-23 16:18] LABS: Basophils Absolute Auto 0.1 K/mm3 (0.0-0.1); Basophils Percent Auto 0.5 % (0.2-1.2); Eosinophils Absolute Auto 0.1 K/mm3 (0-0.3); Eosinophils Percent Auto 0.7 % (0-4.4); Hematocrit 32.3 % (42.0-52.0); Hemoglobin 10.2 g/dL (14.0-18.0); Immature Granulocyte Absolute 0.09 K/mm3 (0.00-0.031); Immature Granulocyte Percent A 0.8 % (0-0.5); Lymphocytes Absolute Auto 0.77 K/mm3 (0.9-3.2); Lymphocytes Percent Auto 6.6 % (18.3-44.2); Mean Corpuscular HGB Conc 31.6 g/dl (32-36); Mean Corpuscular Hemoglobin 29.1 pg (26-34); Mean Corpuscular Volume 92.3 fl (80-100); Mean Platelet Volume 10.8 fl (7.4-10.4); Monocytes Absolute Auto 0.3 K/mm3 (0.1-0.6); Monocytes Percent Auto 2.5 % (2.6-8.5); Neutrophils Absolute Auto 10.3 K/mm3 (1.3-6.7); Neutrophils Percent Auto 88.9 % (45.5-73.1); Platelet Count Result 301 k/mm3 (150-375); Red Cell Distribution Width 13.5 % (11.5-14.5); White Blood Count 11.6 K/mm3 (4.5-10.0)
[2022-01-23 16:27] LABS: Alanine Aminotransferase 17 U/L (6-50); Albumin Level 4.3 g/dL (3.5-5.1); Alkaline Phosphatase 46 U/L (38-126); Anion Gap 11 mmol/L (8-16); Aspartate Amino Transferase 19 U/L (17-59); Bilirubin,Total 0.2 mg/dL (0.2-1.3); Blood Urea Nitrogen 41 mg/dL (9-20); Calcium 8.7 mg/dL (8.4-10.2); Carbon Dioxide 23 mmol/L (22-30); Chloride 107 mmol/L (98-107); Cholesterol 91 mg/dL (0-200); Estimated Glomerular Filt Rate 30; Glucose 127 mg/dL (65-110); HDL Direct 29 mg/dL; Potassium 4.9 mmol/L (3.4-5.0); Sodium 141 mmol/L (137-145); Triglycerides 105 mg/dL (<150)
[2022-01-23 16:38] LABS: LDL Cholesterol Direct 42 mg/dL
[2022-01-23 21:09] LABS: Hemoglobin A1C 6.1 % (<5.7)
== END 2022-01-23 15:47 | disposition home or self-care (01) ==
PROVIDERS: PCP Family Medicine; Visit Provider Physician Assistant
DX: L03.115 Cellulitis of right lower limb (principal); E78.5 Hyperlipidemia, unspecified; Z79.899 Other long term (current) drug therapy; E11.42 Type 2 diabetes mellitus with diabetic polyneuropathy; Z79.4 Long term (current) use of insulin
CPT/HCPCS: 36415; 80053; 80061; 83036; 84443; 85025

== ENCOUNTER 2022-03-11 13:52 | Outpatient (NON) | payer MEDICARE, SELFPAY ==
[2022-03-11 14:27] LABS: Anion Gap 11 mmol/L (8-16); Blood Urea Nitrogen 29 mg/dL (9-20); Calcium 8.4 mg/dL (8.4-10.2); Carbon Dioxide 27 mmol/L (22-30); Chloride 101 mmol/L (98-107); Estimated Glomerular Filt Rate 40; Glucose 188 mg/dL (65-110); Potassium 4.3 mmol/L (3.4-5.0); Sodium 139 mmol/L (137-145)
[2022-03-11 14:31] LABS: Creatinine Urine 82.2 mg/dL
[2022-03-11 14:32] LABS: Total Protein Urine Random > 200 mg/dL
[2022-03-11 14:40] LABS: Parathyroid Intact 125.3 pg/mL (7.5-53.5)
[2022-03-11 15:05] LABS: Vitamin D 25 Hydroxy 38.3 ng/mL
== END 2022-03-11 13:53 | disposition home or self-care (01) ==
PROVIDERS: PCP Family Medicine; Visit Provider Internal Medicine Nephrology
DX: E11.29 Type 2 diabetes mellitus with other diabetic kidney complication (principal); I12.9 Hypertensive chronic kidney disease with stage 1 through stage 4 chronic kidney disease, or unspecified chronic kidney disease; N18.32 Chronic kidney disease, stage 3b; E55.9 Vitamin D deficiency, unspecified
CPT/HCPCS: 36415; 80069; 82306; 82570; 83970; 84156

== ENCOUNTER 2022-04-01 14:51 | Outpatient (RCR) | payer MEDICARE, SELFPAY ==
[2022-03-04 13:15] LABS: Basophils Absolute Auto 0.1 K/mm3 (0.0-0.1); Basophils Percent Auto 0.7 % (0.2-1.2); Eosinophils Absolute Auto 0.3 K/mm3 (0-0.3); Eosinophils Percent Auto 3.2 % (0-4.4); Hematocrit 29.1 % (42.0-52.0); Hemoglobin 8.9 g/dL (14.0-18.0); Immature Granulocyte Absolute 0.08 K/mm3 (0.00-0.031); Immature Granulocyte Percent A 0.8 % (0-0.5); Lymphocytes Absolute Auto 1.02 K/mm3 (0.9-3.2); Lymphocytes Percent Auto 10.2 % (18.3-44.2); Mean Corpuscular HGB Conc 30.6 g/dl (32-36); Mean Corpuscular Hemoglobin 27.5 pg (26-34); Mean Corpuscular Volume 89.8 fl (80-100); Mean Platelet Volume 10.5 fl (7.4-10.4); Monocytes Absolute Auto 0.5 K/mm3 (0.1-0.6); Monocytes Percent Auto 4.6 % (2.6-8.5); Neutrophils Percent Auto 80.5 % (45.5-73.1); Platelet Count Result 286 k/mm3 (150-375); Red Blood Count 3.24 M/mm3 (4.6-6.20)
[2022-03-04 13:27] LABS: Alanine Aminotransferase 19 U/L (6-50); Albumin Level 3.6 g/dL (3.5-5.1); Alkaline Phosphatase 47 U/L (38-126); Anion Gap 10 mmol/L (8-16); Aspartate Amino Transferase 25 U/L (17-59); Bilirubin,Total 0.3 mg/dL (0.2-1.3); Blood Urea Nitrogen 31 mg/dL (9-20); Calcium 8.6 mg/dL (8.4-10.2); Carbon Dioxide 24 mmol/L (22-30); Chloride 103 mmol/L (98-107); Estimated Glomerular Filt Rate 40; Glucose 109 mg/dL (65-110); Potassium 4.3 mmol/L (3.4-5.0); Sodium 137 mmol/L (137-145)
[2022-03-11 14:18] LABS: Basophils Absolute Auto 0.1 K/mm3 (0.0-0.1); Basophils Percent Auto 1.2 % (0.2-1.2); Eosinophils Absolute Auto 0.4 K/mm3 (0-0.3); Eosinophils Percent Auto 4.3 % (0-4.4); Hematocrit 29.9 % (42.0-52.0); Hemoglobin 9.3 g/dL (14.0-18.0); Immature Granulocyte Absolute 0.03 K/mm3 (0.00-0.031); Immature Granulocyte Percent A 0.4 % (0-0.5); Lymphocytes Absolute Auto 0.98 K/mm3 (0.9-3.2); Lymphocytes Percent Auto 12.1 % (18.3-44.2); Mean Corpuscular HGB Conc 31.1 g/dl (32-36); Mean Corpuscular Hemoglobin 27.8 pg (26-34); Mean Corpuscular Volume 89.5 fl (80-100); Monocytes Absolute Auto 0.5 K/mm3 (0.1-0.6); Neutrophils Absolute Auto 6.2 K/mm3 (1.3-6.7); Platelet Count Result 271 k/mm3 (150-375); Red Blood Count 3.34 M/mm3 (4.6-6.20); Red Cell Distribution Width 15.7 % (11.5-14.5); White Blood Count 8.1 K/mm3 (4.5-10.0)
[2022-03-11 14:30] LABS: Alanine Aminotransferase 21 U/L (6-50); Alkaline Phosphatase 49 U/L (38-126); Anion Gap 10 mmol/L (8-16); Aspartate Amino Transferase 27 U/L (17-59); Bilirubin,Total 0.3 mg/dL (0.2-1.3); Blood Urea Nitrogen 29 mg/dL (9-20); Calcium 8.4 mg/dL (8.4-10.2); Carbon Dioxide 26 mmol/L (22-30); Chloride 102 mmol/L (98-107); Estimated Glomerular Filt Rate 43; Glucose 190 mg/dL (65-110); Potassium 4.3 mmol/L (3.4-5.0); Sodium 138 mmol/L (137-145)
[2022-03-18 12:59] LABS: Basophils Absolute Auto 0.1 K/mm3 (0.0-0.1); Basophils Percent Auto 0.8 % (0.2-1.2); Eosinophils Absolute Auto 0.5 K/mm3 (0-0.3); Eosinophils Percent Auto 7.5 % (0-4.4); Hematocrit 28.7 % (42.0-52.0); Hemoglobin 9.1 g/dL (14.0-18.0); Immature Granulocyte Absolute 0.02 K/mm3 (0.00-0.031); Immature Granulocyte Percent A 0.3 % (0-0.5); Lymphocytes Absolute Auto 1.01 K/mm3 (0.9-3.2); Lymphocytes Percent Auto 14.3 % (18.3-44.2); Mean Corpuscular HGB Conc 31.7 g/dl (32-36); Mean Corpuscular Hemoglobin 28.3 pg (26-34); Mean Corpuscular Volume 89.4 fl (80-100); Mean Platelet Volume 10.9 fl (7.4-10.4); Monocytes Absolute Auto 0.4 K/mm3 (0.1-0.6); Monocytes Percent Auto 6.1 % (2.6-8.5); Platelet Count Result 224 k/mm3 (150-375); Red Blood Count 3.21 M/mm3 (4.6-6.20); White Blood Count 7.1 K/mm3 (4.5-10.0)
[2022-03-18 13:12] LABS: Alanine Aminotransferase 14 U/L (6-50); Albumin Level 3.7 g/dL (3.5-5.1); Alkaline Phosphatase 41 U/L (38-126); Anion Gap 10 mmol/L (8-16); Aspartate Amino Transferase 21 U/L (17-59); Bilirubin,Total 0.3 mg/dL (0.2-1.3); Blood Urea Nitrogen 32 mg/dL (9-20); CRP 0.9 mg/dL (<1.0); Calcium 8.7 mg/dL (8.4-10.2); Carbon Dioxide 26 mmol/L (22-30); Chloride 99 mmol/L (98-107); Estimated Glomerular Filt Rate 37; Glucose 108 mg/dL (65-110); Potassium 4.2 mmol/L (3.4-5.0); Sodium 135 mmol/L (137-145)
[2022-03-18 13:58] LABS: Erythrocyte Sedimentation Rate 110 mm/hr (0-20)
[2022-03-25 13:13] LABS: Basophils Absolute Auto 0.1 K/mm3 (0.0-0.1); Basophils Percent Auto 1.3 % (0.2-1.2); Eosinophils Absolute Auto 0.4 K/mm3 (0-0.3); Eosinophils Percent Auto 5.2 % (0-4.4); Immature Granulocyte Absolute 0.05 K/mm3 (0.00-0.031); Immature Granulocyte Percent A 0.7 % (0-0.5); Lymphocytes Absolute Auto 1.21 K/mm3 (0.9-3.2); Lymphocytes Percent Auto 16.1 % (18.3-44.2); Mean Corpuscular Hemoglobin 27.9 pg (26-34); Mean Corpuscular Volume 89.8 fl (80-100); Mean Platelet Volume 11.3 fl (7.4-10.4); Monocytes Absolute Auto 0.5 K/mm3 (0.1-0.6); Monocytes Percent Auto 6.9 % (2.6-8.5); Neutrophils Absolute Auto 5.3 K/mm3 (1.3-6.7); Neutrophils Percent Auto 69.8 % (45.5-73.1); Platelet Count Result 229 k/mm3 (150-375); Red Blood Count 3.23 M/mm3 (4.6-6.20); Red Cell Distribution Width 16.5 % (11.5-14.5); White Blood Count 7.5 K/mm3 (4.5-10.0)
[2022-03-25 13:27] LABS: Alanine Aminotransferase 15 U/L (6-50); Albumin Level 3.9 g/dL (3.5-5.1); Alkaline Phosphatase 42 U/L (38-126); Anion Gap 10 mmol/L (8-16); Aspartate Amino Transferase 22 U/L (17-59); Bilirubin,Total 0.2 mg/dL (0.2-1.3); Blood Urea Nitrogen 39 mg/dL (9-20); Calcium 8.4 mg/dL (8.4-10.2); Carbon Dioxide 27 mmol/L (22-30); Chloride 103 mmol/L (98-107); Estimated Glomerular Filt Rate 30; Glucose 61 mg/dL (65-110); Potassium 3.9 mmol/L (3.4-5.0); Sodium 140 mmol/L (137-145)
[2022-04-01 15:00] LABS: Basophils Absolute Auto 0.1 K/mm3 (0.0-0.1); Eosinophils Absolute Auto 0.5 K/mm3 (0-0.3); Eosinophils Percent Auto 6.3 % (0-4.4); Hematocrit 28.9 % (42.0-52.0); Hemoglobin 9.2 g/dL (14.0-18.0); Immature Granulocyte Absolute 0.03 K/mm3 (0.00-0.031); Immature Granulocyte Percent A 0.4 % (0-0.5); Lymphocytes Absolute Auto 1.02 K/mm3 (0.9-3.2); Lymphocytes Percent Auto 12.8 % (18.3-44.2); Mean Corpuscular HGB Conc 31.8 g/dl (32-36); Mean Corpuscular Volume 88.1 fl (80-100); Mean Platelet Volume 11.4 fl (7.4-10.4); Monocytes Absolute Auto 0.6 K/mm3 (0.1-0.6); Monocytes Percent Auto 6.9 % (2.6-8.5); Neutrophils Absolute Auto 5.8 K/mm3 (1.3-6.7); Neutrophils Percent Auto 72.6 % (45.5-73.1); Platelet Count Result 243 k/mm3 (150-375); Red Blood Count 3.28 M/mm3 (4.6-6.20); Red Cell Distribution Width 16.4 % (11.5-14.5)
[2022-04-01 15:10] LABS: Alanine Aminotransferase 16 U/L (6-50); Albumin Level 4.3 g/dL (3.5-5.1); Alkaline Phosphatase 52 U/L (38-126); Anion Gap 5 mmol/L (8-16); Aspartate Amino Transferase 29 U/L (17-59); Bilirubin,Total 0.4 mg/dL (0.2-1.3); Blood Urea Nitrogen 49 mg/dL (9-20); Calcium 8.6 mg/dL (8.4-10.2); Carbon Dioxide 25 mmol/L (22-30); Chloride 101 mmol/L (98-107); Estimated Glomerular Filt Rate 33; Glucose 70 mg/dL (65-110); Sodium 131 mmol/L (137-145)
== END 2022-06-02 23:59 | disposition home or self-care (01) ==
LOC: ANHLAB 14:51
PROVIDERS: Family Medicine; PCP Family Medicine; Visit Provider Family Medicine
DX: M86.9 Osteomyelitis, unspecified (principal); E11.621 Type 2 diabetes mellitus with foot ulcer; M86.171 Other acute osteomyelitis, right ankle and foot; Z45.2 Encounter for adjustment and management of vascular access device; Z48.00 Encounter for change or removal of nonsurgical wound dressing
CPT/HCPCS: 36415; 80053; 80069; 82306; 82570; 83970; 84156; 85025; 85652; 86140

== ENCOUNTER 2022-04-03 07:16 | Outpatient (RCR) | payer MEDICARE, SELFPAY ==
[2022-02-14 13:00] VITALS: BMI 45.1
== END 2022-04-18 10:53 | disposition home or self-care (01) ==
LOC: ANHWOC 07:16
PROVIDERS: PCP Family Medicine; Visit Provider Podiatrist Foot & Ankle Surgery
DX: I89.0 Lymphedema, not elsewhere classified (principal)
CPT/HCPCS: 29581; 99214; A9270; G0463

== ENCOUNTER 2022-04-08 09:23 | Outpatient (NON) | payer MEDICARE, SELFPAY ==
[2022-04-08 10:11] LABS: Basophils Absolute Auto 0.1 K/mm3 (0.0-0.1); Basophils Percent Auto 1.1 % (0.2-1.2); Eosinophils Absolute Auto 0.6 K/mm3 (0-0.3); Hematocrit 30.9 % (42.0-52.0); Immature Granulocyte Absolute 0.04 K/mm3 (0.00-0.031); Immature Granulocyte Percent A 0.5 % (0-0.5); Lymphocytes Absolute Auto 1.49 K/mm3 (0.9-3.2); Lymphocytes Percent Auto 18.7 % (18.3-44.2); Mean Corpuscular HGB Conc 32.4 g/dl (32-36); Mean Corpuscular Hemoglobin 28.6 pg (26-34); Mean Corpuscular Volume 88.3 fl (80-100); Mean Platelet Volume 10.9 fl (7.4-10.4); Monocytes Absolute Auto 0.5 K/mm3 (0.1-0.6); Monocytes Percent Auto 6.3 % (2.6-8.5); Neutrophils Absolute Auto 5.2 K/mm3 (1.3-6.7); Neutrophils Percent Auto 65.4 % (45.5-73.1); Platelet Count Result 256 k/mm3 (150-375); Red Cell Distribution Width 16.3 % (11.5-14.5)
[2022-04-08 10:22] LABS: Alanine Aminotransferase 29 U/L (6-50); Albumin Level 4.4 g/dL (3.5-5.1); Alkaline Phosphatase 64 U/L (38-126); Anion Gap 11 mmol/L (8-16); Aspartate Amino Transferase 39 U/L (17-59); Bilirubin,Total 0.3 mg/dL (0.2-1.3); Blood Urea Nitrogen 46 mg/dL (9-20); CRP 0.9 mg/dL (<1.0); Carbon Dioxide 25 mmol/L (22-30); Chloride 103 mmol/L (98-107); Estimated Glomerular Filt Rate 33; Glucose 69 mg/dL (65-110); Potassium 3.8 mmol/L (3.4-5.0); Sodium 139 mmol/L (137-145)
[2022-04-08 10:51] LABS: Erythrocyte Sedimentation Rate 94 mm/hr (0-20)
== END 2022-04-08 09:24 | disposition home or self-care (01) ==
LOC: ANHLAB 09:25
PROVIDERS: PCP Family Medicine; Visit Provider Family Medicine
DX: M86.9 Osteomyelitis, unspecified (principal); E11.621 Type 2 diabetes mellitus with foot ulcer
CPT/HCPCS: 36415; 80053; 85025; 85652; 86140

== ENCOUNTER 2022-05-22 07:39 | Outpatient (RCR) | payer MEDICARE, SELFPAY ==
--- NOTE | 2022-06-05 13:54 | PCWOUND ---
CWON NOTE Patient did not show up for appointment. Call was placed to Rachel SCOTT for [facility] who states that patient was seen by her earlier this morning. Was not aware he had an appointment with us. States that patient had outpatient debridement and bone biospy of foot by Dr. Evans yesterday 06/04/22 with wound vac placement. At this time wound clinic to step back as patient will be followed by HH 3 times a week and will be seeing Dr next week. Will follow as needed.
== END 2022-07-23 23:59 | disposition home or self-care (01) ==
LOC: ANHWOC 07:39
PROVIDERS: PCP Family Medicine; Visit Provider Student in an Organized Health Care Education/Training Program
DX: E11.621 Type 2 diabetes mellitus with foot ulcer (principal); L97.412 Non-pressure chronic ulcer of right heel and midfoot with fat layer exposed; L97.411 Non-pressure chronic ulcer of right heel and midfoot limited to breakdown of skin; L97.421 Non-pressure chronic ulcer of left heel and midfoot limited to breakdown of skin
CPT/HCPCS: 99213; G0463

== ENCOUNTER 2022-07-19 14:51 | Outpatient (NON) | payer MEDICARE, SELFPAY ==
[2022-07-19 15:41] LABS: Add Urine Microscopic? YES; Appearance Urine Clear (Clear); Bilirubin Urine Negative (Negative); Blood Urine Negative (Negative); Color Urine Light Yellow (Yellow); Glucose Urine UA Negative (Negative); Ketones Urine Negative (Negative); Leukocyte Esterase Ur Negative LEU/UL (Negative); Nitrate Urine Negative (Negative); Protein Urine 2+ mg/dL (Negative); Urobilinogen Urine 0.2 mg/dL (<2.0); pH Urine 5.5 (5.0-9.0)
[2022-07-19 15:50] LABS: Squamous Epithelial Cell Urine Rare /hpf (Few)
== END 2022-07-19 14:52 | disposition home or self-care (01) ==
LOC: ANHLAB 14:54
PROVIDERS: PCP Family Medicine; Visit Provider Family Medicine
DX: N39.0 Urinary tract infection, site not specified (principal); E11.621 Type 2 diabetes mellitus with foot ulcer; L97.419 Non-pressure chronic ulcer of right heel and midfoot with unspecified severity; Z48.00 Encounter for change or removal of nonsurgical wound dressing; Z79.82 Long term (current) use of aspirin
CPT/HCPCS: 81001

== ENCOUNTER 2022-12-06 11:54 | Outpatient (NON) | payer MEDICARE, SELFPAY ==
[2022-12-06 12:58] LABS: Appearance Urine Clear (Clear); Bacteria Urine None Seen /hpf; Bilirubin Urine Negative (Negative); Blood Urine Negative (Negative); Color Urine Yellow (Yellow); Glucose Urine UA Negative (Negative); Ketones Urine Negative (Negative); Leukocyte Esterase Ur Negative LEU/UL (Negative); Nitrate Urine Negative (Negative); Non Pathogenic Casts 0-2; Protein Urine 3+ mg/dL (Negative); RBC Urine 0-2 /hpf (0-2); Specific Grav Ur 1.014 (1.001-1.035); Squamous Epithelial Cell Urine None seen /hpf (Few); Urobilinogen Urine 0.2 mg/dL (<2.0); WBC Urine 0-5 /hpf; pH Urine 5.5 (5.0-9.0)
[2022-12-06 13:09] LABS: Add Urine Microscopic? YES
== END 2022-12-06 11:55 | disposition home or self-care (01) ==
LOC: HOME HLTH 11:57
PROVIDERS: PCP Family Medicine; Visit Provider Family Medicine
DX: R30.0 Dysuria (principal)
CPT/HCPCS: 81001

== ENCOUNTER 2023-01-17 11:13 | Outpatient (NON) | payer MEDICARE, SELFPAY ==
[2023-01-17 11:57] LABS: Alanine Aminotransferase 24 U/L (6-50); Albumin Level 4.7 g/dL (3.5-5.1); Alkaline Phosphatase 59 U/L (38-126); Anion Gap 11 mmol/L (8-16); Aspartate Amino Transferase 28 U/L (17-59); Bilirubin,Total 0.5 mg/dL (0.2-1.3); Blood Urea Nitrogen 61 mg/dL (9-20); Calcium 8.8 mg/dL (8.4-10.2); Carbon Dioxide 25 mmol/L (22-30); Chloride 100 mmol/L (98-107); Cholesterol 108 mg/dL (0-200); Estimated Glomerular Filt Rate 27; Glucose 160 mg/dL (65-110); HDL Direct 29 mg/dL; Potassium 5.2 mmol/L (3.4-5.0); Sodium 136 mmol/L (137-145); Triglycerides 173 mg/dL (<150)
[2023-01-17 12:08] LABS: LDL Cholesterol Direct 52 mg/dL
[2023-01-17 12:41] LABS: Hemoglobin A1C 7.9 % (<5.7)
[2023-01-17 14:15] LABS: Free T4 Free Thyroxine Reflex 1.04 ng/dL (0.78-2.19)
== END 2023-01-17 11:14 | disposition home or self-care (01) ==
PROVIDERS: PCP Family Medicine; Visit Provider Family Medicine
DX: E11.9 Type 2 diabetes mellitus without complications (principal); E78.5 Hyperlipidemia, unspecified; Z13.228 Encounter for screening for other metabolic disorders; E03.9 Hypothyroidism, unspecified
CPT/HCPCS: 80053; 80061; 83036; 84439; 84443; 84480

== ENCOUNTER 2023-03-07 13:30 | Outpatient (NON) | payer MEDICARE, SELFPAY ==
[2023-03-07 14:06] LABS: Albumin Level 4.2 g/dL (3.5-5.1); Anion Gap 9 mmol/L (8-16); Blood Urea Nitrogen 86 mg/dL (9-20); Calcium 8.9 mg/dL (8.4-10.2); Carbon Dioxide 22 mmol/L (22-30); Chloride 100 mmol/L (98-107); Estimated Glomerular Filt Rate 24; Glucose 83 mg/dL (65-110); Phosphorus 4.2 mg/dL (2.5-4.5); Potassium 4.7 mmol/L (3.4-5.0); Sodium 131 mmol/L (137-145)
[2023-03-07 14:10] LABS: Creatinine Urine 47.7 mg/dL; Total Protein Urine Random 37 mg/dL; Ur Ttl Prot Creatinine Ratio 0.78 mg/mg (0-0.20)
[2023-03-07 14:24] LABS: Parathyroid Intact 136.1 pg/mL (7.5-53.5)
[2023-03-07 14:25] LABS: Vitamin D 25 Hydroxy 47.2 ng/mL
== END 2023-03-07 13:31 | disposition home or self-care (01) ==
LOC: HOME HLTH 13:35
PROVIDERS: PCP Family Medicine; Visit Provider Internal Medicine Nephrology
DX: E55.9 Vitamin D deficiency, unspecified (principal); I12.9 Hypertensive chronic kidney disease with stage 1 through stage 4 chronic kidney disease, or unspecified chronic kidney disease; N18.4 Chronic kidney disease, stage 4 (severe); N25.81 Secondary hyperparathyroidism of renal origin; Z48.00 Encounter for change or removal of nonsurgical wound dressing; E11.621 Type 2 diabetes mellitus with foot ulcer; L97.419 Non-pressure chronic ulcer of right heel and midfoot with unspecified severity; Z79.82 Long term (current) use of aspirin
CPT/HCPCS: 80069; 82306; 82570; 83970; 84156

== ENCOUNTER 2023-04-13 13:24 | Inpatient (IN) | payer MEDICARE, SELFPAY ==
[2023-04-13] VITALS (30 sets, daily range): BP systolic 154–164; BP diastolic 80–113; PULSE 67–122; RESP 10–21; TEMP 36.2; O2SAT 97–100
--- NOTE | ~2023-04-13 | XR_ITS ---
EXAMINATION: XR chest 1V portable INDICATION: Acute kidney injury, shortness of breath TECHNIQUE: Portable AP chest at 1813 hours COMPARISON: 04/13/2023 FINDINGS: Cardiomegaly is noted. There are diffuse interstitial and airspace opacities throughout all lung zones. No pleural effusion or pneumothorax. IMPRESSION: 1. Diffuse lung disease, consistent with pneumonia and/or pulmonary edema. 2. Cardiomegaly. Reviewed, dictated and finalized at location F.
--- NOTE | ~2023-04-13 | XR_ITS ---
EXAMINATION: XR chest 1V portable DATE: 04/18/2023 15:52 INDICATION: Pulmonary edema. TECHNIQUE: A single frontal view of the chest was obtained on 2 radiographs. COMPARISON: Chest single view 04/16/2023 FINDINGS: There is no pneumonia, pleural effusion, or pneumothorax. Cardiomegaly is noted. IMPRESSION: 1. Cardiomegaly. Reviewed, dictated and finalized at location A. IMPRESSION: 1. Cardiomegaly.
--- NOTE | ~2023-04-13 | US_ITS ---
US renal BI 04/14/2023 10:09 Procedure: Realtime transabdominal ultrasound of the kidneys and bladder. Indication: Acute renal insufficiency Comparison: Ultrasound dated 06/27/2021 Findings: Renal echotexture is normal bilaterally without hydronephrosis, contour deforming mass or r enal calculus. There is a 1.7 cm right renal cysts. There is a 2.3 cm left renal cyst. The right kidn ey measures 12.8 cm and left kidney measures 12.3 cm. Bladder within normal limits. Impression: 1: Bilateral renal cysts. Reviewed, dictated and finalized at location B. Impression: 1: Bilateral renal cysts.
--- NOTE | ~2023-04-13 | XR_ITS ---
EXAMINATION: XR chest 1V portable Exam Date/Time: 04/13/2023 16:05 CDT HISTORY: Chest pain, short of breath, fall Comparison: 03/29/2021. RESULT: Lines, tubes, and devices: None. Lungs and pleura: Low volumes with crowding. Lingular scar. Cardiomediastinal silhouette: Stable cardiomegaly. Other: No acute osseous or upper abdominal finding. IMPRESSION: No acute cardiopulmonary process. Reviewed, dictated and finalized at location K.
--- NOTE | ~2023-04-13 | CT_ITS ---
EXAMINATION: CT cervical spine wo con DATE: 04/13/2023 17:34 INDICATION: Fall TECHNIQUE: Computed tomography (CT) of the cervical spine was performed without intravenous contrast. Automated exposure control and iterative reconstruction technique were employed. The dose-length pro duct was 644.39 mGy-cm. COMPARISON: 12/04/2021. FINDINGS: Mild motion artifact. Vertebral Body Alignment: Intact. Craniocervical and atlantoaxial alignment: Moderate degenerative change. Alignment intact. Osseous structures/fracture: No evidence of a lytic or blastic process in the visualized spine. No e vidence of acute fracture. Cervical soft tissues: The paraspinal soft tissues planes are maintained. Degenerative changes: Severe multilevel degenerative disc disease and facet arthropathy. Severe right neural foraminal narrowing at C3-4. No severe central canal narrowing.. IMPRESSION: No acute fracture or traumatic malalignment in the cervical spine. Reviewed, dictated and finalized at location K.
--- NOTE | ~2023-04-13 | CT_ITS ---
EXAMINATION: CT chst ab pel gill lum wo DATE: 04/13/2023 17:34 INDICATION: RIght upper quadrant pain, MID BACK PAIN, FALL . TECHNIQUE: Computed tomography (CT) of the chest, abdomen, and pelvis was performed without intraveno us contrast. Automated exposure control and iterative reconstruction technique were employed. The dos e-length product was 1856.85 mGy-cm. COMPARISON: 12/04/2021 FINDINGS: CHEST: Mild arch calcification. No mediastinal hematoma. Aortic, mitral, and coronary artery calcification. Mild cardiomegaly. No pericardial effusion. No acute lung injury. Minimal dependent atelectasis. Lingular scar. No pleural effusion or pneumothorax. ABDOMEN/PELVIS: No solid organ injury, within the limitations of a noncontrast study. Hepatomegaly. Bilateral renal a trophy, scarring, and perinephric stranding. No evidence of bowel or mesenteric injury. Cholecystectomy. No free fluid or free air. No retroperitoneal hematoma. Pelvic contents are atraumatic. Distended urinary bladder with wall thickening likely due to outlet o bstruction from prostatomegaly MUSCULOSKELETAL: Moderate bilateral gynecomastia.. Transversely oriented fracture through the superior aspect of the T12 vertebral body with anterior di straction. Mild chronic appearing height loss at T8. Nondisplaced fractures of the left L1-3 transver se processes. Multilevel degenerative disc disease in the thoracic and lumbar spine. Multilevel sever e right-sided lumbar neural foramen narrowing and severe central canal narrowing at L4-5, on a degene rative basis. IMPRESSION: Hyperextension distraction type fracture of T12. Nondisplaced fractures of the left L1-3 transverse processes. Otherwise, no additional acute process detected in the chest, abdomen, or pelvis. Reviewed, dictated and finalized at location K. IMPRESSION: Hyperextension distraction type fracture of T12. Nondisplaced fractures of the left L1-3 transverse processes. Otherwise, no additional acute process detected in the chest, abdomen, or pelvi s.
[2023-04-13] MEDS: ONDANSETRON INJ 4 MG/2 ML VIAL IV PUSH (15:56)
[2023-04-13] MEDS: MORPHINE SULFATE (*CRX) 4 MG/ML INJ IV PUSH ×2 (15:56→22:37)
[2023-04-13 16:08] LABS: Basophils Absolute Auto 0.1 K/mm3 (0.0-0.1); Basophils Percent Auto 0.3 % (0.2-1.2); Eosinophils Absolute Auto 0.2 K/mm3 (0-0.3); Eosinophils Percent Auto 1.1 % (0-4.4); Hematocrit 34.2 % (42.0-52.0); Hemoglobin 11.4 g/dL (14.0-18.0); Immature Granulocyte Absolute 0.24 K/mm3 (0.00-0.031); Immature Granulocyte Percent A 1.5 % (0-0.5); Lymphocytes Absolute Auto 0.72 K/mm3 (0.9-3.2); Lymphocytes Percent Auto 4.4 % (18.3-44.2); Mean Corpuscular HGB Conc 33.3 g/dl (32-36); Mean Corpuscular Hemoglobin 29.2 pg (26-34); Mean Corpuscular Volume 87.5 fl (80-100); Monocytes Absolute Auto 0.8 K/mm3 (0.1-0.6); Monocytes Percent Auto 4.8 % (2.6-8.5); Neutrophils Absolute Auto 14.4 K/mm3 (1.3-6.7); Neutrophils Percent Auto 87.9 % (45.5-73.1); Platelet Count Result 253 k/mm3 (150-375); Red Blood Count 3.91 M/mm3 (4.6-6.20); Red Cell Distribution Width 14.1 % (11.5-14.5); White Blood Count 16.4 K/mm3 (4.5-10.0)
[2023-04-13 16:26] LABS: Alanine Aminotransferase 28 U/L (6-50); Albumin Level 4.4 g/dL (3.5-5.1); Alkaline Phosphatase 66 U/L (38-126); Anion Gap 18 mmol/L (8-16); Aspartate Amino Transferase 29 U/L (17-59); Bilirubin,Total 0.5 mg/dL (0.2-1.3); Calcium 9.2 mg/dL (8.4-10.2); Carbon Dioxide 21 mmol/L (22-30); Chloride 97 mmol/L (98-107); Estimated CRCL calculation 24 ml/min; Estimated Glomerular Filt Rate 14; Glucose 139 mg/dL (65-110); Potassium 4.3 mmol/L (3.4-5.0); Sodium 136 mmol/L (137-145)
[2023-04-13 16:35] LABS: Blood Urea Nitrogen 127 mg/dL (9-20)
[2023-04-13 16:37] LABS: INR 1.2; Prothrombin Time 15.9 Seconds (11.1-14.7)
--- NOTE | 2023-04-13 17:35 | ED.FALL ---
HPI - Fall General Chief Complaint: Fall Stated Complaint: flank pain after a fall Time Seen by Provider: 04/13/23 15:04 History of Present Illness HPI Narrative: This is a 73-year-old male, with past history of diabetes, typically wheelchair-bound who presents emergency department after a fall at approximately 3:00 this morning. The patient was in his home, when he stood in the bathroom. He has a painful lesion on the right foot that caused him to fall. He struck his right anterior abdomen and chest wall on a sink. He did not hit his head he did not lose consciousness. He complains of right anterior abdomen and chest wall pain as well as mid back pain radiated 5/10. He has no other complaints at this time. Related Data Home Medications Medication Instructions Recorded Confirmed [id number] tablet 1 tablet PO DAILY 08/23/19 01/16/23 calcium carbonate 600 mg lozenges 600 mg PO HS 11/03/20 01/16/23 furosemide 40 mg tablet 40 mg PO HS 11/03/20 03/11/23 magnesium 250 mg tablet 250 mg PO DAILY 11/03/20 01/16/23 amitriptyline 25 mg tablet 25 mg PO 01/16/23 03/11/23 mirabegron 50 mg tablet,extended mg PO 01/16/23 03/11/23 release 24 hr (Myrbetriq) solifenacin 10 mg tablet 10 mg PO 01/16/23 03/11/23 insulin human U-100 NPH-regulr 60 unit subcut BID 03/11/23 03/11/23 70-30 mix 100 unit/mL subcutaneous susp (Novolin 70/30 U-100 Insulin) Allergies Allergy/AdvReac Type Severity Reaction Status Date / Time exenatide Allergy Unknown Unknown Verified 03/11/23 13:55 nebivolol Allergy Unknown Unknown Verified 03/11/23 13:55 metformin AdvReac Unknown Nausea Verified 03/11/23 13:55 pioglitazone AdvReac Unknown sleepiness Verified 03/11/23 13:55 Review of Systems Review of Systems: CONSTITUTIONAL: Denies fever, chills, or sweats. CARDIOVASCULAR: Right lower chest wall pain denies palpitations, or edema. RESPIRATORY: Denies cough or dyspnea. GASTROINTESTINAL: Right upper abdominal pain denies nausea, vomiting, or diarrhea. GENITOURINARY: Denies dysuria or hematuria. SKIN: Denies rash or itching. MUSCULOSKELETAL: Mid back pain denies joint pain, or myalgia. NEUROLOGIC: Denies headache, numbness, dizziness, or weakness. PSYCHIATRIC: Denies anxiety or depression. [facility] Past Medical History Medical History Acquired lymphedema Acute confusion Acute renal failure superimposed on chronic kidney disease Adenomatous polyps repeat colonoscopy 2024 Cardiomyopathy CHF (congestive heart failure) echocardiogram 2015 demonstrating normal ejection fraction with moderate left ventricular hypertrophy and diastolic dysfunction with mild left atrial enlargement CHF exacerbation Chronic venous stasis dermatitis Dehydration Diabetes mellitus on long-term insulin therapy with a last hemoglobin A1c of 7.1 Diabetic neuropathy Diarrhea Dizziness Elevated lactic acid level Enteritis Essential (primary) hypertension Gastric polyp Hepatic steatosis Hypertension Hypertensive heart disease Lymphedema of upper extremity following lymphadenectomy Mixed hyperlipidemia Mucous in stools Narcolepsy per patient report. He has never had a multi sleep latency test. 8-20 he did have a multiple sleep latency test that showed the narcolepsy Obesity (BMI 30.0-34.9) Occult blood in stools LOU (obstructive sleep apnea) Other obesity Person under investigation for COVID-19 Sepsis Stress fracture, right foot, subsequent encounter for fracture with routine healing Uncontrolled hypertension Surgical History Surgical History H/O foot surgery June 2016 debridement of the right diabetic foot ulcer with proximal resection of 2nd and 3rd metatarsal head performed by Dr. Chahal History of appendectomy in the History of cholecystectomy in the History of colonoscopy with polypectomy for polyps resected that were
--- NOTE | 2023-04-13 21:25 | ECG_ITS ---
Measurements Intervals [place] Rate: 71 P: 30 MN: 221 QRS: -14 QRSD: 131 T: 120 QT: 408 QTc: 445 Interpretive Statements SINUS RHYTHM WITH FIRST DEGREE AV BLOCK VENTRICULAR TRIGEMINY LEFT VENTRICULAR HYPERTROPHY WITH ST-T CHANGE BASELINE ARTIFACT- I, II, III, AVR, AVL ABNORMAL ECG COMPARED TO ECG 03/29/2021 00:21:12 NO SIGNIFICANT CHANGES Electronically Signed On 04-14-2023 6:26:25 CDT by Shelton Wyman D.O.
[2023-04-13] MEDS: SODIUM CHLORIDE 0.9% IV 1,000 ML 150 ML IV CONT (22:24)
[2023-04-13 22:26] LABS: Creatine Kinase 128 U/L (55-170)
[2023-04-14] VITALS (11 sets, daily range): BP systolic 133–162; BP diastolic 69–76; PULSE 69–83; RESP 16–19; TEMP 36.2–36.9; O2SAT 97–99
--- NOTE | 2023-04-14 00:15 | ADMGEN ---
This patient, Gulshan Voss, was admitted to Medical Room 246-. Patient/family oriented to hospital policies and general routines including ID bracelet, bed and alarms, visiting hours, pain management, procedures, bathroom and other care routines, personal items, smoking policy, room service/diet, and visiting hours. Information on how to activate the Rapid Response Team has been discussed. Patient/Family are encouraged to report perceived risks to care and to ask questions if they do not understand what they are told or what they should do.
[2023-04-14] MEDS: MORPHINE SULFATE (*CRX) 4 MG/ML INJ 2 MG IV PUSH ×2 (00:34→10:21)
[2023-04-14] MEDS: INSULIN GLARGINE (*BKC) 100 UNITS/ML 32 UNITS SUB-Q ×2 (00:34→21:25)
[2023-04-14 01:10] LABS: Glucose Point of Care 157 mg/dl (65-105)
[2023-04-14 02:48] LABS: Appearance Urine Cloudy (Clear); Bacteria Urine 4+ /hpf; Bilirubin Urine Negative (Negative); Color Urine Yellow (Yellow); Glucose Urine UA Negative (Negative); Ketones Urine Negative (Negative); Leukocyte Esterase Ur 3+ LEU/UL (Negative); Nitrate Urine Negative (Negative); Protein Urine 1+ mg/dL (Negative); RBC Urine 0-2 /hpf (0-2); Specific Grav Ur 1.013 (1.001-1.035); Squamous Epithelial Cell Urine None seen /hpf (Few); Urobilinogen Urine 0.2 mg/dL (<2.0); WBC Urine >100 /hpf
[2023-04-14 03:05] LABS: Add Urine Microscopic? YES
[2023-04-14 05:33] LABS: Basophils Percent Auto 0.3 % (0.2-1.2); Eosinophils Absolute Auto 0.3 K/mm3 (0-0.3); Eosinophils Percent Auto 2.2 % (0-4.4); Hematocrit 33.9 % (42.0-52.0); Hemoglobin 11.3 g/dL (14.0-18.0); Immature Granulocyte Absolute 0.21 K/mm3 (0.00-0.031); Immature Granulocyte Percent A 1.5 % (0-0.5); Lymphocytes Percent Auto 7.9 % (18.3-44.2); Mean Corpuscular HGB Conc 33.3 g/dl (32-36); Mean Corpuscular Hemoglobin 29.5 pg (26-34); Mean Corpuscular Volume 88.5 fl (80-100); Mean Platelet Volume 10.9 fl (7.4-10.4); Neutrophils Absolute Auto 11.2 K/mm3 (1.3-6.7); Neutrophils Percent Auto 81.1 % (45.5-73.1); Platelet Count Result 246 k/mm3 (150-375); Red Blood Count 3.83 M/mm3 (4.6-6.20); Red Cell Distribution Width 13.9 % (11.5-14.5); White Blood Count 13.8 K/mm3 (4.5-10.0)
[2023-04-14 05:44] LABS: Anion Gap 15 mmol/L (8-16); Calcium 8.8 mg/dL (8.4-10.2); Carbon Dioxide 21 mmol/L (22-30); Chloride 99 mmol/L (98-107); Estimated CRCL calculation 26 ml/min; Estimated Glomerular Filt Rate 15; Glucose 144 mg/dL (65-110); Sodium 135 mmol/L (137-145)
[2023-04-14 05:56] LABS: Blood Urea Nitrogen 123 mg/dL (9-20)
--- NOTE | 2023-04-14 08:26 | PM.IMHP ---
H&P: HPI History of Present Illness Date/Time: 04/14/23 08:26 Chief Complaint: Back pain Narrative: This is a 73-year-old male, with past history of diabetes, typically wheelchair-bound who presents emergency department after a fall at approximately 3:00 this morning.? The patient was in his home, when he stood in the bathroom.? He has a painful lesion on the right foot that caused him to fall.? He struck his right anterior abdomen and chest wall on a sink.? He did not hit his head he did not lose consciousness.? He complains of right anterior abdomen and chest wall pain as well as mid back pain radiated 5/10.? He has no other complaints at this time. Review of Systems Review of Systems: - CONSTITUTIONAL: Denies weight loss, fever and chills. - HEENT: Denies changes in vision and hearing - RESPIRATORY: Denies SOB and cough. - CV: Denies palpitations and CP. - GI: Denies abdominal pain, nausea, vomiting and diarrhea. - : Denies dysuria and urinary frequency. - MSK: Reports back pain - SKIN: Denies rash and pruritus. - NEUROLOGICAL: Denies headache and syncope. - PSYCHIATRIC: Denies recent changes in mood. Denies anxiety and depression. [facility] Past Medical History Medical History Acquired lymphedema Acute confusion Acute renal failure superimposed on chronic kidney disease Adenomatous polyps repeat colonoscopy 2024 Cardiomyopathy CHF (congestive heart failure) echocardiogram 2015 demonstrating normal ejection fraction with moderate left ventricular hypertrophy and diastolic dysfunction with mild left atrial enlargement CHF exacerbation Chronic venous stasis dermatitis Dehydration Diabetes mellitus on long-term insulin therapy with a last hemoglobin A1c of 7.1 Diabetic neuropathy Diarrhea Dizziness Elevated lactic acid level Enteritis Essential (primary) hypertension Gastric polyp Hepatic steatosis Hypertension Hypertensive heart disease Lymphedema of upper extremity following lymphadenectomy Mixed hyperlipidemia Mucous in stools Narcolepsy per patient report. He has never had a multi sleep latency test. 8-20 he did have a multiple sleep latency test that showed the narcolepsy Obesity (BMI 30.0-34.9) Occult blood in stools LOU (obstructive sleep apnea) Other obesity Person under investigation for COVID-19 Sepsis Stress fracture, right foot, subsequent encounter for fracture with routine healing Uncontrolled hypertension Surgical History Surgical History H/O foot surgery June 2016 debridement of the right diabetic foot ulcer with proximal resection of 2nd and 3rd metatarsal head performed by Dr. Chahal History of appendectomy in the History of cholecystectomy in the History of colonoscopy with polypectomy for polyps resected that were benign History of esophagogastroduodenoscopy (EGD) with gastric polypectomy December 2019 History of parotid gland excision 1998 with benign pathology Status post excision of lipoma left neck September 2018 Family History Family History Mother Diabetes mellitus Hypertension Cerebrovascular accident Pancreatic cancer Father Coronary artery disease his father had a total of 7 coronary stents and at age 71. Atrial fibrillation Sibling Healthy female adult Social History Social History Social History: Primary care physician: Dr. Bhavik Davidson Code status: Full code per patient request Smoking packs per day: 2 Smoking cigarettes per day: 40.0 Years smoked: 2 Smoking pack-years: 4.00 Smoking status: Former smoker Tobacco type: cigarettes Smoking end date: 08/04/94 Alcohol intake: current Drinks per week: 4 Alcohol use details: he reports he has not drank any alcohol in
[2023-04-14] MEDS: amLODIPine BESYLATE 5 MG TABLET 10 MG PO (09:51)
[2023-04-14] MEDS: OMEGA 3 POLYUNSAT FATTY ACIDS 1 GM CAP 2 GM PO (09:51)
[2023-04-14] MEDS: ROSUVASTATIN 10 MG TABLET 20 MG PO (09:51)
[2023-04-14] MEDS: SOLIFENACIN 5 MG TABLET 10 MG PO (09:52)
[2023-04-14] MEDS: carvediloL 12.5 MG TABLET BY MOUTH ×2 (09:53→21:25)
[2023-04-14] MEDS: MIRABEGRON 50 MG ER TABLET PO (09:53)
[2023-04-14] MEDS: OPTI-GEN TAB 1 TABLET PO (09:53)
[2023-04-14] MEDS: BETAMETHASONE/CLOTRIMAZOLE CR 15 GM TUBE 1 APPLIC TOPICAL (09:54)
[2023-04-14] MEDS: PANTOPRAZOLE 40 MG TABLET BY MOUTH (09:54)
[2023-04-14] MEDS: PYRIDOXINE HCL 50 MG TABLET 100 MG PO (09:54)
[2023-04-14] MEDS: SACCHAROMYCES BOULARDII 250 MG CAPSULE PO (09:57)
--- NOTE | 2023-04-14 10:10 | PM.CNNEP ---
Assessment and Plan Assessment and plan (1) MEJIA (acute kidney injury): Code(s): N17.9 - Acute kidney failure, unspecified Status: Acute Assessment and Plan: etiology? possible overdiuresis in the context on MARIA TERESA-I use(?) hold diuretics for now trial of IVFs check urine studies, CPK, and renal ultrasound follow trend of repeat labs and UOP (2) Chronic kidney disease, stage IV (severe): Code(s): N18.4 - Chronic kidney disease, stage 4 (severe) Status: Chronic Assessment and Plan: baseline creatinine runs 2.4 - 2.6mg/dl in the last year or so due hypertension, diabetes, vasculat disease, and age-related change (based on outpatient evaluation) (3) Closed fracture of transverse process of lumbar vertebra: Qualifiers: Encounter type: initial encounter Qualified Code(s): S32.009A - Unspecified fracture of unspecified lumbar vertebra, initial encounter for closed fracture Code(s): S32.009A - Unspecified fracture of unspecified lumbar vertebra, initial encounter for closed fracture Status: Acute Assessment and Plan: secondary to fall pain control Neurosurgery consulted PT/OT as tolerated (4) Anemia: Qualifiers: Anemia type: unspecified type Qualified Code(s): D64.9 - Anemia, unspecified Code(s): D64.9 - Anemia, unspecified Status: Chronic Assessment and Plan: chronic issue partly related to underlying CKD follow trend of H/H (5) Benign hypertension with chronic kidney disease: Code(s): I12.9 - Hypertensive chronic kidney disease with stage 1 through stage 4 chronic kidney disease, or unspecified chronic kidney disease Status: Chronic Assessment and Plan: reasonable control at this time follow trend of hemodynamics (6) Diabetes mellitus with chronic kidney disease: Code(s): E11.22 - Type 2 diabetes mellitus with diabetic chronic kidney disease Status: Acute Assessment and Plan: follow accu-cheks glycemic control per hospitalists I will continue to follow the patient with you while he remains hospitalized and make further recommendations as needed. Thank you for allowing me to participate in the care this patient. History of Present Illness Reason for Consult Consult date: 04/14/23 Reason for consult: acute renal failure (on chronic kidney disease) Chief Complaint Chief complaint: Thoracic spine fracture History of Present Illness Narrative: The patient is a 73-year-old male with a past medical history as outlined below who presented to [facility] Emergency room after sustaining a fall. The fall apparently happened early yesterday morning at around 3:00 a.m.. He was in his home when he states during the bathroom and put pressure on a right foot painful lesion that caused him to fall. He struck his right anterior abdomen and chest wall on a sink but he did not hit his head or lose consciousness. Following the fall, he had immediate pain / discomfort in the right anterior abdominal area as well as his anterior chest wall with radiation of the pain to his mid back rated about 5 and a 10 in severity. He had no other acute complaints but because of the severe get significant discomfort following the fall, he presented to the emergency room for further assessment. Workup and evaluation emergency room demonstrated the patient be hemodynamically stable if not a bit hypertensive thought to be secondary to his pain issues. Subsequent imaging studies demonstrates a?hyperextension distraction type fracture of T12 and transverse process fractures of left L1-3 vertebrae. routine blood test demonstrated a mildly elevated white blood cell count of 16 with a stable hemoglobin hematocrit. His chemistry showed a markedly elevated BUN and creatinine far above his baseline but with no critical electrolyte abnormalities present. Given these findings, Neurosurgery was c
[2023-04-14 11:51] LABS: Creatinine Urine 73.8 mg/dL; Total Protein Urine Random 38 mg/dL; Ur Ttl Prot Creatinine Ratio 0.51 mg/mg (0-0.20); Urea Random Urine 710 MG/DL
[2023-04-14 11:54] LABS: Sodium Urine Random 42 meq/L
[2023-04-14 12:08] LABS: Eosinophil Urine Rare % (None Seen); Urine Eos QC 2nd Tech Confirmed
[2023-04-14] MEDS: MULTIVITAMINS /C LUTEIN (CENTRUM SILVER) TABLET *BKC 1 TAB PO (12:26)
[2023-04-14] MEDS: MAGNESIUM OXIDE 400 MG TABLET PO (12:26)
[2023-04-14 12:27] LABS: Glucose Point of Care 184 mg/dl (65-105)
[2023-04-14 17:14] LABS: Glucose Point of Care 189 mg/dl (65-105)
[2023-04-14] MEDS: SODIUM CHLORIDE 0.9% IV 1,000 ML 75 ML IV CONT (18:01)
[2023-04-14] MEDS: INSULIN ASPART (*BKC) 100 UNITS/ML 11 UNITS SUB-Q (18:02)
[2023-04-14] MEDS: MORPHINE SULFATE (*CRX) 2 MG/ML INJ IV PUSH (18:05)
[2023-04-14] MEDS: FLUTICASONE/SALMETEROL 115-21 MCG INHALER 1 PUFF 2 PUFF INHALATION (20:51)
--- NOTE | 2023-04-14 21:07 | WPDNEUROSGCN ---
Assessment and Plan Assessment and plan (1) Closed T12 fracture: Qualifiers: Encounter type: initial encounter Fracture morphology: other fracture Qualified Code(s): S22.088A - Other fracture of T11-T12 vertebra, initial encounter for closed fracture Code(s): S22.089A - Unspecified fracture of T11-T12 vertebra, initial encounter for closed fracture Status: Acute (2) Closed fracture of transverse process of lumbar vertebra: Qualifiers: Encounter type: initial encounter Qualified Code(s): S32.009A - Unspecified fracture of unspecified lumbar vertebra, initial encounter for closed fracture Code(s): S32.009A - Unspecified fracture of unspecified lumbar vertebra, initial encounter for closed fracture Status: Acute Plan Gulshan is a 73-year-old gentleman with an acute T12 transverse body fracture and nondisplaced lumbar transverse process fractures. This can likely be managed in a brace as it does not involve the posterior elements. However, surgery would be difficult under any conditions because he is in renal failure and diabetic and is not likely to heal which could result in a worse prognostic event than a fracture some cells. He may be out of bed with the brace and participate in physical and occupational therapy. He will need to follow up with me in a month with a new CT scan of his lumbar spine. I should be contacted by any change in his neurologic status in the lower extremities. Please avoid NSAIDs. Consult date: 04/14/23 Reason for consult: Gulshan is a 73-year-old gentleman who has diabetes, chronic renal failure and a recent diabetic wound on his right foot who has been nonweightbearing because of the and foot issue who fell in the bathroom and was brought to [facility] room. There he was found to have fractures in his thoracic and lumbar spine. He is not experiencing any neurologic issues. He has pain in his low back. Again, he is nonweightbearing on his right foot. He does not have new bowel or bladder difficulty. He underwent CT imaging in the ER which is available for my review. HPI: Gulshan Voss is a 73 year old male Review of Systems Review of Systems: Patient denies shortness of breath, cough, fever, chills, nausea, vomiting, weight loss, weight gain, chest pain. He has back pain and fractures as above. he is in renal failure. He has a diabetic foot ulcer. His review systems is otherwise negative except as noted elsewhere. [facility] Past Medical History Medical History Acquired lymphedema Acute confusion Acute renal failure superimposed on chronic kidney disease Adenomatous polyps repeat colonoscopy 2024 Cardiomyopathy CHF (congestive heart failure) echocardiogram 2015 demonstrating normal ejection fraction with moderate left ventricular hypertrophy and diastolic dysfunction with mild left atrial enlargement CHF exacerbation Chronic venous stasis dermatitis Dehydration Diabetes mellitus on long-term insulin therapy with a last hemoglobin A1c of 7.1 Diabetic neuropathy Diarrhea Dizziness Elevated lactic acid level Enteritis Essential (primary) hypertension Gastric polyp Hepatic steatosis Hypertension Hypertensive heart disease Lymphedema of upper extremity following lymphadenectomy Mixed hyperlipidemia Mucous in stools Narcolepsy per patient report. He has never had a multi sleep latency test. 8-20 he did have a multiple sleep latency test that showed the narcolepsy Obesity (BMI 30.0-34.9) Occult blood in stools LOU (obstructive sleep apnea) Other obesity Person under investigation for COVID-19 Sepsis Stress fracture, right foot, subsequent encounter for fracture with routine healing Uncontrolled hypertension Surgical History Surgical History H/O foot surgery June 2016 debridement of the right diabetic foot ulcer wi
[2023-04-14] MEDS: AMITRIPTYLINE HCL 25 MG TABLET PO (21:25)
[2023-04-14 21:33] LABS: Glucose Point of Care 153 mg/dl (65-105)
[2023-04-15] VITALS (14 sets, daily range): BP systolic 112–151; BP diastolic 63–97; PULSE 65–82; RESP 16–18; TEMP 36.6–36.8; O2SAT 96–98
[2023-04-15] MEDS: MORPHINE SULFATE (*CRX) 2 MG/ML INJ IV PUSH ×4 (01:17→09:46)
[2023-04-15] MEDS: LEVOTHYROXINE SODIUM 75 MCG TABLET PO (05:26)
[2023-04-15 06:02] LABS: Basophils Absolute Auto 0.1 K/mm3 (0.0-0.1); Basophils Percent Auto 0.6 % (0.2-1.2); Eosinophils Absolute Auto 0.4 K/mm3 (0-0.3); Eosinophils Percent Auto 2.5 % (0-4.4); Hematocrit 35.1 % (42.0-52.0); Hemoglobin 11.6 g/dL (14.0-18.0); Immature Granulocyte Absolute 0.23 K/mm3 (0.00-0.031); Immature Granulocyte Percent A 1.5 % (0-0.5); Lymphocytes Absolute Auto 1.11 K/mm3 (0.9-3.2); Mean Corpuscular Hemoglobin 29.7 pg (26-34); Mean Corpuscular Volume 89.8 fl (80-100); Mean Platelet Volume 11.1 fl (7.4-10.4); Monocytes Percent Auto 6.2 % (2.6-8.5); Neutrophils Percent Auto 82.2 % (45.5-73.1); Platelet Count Result 286 k/mm3 (150-375); Red Blood Count 3.91 M/mm3 (4.6-6.20); White Blood Count 15.8 K/mm3 (4.5-10.0)
[2023-04-15 06:17] LABS: Alanine Aminotransferase 26 U/L (6-50); Albumin Level 4.3 g/dL (3.5-5.1); Alkaline Phosphatase 66 U/L (38-126); Anion Gap 12 mmol/L (8-16); Aspartate Amino Transferase 31 U/L (17-59); Bilirubin,Total 0.6 mg/dL (0.2-1.3); Blood Urea Nitrogen 111 mg/dL (9-20); Calcium 9.2 mg/dL (8.4-10.2); Carbon Dioxide 24 mmol/L (22-30); Chloride 100 mmol/L (98-107); Creatine Kinase 150 U/L (55-170); Estimated CRCL calculation 31 ml/min; Estimated Glomerular Filt Rate 19; Glucose 142 mg/dL (65-110); Magnesium 2.3 mg/dL (1.6-2.3); Sodium 136 mmol/L (137-145)
[2023-04-15 08:03] LABS: Glucose Point of Care 167 mg/dl (65-105)
[2023-04-15] MEDS: FLUTICASONE/SALMETEROL 115-21 MCG INHALER 1 PUFF 2 PUFF INHALATION ×2 (08:30→19:26)
[2023-04-15] MEDS: OMEGA 3 POLYUNSAT FATTY ACIDS 1 GM CAP 2 GM PO (09:52)
[2023-04-15] MEDS: amLODIPine BESYLATE 5 MG TABLET 10 MG PO (09:52)
[2023-04-15] MEDS: ROSUVASTATIN 10 MG TABLET 20 MG PO (09:52)
[2023-04-15] MEDS: MIRABEGRON 50 MG ER TABLET PO (09:53)
[2023-04-15] MEDS: PYRIDOXINE HCL 50 MG TABLET 100 MG PO (09:53)
[2023-04-15] MEDS: carvediloL 12.5 MG TABLET BY MOUTH ×2 (09:53→20:27)
[2023-04-15] MEDS: OPTI-GEN TAB 1 TABLET PO (09:53)
[2023-04-15] MEDS: PANTOPRAZOLE 40 MG TABLET BY MOUTH (09:54)
[2023-04-15] MEDS: SACCHAROMYCES BOULARDII 250 MG CAPSULE PO (09:54)
[2023-04-15] MEDS: SOLIFENACIN 5 MG TABLET 10 MG PO (09:54)
--- NOTE | 2023-04-15 11:32 | PM.PNNEP ---
Progress Note: A&P Assessment and Plan (1) MEJIA (acute kidney injury): Code(s): N17.9 - Acute kidney failure, unspecified Status: Acute Assessment and Plan: etiology? possible overdiuresis in the context on MARIA TERESA-I use(?) holding diuretics for now trial of IVFs evaluation to date: urine electrolytes slightly prerenal urine eosinophils rare -- likely due to infection renal ultrasound noted CPK normal follow trend of repeat labs and UOP (2) Chronic kidney disease, stage IV (severe): Code(s): N18.4 - Chronic kidney disease, stage 4 (severe) Status: Chronic Assessment and Plan: baseline creatinine runs 2.4 - 2.6mg/dl in the last year or so due hypertension, diabetes, vasculat disease, and age-related change (based on outpatient evaluation) an element of CKD progression(?) (3) Closed fracture of transverse process of lumbar vertebra: Qualifiers: Encounter type: initial encounter Qualified Code(s): S32.009A - Unspecified fracture of unspecified lumbar vertebra, initial encounter for closed fracture Code(s): S32.009A - Unspecified fracture of unspecified lumbar vertebra, initial encounter for closed fracture Status: Acute Assessment and Plan: secondary to fall pain control Neurosurgery recommendations noted PT/OT as tolerated (4) Anemia: Qualifiers: Anemia type: unspecified type Qualified Code(s): D64.9 - Anemia, unspecified Code(s): D64.9 - Anemia, unspecified Status: Chronic Assessment and Plan: chronic issue partly related to underlying CKD follow trend of H/H (5) Benign hypertension with chronic kidney disease: Code(s): I12.9 - Hypertensive chronic kidney disease with stage 1 through stage 4 chronic kidney disease, or unspecified chronic kidney disease Status: Chronic Assessment and Plan: reasonable control at this time follow trend of hemodynamics (6) Diabetes mellitus with chronic kidney disease: Code(s): E11.22 - Type 2 diabetes mellitus with diabetic chronic kidney disease Status: Acute Assessment and Plan: follow accu-cheks glycemic control per hospitalists Will continue to follow. Subjective Date/time seen: 04/15/23 11:32 Interval history: Follow-up for acute kidney injury/acute renal failure on chronic kidney disease. Renal function improving with IVFs in the last 24 hours although BUN remains elevated; his pain has been difficult to control as well; aside from pain, no acute distress; no issues/events overnight or earlier this morning. Exam Narrative: General: elderly but WD/WN male Heart: normal S1 and S2; no rub Lungs: clear to auscultation Abdomen: soft, nontender, nondistended, positive bowel sounds Extremities: no cyanosis or clubbing; no edema Skin: warm and dry Objective Data Vital Signs Vital Signs: Vital Signs Temp Pulse Resp BP Pulse Ox O2 Del Method 04/15/23 09:15 112/96 H 04/15/23 09:53 80 04/15/23 08:33 77 04/15/23 06:00 97.8 F 73 18 151/97 H 98 04/15/23 04:00 71 04/15/23 00:00 70 04/14/23 20:00 71 16 99 Room Air 04/14/23 21:25 71 04/14/23 20:52 80 16 04/14/23 19:59 98.5 F 70 18 162/76 H 99 04/14/23 16:00 69 04/14/23 14:39 97.1 F L 70 19 133/69 99 Intake/Output Intake/Output: Intake & Output 04/12/23 04/13/23 04/14/23 04/15/23 23:59 23:59 23:59 23:59 Intake Total 2080 360 Output Total 753 400 Balance 1327 -40 Meds/Results Medications: Active Medications Generic Name Dose Route Start Last Admin Trade Name Freq PRN Reason Stop Dose Admin Acetaminophen 650 mg 04/14/23 08:26 Acetaminophen 325 Mg Tablet PO Q6H PRN pain 1-4 Albuterol 2 puff 04/14/23 08:31 Albuterol Sulfate (*Sp) Aerosol 1 Puff INHALATION Q4HRT PRN Shortness Of Breath Amitr
--- NOTE | 2023-04-15 11:32 | P.PNNP_ITS ---
Progress Note: A&P Assessment and Plan (1) MEJIA (acute kidney injury): Code(s): N17.9 - Acute kidney failure, unspecified Status: Acute Assessment and Plan: * etiology? * possible overdiuresis in the context on MARIA TERESA-I use(?) * holding diuretics for now * trial of IVFs * evaluation to date: * urine electrolytes slightly prerenal * urine eosinophils rare -- likely due to infection * renal ultrasound noted * CPK normal * follow trend of repeat labs and UOP (2) Chronic kidney disease, stage IV (severe): Code(s): N18.4 - Chronic kidney disease, stage 4 (severe) Status: Chronic Assessment and Plan: * baseline creatinine runs 2.4 - 2.6mg/dl in the last year or so * due hypertension, diabetes, vasculat disease, and age-related change (based on outpatient evaluation) * an element of CKD progression(?) (3) Closed fracture of transverse process of lumbar vertebra: Qualifiers: Encounter type: initial encounter Qualified Code(s): S32.009A - Unspecified fracture of unspecified lumbar vertebra, initial encounter for closed fracture Code(s): S32.009A - Unspecified fracture of unspecified lumbar vertebra, initial encounter for closed fracture Status: Acute Assessment and Plan: * secondary to fall * pain control * Neurosurgery recommendations noted * PT/OT as tolerated (4) Anemia: Qualifiers: Anemia type: unspecified type Qualified Code(s): D64.9 - Anemia, unspecified Code(s): D64.9 - Anemia, unspecified Status: Chronic Assessment and Plan: * chronic issue * partly related to underlying CKD * follow trend of H/H (5) Benign hypertension with chronic kidney disease: Code(s): I12.9 - Hypertensive chronic kidney disease with stage 1 through stage 4 chronic kidney disease, or unspecified chronic kidney disease Status: Chronic Assessment and Plan: * reasonable control at this time * follow trend of hemodynamics (6) Diabetes mellitus with chronic kidney disease: Code(s): E11.22 - Type 2 diabetes mellitus with diabetic chronic kidney disease Status: Acute Assessment and Plan: * follow accu-cheks * glycemic control per hospitalists Will continue to follow. Subjective Date/time seen: 04/15/23 11:32 Interval history: Follow-up for acute kidney injury/acute renal failure on chronic kidney disease. Renal function improving with IVFs in the last 24 hours although BUN remains elevated; his pain has been difficult to control as well; aside from pain, no acute distress; no issues/events overnight or earlier this morning. Exam Narrative: General: elderly but WD/WN male Heart: normal S1 and S2; no rub Lungs: clear to auscultation Abdomen: soft, nontender, nondistended, positive bowel sounds Extremities: no cyanosis or clubbing; no edema Skin: warm and dry Objective Data Vital Signs Vital Signs: Vital Signs Temp Pulse Resp BP Pulse Ox O2 Del Method 04/15/23 09:15 112/96 H 04/15/23 09:53 80 04/15/23 08:33 77 04/15/23 06:00 97.8 F 73 18 151/97 H 98 04/15/23 04:00 71 04/15/23 00:00 70 04/14/23 20:00 71 16 99 Room Air 04/14/23 21:25 71 04/14/23 20:52 80 16 04/14/23 19:59 98.5 F 70 18 1
[2023-04-15 12:07] LABS: Glucose Point of Care 215 mg/dl (65-105)
[2023-04-15] MEDS: INSULIN ASPART (*BKC) 100 UNITS/ML 11 UNITS SUB-Q (12:22)
[2023-04-15] MEDS: MAGNESIUM OXIDE 400 MG TABLET PO (12:26)
[2023-04-15] MEDS: MULTIVITAMINS /C LUTEIN (CENTRUM SILVER) TABLET *BKC 1 TAB PO (12:26)
--- NOTE | 2023-04-15 13:28 | PM.IMPN ---
Progress Note: A&P Assessment and Plan (1) Acute mid back pain: Code(s): M54.9 - Dorsalgia, unspecified Status: Acute (2) Closed T12 fracture: Qualifiers: Encounter type: initial encounter Fracture morphology: other fracture Qualified Code(s): S22.088A - Other fracture of T11-T12 vertebra, initial encounter for closed fracture Code(s): S22.089A - Unspecified fracture of T11-T12 vertebra, initial encounter for closed fracture Status: Acute (3) Closed fracture of transverse process of lumbar vertebra: Qualifiers: Encounter type: initial encounter Qualified Code(s): S32.009A - Unspecified fracture of unspecified lumbar vertebra, initial encounter for closed fracture Code(s): S32.009A - Unspecified fracture of unspecified lumbar vertebra, initial encounter for closed fracture Status: Acute (4) Acute kidney injury superimposed on CKD: Code(s): N17.9 - Acute kidney failure, unspecified; N18.9 - Chronic kidney disease, unspecified Status: Acute (5) Diabetes mellitus with chronic kidney disease: Code(s): E11.22 - Type 2 diabetes mellitus with diabetic chronic kidney disease Status: Acute (6) Benign hypertension with chronic kidney disease: Code(s): I12.9 - Hypertensive chronic kidney disease with stage 1 through stage 4 chronic kidney disease, or unspecified chronic kidney disease Status: Chronic (7) Chronic kidney disease, stage IV (severe): Code(s): N18.4 - Chronic kidney disease, stage 4 (severe) Status: Chronic (8) Hypothyroidism: Qualifiers: Hypothyroidism type: acquired Qualified Code(s): E03.9 - Hypothyroidism, unspecified Code(s): E03.9 - Hypothyroidism, unspecified Status: Acute (9) Anemia: Qualifiers: Anemia type: unspecified type Qualified Code(s): D64.9 - Anemia, unspecified Code(s): D64.9 - Anemia, unspecified Status: Chronic (10) Hyperlipidemia: Qualifiers: Hyperlipidemia type: mixed hyperlipidemia Qualified Code(s): E78.2 - Mixed hyperlipidemia Code(s): E78.5 - Hyperlipidemia, unspecified Status: Acute Plan Fall mechanical Acute hyper extension distraction type fracture of T12: Transversely oriented fractures of the superior aspect of the T12 vertebral body with anterior distraction. Mild chronic appearing height loss at T8. Nondisplaced fractures of the left L1-3 transverse processes. Multilevel degenerative disc disease in the thoracic and lumbar spine. Multilevel 6 severe right to sided lumbar neural foraminal narrowing and severe central canal narrowing at L4-5 on a degenerative basis. TLSO brace. Neurosurgery has been consulted and appreciate his recommendations. PT OT to see. Increase oxycodone an add Flexeril for pain control MEJIA and CKD stage 3 or hydrochlorothiazide Lasix spironolactone. Nephrology consulted. Creatinine improving UTI on ceftriaxone Type 2 diabetes on insulin A1c 7 point Lymphedema Congestive heart failure Chronic venous stasis dermatitis Hypertension Hyperlipidemia Obstructive sleep apnea DVT prophylaxis SCDs Code status full code Subjective Date/time seen: 04/15/23 13:28 Interval history: Pain is pretty bad. Nonradiating in mid back. No other complaints. Review of Systems Review of Systems: All systems reviewed & are unremarkable except as noted in HPI and below Exam Narrative: GENERAL: Well-developed, well-nourished, and in no acute distress. HEAD: Normocephalic, atraumatic. EYES: PERRLA and EOMI. ENT: Nares clear, no rhinorrhea or epistaxis.? Mucous membranes moist. NECK: Supple. CHEST: Clear to auscultation.? No respiratory distress.? No wheezes rales or rhonchi HEART: Regular rate and rhythm.? No murmur heard.? Normal peripheral pulses. ABDOMEN: Soft, nontender, nondistended, normal active bowel sounds. EXTREMITIES: Normal range of motion.? No edema. SKIN: A 1 x 2 c
[2023-04-15 16:56] LABS: Glucose Point of Care 161 mg/dl (65-105)
[2023-04-15 20:19] LABS: Glucose Point of Care 160 mg/dl (65-105)
[2023-04-15] MEDS: SODIUM CHLORIDE 0.9% IV 500 ML 75 ML IV CONT (20:27)
[2023-04-15] MEDS: INSULIN GLARGINE (*BKC) 100 UNITS/ML 32 UNITS SUB-Q (20:27)
[2023-04-15] MEDS: AMITRIPTYLINE HCL 25 MG TABLET PO (20:28)
[2023-04-15] MEDS: oxyCODONE/ACETAMINOPHEN (*CRX) 10-325 MG TABLET 1 TAB PO (20:28)
[2023-04-16] VITALS (13 sets, daily range): BP systolic 149–164; BP diastolic 62–83; PULSE 61–69; RESP 16–18; TEMP 36.3–36.5; O2SAT 93–99
[2023-04-16] MEDS: LEVOTHYROXINE SODIUM 75 MCG TABLET PO (05:26)
[2023-04-16 05:32] LABS: Basophils Absolute Auto 0.1 K/mm3 (0.0-0.1); Basophils Percent Auto 0.5 % (0.2-1.2); Eosinophils Absolute Auto 0.4 K/mm3 (0-0.3); Eosinophils Percent Auto 3.2 % (0-4.4); Hematocrit 33.2 % (42.0-52.0); Hemoglobin 10.8 g/dL (14.0-18.0); Immature Granulocyte Absolute 0.25 K/mm3 (0.00-0.031); Immature Granulocyte Percent A 1.9 % (0-0.5); Lymphocytes Absolute Auto 1.22 K/mm3 (0.9-3.2); Lymphocytes Percent Auto 9.2 % (18.3-44.2); Mean Corpuscular HGB Conc 32.5 g/dl (32-36); Mean Corpuscular Hemoglobin 29.3 pg (26-34); Mean Corpuscular Volume 90.2 fl (80-100); Mean Platelet Volume 10.8 fl (7.4-10.4); Monocytes Absolute Auto 0.8 K/mm3 (0.1-0.6); Monocytes Percent Auto 5.7 % (2.6-8.5); Neutrophils Absolute Auto 10.6 K/mm3 (1.3-6.7); Neutrophils Percent Auto 79.5 % (45.5-73.1); Platelet Count Result 267 k/mm3 (150-375); Red Blood Count 3.68 M/mm3 (4.6-6.20); Red Cell Distribution Width 13.8 % (11.5-14.5); White Blood Count 13.3 K/mm3 (4.5-10.0)
[2023-04-16 05:48] LABS: Alanine Aminotransferase 25 U/L (6-50); Albumin Level 4.1 g/dL (3.5-5.1); Alkaline Phosphatase 60 U/L (38-126); Anion Gap 11 mmol/L (8-16); Aspartate Amino Transferase 27 U/L (17-59); Bilirubin,Total 0.6 mg/dL (0.2-1.3); Blood Urea Nitrogen 106 mg/dL (9-20); Calcium 9.2 mg/dL (8.4-10.2); Carbon Dioxide 24 mmol/L (22-30); Chloride 101 mmol/L (98-107); Estimated CRCL calculation 32 ml/min; Estimated Glomerular Filt Rate 20; Glucose 144 mg/dL (65-110); Magnesium 2.3 mg/dL (1.6-2.3); Potassium 4.1 mmol/L (3.4-5.0); Sodium 136 mmol/L (137-145)
[2023-04-16 08:19] LABS: Glucose Point of Care 143 mg/dl (65-105)
[2023-04-16] MEDS: INSULIN ASPART (*BKC) 100 UNITS/ML 11 UNITS SUB-Q ×3 (08:37→17:07)
[2023-04-16] MEDS: carvediloL 12.5 MG TABLET BY MOUTH ×2 (08:40→20:40)
[2023-04-16] MEDS: PYRIDOXINE HCL 50 MG TABLET 100 MG PO (08:40)
[2023-04-16] MEDS: MIRABEGRON 50 MG ER TABLET PO (08:41)
[2023-04-16] MEDS: amLODIPine BESYLATE 5 MG TABLET 10 MG PO (08:41)
[2023-04-16] MEDS: SOLIFENACIN 5 MG TABLET 10 MG PO (08:41)
[2023-04-16] MEDS: ROSUVASTATIN 10 MG TABLET 20 MG PO (08:42)
[2023-04-16] MEDS: PANTOPRAZOLE 40 MG TABLET BY MOUTH (08:42)
[2023-04-16] MEDS: OMEGA 3 POLYUNSAT FATTY ACIDS 1 GM CAP 2 GM PO (08:42)
[2023-04-16] MEDS: OPTI-GEN TAB 1 TABLET PO (08:42)
[2023-04-16] MEDS: SACCHAROMYCES BOULARDII 250 MG CAPSULE PO (08:42)
[2023-04-16] MEDS: oxyCODONE/ACETAMINOPHEN (*CRX) 10-325 MG TABLET 1 TAB PO ×2 (09:22→18:34)
[2023-04-16] MEDS: FLUTICASONE/SALMETEROL 115-21 MCG INHALER 1 PUFF 2 PUFF INHALATION ×2 (10:22→20:26)
--- NOTE | 2023-04-16 10:26 | P.CDI_ITS ---
CDI Query Clarification Request Documented history of CHF. CHF noted in the assessment and plan. Lasix listed as a home medication. Edema noted in the documentation. Please specify type and acuity of heart failure if known. * Acute * Chronic * Acute on Chronic * Unknown * Systolic * Diastolic * Combined Systolic and Diastolic * Unknown
--- NOTE | 2023-04-16 10:26 | WPDCDIQUERY2 ---
CDI Query Clarification Request Documented history of CHF. CHF noted in the assessment and plan. Lasix listed as a home medication. Edema noted in the documentation. Please specify type and acuity of heart failure if known. Acute Chronic Acute on Chronic Unknown Systolic Diastolic Combined Systolic and Diastolic Unknown
--- NOTE | 2023-04-16 11:35 | PCPTNOTE ---
Patient refused treatment this session. Patient reported not today meaning therapy and did not give reason why.
[2023-04-16 11:51] LABS: Glucose Point of Care 130 mg/dl (65-105)
[2023-04-16] MEDS: MULTIVITAMINS /C LUTEIN (CENTRUM SILVER) TABLET *BKC 1 TAB PO (11:56)
[2023-04-16] MEDS: polyethylene glycoL 3350 17 GM POWD.PACK PO (11:56)
[2023-04-16] MEDS: MAGNESIUM OXIDE 400 MG TABLET PO (11:56)
--- NOTE | 2023-04-16 13:03 | P.PNNP_ITS ---
Progress Note: A&P Assessment and Plan (1) MEJIA (acute kidney injury): Code(s): N17.9 - Acute kidney failure, unspecified Status: Acute Assessment and Plan: * etiology? * possible overdiuresis in the context on MARIA TERESA-I use(?) * holding diuretics for now * s/p trial of IVFs * evaluation to date: * urine electrolytes slightly prerenal * urine eosinophils rare -- likely due to infection * renal ultrasound noted * CPK normal * repeat CXR prior to further IVFs * follow trend of repeat labs and UOP (2) Chronic kidney disease, stage IV (severe): Code(s): N18.4 - Chronic kidney disease, stage 4 (severe) Status: Chronic Assessment and Plan: * baseline creatinine runs 2.4 - 2.6mg/dl in the last year or so * due hypertension, diabetes, vasculat disease, and age-related change (based on outpatient evaluation) * an element of CKD progression(?) (3) Closed fracture of transverse process of lumbar vertebra: Qualifiers: Encounter type: initial encounter Qualified Code(s): S32.009A - Unspecified fracture of unspecified lumbar vertebra, initial encounter for closed fracture Code(s): S32.009A - Unspecified fracture of unspecified lumbar vertebra, initial encounter for closed fracture Status: Acute Assessment and Plan: * secondary to fall * pain control * Neurosurgery recommendations noted * PT/OT as tolerated (4) Anemia: Qualifiers: Anemia type: unspecified type Qualified Code(s): D64.9 - Anemia, unspecified Code(s): D64.9 - Anemia, unspecified Status: Chronic Assessment and Plan: * chronic issue * partly related to underlying CKD * follow trend of H/H (5) Benign hypertension with chronic kidney disease: Code(s): I12.9 - Hypertensive chronic kidney disease with stage 1 through stage 4 chronic kidney disease, or unspecified chronic kidney disease Status: Chronic Assessment and Plan: * reasonable control at this time * follow trend of hemodynamics (6) Diabetes mellitus with chronic kidney disease: Code(s): E11.22 - Type 2 diabetes mellitus with diabetic chronic kidney disease Status: Acute Assessment and Plan: * follow accu-cheks * glycemic control per hospitalists Will continue to follow. Subjective Date/time seen: 04/16/23 13:03 Interval history: Follow-up for acute kidney injury/acute renal failure on chronic kidney disease. Slow improvement in renal function/creatinine with ongoing therapy/interventions (IVF administration and holding diuretic therapy) but BUN remains elevated; pain control seems to be doing a bit better; no other acute issues noted at this. Exam Narrative: General: elderly but WD/WN male Heart: normal S1 and S2; no rub Lungs: clear to auscultation Abdomen: soft, nontender, nondistended, positive bowel sounds Extremities: no cyanosis or clubbing; no edema Skin: warm and intact Objective Data Vital Signs Vital Signs: Vital Signs Temp Pulse Resp BP Pulse Ox O2 Del Method FiO2 04/16/23 14:00 97.6 F 64 16 164/83 H 97 04/16/23 12:00 66 04/16/23 10:24 68 18 04/16/23 10:24 97 Room Air 21 04/16/23 08:00 69 04/16/23 08:40 67 04/16/23 05:47 97.4 F L 66 18 149/65 H 99 04/16/23 04:00 6
--- NOTE | 2023-04-16 13:03 | PM.PNNEP ---
Progress Note: A&P Assessment and Plan (1) MEJIA (acute kidney injury): Code(s): N17.9 - Acute kidney failure, unspecified Status: Acute Assessment and Plan: etiology? possible overdiuresis in the context on MARIA TERESA-I use(?) holding diuretics for now s/p trial of IVFs evaluation to date: urine electrolytes slightly prerenal urine eosinophils rare -- likely due to infection renal ultrasound noted CPK normal repeat CXR prior to further IVFs follow trend of repeat labs and UOP (2) Chronic kidney disease, stage IV (severe): Code(s): N18.4 - Chronic kidney disease, stage 4 (severe) Status: Chronic Assessment and Plan: baseline creatinine runs 2.4 - 2.6mg/dl in the last year or so due hypertension, diabetes, vasculat disease, and age-related change (based on outpatient evaluation) an element of CKD progression(?) (3) Closed fracture of transverse process of lumbar vertebra: Qualifiers: Encounter type: initial encounter Qualified Code(s): S32.009A - Unspecified fracture of unspecified lumbar vertebra, initial encounter for closed fracture Code(s): S32.009A - Unspecified fracture of unspecified lumbar vertebra, initial encounter for closed fracture Status: Acute Assessment and Plan: secondary to fall pain control Neurosurgery recommendations noted PT/OT as tolerated (4) Anemia: Qualifiers: Anemia type: unspecified type Qualified Code(s): D64.9 - Anemia, unspecified Code(s): D64.9 - Anemia, unspecified Status: Chronic Assessment and Plan: chronic issue partly related to underlying CKD follow trend of H/H (5) Benign hypertension with chronic kidney disease: Code(s): I12.9 - Hypertensive chronic kidney disease with stage 1 through stage 4 chronic kidney disease, or unspecified chronic kidney disease Status: Chronic Assessment and Plan: reasonable control at this time follow trend of hemodynamics (6) Diabetes mellitus with chronic kidney disease: Code(s): E11.22 - Type 2 diabetes mellitus with diabetic chronic kidney disease Status: Acute Assessment and Plan: follow accu-cheks glycemic control per hospitalists Will continue to follow. Subjective Date/time seen: 04/16/23 13:03 Interval history: Follow-up for acute kidney injury/acute renal failure on chronic kidney disease. Slow improvement in renal function/creatinine with ongoing therapy/interventions (IVF administration and holding diuretic therapy) but BUN remains elevated; pain control seems to be doing a bit better; no other acute issues noted at this. Exam Narrative: General: elderly but WD/WN male Heart: normal S1 and S2; no rub Lungs: clear to auscultation Abdomen: soft, nontender, nondistended, positive bowel sounds Extremities: no cyanosis or clubbing; no edema Skin: warm and intact Objective Data Vital Signs Vital Signs: Vital Signs Temp Pulse Resp BP Pulse Ox O2 Del Method FiO2 04/16/23 14:00 97.6 F 64 16 164/83 H 97 04/16/23 12:00 66 04/16/23 10:24 68 18 04/16/23 10:24 97 Room Air 21 04/16/23 08:00 69 04/16/23 08:40 67 04/16/23 05:47 97.4 F L 66 18 149/65 H 99 04/16/23 04:00 65 04/16/23 00:00 67 04/15/23 20:00 65 18 96 Room Air 04/15/23 20:00 68 04/15/23 19:50 98.3 F 82 18 137/63 96 04/15/23 20:27 65 04/15/23 19:27 75 16 Intake/Output Intake/Output: Intake & Output 04/13/23 04/14/23 04/15/23 04/16/23 23:59 23:59 23:59 23:59 Intake Total 2080 530 990 Output Total 753 2400 650 Balance 1327 -1870 340 Meds/Results Medications: Active Medications Generic Name Dose Route Start Last Admin Trade Name Dustinq PRN Reason Stop Dose Admin Acetaminophen 650 mg 04/14/23 08:26 Acetaminophen 325 Mg Tablet PO Q6H PRN
[2023-04-16 16:52] LABS: Glucose Point of Care 112 mg/dl (65-105)
--- NOTE | 2023-04-16 18:10 | PM.IMPN ---
Progress Note: A&P Assessment and Plan (1) MEJIA (acute kidney injury): Code(s): N17.9 - Acute kidney failure, unspecified Status: Acute (2) Acute mid back pain: Code(s): M54.9 - Dorsalgia, unspecified Status: Acute (3) Acute kidney injury superimposed on CKD: Code(s): N17.9 - Acute kidney failure, unspecified; N18.9 - Chronic kidney disease, unspecified Status: Acute (4) Closed T12 fracture: Qualifiers: Encounter type: initial encounter Fracture morphology: other fracture Qualified Code(s): S22.088A - Other fracture of T11-T12 vertebra, initial encounter for closed fracture Code(s): S22.089A - Unspecified fracture of T11-T12 vertebra, initial encounter for closed fracture Status: Acute (5) Diabetes mellitus with chronic kidney disease: Code(s): E11.22 - Type 2 diabetes mellitus with diabetic chronic kidney disease Status: Acute Plan 73M w/ PMH CKD stage 3, HF borderline reduced EF, HTN, IDDM, decub ulcer and diabetic neuropathy, LOU, obesity, presented after mechanical fall at home. Admitted on 04/13 with closed T12 fracture. Diagnoses: closed T12 fracture mid back pain MEJIA on CKD compensated CHF UTI IDDM HTN, LOU 1) Closed T12 fracture following mechanical fall at home with persistent mid back pain - neurosurgery consulted. advised non surgical approach. cont TLSO brace with rehab. pending dispo with care coordinators, likely to [place]. current pain regiment working well, continue, then tailor for discharge. 2) UTI - switch ceftriaxone to PO today. to receive total 10 day course 3) MEJIA on CKD - appreciate nephrology recs. on 04/16 sCR is 3.1, near his baseline. CPM FEN: cardiac diabetic diet GI prophylaxis: protonix DVT prophylaxis: SCDs Lines: pIV Code Status: Full Code Dispo: pending auth to [facility] for rehab. More than 35 minutes spent on chart review, patient interaction and assessment and plan. Subjective Date/time seen: 04/16/23 18:10 Interval history: Pt seen at bedside with and daughter present. He denies complaints, and reports great pain control. He is amenable to rehab at [facility]. is requesting wound care for his ongoing decub ulcer of right plantar foot. Review of Systems Cardiovascular: Cardiovascular: Denies chest pain and Denies dyspnea Respiratory: Respiratory: Denies cough and Denies dyspnea Gastrointestinal: Gastrointestinal: Denies abdominal pain and Denies vomiting Exam Const: General: no acute distress, alert and Physically active Other: obese Resp: Effort & Inspection: normal respiratory effort Auscultation: clear to auscultation bilaterally Cardio: Rate: regular rate Rhythm: regular rhythm Heart sounds: S1 normal heart sound present and S2 normal heart sound present GI: Inspection: non-distended GI Palp: No abdominal tenderness Auscultation: normal bowel sounds Extrem: Right upper extremity: no edema Objective Data Vital Signs Vital Signs: Vital Signs - 24 hr 04/15/23 19:27 04/15/23 20:27 04/15/23 19:50 Temperature 98.3 F Pulse Rate 75 65 82 Respiratory Rate 16 18 Blood Pressure 137/63 Pulse Oximetry 96 Oxygen Delivery Fraction of Inspired Oxygen 04/15/23 20:00 04/15/23 20:00 04/16/23 00:00 Temperature Pulse Rate 68 65 67 Respiratory Rate 18 Blood Pressure Pulse Oximetry 96 Oxygen Delivery Room Air Fraction of Inspired Oxygen 04/16/23 04:00 04/16/23 05:47 04/16/23 08:40 Temperature 97.4 F L Pulse Rate 65 66 67 Respiratory Rate 18 Blood Pressure 149/65 H Pulse Oximetry 99 Oxygen Delivery Fraction of Inspired Oxygen 04/16/23 08:00 04/16/23 10:24 04/16/23 10:24 Temperature Pulse Rate 69 68 Respiratory Rate 18 Blood Pressure Pulse Oximetry 97 Oxygen Delivery Room Air Fraction of Inspired Oxygen 04/16/23 12:00 04/16/23 14:00 04/16/23 08:35 Temperature 97.6 F Pulse Rate
[2023-04-16] MEDS: AMITRIPTYLINE HCL 25 MG TABLET PO (20:40)
[2023-04-16 20:47] LABS: Glucose Point of Care 114 mg/dl (65-105)
[2023-04-16] MEDS: INSULIN GLARGINE (*BKC) 100 UNITS/ML 32 UNITS SUB-Q (21:21)
[2023-04-17] VITALS (12 sets, daily range): BP systolic 104–133; BP diastolic 51–66; PULSE 55–69; RESP 17–18; TEMP 36.4–36.7; O2SAT 96–98
[2023-04-17] MEDS: CEPHALEXIN 500 MG CAPSULE PO ×4 (05:48→23:31)
[2023-04-17] MEDS: oxyCODONE/ACETAMINOPHEN (*CRX) 10-325 MG TABLET 1 TAB PO ×3 (05:48→20:12)
[2023-04-17] MEDS: LEVOTHYROXINE SODIUM 75 MCG TABLET PO (05:48)
[2023-04-17 06:03] LABS: Hematocrit 30.8 % (42.0-52.0); Hemoglobin 10.1 g/dL (14.0-18.0); Mean Corpuscular HGB Conc 32.8 g/dl (32-36); Mean Corpuscular Hemoglobin 29.5 pg (26-34); Mean Corpuscular Volume 90.1 fl (80-100); Mean Platelet Volume 10.9 fl (7.4-10.4); Platelet Count Result 243 k/mm3 (150-375); Red Blood Count 3.42 M/mm3 (4.6-6.20); Red Cell Distribution Width 13.9 % (11.5-14.5); White Blood Count 14.5 K/mm3 (4.5-10.0)
[2023-04-17 06:04] LABS: Glucose Point of Care 138 mg/dl (65-105)
[2023-04-17 06:20] LABS: Anion Gap 9 mmol/L (8-16); Blood Urea Nitrogen 104 mg/dL (9-20); Carbon Dioxide 23 mmol/L (22-30); Chloride 100 mmol/L (98-107); Estimated CRCL calculation 31 ml/min; Estimated Glomerular Filt Rate 19; Glucose 131 mg/dL (65-110); Sodium 132 mmol/L (137-145)
[2023-04-17 08:22] LABS: Glucose Point of Care 136 mg/dl (65-105)
[2023-04-17] MEDS: INSULIN ASPART (*BKC) 100 UNITS/ML 11 UNITS SUB-Q ×2 (08:42→12:22)
[2023-04-17] MEDS: amLODIPine BESYLATE 5 MG TABLET 10 MG PO (08:46)
[2023-04-17] MEDS: MIRABEGRON 50 MG ER TABLET PO (08:46)
[2023-04-17] MEDS: SOLIFENACIN 5 MG TABLET 10 MG PO (08:46)
[2023-04-17] MEDS: ROSUVASTATIN 10 MG TABLET 20 MG PO (08:46)
[2023-04-17] MEDS: carvediloL 12.5 MG TABLET BY MOUTH ×2 (08:46→20:12)
[2023-04-17] MEDS: OMEGA 3 POLYUNSAT FATTY ACIDS 1 GM CAP 2 GM PO (08:47)
[2023-04-17] MEDS: PYRIDOXINE HCL 50 MG TABLET 100 MG PO (08:47)
[2023-04-17] MEDS: PANTOPRAZOLE 40 MG TABLET BY MOUTH (08:47)
[2023-04-17] MEDS: polyethylene glycoL 3350 17 GM POWD.PACK PO (08:47)
[2023-04-17] MEDS: OPTI-GEN TAB 1 TABLET PO (08:47)
[2023-04-17] MEDS: SACCHAROMYCES BOULARDII 250 MG CAPSULE PO (08:48)
[2023-04-17] MEDS: FLUTICASONE/SALMETEROL 115-21 MCG INHALER 1 PUFF 2 PUFF INHALATION (09:21)
[2023-04-17 12:09] LABS: Glucose Point of Care 150 mg/dl (65-105)
[2023-04-17] MEDS: SILVERGEL (ELTA) 45 ML 1 APPLIC TOPICAL (12:23)
[2023-04-17] MEDS: MULTIVITAMINS /C LUTEIN (CENTRUM SILVER) TABLET *BKC 1 TAB PO (12:23)
[2023-04-17] MEDS: MAGNESIUM OXIDE 400 MG TABLET PO (12:23)
--- NOTE | 2023-04-17 12:27 | PM.IMPN ---
Progress Note: A&P Assessment and Plan (1) MEJIA (acute kidney injury): Code(s): N17.9 - Acute kidney failure, unspecified Status: Acute (2) Acute mid back pain: Code(s): M54.9 - Dorsalgia, unspecified Status: Acute (3) Acute kidney injury superimposed on CKD: Code(s): N17.9 - Acute kidney failure, unspecified; N18.9 - Chronic kidney disease, unspecified Status: Acute (4) Closed T12 fracture: Qualifiers: Encounter type: initial encounter Fracture morphology: other fracture Qualified Code(s): S22.088A - Other fracture of T11-T12 vertebra, initial encounter for closed fracture Code(s): S22.089A - Unspecified fracture of T11-T12 vertebra, initial encounter for closed fracture Status: Acute Plan 73M w/ PMH CKD stage 3, HF borderline reduced EF, HTN, IDDM, decub ulcer and diabetic neuropathy, LOU, obesity, presented after mechanical fall at home. Admitted on 04/13 with closed T12 fracture. Diagnoses: closed T12 fracture mid back pain MEJIA on CKD compensated CHF UTI IDDM HTN, LOU 1) Closed T12 fracture following mechanical fall at home with persistent mid back pain - neurosurgery consulted. advised non surgical approach. cont TLSO brace with rehab. pending dispo with care coordinators, likely to [place]. current pain regiment working well, continue, then tailor for discharge. 2) UTI - switch ceftriaxone to PO on 04/17/23. to receive total 10 day course. asymptomatic currently 3) MEJIA on CKD - sCR 3.3 --> 3.1 --> 3.3 now with downtrending serum NA. will appreciate nephrology recs but he likely needs more volume. switch D5W to normal saline @ 150ml/hr. baseline sCR mid 2's FEN: cardiac diabetic diet GI prophylaxis: protonix DVT prophylaxis: SCDs Lines: pIV Code Status: Full Code Dispo: pending auth to [place] for rehab. Subjective Date/time seen: 04/17/23 12:27 Interval history: NAOE. the patient rests comfortably in bed, tired as usual. he denies complaints. Review of Systems Cardiovascular: Cardiovascular: Denies chest pain and Denies dyspnea Respiratory: Respiratory: Denies cough and Denies dyspnea Gastrointestinal: Gastrointestinal: Denies abdominal pain and Denies vomiting Exam Const: General: no acute distress, alert and Physically active Other: obese Resp: Effort & Inspection: normal respiratory effort Auscultation: clear to auscultation bilaterally Cardio: Rate: regular rate Rhythm: regular rhythm Heart sounds: S1 normal heart sound present and S2 normal heart sound present GI: Inspection: non-distended GI Palp: No abdominal tenderness Auscultation: normal bowel sounds Extrem: Right upper extremity: no edema Objective Data Vital Signs Vital Signs: Vital Signs - 24 hr 04/16/23 14:00 04/16/23 16:03 04/16/23 19:15 Temperature 97.6 F 97.7 F Pulse Rate 64 61 63 Respiratory Rate 16 18 Blood Pressure 164/83 H 150/62 H Pulse Oximetry 97 94 Oxygen Delivery Fraction of Inspired Oxygen 04/16/23 20:40 04/16/23 20:00 04/17/23 00:00 Temperature Pulse Rate 63 62 64 Respiratory Rate Blood Pressure Pulse Oximetry Oxygen Delivery Fraction of Inspired Oxygen 04/16/23 20:14 04/17/23 04:00 04/17/23 06:00 Temperature 97.5 F L Pulse Rate 67 63 Respiratory Rate 18 Blood Pressure 104/66 Pulse Oximetry 93 96 Oxygen Delivery Room Air Fraction of Inspired Oxygen 04/17/23 08:46 04/17/23 09:23 04/17/23 09:23 Temperature Pulse Rate 69 Respiratory Rate 18 Blood Pressure Pulse Oximetry 97 Oxygen Delivery Room Air Fraction of Inspired Oxygen 21 Intake/Output Intake/Output: Intake & Output 04/14/23 04/15/23 04/16/23 04/17/23 23:59 23:59 23:59 23:59 Intake Total 2080 530 1780 360 Output Total 753 2400 3350 600 Balance 7107 -1960 -1570 -240 Meds/Results Medications: Active Medications Generic Name Dose Route Start Last Admin Trade Name F
[2023-04-17] MEDS: SODIUM CHLORIDE 0.9% IV 1,000 ML 150 ML IV CONT (13:04)
--- NOTE | 2023-04-17 13:14 | PM.PNNEP ---
Progress Note: A&P Assessment and Plan (1) MEJIA (acute kidney injury): Code(s): N17.9 - Acute kidney failure, unspecified Status: Acute Assessment and Plan: etiology? possible overdiuresis in the context on MARIA TERESA-I use(?) and UTI holding diuretics for now s/p trial of IVFs repeat CXR results noted I worry about givening more IVFs given these CXR results evaluation to date: urine electrolytes slightly prerenal urine eosinophils rare -- likely due to infection renal ultrasound noted CPK normal repeat CXR prior to further IVFs follow trend of repeat labs and UOP (2) Chronic kidney disease, stage IV (severe): Code(s): N18.4 - Chronic kidney disease, stage 4 (severe) Status: Chronic Assessment and Plan: baseline creatinine runs 2.4 - 2.6mg/dl in the last year or so due hypertension, diabetes, vasculat disease, and age-related change (based on outpatient evaluation) an element of CKD progression(?) (3) Closed fracture of transverse process of lumbar vertebra: Qualifiers: Encounter type: initial encounter Qualified Code(s): S32.009A - Unspecified fracture of unspecified lumbar vertebra, initial encounter for closed fracture Code(s): S32.009A - Unspecified fracture of unspecified lumbar vertebra, initial encounter for closed fracture Status: Acute Assessment and Plan: secondary to fall pain control Neurosurgery recommendations noted PT/OT as tolerated (4) Anemia: Qualifiers: Anemia type: unspecified type Qualified Code(s): D64.9 - Anemia, unspecified Code(s): D64.9 - Anemia, unspecified Status: Chronic Assessment and Plan: chronic issue partly related to underlying CKD follow trend of H/H (5) Benign hypertension with chronic kidney disease: Code(s): I12.9 - Hypertensive chronic kidney disease with stage 1 through stage 4 chronic kidney disease, or unspecified chronic kidney disease Status: Chronic Assessment and Plan: reasonable control at this time follow trend of hemodynamics (6) Diabetes mellitus with chronic kidney disease: Code(s): E11.22 - Type 2 diabetes mellitus with diabetic chronic kidney disease Status: Acute Assessment and Plan: follow accu-cheks glycemic control per hospitalists Will continue to follow. Subjective Date/time seen: 04/17/23 13:14 Interval history: Follow-up for acute kidney injury/acute renal failure on chronic kidney disease. Creatinine up a tad by AM labs but making good urine output; continues to work work PT/OT with [employer] brace in place; pain control seems reasonable. Exam Narrative: General: elderly but WD/WN male Heart: normal S1 and S2; no rub Lungs: clear to auscultation Abdomen: soft, nontender, nondistended, positive bowel sounds Extremities: no cyanosis or clubbing; no edema Skin: no rash Objective Data Vital Signs Vital Signs: Vital Signs Temp Pulse Resp BP Pulse Ox O2 Del Method FiO2 04/17/23 12:01 68 04/17/23 08:03 55 L 04/17/23 08:45 Room Air 04/17/23 09:23 18 04/17/23 09:23 97 Room Air 04/17/23 08:46 69 04/17/23 06:00 97.5 F L 63 18 104/66 96 04/17/23 04:00 67 04/16/23 20:14 93 Room Air 04/17/23 00:00 64 04/16/23 20:00 62 04/16/23 20:40 63 04/16/23 19:15 97.7 F 63 18 150/62 H 94 Intake/Output Intake/Output: Intake & Output 04/14/23 04/15/23 04/16/23 04/17/23 23:59 23:59 23:59 23:59 Intake Total 2080 530 1780 480 Output Total 753 2400 3350 600 Balance 1327 -1870 -1570 -120 Meds/Results Medications: Active Medications Generic Name Dose Route Start Last Admin Trade Name Dustinq PRN Reason Stop Dose Admin Acetaminophen 650 mg 04/14/23 08:26 Acetaminophen 325 Mg Tablet PO Q6H PRN pain 1-4 Albuterol 2 puff 04/14/23
--- NOTE | 2023-04-17 13:14 | P.PNNP_ITS ---
Progress Note: A&P Assessment and Plan (1) MEJIA (acute kidney injury): Code(s): N17.9 - Acute kidney failure, unspecified Status: Acute Assessment and Plan: * etiology? * possible overdiuresis in the context on MARIA TERESA-I use(?) and UTI * holding diuretics for now * s/p trial of IVFs * repeat CXR results noted * I worry about givening more IVFs given these CXR results * evaluation to date: * urine electrolytes slightly prerenal * urine eosinophils rare -- likely due to infection * renal ultrasound noted * CPK normal * repeat CXR prior to further IVFs * follow trend of repeat labs and UOP (2) Chronic kidney disease, stage IV (severe): Code(s): N18.4 - Chronic kidney disease, stage 4 (severe) Status: Chronic Assessment and Plan: * baseline creatinine runs 2.4 - 2.6mg/dl in the last year or so * due hypertension, diabetes, vasculat disease, and age-related change (based on outpatient evaluation) * an element of CKD progression(?) (3) Closed fracture of transverse process of lumbar vertebra: Qualifiers: Encounter type: initial encounter Qualified Code(s): S32.009A - Unspecified fracture of unspecified lumbar vertebra, initial encounter for closed fracture Code(s): S32.009A - Unspecified fracture of unspecified lumbar vertebra, initial encounter for closed fracture Status: Acute Assessment and Plan: * secondary to fall * pain control * Neurosurgery recommendations noted * PT/OT as tolerated (4) Anemia: Qualifiers: Anemia type: unspecified type Qualified Code(s): D64.9 - Anemia, unspecified Code(s): D64.9 - Anemia, unspecified Status: Chronic Assessment and Plan: * chronic issue * partly related to underlying CKD * follow trend of H/H (5) Benign hypertension with chronic kidney disease: Code(s): I12.9 - Hypertensive chronic kidney disease with stage 1 through stage 4 chronic kidney disease, or unspecified chronic kidney disease Status: Chronic Assessment and Plan: * reasonable control at this time * follow trend of hemodynamics (6) Diabetes mellitus with chronic kidney disease: Code(s): E11.22 - Type 2 diabetes mellitus with diabetic chronic kidney disease Status: Acute Assessment and Plan: * follow accu-cheks * glycemic control per hospitalists Will continue to follow. Subjective Date/time seen: 04/17/23 13:14 Interval history: Follow-up for acute kidney injury/acute renal failure on chronic kidney disease. Creatinine up a tad by AM labs but making good urine output; continues to work work PT/OT with [employer] brace in place; pain control seems reasonable. Exam Narrative: General: elderly but WD/WN male Heart: normal S1 and S2; no rub Lungs: clear to auscultation Abdomen: soft, nontender, nondistended, positive bowel sounds Extremities: no cyanosis or clubbing; no edema Skin: no rash Objective Data Vital Signs Vital Signs: Vital Signs Temp Pulse Resp BP Pulse Ox O2 Del Method FiO2 04/17/23 12:01 68 04/17/23 08:03 55 L 04/17/23 08:45 Room Air 04/17/23 09:23 18 04/17/23 09:23 97 Room Air 04/17/23 08:46 69 04/17/23 06:00 97.5 F L 63 18 104/66 96 04/17/23 04:00 67
[2023-04-17 17:09] LABS: Glucose Point of Care 94 mg/dl (65-105)
[2023-04-17] MEDS: INSULIN GLARGINE (*BKC) 100 UNITS/ML 32 UNITS SUB-Q (20:06)
[2023-04-17] MEDS: AMITRIPTYLINE HCL 25 MG TABLET PO (20:12)
[2023-04-17 22:20] LABS: Glucose Point of Care 142 mg/dl (65-105)
[2023-04-18] VITALS (14 sets, daily range): BP systolic 118–141; BP diastolic 53–57; PULSE 53–69; RESP 18–20; TEMP 36.4; O2SAT 94–99
[2023-04-18] MEDS: oxyCODONE/ACETAMINOPHEN (*CRX) 10-325 MG TABLET 1 TAB PO ×3 (05:44→20:24)
[2023-04-18] MEDS: CEPHALEXIN 500 MG CAPSULE PO ×4 (05:44→23:43)
[2023-04-18] MEDS: LEVOTHYROXINE SODIUM 75 MCG TABLET PO (05:44)
[2023-04-18 06:15] LABS: Hematocrit 29.8 % (42.0-52.0); Hemoglobin 9.8 g/dL (14.0-18.0); Mean Corpuscular HGB Conc 32.9 g/dl (32-36); Mean Corpuscular Hemoglobin 29.3 pg (26-34); Mean Corpuscular Volume 89.2 fl (80-100); Mean Platelet Volume 10.7 fl (7.4-10.4); Platelet Count Result 247 k/mm3 (150-375); Red Blood Count 3.34 M/mm3 (4.6-6.20); Red Cell Distribution Width 13.7 % (11.5-14.5); White Blood Count 15.3 K/mm3 (4.5-10.0)
[2023-04-18 06:23] LABS: Anion Gap 9 mmol/L (8-16); Blood Urea Nitrogen 105 mg/dL (9-20); Calcium 8.6 mg/dL (8.4-10.2); Carbon Dioxide 23 mmol/L (22-30); Chloride 99 mmol/L (98-107); Estimated CRCL calculation 31 ml/min; Estimated Glomerular Filt Rate 19; Glucose 125 mg/dL (65-110); Magnesium 2.3 mg/dL (1.6-2.3); Potassium 4.1 mmol/L (3.4-5.0); Sodium 131 mmol/L (137-145)
[2023-04-18 06:48] LABS: Procalcitonin 0.3 ng/mL
[2023-04-18 08:19] LABS: Glucose Point of Care 133 mg/dl (65-105)
[2023-04-18] MEDS: amLODIPine BESYLATE 5 MG TABLET 10 MG PO (08:35)
[2023-04-18] MEDS: carvediloL 12.5 MG TABLET BY MOUTH ×2 (08:35→20:24)
[2023-04-18] MEDS: INSULIN ASPART (*BKC) 100 UNITS/ML 11 UNITS SUB-Q (08:35)
[2023-04-18] MEDS: PYRIDOXINE HCL 50 MG TABLET 100 MG PO (08:36)
[2023-04-18] MEDS: ROSUVASTATIN 10 MG TABLET 20 MG PO (08:36)
[2023-04-18] MEDS: OMEGA 3 POLYUNSAT FATTY ACIDS 1 GM CAP 2 GM PO (08:36)
[2023-04-18] MEDS: SOLIFENACIN 5 MG TABLET 10 MG PO (08:36)
[2023-04-18] MEDS: SACCHAROMYCES BOULARDII 250 MG CAPSULE PO (08:36)
[2023-04-18] MEDS: PANTOPRAZOLE 40 MG TABLET BY MOUTH (08:36)
[2023-04-18] MEDS: OPTI-GEN TAB 1 TABLET PO (08:36)
[2023-04-18] MEDS: MIRABEGRON 50 MG ER TABLET PO (08:36)
[2023-04-18] MEDS: SILVERGEL (ELTA) 45 ML 1 APPLIC TOPICAL (08:37)
[2023-04-18] MEDS: polyethylene glycoL 3350 17 GM POWD.PACK PO (08:37)
[2023-04-18] MEDS: FLUTICASONE/SALMETEROL 115-21 MCG INHALER 1 PUFF 2 PUFF INHALATION (08:58)
--- NOTE | 2023-04-18 10:31 | PM.IMPN ---
Progress Note: A&P Assessment and Plan (1) MEJIA (acute kidney injury): Code(s): N17.9 - Acute kidney failure, unspecified Status: Acute (2) Acute mid back pain: Code(s): M54.9 - Dorsalgia, unspecified Status: Acute (3) Acute kidney injury superimposed on CKD: Code(s): N17.9 - Acute kidney failure, unspecified; N18.9 - Chronic kidney disease, unspecified Status: Acute (4) Closed T12 fracture: Qualifiers: Encounter type: initial encounter Fracture morphology: other fracture Qualified Code(s): S22.088A - Other fracture of T11-T12 vertebra, initial encounter for closed fracture Code(s): S22.089A - Unspecified fracture of T11-T12 vertebra, initial encounter for closed fracture Status: Acute (5) Hyponatremia: Code(s): E87.1 - Hypo-osmolality and hyponatremia Status: Acute Plan 73M w/ PMH CKD stage 3, HF borderline reduced EF, HTN, IDDM, decub ulcer and diabetic neuropathy, LOU, obesity, presented after mechanical fall at home. Admitted on 04/13 with closed T12 fracture. Diagnoses: closed T12 fracture mid back pain MEJIA on CKD compensated CHF UTI IDDM HTN, LOU 1) Closed T12 fracture following mechanical fall at home with persistent mid back pain - neurosurgery consulted. advised non surgical approach. cont TLSO brace with rehab. pending dispo with care coordinators, likely to [place]. current pain regiment working well, continue, then tailor for discharge. 2) UTI - switch ceftriaxone to PO on 04/17/23. to receive total 10 day course. asymptomatic currently - WBC elevated today to 15. no active symptoms. ctm. procalcitonin wnl. can nixon workup again tomorrow if still rising 3) MEJIA on CKD - sCR 3.3 --> 3.1 --> 3.3 now with downtrending serum NA. he appears euvolemic, which is relatively lower than his baseline, so likely this will be his new baseline sCR. ctm off fluids as nephrology decided against it. appreciate nephrology recs. FEN: cardiac diabetic diet GI prophylaxis: protonix DVT prophylaxis: SCDs and heparin TID Lines: pIV, remove rivera today Code Status: Full Code Dispo: pending auth to [place] for rehab. More than 35 minutes spent on chart review, patient interaction and assessment and plan. Subjective Date/time seen: 04/18/23 10:31 Interval history: NAOE. Arzola, son, at bedside. all questions answered the patient is sitting up in chair and complaints of 10/10 lower back pain. nurse reports he did not complain of any pain with physical therapy. he also complains of nausea. he denies cough, fever, abdominal pain, SOB. Review of Systems Cardiovascular: Cardiovascular: Denies chest pain and Denies dyspnea Respiratory: Respiratory: Denies cough and Denies dyspnea Gastrointestinal: Gastrointestinal: Denies abdominal pain, Reports nausea and Denies vomiting Musculoskeletal: Musculoskeletal: Reports back pain Exam Const: General: no acute distress, alert and Physically active Other: morbidly obese Resp: Effort & Inspection: normal respiratory effort Auscultation: rales (bibasilar, minimal) Cardio: Rate: regular rate Rhythm: regular rhythm Heart sounds: S1 normal heart sound present and S2 normal heart sound present GI: Inspection: non-distended GI Palp: No abdominal tenderness Auscultation: normal bowel sounds Extrem: Right upper extremity: no edema Objective Data Vital Signs Vital Signs: Vital Signs - 24 hr 04/17/23 12:01 04/17/23 14:00 04/17/23 16:03 Temperature 98.1 F Pulse Rate 68 66 62 Respiratory Rate 17 Blood Pressure 131/65 Pulse Oximetry 96 Oxygen Delivery Fraction of Inspired Oxygen 04/17/23 20:12 04/17/23 20:14 04/17/23 20:00 Temperature 97.7 F Pulse Rate 66 66 64 Respiratory Rate 18 Blood Pressure 133/51 L Pulse Oximetry 98 Oxygen Delivery Fraction of Inspired Oxygen 04/17/23 20:00 04/18/23 00:00 04/18/23 04:29 Temperature 97.6 F Pulse Rate 68
[2023-04-18] MEDS: ONDANSETRON INJ 4 MG/2 ML VIAL IV PUSH (10:37)
[2023-04-18] MEDS: SENNA/DOCUSATE SODIUM TABLET 1 TAB PO ×2 (10:38→17:01)
--- NOTE | 2023-04-18 11:46 | P.PNNP_ITS ---
Progress Note: A&P Assessment and Plan (1) MEJIA (acute kidney injury): Code(s): N17.9 - Acute kidney failure, unspecified Status: Acute Assessment and Plan: * etiology? * possible overdiuresis in the context on MARIA TEERSA-I use(?) and UTI * holding diuretics for now * s/p trial of IVFs * repeat CXR results noted * will give another trial of gentle fluid hydration * evaluation to date: * urine electrolytes slightly prerenal * urine eosinophils rare -- likely due to infection * renal ultrasound noted * CPK normal * follow respiratory status with IVF hydration * follow trend of repeat labs and UOP (2) Chronic kidney disease, stage IV (severe): Code(s): N18.4 - Chronic kidney disease, stage 4 (severe) Status: Chronic Assessment and Plan: * baseline creatinine runs 2.4 - 2.6mg/dl in the last year or so * due hypertension, diabetes, vasculat disease, and age-related change (based on outpatient evaluation) * an element of CKD progression -- is current creatinine his new baseline? (3) Closed fracture of transverse process of lumbar vertebra: Qualifiers: Encounter type: initial encounter Qualified Code(s): S32.009A - Unspecified fracture of unspecified lumbar vertebra, initial encounter for closed fracture Code(s): S32.009A - Unspecified fracture of unspecified lumbar vertebra, initial encoun ter for closed fracture Status: Acute Assessment and Plan: * secondary to fall * pain control * Neurosurgery recommendations noted * PT/OT as tolerated (4) Anemia: Qualifiers: Anemia type: unspecified type Qualified Code(s): D64.9 - Anemia, unspecified Code(s): D64.9 - Anemia, unspecified Status: Chronic Assessment and Plan: * chronic issue * partly related to underlying CKD * follow trend of H/H (5) Benign hypertension with chronic kidney disease: Code(s): I12.9 - Hypertensive chronic kidney disease with stage 1 through stage 4 chronic kidney disease, or unspecified chronic kidney disease Status: Chronic Assessment and Plan: * reasonable control at this time * follow trend of hemodynamics (6) Diabetes mellitus with chronic kidney disease: Code(s): E11.22 - Type 2 diabetes mellitus with diabetic chronic kidney disease Status: Acute Assessment and Plan: * follow accu-cheks * glycemic control per hospitalists Will continue to follow. Subjective Date/time seen: 04/18/23 11:46 Interval history: Follow-up for acute kidney injury/acute renal failure on chronic kidney disease. Creatinine/renal function remains relatively stable (but BUN remain elevated); still with significant pain at times but medications help; despite CXR findings, breathing/respiratory status remains stable; continues to have good urine output despite diuretics being on hold. Exam Narrative: General: elderly but WD/WN male Heart: normal S1 and S2; no rub Lungs: clear to auscultation Abdomen: soft, nontender, nondistended, positive bowel sounds Extremities: no cyanosis or clubbing; no edema Skin: no nodules Objective Data Vital Signs Vital Signs: Vital Signs Temp Pulse Resp BP Pulse Ox O2 Del Method FiO2 04/18/23 11:30 64 04/18/23 08:40 Room Air 04/18/23 08:00 64 04/18/23 08:58 20
--- NOTE | 2023-04-18 11:46 | PM.PNNEP ---
Progress Note: A&P Assessment and Plan (1) MEJIA (acute kidney injury): Code(s): N17.9 - Acute kidney failure, unspecified Status: Acute Assessment and Plan: etiology? possible overdiuresis in the context on MARIA TERESA-I use(?) and UTI holding diuretics for now s/p trial of IVFs repeat CXR results noted will give another trial of gentle fluid hydration evaluation to date: urine electrolytes slightly prerenal urine eosinophils rare -- likely due to infection renal ultrasound noted CPK normal follow respiratory status with IVF hydration follow trend of repeat labs and UOP (2) Chronic kidney disease, stage IV (severe): Code(s): N18.4 - Chronic kidney disease, stage 4 (severe) Status: Chronic Assessment and Plan: baseline creatinine runs 2.4 - 2.6mg/dl in the last year or so due hypertension, diabetes, vasculat disease, and age-related change (based on outpatient evaluation) an element of CKD progression -- is current creatinine his new baseline? (3) Closed fracture of transverse process of lumbar vertebra: Qualifiers: Encounter type: initial encounter Qualified Code(s): S32.009A - Unspecified fracture of unspecified lumbar vertebra, initial encounter for closed fracture Code(s): S32.009A - Unspecified fracture of unspecified lumbar vertebra, initial encounter for closed fracture Status: Acute Assessment and Plan: secondary to fall pain control Neurosurgery recommendations noted PT/OT as tolerated (4) Anemia: Qualifiers: Anemia type: unspecified type Qualified Code(s): D64.9 - Anemia, unspecified Code(s): D64.9 - Anemia, unspecified Status: Chronic Assessment and Plan: chronic issue partly related to underlying CKD follow trend of H/H (5) Benign hypertension with chronic kidney disease: Code(s): I12.9 - Hypertensive chronic kidney disease with stage 1 through stage 4 chronic kidney disease, or unspecified chronic kidney disease Status: Chronic Assessment and Plan: reasonable control at this time follow trend of hemodynamics (6) Diabetes mellitus with chronic kidney disease: Code(s): E11.22 - Type 2 diabetes mellitus with diabetic chronic kidney disease Status: Acute Assessment and Plan: follow accu-cheks glycemic control per hospitalists Will continue to follow. Subjective Date/time seen: 04/18/23 11:46 Interval history: Follow-up for acute kidney injury/acute renal failure on chronic kidney disease. Creatinine/renal function remains relatively stable (but BUN remain elevated); still with significant pain at times but medications help; despite CXR findings, breathing/respiratory status remains stable; continues to have good urine output despite diuretics being on hold. Exam Narrative: General: elderly but WD/WN male Heart: normal S1 and S2; no rub Lungs: clear to auscultation Abdomen: soft, nontender, nondistended, positive bowel sounds Extremities: no cyanosis or clubbing; no edema Skin: no nodules Objective Data Vital Signs Vital Signs: Vital Signs Temp Pulse Resp BP Pulse Ox O2 Del Method FiO2 04/18/23 11:30 64 04/18/23 08:40 Room Air 04/18/23 08:00 64 04/18/23 08:58 20 04/18/23 08:58 96 Autopap 21 04/18/23 08:35 64 04/18/23 08:33 60 18 125/57 L 99 04/18/23 04:00 57 L 04/18/23 04:29 97.6 F 69 20 141/55 H 99 04/18/23 00:00 68 04/17/23 20:00 Room Air 04/17/23 20:00 64 04/17/23 20:14 97.7 F 66 18 133/51 L 98 04/17/23 20:12 66 04/17/23 16:03 62 Intake/Output Intake/Output: Intake & Output 04/15/23 04/16/23 04/17/23 04/18/23 23:59 23:59 23:59 23:59 Intake Total 530 1780 2200 730 Output Total 2400 3350 1200 1400 Balance -1870 -1570 1000 -670 Meds/Results Medications: A
[2023-04-18 11:53] LABS: Glucose Point of Care 108 mg/dl (65-105)
[2023-04-18] MEDS: MULTIVITAMINS /C LUTEIN (CENTRUM SILVER) TABLET *BKC 1 TAB PO (13:10)
[2023-04-18] MEDS: MAGNESIUM OXIDE 400 MG TABLET PO (13:10)
[2023-04-18] MEDS: HEPARIN SODIUM 5,000 UNITS/ML VIAL 5000 UNITS SUB-Q ×2 (13:10→20:25)
[2023-04-18] MEDS: CYCLOBENZAPRINE HCL 10 MG TABLET PO (13:11)
[2023-04-18] MEDS: SODIUM CHLORIDE 0.9% IV 500 ML 50 ML IV CONT (17:01)
[2023-04-18 17:08] LABS: Glucose Point of Care 118 mg/dl (65-105)
[2023-04-18 18:29] LABS: Glucose Point of Care 124 mg/dl (65-105)
[2023-04-18] MEDS: INSULIN ASPART (*BKC) 100 UNITS/ML SUB-Q (18:35)
[2023-04-18] MEDS: AMITRIPTYLINE HCL 25 MG TABLET PO (20:24)
[2023-04-18] MEDS: INSULIN GLARGINE (*BKC) 100 UNITS/ML 32 UNITS SUB-Q (20:29)
[2023-04-18 20:50] LABS: Glucose Point of Care 123 mg/dl (65-105)
[2023-04-19] VITALS (12 sets, daily range): BP systolic 138–154; BP diastolic 57–84; PULSE 55–81; RESP 16–20; TEMP 36.4–36.5; O2SAT 96–99
[2023-04-19] MEDS: LEVOTHYROXINE SODIUM 75 MCG TABLET PO (05:13)
[2023-04-19] MEDS: CEPHALEXIN 500 MG CAPSULE PO ×4 (05:14→23:31)
[2023-04-19] MEDS: HEPARIN SODIUM 5,000 UNITS/ML VIAL 5000 UNITS SUB-Q ×3 (05:16→23:31)
[2023-04-19] MEDS: CYCLOBENZAPRINE HCL 10 MG TABLET PO (05:16)
[2023-04-19 05:53] LABS: Hematocrit 29.1 % (42.0-52.0); Hemoglobin 9.3 g/dL (14.0-18.0); Mean Corpuscular Volume 90.7 fl (80-100); Mean Platelet Volume 10.5 fl (7.4-10.4); Platelet Count Result 236 k/mm3 (150-375); Red Blood Count 3.21 M/mm3 (4.6-6.20); White Blood Count 11.1 K/mm3 (4.5-10.0)
[2023-04-19 06:02] LABS: Anion Gap 9 mmol/L (8-16); Blood Urea Nitrogen 102 mg/dL (9-20); Calcium 8.5 mg/dL (8.4-10.2); Carbon Dioxide 23 mmol/L (22-30); Chloride 100 mmol/L (98-107); Estimated CRCL calculation 28 ml/min; Estimated Glomerular Filt Rate 17; Glucose 108 mg/dL (65-110); Potassium 4.2 mmol/L (3.4-5.0); Sodium 132 mmol/L (137-145)
[2023-04-19 06:20] LABS: Procalcitonin 0.3 ng/mL
[2023-04-19] MEDS: FLUTICASONE/SALMETEROL 115-21 MCG INHALER 1 PUFF 2 PUFF INHALATION ×2 (07:15→19:29)
[2023-04-19 08:00] LABS: Glucose Point of Care 107 mg/dl (65-105)
[2023-04-19] MEDS: amLODIPine BESYLATE 5 MG TABLET 10 MG PO (08:42)
[2023-04-19] MEDS: carvediloL 12.5 MG TABLET BY MOUTH ×2 (08:42→20:18)
[2023-04-19] MEDS: SENNA/DOCUSATE SODIUM TABLET 1 TAB PO ×2 (08:42→17:07)
[2023-04-19] MEDS: OMEGA 3 POLYUNSAT FATTY ACIDS 1 GM CAP 2 GM PO (08:42)
[2023-04-19] MEDS: MIRABEGRON 50 MG ER TABLET PO (08:43)
[2023-04-19] MEDS: SACCHAROMYCES BOULARDII 250 MG CAPSULE PO (08:43)
[2023-04-19] MEDS: PYRIDOXINE HCL 50 MG TABLET 100 MG PO (08:43)
[2023-04-19] MEDS: polyethylene glycoL 3350 17 GM POWD.PACK PO (08:43)
[2023-04-19] MEDS: OPTI-GEN TAB 1 TABLET PO (08:43)
[2023-04-19] MEDS: ROSUVASTATIN 10 MG TABLET 20 MG PO (08:43)
[2023-04-19] MEDS: SOLIFENACIN 5 MG TABLET 10 MG PO (08:43)
[2023-04-19] MEDS: PANTOPRAZOLE 40 MG TABLET BY MOUTH (08:43)
[2023-04-19] MEDS: SILVERGEL (ELTA) 45 ML 1 APPLIC TOPICAL (08:44)
--- NOTE | 2023-04-19 09:47 | PM.IMPN ---
Progress Note: A&P Assessment and Plan (1) Hyponatremia: Code(s): E87.1 - Hypo-osmolality and hyponatremia Status: Acute (2) MEJIA (acute kidney injury): Code(s): N17.9 - Acute kidney failure, unspecified Status: Acute (3) Acute mid back pain: Code(s): M54.9 - Dorsalgia, unspecified Status: Acute (4) Acute kidney injury superimposed on CKD: Code(s): N17.9 - Acute kidney failure, unspecified; N18.9 - Chronic kidney disease, unspecified Status: Acute (5) Closed T12 fracture: Qualifiers: Encounter type: initial encounter Fracture morphology: other fracture Qualified Code(s): S22.088A - Other fracture of T11-T12 vertebra, initial encounter for closed fracture Code(s): S22.089A - Unspecified fracture of T11-T12 vertebra, initial encounter for closed fracture Status: Acute (6) Urinary retention: Code(s): R33.9 - Retention of urine, unspecified Status: Acute (7) Constipation: Code(s): K59.00 - Constipation, unspecified Status: Acute Plan 73M w/ PMH CKD stage 3, HF borderline reduced EF, HTN, IDDM, decub ulcer and diabetic neuropathy, LOU, obesity, presented after mechanical fall at home. Admitted on 04/13 with closed T12 fracture. Diagnoses: closed T12 fracture mid back pain MEJIA on CKD compensated CHF UTI IDDM HTN, LOU constipation hyponatremia urinary retention 1) Closed T12 fracture following mechanical fall at home with persistent mid back pain - neurosurgery consulted. advised non surgical approach. cont TLSO brace with rehab. pending dispo with care coordinators, likely to [facility]. current pain regiment working well, continue, then tailor for discharge. 2) UTI - switch ceftriaxone to PO keflex. to receive total 10 day course ending on 04/21. asymptomatic currently - leukcytosis downtrending. cont to trend 3) MEJIA on CKD - sCR 3.3 --> 3.1 --> 3.3 --> 3.6. It is likely he was overdiuresed due to clinical overload. However, he has had leg swelling chronically, now he appears dry. we have likely made a new baseline creatinine by drying him out. received 500ml by nephrology on 04/18. restarting NS @ 50ml/hr which should also bring up his sodium. monitor closely for fluid overload. appreciate nephrology recs. We will likely need to accept his new baseline if there are no other renal investigations to be done. 4) urinary retention - replaced rivera on 04/18 2/2 to 400ml of post void residual. treat constipation and revisit. 5) constipation - likely iatrogenic. on miralax, senna s. start dulcolax suppository today 6) IDDM - cont current basal bolus dosing. adjust as needed. FEN: cardiac diabetic diet. NS @ 100ml/hr GI prophylaxis: protonix DVT prophylaxis: SCDs and? heparin TID Lines: pIV, remove rivera today Code Status: Full Code Dispo: pending auth to [facility] for rehab. More than 35 minutes spent on chart review, patient interaction and assessment and plan. Subjective Date/time seen: 04/19/23 09:47 Interval history: NAOE. pt is laying comfortably in bed, denies pain at the moment. He has no complaints otherwise. Review of Systems Cardiovascular: Cardiovascular: Denies chest pain and Denies dyspnea Respiratory: Respiratory: Denies cough and Denies dyspnea Gastrointestinal: Gastrointestinal: Denies abdominal pain and Denies vomiting Exam Const: General: no acute distress, alert and Physically active Other: obese Resp: Effort & Inspection: normal respiratory effort Auscultation: clear to auscultation bilaterally Cardio: Rate: regular rate Rhythm: regular rhythm Heart sounds: S1 normal heart sound present and S2 normal heart sound present GI: Inspection: non-distended GI Palp: No abdominal tenderness Auscultation: normal bowel sounds Extrem: Right upper extremity: no edema Objective Data Vital Signs Vital Signs: Vital Signs - 24 hr 04/18/23 12:00 04/18/23 14:00 04/18/23 16:00
--- NOTE | 2023-04-19 10:16 | P.PNNP_ITS ---
Progress Note: A&P Assessment and Plan (1) MEJIA (acute kidney injury): Code(s): N17.9 - Acute kidney failure, unspecified Status: Acute Assessment and Plan: * Acute kidney injury. * possible overdiuresis in the context on MARIA TERESA-I use(?) and UTI * holding diuretics for now * s/p trial of IVFs * repeat CXR results noted * will give another trial of gentle fluid hydration * evaluation to date: * urine electrolytes slightly prerenal * Fraction excretion of urea was 25%, consistent with pre renal azotemia. * urine eosinophils rare -- likely due to infection * renal ultrasound no hydro. Bilateral renal cysts. * CPK normal * It looks like this is pre renal azotemia. EF was 40% in 2020. He was on diuretics. * There may be a component of ATN from infection. * holding diuretics for now * His creatinine is higher today. He has not been eating. * s/p trial of IVFs * repeat CXR results on 04/18 showed no fluid. * Another round of fluids was ordered this morning. * follow respiratory status with IVF hydration * Check a creatinine in the morning (2) Chronic kidney disease, stage IV (severe): Code(s): N18.4 - Chronic kidney disease, stage 4 (severe) Status: Chronic Assessment and Plan: * baseline creatinine runs 2.4 - 2.6mg/dl in the last year or so * due hypertension, diabetes, vasculat disease, and age-related change (based on outpatient evaluation) * There could be an element of CKD progression -- is current creatinine his new baseline? (3) Closed fracture of transverse process of lumbar vertebra: Qualifiers: Encounter type: initial encounter Qualified Code(s): S32.009A - Unspecified fracture of unspecified lumbar vertebra, initial encounter for closed fracture Code(s): S32.009A - Unspecified fracture of unspecified lumbar vertebra, initial encounter for closed fracture Status: Acute Assessment and Plan: * secondary to fall * pain control * Neurosurgery recommendations noted * PT/OT as tolerated (4) Anemia: Qualifiers: Anemia type: unspecified type Qualified Code(s): D64.9 - Anemia, unspecified Code(s): D64.9 - Anemia, unspecified Status: Chronic Assessment and Plan: * chronic issue * partly related to underlying CKD * Hemoglobin 9.3. Not low enough for BENJAMIN (5) Benign hypertension with chronic kidney disease: Code(s): I12.9 - Hypertensive chronic kidney disease with stage 1 through stage 4 chronic kidney disease, or unspecified chronic kidney disease Status: Chronic Assessment and Plan: * Systolic ranging 120-150. * Will allow this to be a little bit generous because of his acute kidney injury. (6) Diabetes mellitus with chronic kidney disease: Code(s): E11.22 - Type 2 diabetes mellitus with diabetic chronic kidney disease Status: Acute Assessment and Plan: * follow accu-cheks * glycemic control per hospitalists Subjective Date/time seen: 04/19/23 10:16 Interval history: Gulshan is lying flat in bed without shortness of breath. He did need very well last night. He did eat some this morning. No chest pain. Exam Narrative: General: elderly but WD/WN male Heart: normal S1 and S2; no rub or gallop Lungs: clear to auscultation Abdomen: soft, nontender, nondistended, positive bowel sounds Extremities: no cyanosis or clubbing; no edema Skin: no nodules or rash Obj
--- NOTE | 2023-04-19 10:16 | PM.PNNEP ---
Progress Note: A&P Assessment and Plan (1) MEJIA (acute kidney injury): Code(s): N17.9 - Acute kidney failure, unspecified Status: Acute Assessment and Plan: Acute kidney injury. possible overdiuresis in the context on MARIA TERESA-I use(?) and UTI holding diuretics for now s/p trial of IVFs repeat CXR results noted will give another trial of gentle fluid hydration evaluation to date: urine electrolytes slightly prerenal Fraction excretion of urea was 25%, consistent with pre renal azotemia. urine eosinophils rare -- likely due to infection renal ultrasound no hydro. Bilateral renal cysts. CPK normal It looks like this is pre renal azotemia. EF was 40% in 2020. He was on diuretics. There may be a component of ATN from infection. holding diuretics for now His creatinine is higher today. He has not been eating. s/p trial of IVFs repeat CXR results on 04/18 showed no fluid. Another round of fluids was ordered this morning. follow respiratory status with IVF hydration Check a creatinine in the morning (2) Chronic kidney disease, stage IV (severe): Code(s): N18.4 - Chronic kidney disease, stage 4 (severe) Status: Chronic Assessment and Plan: baseline creatinine runs 2.4 - 2.6mg/dl in the last year or so due hypertension, diabetes, vasculat disease, and age-related change (based on outpatient evaluation) There could be an element of CKD progression -- is current creatinine his new baseline? (3) Closed fracture of transverse process of lumbar vertebra: Qualifiers: Encounter type: initial encounter Qualified Code(s): S32.009A - Unspecified fracture of unspecified lumbar vertebra, initial encounter for closed fracture Code(s): S32.009A - Unspecified fracture of unspecified lumbar vertebra, initial encounter for closed fracture Status: Acute Assessment and Plan: secondary to fall pain control Neurosurgery recommendations noted PT/OT as tolerated (4) Anemia: Qualifiers: Anemia type: unspecified type Qualified Code(s): D64.9 - Anemia, unspecified Code(s): D64.9 - Anemia, unspecified Status: Chronic Assessment and Plan: chronic issue partly related to underlying CKD Hemoglobin 9.3. Not low enough for BENJAMIN (5) Benign hypertension with chronic kidney disease: Code(s): I12.9 - Hypertensive chronic kidney disease with stage 1 through stage 4 chronic kidney disease, or unspecified chronic kidney disease Status: Chronic Assessment and Plan: Systolic ranging 120-150. Will allow this to be a little bit generous because of his acute kidney injury. (6) Diabetes mellitus with chronic kidney disease: Code(s): E11.22 - Type 2 diabetes mellitus with diabetic chronic kidney disease Status: Acute Assessment and Plan: follow accu-cheks glycemic control per hospitalists Subjective Date/time seen: 04/19/23 10:16 Interval history: Gulshan is lying flat in bed without shortness of breath. He did need very well last night. He did eat some this morning. No chest pain. Exam Narrative: General: elderly but WD/WN male Heart: normal S1 and S2; no rub or gallop Lungs: clear to auscultation Abdomen: soft, nontender, nondistended, positive bowel sounds Extremities: no cyanosis or clubbing; no edema Skin: no nodules or rash Objective Data Vital Signs Vital Signs: Vital Signs - 24 hr 04/18/23 12:00 04/18/23 14:00 04/18/23 16:00 Temperature 97.6 F Pulse Rate 64 61 60 Respiratory Rate 18 Blood Pressure 118/53 L Pulse Oximetry 94 Oxygen Delivery 04/18/23 20:16 04/18/23 20:15 04/18/23 20:24 Temperature 97.5 F L 97.5 F L Pulse Rate 53 L 53 L 66 Respiratory Rate 20 20 Blood Pressure 134/53 L 134/53 L Pulse Oximetry 98 98 Oxygen Delivery 04/18/23 20:00 04/18/23 20:00 04/19/23 00:00 Temperature P
[2023-04-19] MEDS: SODIUM CHLORIDE 0.9% IV 1,000 ML 50 ML IV CONT (10:25)
[2023-04-19] MEDS: BISACODYL 10 MG SUPPOSITORY RECTAL (10:25)
--- NOTE | 2023-04-19 11:40 | PCOTNOTE ---
Attempted to see patient this am, however patient refused stating, I'm not interested in any of that today. present at bedside encouraging patient stating, Come on, Joey. You've got to do this if you want to go home. Patient rolled eyes and stated I'll get by. I always do. Despite encouragement, patient continued to refuse activity at this time.
[2023-04-19 12:22] LABS: Glucose Point of Care 200 mg/dl (65-105)
[2023-04-19] MEDS: MAGNESIUM OXIDE 400 MG TABLET PO (12:32)
[2023-04-19] MEDS: MULTIVITAMINS /C LUTEIN (CENTRUM SILVER) TABLET *BKC 1 TAB PO (12:32)
[2023-04-19] MEDS: oxyCODONE/ACETAMINOPHEN (*CRX) 10-325 MG TABLET 1 TAB PO ×2 (12:32→20:17)
[2023-04-19] MEDS: INSULIN ASPART (*BKC) 100 UNITS/ML SUB-Q ×2 (12:33→17:07)
[2023-04-19 16:59] LABS: Glucose Point of Care 153 mg/dl (65-105)
[2023-04-19] MEDS: AMITRIPTYLINE HCL 25 MG TABLET PO (20:17)
[2023-04-19] MEDS: INSULIN GLARGINE (*BKC) 100 UNITS/ML 32 UNITS SUB-Q (20:21)
[2023-04-19 20:29] LABS: Glucose Point of Care 150 mg/dl (65-105)
[2023-04-20] VITALS (11 sets, daily range): BP systolic 108–141; BP diastolic 58–82; PULSE 61–92; RESP 14–18; TEMP 36.4–36.7; O2SAT 94–98
[2023-04-20 05:21] LABS: Hematocrit 27.7 % (42.0-52.0); Hemoglobin 9.2 g/dL (14.0-18.0); Mean Corpuscular HGB Conc 33.2 g/dl (32-36); Mean Corpuscular Hemoglobin 29.5 pg (26-34); Mean Corpuscular Volume 88.8 fl (80-100); Mean Platelet Volume 10.2 fl (7.4-10.4); Platelet Count Result 230 k/mm3 (150-375); Red Blood Count 3.12 M/mm3 (4.6-6.20); Red Cell Distribution Width 13.8 % (11.5-14.5); White Blood Count 11.5 K/mm3 (4.5-10.0)
[2023-04-20 05:32] LABS: Anion Gap 8 mmol/L (8-16); Blood Urea Nitrogen 90 mg/dL (9-20); Calcium 8.6 mg/dL (8.4-10.2); Carbon Dioxide 22 mmol/L (22-30); Chloride 102 mmol/L (98-107); Estimated CRCL calculation 36 ml/min; Estimated Glomerular Filt Rate 22; Glucose 133 mg/dL (65-110); Potassium 4.4 mmol/L (3.4-5.0); Sodium 132 mmol/L (137-145)
[2023-04-20] MEDS: LEVOTHYROXINE SODIUM 75 MCG TABLET PO (06:06)
[2023-04-20] MEDS: CEPHALEXIN 500 MG CAPSULE PO ×3 (06:06→17:43)
[2023-04-20] MEDS: HEPARIN SODIUM 5,000 UNITS/ML VIAL 5000 UNITS SUB-Q ×3 (06:09→20:58)
[2023-04-20 08:41] LABS: Glucose Point of Care 152 mg/dl (65-105)
[2023-04-20] MEDS: polyethylene glycoL 3350 17 GM POWD.PACK PO (08:57)
[2023-04-20] MEDS: amLODIPine BESYLATE 5 MG TABLET 10 MG PO (08:57)
[2023-04-20] MEDS: SACCHAROMYCES BOULARDII 250 MG CAPSULE PO (08:57)
[2023-04-20] MEDS: INSULIN ASPART (*BKC) 100 UNITS/ML SUB-Q ×2 (08:57→12:30)
[2023-04-20] MEDS: PYRIDOXINE HCL 50 MG TABLET 100 MG PO (08:57)
[2023-04-20] MEDS: OMEGA 3 POLYUNSAT FATTY ACIDS 1 GM CAP 2 GM PO (08:57)
[2023-04-20] MEDS: MIRABEGRON 50 MG ER TABLET PO (08:58)
[2023-04-20] MEDS: SENNA/DOCUSATE SODIUM TABLET 1 TAB PO ×2 (08:58→17:43)
[2023-04-20] MEDS: oxyCODONE/ACETAMINOPHEN (*CRX) 10-325 MG TABLET 1 TAB PO (08:58)
[2023-04-20] MEDS: OPTI-GEN TAB 1 TABLET PO (08:58)
[2023-04-20] MEDS: ROSUVASTATIN 10 MG TABLET 20 MG PO (08:58)
[2023-04-20] MEDS: PANTOPRAZOLE 40 MG TABLET BY MOUTH (08:58)
[2023-04-20] MEDS: carvediloL 12.5 MG TABLET BY MOUTH ×2 (08:58→20:58)
[2023-04-20] MEDS: SOLIFENACIN 5 MG TABLET 10 MG PO (08:58)
[2023-04-20] MEDS: FLUTICASONE/SALMETEROL 115-21 MCG INHALER 1 PUFF 2 PUFF INHALATION ×3 (08:59→20:45)
[2023-04-20] MEDS: SILVERGEL (ELTA) 45 ML 1 APPLIC TOPICAL (08:59)
--- NOTE | 2023-04-20 10:56 | P.PNNP_ITS ---
Progress Note: A&P Assessment and Plan (1) MEJIA (acute kidney injury): Code(s): N17.9 - Acute kidney failure, unspecified Status: Acute Assessment and Plan: * Acute kidney injury. * evaluation to date: * urine electrolytes slightly prerenal * Fraction excretion of urea was 25%, consistent with pre renal azotemia. * urine eosinophils rare -- likely due to infection * renal ultrasound no hydro. Bilateral renal cysts. * CPK normal * Pre renal azotemia. * possible overdiuresis in the context on MARIA TERESA-I use, and decreased cardiac output contributing to the prerenal picture. He also has a UTI which may be contributing as well. * holding diuretics for now * He received more IV fluids yesterday. Total of about 2L. This is not reflected in the intake/output. * His creatinine is better down to 2.8. This is close to his baseline creatinine * Since he is eating better now, will hold off on more IV fluids and follow his exam. He does not look fluid overloaded currently. However, he may need to restart his diuretics soon. * Check a creatinine in the morning (2) Chronic kidney disease, stage IV (severe): Code(s): N18.4 - Chronic kidney disease, stage 4 (severe) Status: Chronic Assessment and Plan: * baseline creatinine runs 2.4 - 2.6mg/dl in the last year or so * due hypertension, diabetes, vasculat disease, and age-related change (based on outpatient evaluation) * There could be an element of CKD progression -- is current creatinine his new baseline? (3) Closed fracture of transverse process of lumbar vertebra: Qualifiers: Encounter type: initial encounter Qualified Code(s): S32.009A - Unspecified fracture of unspecified lumbar vertebra, initial encounter for closed fracture Code(s): S32.009A - Unspecified fracture of unspecified lumbar vertebra, initial encounter for closed fracture Status: Acute Assessment and Plan: * secondary to fall * pain control * Neurosurgery recommendations noted * PT/OT as tolerated (4) Anemia: Qualifiers: Anemia type: unspecified type Qualified Code(s): D64.9 - Anemia, unspecified Code(s): D64.9 - Anemia, unspecified Status: Chronic Assessment and Plan: * chronic issue * partly related to underlying CKD * Hemoglobin 9.2. Not low enough for BENJAMIN (5) Benign hypertension with chronic kidney disease: Code(s): I12.9 - Hypertensive chronic kidney disease with stage 1 through stage 4 chronic kidney disease, or unspecified chronic kidney disease Status: Chronic Assessment and Plan: * Systolic ranging 120-150. * Will allow this to be a little bit generous because of his acute kidney injury. (6) Diabetes mellitus with chronic kidney disease: Code(s): E11.22 - Type 2 diabetes mellitus with diabetic chronic kidney disease Status: Acute Assessment and Plan: * follow accu-cheks * glycemic control per hospitalists Subjective Date/time seen: 04/20/23 10:56 Interval history: Gulshan is sitting up in a chair beside the bed. He says he ate well for breakfast lunch and dinner yesterday and ate a good breakfast this morning. No shortness of breath Exam Narrative: General: elderly but WD/WN male Heart: normal S1 and S2; no rub Lungs: clear to auscultation Abdomen: Bowel sounds positive nontender Extremities: no cyanosis or clubbing; no edema Skin: no rash Objective Data V
--- NOTE | 2023-04-20 10:56 | PM.PNNEP ---
Progress Note: A&P Assessment and Plan (1) MEJIA (acute kidney injury): Code(s): N17.9 - Acute kidney failure, unspecified Status: Acute Assessment and Plan: Acute kidney injury. evaluation to date: urine electrolytes slightly prerenal Fraction excretion of urea was 25%, consistent with pre renal azotemia. urine eosinophils rare -- likely due to infection renal ultrasound no hydro. Bilateral renal cysts. CPK normal Pre renal azotemia. possible overdiuresis in the context on MARIA TERESA-I use, and decreased cardiac output contributing to the prerenal picture. He also has a UTI which may be contributing as well. holding diuretics for now He received more IV fluids yesterday. Total of about 2L. This is not reflected in the intake/output. His creatinine is better down to 2.8. This is close to his baseline creatinine Since he is eating better now, will hold off on more IV fluids and follow his exam. He does not look fluid overloaded currently. However, he may need to restart his diuretics soon. Check a creatinine in the morning (2) Chronic kidney disease, stage IV (severe): Code(s): N18.4 - Chronic kidney disease, stage 4 (severe) Status: Chronic Assessment and Plan: baseline creatinine runs 2.4 - 2.6mg/dl in the last year or so due hypertension, diabetes, vasculat disease, and age-related change (based on outpatient evaluation) There could be an element of CKD progression -- is current creatinine his new baseline? (3) Closed fracture of transverse process of lumbar vertebra: Qualifiers: Encounter type: initial encounter Qualified Code(s): S32.009A - Unspecified fracture of unspecified lumbar vertebra, initial encounter for closed fracture Code(s): S32.009A - Unspecified fracture of unspecified lumbar vertebra, initial encounter for closed fracture Status: Acute Assessment and Plan: secondary to fall pain control Neurosurgery recommendations noted PT/OT as tolerated (4) Anemia: Qualifiers: Anemia type: unspecified type Qualified Code(s): D64.9 - Anemia, unspecified Code(s): D64.9 - Anemia, unspecified Status: Chronic Assessment and Plan: chronic issue partly related to underlying CKD Hemoglobin 9.2. Not low enough for BENJAMIN (5) Benign hypertension with chronic kidney disease: Code(s): I12.9 - Hypertensive chronic kidney disease with stage 1 through stage 4 chronic kidney disease, or unspecified chronic kidney disease Status: Chronic Assessment and Plan: Systolic ranging 120-150. Will allow this to be a little bit generous because of his acute kidney injury. (6) Diabetes mellitus with chronic kidney disease: Code(s): E11.22 - Type 2 diabetes mellitus with diabetic chronic kidney disease Status: Acute Assessment and Plan: follow accu-cheks glycemic control per hospitalists Subjective Date/time seen: 04/20/23 10:56 Interval history: Gulshan is sitting up in a chair beside the bed. He says he ate well for breakfast lunch and dinner yesterday and ate a good breakfast this morning. No shortness of breath Exam Narrative: General: elderly but WD/WN male Heart: normal S1 and S2; no rub Lungs: clear to auscultation Abdomen: Bowel sounds positive nontender Extremities: no cyanosis or clubbing; no edema Skin: no rash Objective Data Vital Signs Vital Signs: Vital Signs - 24 hr 04/19/23 12:00 04/19/23 14:00 04/19/23 16:00 Temperature 97.6 F Pulse Rate 66 66 61 Respiratory Rate 18 Blood Pressure 144/82 H Pulse Oximetry 97 Oxygen Delivery Fraction of Inspired Oxygen 04/19/23 21:20 04/19/23 20:00 04/19/23 20:00 Temperature 97.7 F Pulse Rate 81 81 64 Respiratory Rate 16 16 Blood Pressure 154/62 H Pulse Oximetry 99 99 Oxygen Delivery Room Air Fraction of Inspired Oxygen 04/20/23 00:
[2023-04-20 12:20] LABS: Glucose Point of Care 167 mg/dl (65-105)
[2023-04-20] MEDS: MAGNESIUM OXIDE 400 MG TABLET PO (12:40)
[2023-04-20] MEDS: MULTIVITAMINS /C LUTEIN (CENTRUM SILVER) TABLET *BKC 1 TAB PO (12:40)
--- NOTE | 2023-04-20 14:16 | PM.IMPN ---
Progress Note: A&P Assessment and Plan (1) Hyponatremia: Code(s): E87.1 - Hypo-osmolality and hyponatremia Status: Acute Assessment and Plan: 04/20/23 Na 132 and stable after hydration (2) Acute mid back pain: Code(s): M54.9 - Dorsalgia, unspecified Status: Acute Assessment and Plan: Due to fx (3) Acute kidney injury superimposed on CKD: Code(s): N17.9 - Acute kidney failure, unspecified; N18.9 - Chronic kidney disease, unspecified Status: Acute Assessment and Plan: Prerenal 04/20 Creatinine improved from 3.6 to 2.8 Continue to monitor (4) Closed T12 fracture: Qualifiers: Encounter type: initial encounter Fracture morphology: other fracture Qualified Code(s): S22.088A - Other fracture of T11-T12 vertebra, initial encounter for closed fracture Code(s): S22.089A - Unspecified fracture of T11-T12 vertebra, initial encounter for closed fracture Status: Acute Assessment and Plan: Conservative tx (5) Urinary retention: Code(s): R33.9 - Retention of urine, unspecified Status: Acute Assessment and Plan: Likely due to meds, pain, immobility Minimize narcotics, stop anticholinergics Voiding trial when more alert (6) Constipation: Code(s): K59.00 - Constipation, unspecified Status: Acute Assessment and Plan: Likely due to meds, pain, immobility Minimize narcotics, stop anticholinergics Increase laxatives (7) Encephalopathy: Code(s): G93.40 - Encephalopathy, unspecified Status: Acute Assessment and Plan: Likely metabolic due to infection, pain, sleep deprivation, drugs Medication reduction ordered 04/20 and d/w spouse at bedside Monitor mental status Subjective Date/time seen: 04/20/23 14:16 Interval history: Confused. Constipated. Pain in back. Denied cp or abd pain. Hx OAB. Was taking both Vesicare and Myrbetrique at home. Now taking Flexeril, Elavil, Percocet here. Exam Narrative: HEENT: PERRL, sclerae nonicteric, pharyngeal mucosa pink and intact NECK: No JVD CHEST: Clear to auscultation. Normal effort. HEART: NL S1/S2, regular, no murmur ABDOMEN: BS+, soft, nontender, no mass, no bruits EXTREMITIES: No cyanosis, edema, or clubbing NEUROLOGIC: CN intact and symmetric to inspection. MUSCULOSKELETAL: Tone and strength symmetric. PSYCH: Drowsy but arouses easily. Oriented to person only (though he was at [facility] and did not venture a guess at the year). Objective Data Vital Signs Vital Signs: Vital Signs - 24 hr 04/19/23 16:00 04/19/23 21:20 04/19/23 20:00 Temperature 97.7 F Pulse Rate 61 81 81 Respiratory Rate 16 16 Blood Pressure 154/62 H Pulse Oximetry 99 99 Oxygen Delivery Room Air Fraction of Inspired Oxygen 21 04/19/23 20:00 04/20/23 00:00 04/20/23 04:00 Temperature Pulse Rate 64 66 78 Respiratory Rate Blood Pressure Pulse Oximetry Oxygen Delivery Fraction of Inspired Oxygen 04/20/23 06:08 04/20/23 08:58 04/20/23 09:02 Temperature 98.0 F Pulse Rate 64 68 Respiratory Rate 14 Blood Pressure 141/82 H Pulse Oximetry 98 97 Oxygen Delivery Room Air Fraction of Inspired Oxygen 04/20/23 08:00 04/20/23 09:00 04/20/23 12:00 Temperature Pulse Rate 72 62 Respiratory Rate Blood Pressure Pulse Oximetry Oxygen Delivery Room Air Fraction of Inspired Oxygen Intake/Output Intake/Output: Intake & Output 04/17/23 04/18/23 04/19/23 04/20/23 23:59 23:59 23:59 23:59 Intake Total 2200 850 1750 800 Output Total 1200 1400 2200 1300 Balance 1000 -550 -450 -500 Meds/Results Medications: Active Medications Generic Name Dose Route Start Last Admin Trade Name Freq PRN Reason Stop Dose Admin Acetaminophen 650 mg 04/14/23 08:26 Acetaminophen 325 Mg Tablet PO Q6H PRN pain 1-4 Albuterol 2 puff 04/14/23 08:31 Albuterol Sulfate (*Sp) Aerosol 1 Pu
[2023-04-20] MEDS: ACETAMINOPHEN 500 MG TABLET 1000 MG PO ×2 (15:21→20:58)
[2023-04-20 17:26] LABS: Glucose Point of Care 105 mg/dl (65-105)
[2023-04-20 19:55] LABS: Glucose Point of Care 140 mg/dl (65-105)
[2023-04-20] MEDS: INSULIN GLARGINE (*BKC) 100 UNITS/ML 32 UNITS SUB-Q (21:04)
[2023-04-21] VITALS (9 sets, daily range): BP systolic 137–158; BP diastolic 60–67; PULSE 58–68; RESP 18; TEMP 36.3–37; O2SAT 94–98
[2023-04-21] MEDS: CEPHALEXIN 500 MG CAPSULE PO (00:44)
[2023-04-21] MEDS: oxyCODONE HCL (*CRX) 2.5 MG TAB IR PO ×2 (01:59→17:14)
[2023-04-21 05:55] LABS: Hematocrit 29.5 % (42.0-52.0); Hemoglobin 9.7 g/dL (14.0-18.0); Mean Corpuscular HGB Conc 32.9 g/dl (32-36); Mean Corpuscular Hemoglobin 29.4 pg (26-34); Mean Corpuscular Volume 89.4 fl (80-100); Mean Platelet Volume 10.4 fl (7.4-10.4); Platelet Count Result 228 k/mm3 (150-375); White Blood Count 10.8 K/mm3 (4.5-10.0)
[2023-04-21] MEDS: HEPARIN SODIUM 5,000 UNITS/ML VIAL 5000 UNITS SUB-Q ×3 (06:01→21:44)
[2023-04-21] MEDS: LEVOTHYROXINE SODIUM 75 MCG TABLET PO (06:01)
[2023-04-21] MEDS: ACETAMINOPHEN 500 MG TABLET 1000 MG PO ×3 (06:01→21:44)
[2023-04-21 06:08] LABS: Albumin Level 3.8 g/dL (3.5-5.1); Anion Gap 10 mmol/L (8-16); Blood Urea Nitrogen 81 mg/dL (9-20); Calcium 9.1 mg/dL (8.4-10.2); Carbon Dioxide 23 mmol/L (22-30); Chloride 102 mmol/L (98-107); Estimated CRCL calculation 39 ml/min; Estimated Glomerular Filt Rate 24; Glucose 141 mg/dL (65-110); Phosphorus 3.9 mg/dL (2.5-4.5); Potassium 4.8 mmol/L (3.4-5.0); Sodium 135 mmol/L (137-145)
[2023-04-21 08:29] LABS: Glucose Point of Care 139 mg/dl (65-105)
[2023-04-21] MEDS: SACCHAROMYCES BOULARDII 250 MG CAPSULE PO (08:37)
[2023-04-21] MEDS: carvediloL 12.5 MG TABLET BY MOUTH ×2 (08:37→20:51)
[2023-04-21] MEDS: OPTI-GEN TAB 1 TABLET PO (08:37)
[2023-04-21] MEDS: amLODIPine BESYLATE 5 MG TABLET 10 MG PO (08:37)
[2023-04-21] MEDS: ROSUVASTATIN 10 MG TABLET 20 MG PO (08:38)
[2023-04-21] MEDS: SENNA/DOCUSATE SODIUM TABLET 1 TAB PO ×2 (08:38→17:14)
[2023-04-21] MEDS: INSULIN ASPART (*BKC) 100 UNITS/ML SUB-Q ×3 (08:38→17:15)
[2023-04-21] MEDS: PYRIDOXINE HCL 50 MG TABLET 100 MG PO (08:38)
[2023-04-21] MEDS: PANTOPRAZOLE 40 MG TABLET BY MOUTH (08:38)
[2023-04-21] MEDS: polyethylene glycoL 3350 17 GM POWD.PACK PO (08:38)
[2023-04-21] MEDS: OMEGA 3 POLYUNSAT FATTY ACIDS 1 GM CAP 2 GM PO (08:38)
[2023-04-21] MEDS: SILVERGEL (ELTA) 45 ML 1 APPLIC TOPICAL (08:39)
[2023-04-21] MEDS: FLUTICASONE/SALMETEROL 115-21 MCG INHALER 1 PUFF 2 PUFF INHALATION ×3 (08:59→21:35)
--- NOTE | 2023-04-21 11:23 | PM.IMPN ---
Progress Note: A&P Assessment and Plan (1) Hyponatremia: Code(s): E87.1 - Hypo-osmolality and hyponatremia Status: Acute Assessment and Plan: Sodium stable after hydration (2) Acute mid back pain: Code(s): M54.9 - Dorsalgia, unspecified Status: Acute Assessment and Plan: Due to fx. Thoracic brace in place (3) Acute kidney injury superimposed on CKD: Code(s): N17.9 - Acute kidney failure, unspecified; N18.9 - Chronic kidney disease, unspecified Status: Acute Assessment and Plan: Prerenal Creatinine improved Continue to monitor (4) Closed T12 fracture: Qualifiers: Encounter type: initial encounter Fracture morphology: other fracture Qualified Code(s): S22.088A - Other fracture of T11-T12 vertebra, initial encounter for closed fracture Code(s): S22.089A - Unspecified fracture of T11-T12 vertebra, initial encounter for closed fracture Status: Acute Assessment and Plan: Conservative tx. Brace in place (5) Urinary retention: Code(s): R33.9 - Retention of urine, unspecified Status: Acute (6) Constipation: Code(s): K59.00 - Constipation, unspecified Status: Acute Assessment and Plan: Likely due to meds, pain, immobility Minimize narcotics, stop anticholinergics Increase laxatives (7) Encephalopathy: Code(s): G93.40 - Encephalopathy, unspecified Status: Acute Assessment and Plan: Resolved Subjective Date/time seen: 04/21/23 11:23 Interval history: Reports generalized weakness. Review of Systems Cardiovascular: Cardiovascular: Denies chest pain and Denies dyspnea Respiratory: Respiratory: Denies cough and Denies dyspnea Gastrointestinal: Gastrointestinal: Denies abdominal pain and Denies vomiting Exam Narrative: HEENT: PERRL, sclerae nonicteric, pharyngeal mucosa pink and intact NECK: No JVD CHEST: Clear to auscultation. Normal effort. HEART: NL S1/S2, regular, no murmur ABDOMEN: BS+, soft, nontender, no mass, no bruits EXTREMITIES: No cyanosis, edema, or clubbing NEUROLOGIC: CN intact and symmetric to inspection. MUSCULOSKELETAL: Tone and strength symmetric. PSYCH: Drowsy but arouses easily. Oriented to person only (though he was at [facility] and did not venture a guess at the year). Objective Data Vital Signs Vital Signs: Vital Signs - 24 hr 04/20/23 12:00 04/20/23 16:00 04/20/23 14:00 Temperature 97.6 F Pulse Rate 62 61 92 Respiratory Rate 17 Blood Pressure 108/58 L Pulse Oximetry 94 Oxygen Delivery Fraction of Inspired Oxygen 04/20/23 21:35 04/20/23 20:00 04/20/23 20:00 Temperature 98.0 F Pulse Rate 62 62 62 Respiratory Rate 18 16 Blood Pressure 140/66 Pulse Oximetry 98 97 Oxygen Delivery Room Air Fraction of Inspired Oxygen 04/21/23 00:00 04/21/23 05:22 04/21/23 04:00 Temperature 98.6 F Pulse Rate 63 65 65 Respiratory Rate 18 Blood Pressure 137/60 Pulse Oximetry 98 Oxygen Delivery Fraction of Inspired Oxygen 04/21/23 08:37 04/21/23 09:03 04/21/23 08:00 Temperature Pulse Rate 68 Respiratory Rate Blood Pressure Pulse Oximetry 97 Oxygen Delivery Room Air Room Air Fraction of Inspired Oxygen Intake/Output Intake/Output: Intake & Output 04/18/23 04/19/23 04/20/23 04/21/23 23:59 23:59 23:59 23:59 Intake Total 850 / 850 1750 / 1750 1440 / 1440 390 / 390 Output Total 1400 / 1400 2200 / 2200 2200 / 2200 1650 / 1650 Balance -550 / -550 -450 / -450 -760 / -760 -1260 / -1260 Meds/Results Medications: Active Medications Generic Name Dose Route Start Last Admin Trade Name Denny PRN Reason Stop Dose Admin Acetaminophen 650 mg 04/14/23 08:26 Acetaminophen 325 Mg Tablet PO Q6H PRN pain 1-4 Acetaminophen 1,000 mg 04/20/23 14:20 04/21/23 06:01 Acetaminophen 500 Mg Tablet PO 1,000 mg Q8HR ROSALIA Administration Albuterol 2 puf
--- NOTE | 2023-04-21 11:48 | P.PNNP_ITS ---
Progress Note: A&P Assessment and Plan (1) MEJIA (acute kidney injury): Code(s): N17.9 - Acute kidney failure, unspecified Status: Acute Assessment and Plan: * slow improvement noted (if not back to baseline) * suspect due to possible overdiuresis in the context on MARIA TERESA-I use, and decreased cardiac output leading to prerenal azotemia complicated by UTI * evaluation to date: * urine electrolytes prerenal -- FeUrea was 25% (consistent with pre renal azotemia) * urine eosinophils rare -- likely due to infection * renal ultrasound with no hydronephrosis but bilateral renal cysts. * CPK normal * holding diuretics for now (but may need to restart soon) * follow repeat labs and UOP (2) Chronic kidney disease, stage IV (severe): Code(s): N18.4 - Chronic kidney disease, stage 4 (severe) Status: Chronic Assessment and Plan: * baseline creatinine runs 2.4 - 2.6mg/dl in the last year or so * due hypertension, diabetes, vasculat disease, and age-related change (based on outpatient evaluation) * There could be an element of CKD progression -- is current creatinine his new baseline? (3) Closed fracture of transverse process of lumbar vertebra: Qualifiers: Encounter type: initial encounter Qualified Code(s): S32.009A - Unspecified fracture of unspecified lumbar vertebra, initial encounter for closed fracture Code(s): S32.009A - Unspecified fracture of unspecified lumbar vertebra, initial encounter for closed fracture Status: Acute Assessment and Plan: * secondary to fall * pain control * Neurosurgery recommendations noted * PT/OT as tolerated (4) Anemia: Qualifiers: Anemia type: unspecified type Qualified Code(s): D64.9 - Anemia, unspecified Code(s): D64.9 - Anemia, unspecified Status: Chronic Assessment and Plan: * chronic issue * partly related to underlying CKD * follow H/H (5) Benign hypertension with chronic kidney disease: Code(s): I12.9 - Hypertensive chronic kidney disease with stage 1 through stage 4 chronic kidney disease, or unspecified chronic kidney disease Status: Chronic Assessment and Plan: * reasonable control at this time * follow trend of hemodynamics (6) Diabetes mellitus with chronic kidney disease: Code(s): E11.22 - Type 2 diabetes mellitus with diabetic chronic kidney disease Status: Acute Assessment and Plan: * follow accu-cheks * glycemic control per hospitalists Will continue to follow. Subjective Date/time seen: 04/21/23 11:48 Interval history: Follow-up for acute kidney injury/acute renal failure on chronic kidney disease. Renal function/creatinine doing better with previous IVF resuscitation; pain control seems adequate at the time of my visit; no other issues/events overnight, earlier this morning, or currently; no apparent distress voiced. Exam Narrative: General: elderly but WD/WN male Heart: normal S1 and S2; no rub Lungs: clear to auscultation Abdomen: Bowel sounds positive nontender Extremities: no cyanosis or clubbing; no edema Skin: no nodules Objective Data Vital Signs Vital Signs: Vital Signs Temp Pulse Resp BP Pulse Ox O2 Del Method FiO2 04/21/23 08:00 Room Air 04/21/23 09:03 97 Room Air 04/21/23 08:37 68 04/21/23
--- NOTE | 2023-04-21 11:48 | PM.PNNEP ---
Progress Note: A&P Assessment and Plan (1) MEJIA (acute kidney injury): Code(s): N17.9 - Acute kidney failure, unspecified Status: Acute Assessment and Plan: slow improvement noted (if not back to baseline) suspect due to possible overdiuresis in the context on MARIA TERESA-I use, and decreased cardiac output leading to prerenal azotemia complicated by UTI evaluation to date: urine electrolytes prerenal -- FeUrea was 25% (consistent with pre renal azotemia) urine eosinophils rare -- likely due to infection renal ultrasound with no hydronephrosis but bilateral renal cysts. CPK normal holding diuretics for now (but may need to restart soon) follow repeat labs and UOP (2) Chronic kidney disease, stage IV (severe): Code(s): N18.4 - Chronic kidney disease, stage 4 (severe) Status: Chronic Assessment and Plan: baseline creatinine runs 2.4 - 2.6mg/dl in the last year or so due hypertension, diabetes, vasculat disease, and age-related change (based on outpatient evaluation) There could be an element of CKD progression -- is current creatinine his new baseline? (3) Closed fracture of transverse process of lumbar vertebra: Qualifiers: Encounter type: initial encounter Qualified Code(s): S32.009A - Unspecified fracture of unspecified lumbar vertebra, initial encounter for closed fracture Code(s): S32.009A - Unspecified fracture of unspecified lumbar vertebra, initial encounter for closed fracture Status: Acute Assessment and Plan: secondary to fall pain control Neurosurgery recommendations noted PT/OT as tolerated (4) Anemia: Qualifiers: Anemia type: unspecified type Qualified Code(s): D64.9 - Anemia, unspecified Code(s): D64.9 - Anemia, unspecified Status: Chronic Assessment and Plan: chronic issue partly related to underlying CKD follow H/H (5) Benign hypertension with chronic kidney disease: Code(s): I12.9 - Hypertensive chronic kidney disease with stage 1 through stage 4 chronic kidney disease, or unspecified chronic kidney disease Status: Chronic Assessment and Plan: reasonable control at this time follow trend of hemodynamics (6) Diabetes mellitus with chronic kidney disease: Code(s): E11.22 - Type 2 diabetes mellitus with diabetic chronic kidney disease Status: Acute Assessment and Plan: follow accu-cheks glycemic control per hospitalists Will continue to follow. Subjective Date/time seen: 04/21/23 11:48 Interval history: Follow-up for acute kidney injury/acute renal failure on chronic kidney disease. Renal function/creatinine doing better with previous IVF resuscitation; pain control seems adequate at the time of my visit; no other issues/events overnight, earlier this morning, or currently; no apparent distress voiced. Exam Narrative: General: elderly but WD/WN male Heart: normal S1 and S2; no rub Lungs: clear to auscultation Abdomen: Bowel sounds positive nontender Extremities: no cyanosis or clubbing; no edema Skin: no nodules Objective Data Vital Signs Vital Signs: Vital Signs Temp Pulse Resp BP Pulse Ox O2 Del Method FiO2 04/21/23 08:00 Room Air 04/21/23 09:03 97 Room Air 04/21/23 08:37 68 04/21/23 04:00 65 04/21/23 05:22 98.6 F 65 18 137/60 98 04/21/23 00:00 63 04/20/23 20:00 62 04/20/23 20:00 62 16 97 Room Air 21 04/20/23 21:35 98.0 F 62 18 140/66 98 04/20/23 14:00 97.6 F 92 17 108/58 L 94 04/20/23 16:00 61 Intake/Output Intake/Output: Intake & Output 04/18/23 04/19/23 04/20/23 04/21/23 23:59 23:59 23:59 23:59 Intake Total 850 1750 1440 390 Output Total 1400 2200 2200 1650 Balance -550 -450 -760 -1260 Meds/Results Medications: Active Medications Generic Name Dose Route Start Last Admin Trade
[2023-04-21 12:00] LABS: Glucose Point of Care 198 mg/dl (65-105)
[2023-04-21] MEDS: MAGNESIUM OXIDE 400 MG TABLET PO (12:14)
[2023-04-21] MEDS: MULTIVITAMINS /C LUTEIN (CENTRUM SILVER) TABLET *BKC 1 TAB PO (12:14)
[2023-04-21 16:59] LABS: Glucose Point of Care 169 mg/dl (65-105)
[2023-04-21] MEDS: INSULIN GLARGINE (*BKC) 100 UNITS/ML 32 UNITS SUB-Q (20:24)
[2023-04-21 21:06] LABS: Glucose Point of Care 169 mg/dl (65-105)
[2023-04-22 05:27] VITALS: BP 141/61; PULSE 61; RESP 18; TEMP 36.8; O2SAT 98
[2023-04-22] MEDS: ACETAMINOPHEN 500 MG TABLET 1000 MG PO (05:53)
[2023-04-22] MEDS: LEVOTHYROXINE SODIUM 75 MCG TABLET PO (05:53)
[2023-04-22] MEDS: HEPARIN SODIUM 5,000 UNITS/ML VIAL 5000 UNITS SUB-Q (05:53)
[2023-04-22 06:49] LABS: Albumin Level 3.9 g/dL (3.5-5.1); Anion Gap 9 mmol/L (8-16); Blood Urea Nitrogen 68 mg/dL (9-20); Carbon Dioxide 23 mmol/L (22-30); Chloride 102 mmol/L (98-107); Estimated CRCL calculation 48 ml/min; Estimated Glomerular Filt Rate 31; Glucose 152 mg/dL (65-110); Phosphorus 3.2 mg/dL (2.5-4.5); Potassium 4.5 mmol/L (3.4-5.0); Sodium 134 mmol/L (137-145)
[2023-04-22] MEDS: FLUTICASONE/SALMETEROL 115-21 MCG INHALER 1 PUFF 2 PUFF INHALATION (07:59)
[2023-04-22 08:00] VITALS: PULSE 55; RESP 16; O2SAT 97
[2023-04-22 08:41] VITALS: BP 109/72; PULSE 60; O2SAT 100
[2023-04-22] MEDS: SACCHAROMYCES BOULARDII 250 MG CAPSULE PO (08:43)
[2023-04-22 08:44] VITALS: PULSE 60
[2023-04-22] MEDS: amLODIPine BESYLATE 5 MG TABLET 10 MG PO (08:44)
[2023-04-22] MEDS: OPTI-GEN TAB 1 TABLET PO (08:44)
[2023-04-22] MEDS: ROSUVASTATIN 10 MG TABLET 20 MG PO (08:44)
[2023-04-22] MEDS: carvediloL 12.5 MG TABLET BY MOUTH (08:44)
[2023-04-22] MEDS: SENNA/DOCUSATE SODIUM TABLET 1 TAB PO (08:45)
[2023-04-22] MEDS: PYRIDOXINE HCL 50 MG TABLET 100 MG PO (08:45)
[2023-04-22] MEDS: PANTOPRAZOLE 40 MG TABLET BY MOUTH (08:45)
[2023-04-22] MEDS: OMEGA 3 POLYUNSAT FATTY ACIDS 1 GM CAP 2 GM PO (08:45)
[2023-04-22] MEDS: SILVERGEL (ELTA) 45 ML 1 APPLIC TOPICAL (08:46)
[2023-04-22 08:54] LABS: Glucose Point of Care 145 mg/dl (65-105)
[2023-04-22] MEDS: INSULIN ASPART (*BKC) 100 UNITS/ML SUB-Q ×2 (09:58→13:05)
--- NOTE | 2023-04-22 10:31 | P.PNNP_ITS ---
Progress Note: A&P Assessment and Plan (1) MEJIA (acute kidney injury): Code(s): N17.9 - Acute kidney failure, unspecified Status: Acute Assessment and Plan: * improvement noted (if not back to baseline) * suspect due to possible overdiuresis in the context on MARIA TERESA-I use, and decreased cardiac output leading to prerenal azotemia complicated by UTI * evaluation to date: * urine electrolytes prerenal -- FeUrea was 25% (consistent with pre renal azotemia) * urine eosinophils rare -- likely due to infection * renal ultrasound with no hydronephrosis but bilateral renal cysts. * CPK normal * holding diuretics for now (but may need to restart soon) * follow repeat labs and UOP (2) Chronic kidney disease, stage IV (severe): Code(s): N18.4 - Chronic kidney disease, stage 4 (severe) Status: Chronic Assessment and Plan: * baseline creatinine runs 2.4 - 2.6mg/dl in the last year or so * due hypertension, diabetes, vasculat disease, and age-related change (based on outpatient evaluation) (3) Closed fracture of transverse process of lumbar vertebra: Qualifiers: Encounter type: initial encounter Qualified Code(s): S32.009A - Un specified fracture of unspecified lumbar vertebra, initial encounter for closed fracture Code(s): S32.009A - Unspecified fracture of unspecified lumbar vertebra, initial encounter for closed fracture Status: Acute Assessment and Plan: * secondary to fall * pain control * Neurosurgery recommendations noted * PT/OT as tolerated (4) Anemia: Qualifiers: Anemia type: unspecified type Qualified Code(s): D64.9 - Anemia, unspecified Code(s): D64.9 - Anemia, unspecified Status: Chronic Assessment and Plan: * chronic issue * partly related to underlying CKD * follow H/H (5) Benign hypertension with chronic kidney disease: Code(s): I12.9 - Hypertensive chronic kidney disease with stage 1 through stage 4 chronic kidney disease, or unspecified chronic kidney disease Status: Chronic Assessment and Plan: * reasonable control at this time * follow trend of hemodynamics (6) Diabetes mellitus with chronic kidney disease: Code(s): E11.22 - Type 2 diabetes mellitus with diabetic chronic kidney disease Status: Acute Assessment and Plan: * follow accu-cheks * glycemic control per hospitalists Will continue to follow. Subjective Date/time seen: 04/22/23 10:31 Interval history: Follow-up for acute kidney injury/acute renal failure on chronic kidney disease. Renal function/creatinine stable if not better than baseline by A labs; good urine output noted as well; pain control satisfactory; no apparent issues/concerns voiced at this time. Exam Narrative: General: elderly but WD/WN male Heart: normal S1 and S2; no rub Lungs: clear to auscultation Abdomen: Bowel sounds positive nontender Extremities: no cyanosis or clubbing; no edema Skin: warm and dry Objective Data Vital Signs Vital Signs: Vital Signs Temp Pulse Resp BP Pulse Ox O2 Del Method FiO2 04/22/23 08:45 Room Air 04/22/23 08:44 60 04/22/23 08:41 60 109/72 100 04/22/23 08:00 55 L 16 04/22/23 08:00 97 Room Air 21 04/22/23 05:27 98.2 F 61 18 141/61 H 98
--- NOTE | 2023-04-22 10:31 | PM.PNNEP ---
Progress Note: A&P Assessment and Plan (1) MEJIA (acute kidney injury): Code(s): N17.9 - Acute kidney failure, unspecified Status: Acute Assessment and Plan: improvement noted (if not back to baseline) suspect due to possible overdiuresis in the context on MARIA TERESA-I use, and decreased cardiac output leading to prerenal azotemia complicated by UTI evaluation to date: urine electrolytes prerenal -- FeUrea was 25% (consistent with pre renal azotemia) urine eosinophils rare -- likely due to infection renal ultrasound with no hydronephrosis but bilateral renal cysts. CPK normal holding diuretics for now (but may need to restart soon) follow repeat labs and UOP (2) Chronic kidney disease, stage IV (severe): Code(s): N18.4 - Chronic kidney disease, stage 4 (severe) Status: Chronic Assessment and Plan: baseline creatinine runs 2.4 - 2.6mg/dl in the last year or so due hypertension, diabetes, vasculat disease, and age-related change (based on outpatient evaluation) (3) Closed fracture of transverse process of lumbar vertebra: Qualifiers: Encounter type: initial encounter Qualified Code(s): S32.009A - Unspecified fracture of unspecified lumbar vertebra, initial encounter for closed fracture Code(s): S32.009A - Unspecified fracture of unspecified lumbar vertebra, initial encounter for closed fracture Status: Acute Assessment and Plan: secondary to fall pain control Neurosurgery recommendations noted PT/OT as tolerated (4) Anemia: Qualifiers: Anemia type: unspecified type Qualified Code(s): D64.9 - Anemia, unspecified Code(s): D64.9 - Anemia, unspecified Status: Chronic Assessment and Plan: chronic issue partly related to underlying CKD follow H/H (5) Benign hypertension with chronic kidney disease: Code(s): I12.9 - Hypertensive chronic kidney disease with stage 1 through stage 4 chronic kidney disease, or unspecified chronic kidney disease Status: Chronic Assessment and Plan: reasonable control at this time follow trend of hemodynamics (6) Diabetes mellitus with chronic kidney disease: Code(s): E11.22 - Type 2 diabetes mellitus with diabetic chronic kidney disease Status: Acute Assessment and Plan: follow accu-cheks glycemic control per hospitalists Will continue to follow. Subjective Date/time seen: 04/22/23 10:31 Interval history: Follow-up for acute kidney injury/acute renal failure on chronic kidney disease. Renal function/creatinine stable if not better than baseline by A labs; good urine output noted as well; pain control satisfactory; no apparent issues/concerns voiced at this time. Exam Narrative: General: elderly but WD/WN male Heart: normal S1 and S2; no rub Lungs: clear to auscultation Abdomen: Bowel sounds positive nontender Extremities: no cyanosis or clubbing; no edema Skin: warm and dry Objective Data Vital Signs Vital Signs: Vital Signs Temp Pulse Resp BP Pulse Ox O2 Del Method FiO2 04/22/23 08:45 Room Air 04/22/23 08:44 60 04/22/23 08:41 60 109/72 100 04/22/23 08:00 55 L 16 04/22/23 08:00 97 Room Air 21 04/22/23 05:27 98.2 F 61 18 141/61 H 98 04/21/23 21:37 60 98 Room Air 04/21/23 20:51 61 04/21/23 20:47 98.2 F 61 18 158/67 H 94 04/21/23 15:00 97.3 F L 58 L 18 143/62 H 96 Intake/Output Intake/Output: Intake & Output 04/19/23 04/20/23 04/21/23 04/22/23 23:59 23:59 23:59 23:59 Intake Total 1750 1440 1120 440 Output Total 2200 2200 2250 1350 Balance -450 -760 -1130 -910 Meds/Results Medications: Active Medications Generic Name Dose Route Start Last Admin Trade Name Dustinq PRN Reason Stop Dose Admin Acetaminophen 650 mg 04/14/23 08:26 Acetaminophen 325 Mg Tablet PO Q6H PRN pain 1-4
--- NOTE | 2023-04-22 10:44 | PM.DS ---
DS: Admitting Diagnosis Discharge Date 04/22/2023 Admitting Diagnosis MEJIA Fall DS: Discharge Diagnosis Discharge Diagnosis (1) MEJIA (acute kidney injury): Code(s): N17.9 - Acute kidney failure, unspecified Status: Acute (2) Closed fracture of transverse process of lumbar vertebra: Qualifiers: Encounter type: initial encounter Qualified Code(s): S32.009A - Unspecified fracture of unspecified lumbar vertebra, initial encounter for closed fracture Code(s): S32.009A - Unspecified fracture of unspecified lumbar vertebra, initial encounter for closed fracture Status: Acute DS: Summary Hospital Course Hospital Course: Patient was admitted with a fall and acute kidney injury. Nephrology was consulted for acute kidney injury. This was likely secondary to use of John inhibitor, diuretics leading to prerenal azotemia. JOHN-inhibitor diuretics were held. Renal functions have returned close to baseline. We will resume his JOHN-inhibitor at this point of time. Hold Lasix. Once renal function improves further Lasix can be resumed. Discontinue hydrochlorothiazide since he is already on Lasix. Discontinue amlodipine. Blood pressure is stable. Renal ultrasound shows no hydronephrosis but bilateral renal cysts. For closed fracture of transverse process of lumbar vertebra, Neurosurgery was consulted. They recommended a thoracic brace. It was placed. PT and OT were consulted and patient is being discharged to rehab per the recommendations Time Spent with Patient Time attestation: Total time spent providing and/or coordinating discharge services: DS: Data Data Completed and Pending Labs on day of discharge: Labs from last 24 hours 04/22/23 04/22/23 04/21/23 08:41 06:14 20:22 Sodium 134 L Potassium 4.5 Chloride 102 Carbon Dioxide 23 Anion Gap 9 BUN 68 H D Creatinine 2.10 H Estim Creat Clear Calc 48 Estimated GFR 31 L Glucose 152 H POC Capillary Glucose 145 H 169 H Calcium 9.0 Phosphorus 3.2 Albumin 3.9 04/21/23 04/21/23 16:53 11:56 Sodium Potassium Chloride Carbon Dioxide Anion Gap BUN Creatinine Estim Creat Clear Calc Estimated GFR Glucose POC Capillary Glucose 169 H 198 H Calcium Phosphorus Albumin Discharge Plan Discharge Consulting providers: Atilio Prather; Amanuel Gale Discharging Clinician: Keaton Christine Anticipated Discharge Date/Time: 04/22/23 10:41 Patient Disposition: SNF Activity: no preference Diet: heart healthy Stand Alone Forms: General Discharge Information Follow-up/Referrals: Mario Wills, [Primary Care Provider] - Discharge Medications: Continued (DME) insulin syringe-needle U-100 [BD Insulin Syringe Ultra-Fine] 1 mL 31 gauge x 5/16 syringe See Rx Instructions .ROUTE .MEDSUPPLY Qty: 200 1RF Rx Instructions: Use with insulin (Novolin 70/30) injections 2 times daily (DME) blood-glucose meter Misc See Rx Instructions .Route Qty: 1 0RF Rx Instructions: As directed Myrbetriq 50 mg tablet extended release 24 hr 50 mg PO DAILY amitriptyline 25 mg tablet 25 mg PO HS solifenacin 10 mg tablet 10 mg PO DAILY betamethasone dipropionate 0.05 % cream 1 applic topical DAILY PRN (Reason: rash) Qty: 45 0RF Allergy Relief (cetirizine) 10 mg PO DAILY PRN (Reason: Allergy Symptoms) Centrum Men 1 tablet PO DAILY Fish Oil 2 softgel PO DAILY PreserVision AREDS-2 1 cap PO DAILY Probiotic Digestive Care 1 tab-cap PO DAILY Wixela Inhub See Rx Instructions .ROUTE .COMPLEX Rx Instructions: 250-50 mcg/dose, 1 inhalation daily albuterol sulfate 90 mcg 2 puff inhalation Q4H PRN (Reason: Shortness Of Breath) aspirin 325 mg PO DAILY calcium carbonate-vitamin D3 See Rx Instructions .ROUTE .COMPLEX Rx Instructions:
--- NOTE | 2023-04-22 11:09 | PCNWS ---
Weekly nutritional screen. Patient is tolerating current diet with adequate intake. No weight loss reported. No nutritional needs at this time.
[2023-04-22 11:57] LABS: SARS-CoV-2 RNA PCR Negative (Negative)
[2023-04-22 12:18] LABS: Glucose Point of Care 251 mg/dl (65-105)
[2023-04-22] MEDS: MULTIVITAMINS /C LUTEIN (CENTRUM SILVER) TABLET *BKC 1 TAB PO (13:04)
[2023-04-22] MEDS: MAGNESIUM OXIDE 400 MG TABLET PO (13:04)
== END 2023-04-22 13:30 | DRG 682 ==
LOC: ANHED 21:44 → ANH2MED 22:32
PROVIDERS: General Practice; Internal Medicine; Internal Medicine Nephrology; Admitting Provider Internal Medicine; Emergency Provider Preventive Medicine Aerospace Medicine; PCP Family Medicine; Visit Provider Hospitalist
DX: G93.41 Metabolic encephalopathy; N17.9 Acute kidney failure, unspecified; E87.1 Hypo-osmolality and hyponatremia; I13.0 Hypertensive heart and chronic kidney disease with heart failure and stage 1 through stage 4 chronic kidney disease, or unspecified chronic kidney disease; T46.4X5A Adverse effect of angiotensin-converting-enzyme inhibitors, initial encounter; S22.088A Other fracture of T11-T12 vertebra, initial encounter for closed fracture; S32.018A Other fracture of first lumbar vertebra, initial encounter for closed fracture; S32.028A Other fracture of second lumbar vertebra, initial encounter for closed fracture; S32.038A Other fracture of third lumbar vertebra, initial encounter for closed fracture; I50.22 Chronic systolic (congestive) heart failure; Z68.41 Body mass index [BMI] 40.0-44.9, adult; N39.0 Urinary tract infection, site not specified; W19.XXXA Unspecified fall, initial encounter; D63.1 Anemia in chronic kidney disease; E11.42 Type 2 diabetes mellitus with diabetic polyneuropathy; E66.9 Obesity, unspecified; E78.2 Mixed hyperlipidemia; E03.9 Hypothyroidism, unspecified; E11.22 Type 2 diabetes mellitus with diabetic chronic kidney disease; G47.33 Obstructive sleep apnea (adult) (pediatric); I87.8 Other specified disorders of veins; L89.899 Pressure ulcer of other site, unspecified stage; K59.09 Other constipation; K76.0 Fatty (change of) liver, not elsewhere classified; N18.4 Chronic kidney disease, stage 4 (severe); Z20.822 Contact with and (suspected) exposure to COVID-19; Z99.3 Dependence on wheelchair; Z79.4 Long term (current) use of insulin; Z90.49 Acquired absence of other specified parts of digestive tract; Z87.891 Personal history of nicotine dependence
CPT/HCPCS: 36415; 71045; 71250; 72125; 72128; 72131; 74176; 76775; 80048; 80053; 80069; 81001; 81050; 82550; 82570; 82948; 83735; 84145; 84156; 84300; 84540; 85025; 85027; 85610; 85999; 87077; 87086; 87088; 87186; 87635; 93005; 94640; 96361; 96365; 96374; 96375; 96376; 97110; 97162; 97166; 97530; 97535; 99285; A9270; G0378; J0696; J1644; J1815; J2270; J2405; J7030; J7040

== ENCOUNTER 2023-04-25 03:01 | Emergency (ER) | payer MEDICARE, SELFPAY ==
--- NOTE | ~2023-04-25 | XR_ITS ---
Portable chest x-ray Comparison: 04/18/2023 Clinical History: Pain Findings: There is mild bibasilar haziness. No pleural effusion or pneumothorax. Cardiomediastinal silhouette is stable. Bones and soft tissues are unremarkable. Impression: Suspected mild bibasilar pulmonary edema. Reviewed, dictated and finalized at location . Impression: Suspected mild bibasilar pulmonary edema.
--- NOTE | ~2023-04-25 | CT_ITS ---
CT of the Abdomen and Pelvis: Indication: Abdominal pain Technique: 2.5 mm axial scans were obtained through the abdomen and pelvis following intravenous adm inistration of 100 cc of Omnipaque 350. Dose reduction technique was used on this scan by utilizing a utomated exposure control and iterative reconstruction technique. The dose-length product (DLP) was 1 678.48 mGy-cm. COMPARISON: 04/13/2023 Findings: Scans through the lung bases demonstrated small bilateral pleural effusions with mild biba silar atelectatic change. The liver, spleen, pancreas, adrenals and kidneys are within normal limits. Cholecystectomy clips are present. There are atherosclerotic calcifications of the aorta. No lymphadenopathy. No bowel obstruction or bowel wall thickening. There is no evidence to suggest acute appendicitis. Images through the pelvis were performed. Urinary bladder wall thickening is felt to be likely due to underdistention. Tiny amount of air present in the urinary bladder. Prostate gland and seminal vesic les are unremarkable. No ascites. Oblique fracture of the T12 vertebral bodies present, unchanged. Nondisplaced fractures of the left t ransverse processes of L1 and L2 are present. Impression: Fractures of T12 vertebral body and left transverse processes of L1 and L2 are stable from prior exam . Small bilateral pleural effusions, new from prior exam. Reviewed, dictated and finalized at [facility]. Impression: Fractures of T12 vertebral body and left transverse processes of L1 and L2 are stable from prior exam. Small bilateral pleural effusions, new from prior exam.
[2023-04-25 03:07] VITALS: BP 162/88; PULSE 73; RESP 16; TEMP 36.7; O2SAT 98
--- NOTE | 2023-04-25 03:11 | ECG_ITS ---
Measurements Intervals [place] Rate: 68 P: 20 AL: 226 QRS: -26 QRSD: 110 T: 136 QT: 376 QTc: 400 Interpretive Statements SINUS RHYTHM WITH FIRST DEGREE AV BLOCK VENTRICULAR PREMATURE COMPLEXES INTRAVENTRICULAR CONDUCTION DELAY CANNOT RULE OUT SEPTAL INFARCT, AGE INDETERMINATE ST-T WAVE ABNORMALITY IN HIGH LATERAL LEADS- CONSIDER ISCHEMIA BASELINE ARTIFACT- I, II, III, AVL ABNORMAL ECG COMPARED TO ECG 04/13/2023 22:44:14 NO SIGNIFICANT CHANGES Electronically Signed On 04-25-2023 6:23:47 CDT by Shelton Wyman D.O.
[2023-04-25 03:21] LABS: Basophils Absolute Auto 0.1 K/mm3 (0.0-0.1); Basophils Percent Auto 0.8 % (0.2-1.2); Eosinophils Absolute Auto 0.4 K/mm3 (0-0.3); Eosinophils Percent Auto 3.8 % (0-4.4); Hematocrit 30.5 % (42.0-52.0); Immature Granulocyte Absolute 0.07 K/mm3 (0.00-0.031); Immature Granulocyte Percent A 0.7 % (0-0.5); Lymphocytes Absolute Auto 1.26 K/mm3 (0.9-3.2); Lymphocytes Percent Auto 11.9 % (18.3-44.2); Mean Corpuscular HGB Conc 32.8 g/dl (32-36); Mean Corpuscular Hemoglobin 29.6 pg (26-34); Mean Corpuscular Volume 90.2 fl (80-100); Mean Platelet Volume 10.5 fl (7.4-10.4); Monocytes Absolute Auto 0.6 K/mm3 (0.1-0.6); Neutrophils Absolute Auto 8.1 K/mm3 (1.3-6.7); Neutrophils Percent Auto 76.8 % (45.5-73.1); Platelet Count Result 228 k/mm3 (150-375); Red Blood Count 3.38 M/mm3 (4.6-6.20); Red Cell Distribution Width 14.4 % (11.5-14.5); White Blood Count 10.6 K/mm3 (4.5-10.0)
--- NOTE | 2023-04-25 03:24 | PC.NURSE ---
Patient stated he has not had a bowel movement in two days.
[2023-04-25 03:36] LABS: Appearance Urine Clear (Clear); Bacteria Urine None Seen /hpf; Bilirubin Urine Negative (Negative); Color Urine Yellow (Yellow); Glucose Urine UA Negative (Negative); Ketones Urine Negative (Negative); Leukocyte Esterase Ur 1+ LEU/UL (Negative); Need Manual Microscopic Reviewed; Nitrate Urine Negative (Negative); Protein Urine 1+ mg/dL (Negative); Specific Grav Ur 1.015 (1.001-1.035); Squamous Epithelial Cell Urine None seen /hpf (Few); Urobilinogen Urine 0.2 mg/dL (<2.0); WBC Urine 0-5 /hpf; pH Urine 5.5 (5.0-9.0)
[2023-04-25 03:37] LABS: Alanine Aminotransferase 35 U/L (6-50); Albumin Level 3.9 g/dL (3.5-5.1); Alkaline Phosphatase 79 U/L (38-126); Anion Gap 8 mmol/L (8-16); Aspartate Amino Transferase 39 U/L (17-59); Bilirubin,Total 0.5 mg/dL (0.2-1.3); Blood Urea Nitrogen 45 mg/dL (9-20); Carbon Dioxide 27 mmol/L (22-30); Chloride 103 mmol/L (98-107); Estimated CRCL calculation 46 ml/min; Estimated Glomerular Filt Rate 33; Glucose 150 mg/dL (65-110); Lipase 147 U/L (23-300); Potassium 4.5 mmol/L (3.4-5.0); Sodium 138 mmol/L (137-145)
[2023-04-25 03:39] LABS: Add Urine Microscopic? YES
--- NOTE | 2023-04-25 03:42 | ED.ABDPAIN ---
HPI - Abdominal Pain General Chief Complaint: Abdominal Pain Stated Complaint: abd pain Time Seen by Provider: 04/25/23 03:25 Source: patient Limitations: no limitations History of Present Illness HPI narrative: Patient is a 73-year-old male present to the emergency department complaining of abdominal pain. Patient notes the pain started gradually yesterday at unknown time he is unsure as to what he was doing when he first noticed it states that the pain is in his left side of his abdomen point about the left upper quadrant and left lower quadrant, described as an ache, denies any history of pain in the past, notes the pain has been intermittent, nonradiating, has not noticed anything bring on the pain or making it go away, has not noticed anything making the pain better nor worse, notes that he was given medications at the facility he lives at but is unsure as to what they were and they did help take away the pain but the pain is since returned. Patient denies anything abruptly getting worse prompting her to seek evaluation by the's have not resolved. Patient denies vomiting, nausea, diarrhea, constipation, melena, hematochezia, decreased urine output, dysuria, hematuria, urinary frequency, urinary urgency, history of kidney stones, cough, chest pain, shortness of breath, numbness, weakness, fever, rash, sore throat, congestion, headache, vision changes. Patient notes his last bowel movement was yesterday and was normal. Patient states he has had a Mullins in since he was recently admitted to the hospital is unsure as to why it was placed. Related Data Home Medications Medication Instructions Recorded Confirmed magnesium 250 mg tablet 400 mg PO DAILY 11/03/20 04/24/23 amitriptyline 25 mg tablet 25 mg PO HS 01/16/23 04/24/23 mirabegron 50 mg tablet,extended 50 mg PO DAILY 01/16/23 04/24/23 release 24 hr (Myrbetriq) solifenacin 10 mg tablet 10 mg PO DAILY 01/16/23 04/24/23 Allergy Relief (cetirizine) 10 mg PO DAILY PRN Allergy Symptoms 04/14/23 04/24/23 Centrum Men 1 tablet PO DAILY 04/14/23 04/24/23 Fish Oil 2 softgel PO DAILY 04/14/23 04/24/23 PreserVision AREDS-2 1 cap PO DAILY 04/14/23 04/24/23 Probiotic Digestive Care 1 tab-cap PO DAILY 04/14/23 04/24/23 Wixela Inhub See Rx Instructions .Route .COMPLEX 04/14/23 04/24/23 albuterol sulfate 2 puff inhalation Q4H PRN 04/14/23 04/24/23 Shortness Of Breath aspirin 325 mg PO DAILY 04/14/23 04/24/23 calcium carbonate-vitamin D3 See Rx Instructions .Route .COMPLEX 04/14/23 04/24/23 clotrimazole-betamethasone 1 1 applic topical BID PRN Increased 04/14/23 04/24/23 %-0.05 % topical cream redness to lower legs insulin human U-100 NPH-regulr 60 unit subcut BID 04/14/23 04/24/23 70-30 mix 100 unit/mL subcutaneous susp (Humulin 70/30 U-100 Insulin) levothyroxine 75 mcg tablet 75 mcg PO DAILY 04/14/23 04/24/23 pyridoxine (vitamin B6) 100 mg PO DAILY 04/14/23 04/24/23 semaglutide 1 mg/dose (4 mg/3 mL) 0.25 mg subcut WEEKLY 04/14/23 04/24/23 subcutaneous pen injector Allergies Allergy/AdvReac Type Severity Reaction Status Date / Time exenatide Allergy Unknown Unknown Verified 04/14/23 00:23 nebivolol Allergy Unknown Unknown Verified 04/14/23 00:23 metformin AdvReac Unknown Nausea Verified 04/14/23 00:23 pioglitazone AdvReac Unknown sleepiness Verified 04/14/23 00:23 Review of Systems Review of Systems: A 10 system review of systems was completed on the patient and is negative except for what is stated in the HPI. Nursing and ancillary documentation was reviewed. [facility] Past Medical History Medical History Acquired lymphedema Acute confusion Acute renal failure superimposed on chronic kidney disease Adenomatous polyps repeat colonoscopy 2024 Cardiomyopathy CHF (congestive heart failure) echocardiogram 2015 demonstrating normal ejection fraction with moderate left ventricular hypertrophy and diastolic dysfunction with mild le
--- NOTE | 2023-04-25 03:45 | PC.NURSE ---
Per EDP Dr. Chandler rivera catheter to be removed and voiding trial to start for patient.
[2023-04-25] MEDS: FAMOTIDINE 20 MG/2 ML VIAL IV PUSH (03:51)
[2023-04-25] MEDS: ACETAMINOPHEN 500 MG TABLET 1000 MG PO (03:51)
[2023-04-25 04:17] LABS: Lactic Acid Reflex 0.7 mmol/L (0.7-2.0)
[2023-04-25] MEDS: LACTATED RINGERS 500 ML 999 ML IV CONT (04:21)
[2023-04-25 05:13] VITALS: BP 196/94; PULSE 71; RESP 19; O2SAT 97
--- NOTE | 2023-04-25 05:16 | PC.NURSE ---
Patient reported his pain was still an 03/13. EDP Dr. Chandler notified.
[2023-04-25] MEDS: polyethylene glycoL 3350 17 GM POWD.PACK PO (06:21)
--- NOTE | 2023-04-25 06:27 | PC.NURSE ---
Per EDP Dr. Ramesh bell enema ok to do instead of soap suds enema
--- NOTE | 2023-04-25 06:57 | PC.NURSE ---
Patient went and used camode. Blood was visible in toilet and near patient's rectum.
[2023-04-25 07:14] VITALS: BP 158/79; PULSE 71; RESP 17; O2SAT 98
[2023-04-25 08:09] VITALS: BP 186/83; PULSE 61; RESP 18; O2SAT 98
== END 2023-04-25 08:54 ==
PROVIDERS: Emergency Provider Student in an Organized Health Care Education/Training Program; PCP Family Medicine
DX: K59.00 Constipation, unspecified (principal); R33.9 Retention of urine, unspecified; E11.22 Type 2 diabetes mellitus with diabetic chronic kidney disease; I13.0 Hypertensive heart and chronic kidney disease with heart failure and stage 1 through stage 4 chronic kidney disease, or unspecified chronic kidney disease; I50.9 Heart failure, unspecified; N18.9 Chronic kidney disease, unspecified; I42.9 Cardiomyopathy, unspecified; I87.2 Venous insufficiency (chronic) (peripheral); E11.40 Type 2 diabetes mellitus with diabetic neuropathy, unspecified; E78.2 Mixed hyperlipidemia; G47.419 Narcolepsy without cataplexy; G47.33 Obstructive sleep apnea (adult) (pediatric); Z86.010 Personal history of colon polyps; Z90.49 Acquired absence of other specified parts of digestive tract; Z87.891 Personal history of nicotine dependence; Z79.85 Long-term (current) use of injectable non-insulin antidiabetic drugs; Z79.4 Long term (current) use of insulin; I44.0 Atrioventricular block, first degree; I49.3 Ventricular premature depolarization; I45.9 Conduction disorder, unspecified; R94.31 Abnormal electrocardiogram [ECG] [EKG]
CPT/HCPCS: 36415; 71045; 74177; 80053; 81001; 83605; 83690; 83735; 85025; 93005; 96361; 96374; 99284; A9270; J7120; Q9967

== ENCOUNTER 2023-05-04 20:11 | Emergency (ER) | payer MEDICARE, SELFPAY ==
--- NOTE | 2023-05-04 20:17 | ED.MALEGU ---
HPI - Male Genitourinary General Chief complaint: Urogenital-Male Stated complaint: BLOOD IN WEINSTEIN Time Seen by Provider: 05/04/23 20:16 Source: patient, family and EMS Mode of arrival: EMS Limitations: clinical condition History of Present Illness HPI Narrative: Patient is 73 years old white male came from [facility] with the chief complaint of burning urination and hematuria in the Weinstein catheter for the last 2 days. Patient is telling me that he had Weinstein catheter for the last 2 to 3 weeks for unknown reason. Patient looks uncomfortable, telling me that he is going to pop.. He denies any fever, chills, nausea, vomiting. Complaining of suprapubic pain. Patient's son at the bedside who is not familiar with his dad medical problem. Patient is a poor historian. Patient was discharged from our facility on April 22, 2023 with MEJIA, closed fracture of transverse process of lumbar vertebra. Patient was back to our emergency room on April 25, 2023 and was discharged with a diagnosis of abdominal pain, urinary retention and constipation . Related Data Home Medications Medication Instructions Recorded Confirmed magnesium 250 mg tablet 400 mg PO DAILY 11/03/20 04/24/23 amitriptyline 25 mg tablet 25 mg PO HS 01/16/23 04/24/23 mirabegron 50 mg tablet,extended 50 mg PO DAILY 01/16/23 04/24/23 release 24 hr (Myrbetriq) solifenacin 10 mg tablet 10 mg PO DAILY 01/16/23 04/24/23 Allergy Relief (cetirizine) 10 mg PO DAILY PRN Allergy Symptoms 04/14/23 04/24/23 Centrum Men 1 tablet PO DAILY 04/14/23 04/24/23 Fish Oil 2 softgel PO DAILY 04/14/23 04/24/23 PreserVision AREDS-2 1 cap PO DAILY 04/14/23 04/24/23 Probiotic Digestive Care 1 tab-cap PO DAILY 04/14/23 04/24/23 Wixela Inhub See Rx Instructions .Route .COMPLEX 04/14/23 04/24/23 albuterol sulfate 2 puff inhalation Q4H PRN 04/14/23 04/24/23 Shortness Of Breath aspirin 325 mg PO DAILY 04/14/23 04/24/23 calcium carbonate-vitamin D3 See Rx Instructions .Route .COMPLEX 04/14/23 04/24/23 clotrimazole-betamethasone 1 1 applic topical BID PRN Increased 04/14/23 04/24/23 %-0.05 % topical cream redness to lower legs insulin human U-100 NPH-regulr 60 unit subcut BID 04/14/23 04/24/23 70-30 mix 100 unit/mL subcutaneous susp (Humulin 70/30 U-100 Insulin) levothyroxine 75 mcg tablet 75 mcg PO DAILY 04/14/23 04/24/23 pyridoxine (vitamin B6) 100 mg PO DAILY 04/14/23 04/24/23 semaglutide 1 mg/dose (4 mg/3 mL) 0.25 mg subcut WEEKLY 04/14/23 04/24/23 subcutaneous pen injector Allergies Allergy/AdvReac Type Severity Reaction Status Date / Time exenatide Allergy Unknown Unknown Verified 04/14/23 00:23 nebivolol Allergy Unknown Unknown Verified 04/14/23 00:23 metformin AdvReac Unknown Nausea Verified 04/14/23 00:23 pioglitazone AdvReac Unknown sleepiness Verified 04/14/23 00:23 Review of Systems Review of Systems: ROS unobtainable: Yes unobtainable due to medical condition PMFSH Past Medical History Medical History Acquired lymphedema Acute confusion Acute renal failure superimposed on chronic kidney disease Adenomatous polyps repeat colonoscopy 2024 Cardiomyopathy CHF (congestive heart failure) echocardiogram 2015 demonstrating normal ejection fraction with moderate left ventricular hypertrophy and diastolic dysfunction with mild left atrial enlargement CHF exacerbation Chronic venous stasis dermatitis Dehydration Diabetes mellitus on long-term insulin therapy with a last hemoglobin A1c of 7.1 Diabetic neuropathy Diarrhea Dizziness Elevated lactic acid level Enteritis Essential (primary) hypertension Gastric polyp Hepatic steatosis Hypertension Hypertensive heart disease Lymphedema of upper extremity following lymphadenectomy Mixed hyperlipidemia Mucous in stools Narcolepsy per patient report. He has never had a multi sleep latency test. 8-20 he did have a multiple sleep latency test that showed the narcolepsy O
[2023-05-04 20:20] VITALS: BP 173/91; PULSE 85; RESP 18; TEMP 37.1; O2SAT 100
[2023-05-04 23:23] LABS: Basophils Absolute Auto 0.1 K/mm3 (0.0-0.1); Basophils Percent Auto 0.6 % (0.2-1.2); Eosinophils Absolute Auto 0.2 K/mm3 (0-0.3); Eosinophils Percent Auto 2.9 % (0-4.4); Hematocrit 32.5 % (42.0-52.0); Hemoglobin 10.6 g/dL (14.0-18.0); Immature Granulocyte Absolute 0.03 K/mm3 (0.00-0.031); Immature Granulocyte Percent A 0.4 % (0-0.5); Lymphocytes Absolute Auto 0.88 K/mm3 (0.9-3.2); Lymphocytes Percent Auto 11.3 % (18.3-44.2); Mean Corpuscular HGB Conc 32.6 g/dl (32-36); Mean Platelet Volume 10.1 fl (7.4-10.4); Monocytes Absolute Auto 0.5 K/mm3 (0.1-0.6); Monocytes Percent Auto 6.8 % (2.6-8.5); Neutrophils Absolute Auto 6.1 K/mm3 (1.3-6.7); Platelet Count Result 243 k/mm3 (150-375); Red Blood Count 3.65 M/mm3 (4.6-6.20); Red Cell Distribution Width 14.2 % (11.5-14.5); White Blood Count 7.8 K/mm3 (4.5-10.0)
[2023-05-04 23:35] VITALS: BP 170/95; PULSE 88; RESP 18; O2SAT 98
[2023-05-04 23:35] LABS: Alanine Aminotransferase 21 U/L (6-50); Albumin Level 4.2 g/dL (3.5-5.1); Alkaline Phosphatase 110 U/L (38-126); Anion Gap 9 mmol/L (8-16); Aspartate Amino Transferase 30 U/L (17-59); Bilirubin,Total 0.7 mg/dL (0.2-1.3); Blood Urea Nitrogen 21 mg/dL (9-20); Calcium 9.2 mg/dL (8.4-10.2); Carbon Dioxide 25 mmol/L (22-30); Chloride 101 mmol/L (98-107); Estimated CRCL calculation 46 ml/min; Estimated Glomerular Filt Rate 37; Glucose 126 mg/dL (65-110); Potassium 4.1 mmol/L (3.4-5.0); Sodium 135 mmol/L (137-145)
[2023-05-05] LABS: Appearance Urine Cloudy (Clear); Bilirubin Urine 1+ (Negative); Blood Urine 3+ (Negative); Color Urine Amber (Yellow); Glucose Urine UA Negative (Negative); Ketones Urine 1+ mg/dL (Negative); Leukocyte Esterase Ur Negative LEU/UL (Negative); Nitrate Urine Negative (Negative); Protein Urine 3+ mg/dL (Negative); Specific Grav Ur 1.025 (1.001-1.035); Urobilinogen Urine 0.2 mg/dL (<2.0); pH Urine 5.5 (5.0-9.0)
--- NOTE | 2023-05-05 00:16 | PC.NURSE ---
Pt resting quietly per cart in nad at this time.
[2023-05-05 00:26] LABS: Add Urine Microscopic? YES; RBC Urine >100 /hpf (0-2)
[2023-05-05 00:29] LABS: WBC Urine 21-30 /hpf
[2023-05-05 00:30] LABS: WBC Clumps Urine Present /HPF
--- NOTE | 2023-05-05 01:09 | ED.MALEGU ---
HPI - Male Genitourinary General Chief complaint: Urogenital-Male Stated complaint: BLOOD IN WEINSTEIN Time Seen by Provider: 05/04/23 20:16 Source: patient, family and EMS Mode of arrival: EMS Limitations: clinical condition History of Present Illness HPI Narrative: I assumed care of patient from Dr. Galeana Patient has had his Weinstein catheter changed and the urine is flowing well without any further clots. He is pleasant and in no distress. He is accompanied by his son. Related Data Home Medications Medication Instructions Recorded Confirmed magnesium 250 mg tablet 400 mg PO DAILY 11/03/20 04/24/23 amitriptyline 25 mg tablet 25 mg PO HS 01/16/23 04/24/23 mirabegron 50 mg tablet,extended 50 mg PO DAILY 01/16/23 04/24/23 release 24 hr (Myrbetriq) solifenacin 10 mg tablet 10 mg PO DAILY 01/16/23 04/24/23 Allergy Relief (cetirizine) 10 mg PO DAILY PRN Allergy Symptoms 04/14/23 04/24/23 Centrum Men 1 tablet PO DAILY 04/14/23 04/24/23 Fish Oil 2 softgel PO DAILY 04/14/23 04/24/23 PreserVision AREDS-2 1 cap PO DAILY 04/14/23 04/24/23 Probiotic Digestive Care 1 tab-cap PO DAILY 04/14/23 04/24/23 Wixela Inhub See Rx Instructions .Route .COMPLEX 04/14/23 04/24/23 albuterol sulfate 2 puff inhalation Q4H PRN 04/14/23 04/24/23 Shortness Of Breath aspirin 325 mg PO DAILY 04/14/23 04/24/23 calcium carbonate-vitamin D3 See Rx Instructions .Route .COMPLEX 04/14/23 04/24/23 clotrimazole-betamethasone 1 1 applic topical BID PRN Increased 04/14/23 04/24/23 %-0.05 % topical cream redness to lower legs insulin human U-100 NPH-regulr 60 unit subcut BID 04/14/23 04/24/23 70-30 mix 100 unit/mL subcutaneous susp (Humulin 70/30 U-100 Insulin) levothyroxine 75 mcg tablet 75 mcg PO DAILY 04/14/23 04/24/23 pyridoxine (vitamin B6) 100 mg PO DAILY 04/14/23 04/24/23 semaglutide 1 mg/dose (4 mg/3 mL) 0.25 mg subcut WEEKLY 04/14/23 04/24/23 subcutaneous pen injector Allergies Allergy/AdvReac Type Severity Reaction Status Date / Time exenatide Allergy Unknown Unknown Verified 04/14/23 00:23 nebivolol Allergy Unknown Unknown Verified 04/14/23 00:23 metformin AdvReac Unknown Nausea Verified 04/14/23 00:23 pioglitazone AdvReac Unknown sleepiness Verified 04/14/23 00:23 Review of Systems Review of Systems: Review of systems negative except what is documented in the HPI. Please refer to the initial physician's documentation for further details PMFSH Past Medical History Medical History Acquired lymphedema Acute confusion Acute renal failure superimposed on chronic kidney disease Adenomatous polyps repeat colonoscopy 2024 Cardiomyopathy CHF (congestive heart failure) echocardiogram 2015 demonstrating normal ejection fraction with moderate left ventricular hypertrophy and diastolic dysfunction with mild left atrial enlargement CHF exacerbation Chronic venous stasis dermatitis Dehydration Diabetes mellitus on long-term insulin therapy with a last hemoglobin A1c of 7.1 Diabetic neuropathy Diarrhea Dizziness Elevated lactic acid level Enteritis Essential (primary) hypertension Gastric polyp Hepatic steatosis Hypertension Hypertensive heart disease Lymphedema of upper extremity following lymphadenectomy Mixed hyperlipidemia Mucous in stools Narcolepsy per patient report. He has never had a multi sleep latency test. 8-20 he did have a multiple sleep latency test that showed the narcolepsy Obesity (BMI 30.0-34.9) Occult blood in stools LOU (obstructive sleep apnea) Other obesity Person under investigation for COVID-19 Sepsis Stress fracture, right foot, subsequent encounter for fracture with routine healing Uncontrolled hypertension Surgical History Surgical History H/O foot surgery June 2016 debridement of the right diabetic foot ulcer with proximal resection of 2nd and 3rd metatarsal head performed by Dr. Chahal History of
[2023-05-05] MEDS: oxyCODONE HCL (*CRX) 5 MG TAB IR PO (01:49)
[2023-05-05 03:09] VITALS: BP 157/101; PULSE 74; RESP 18
== END 2023-05-05 02:35 ==
PROVIDERS: Emergency Medicine; Emergency Provider Emergency Medicine; PCP Family Medicine
DX: S37.30XA Unspecified injury of urethra, initial encounter (principal); R31.0 Gross hematuria; E11.22 Type 2 diabetes mellitus with diabetic chronic kidney disease; I13.0 Hypertensive heart and chronic kidney disease with heart failure and stage 1 through stage 4 chronic kidney disease, or unspecified chronic kidney disease; I50.9 Heart failure, unspecified; N18.9 Chronic kidney disease, unspecified; I42.9 Cardiomyopathy, unspecified; I87.2 Venous insufficiency (chronic) (peripheral); E11.40 Type 2 diabetes mellitus with diabetic neuropathy, unspecified; E78.2 Mixed hyperlipidemia; G47.419 Narcolepsy without cataplexy; G47.33 Obstructive sleep apnea (adult) (pediatric); Z86.010 Personal history of colon polyps; Z90.49 Acquired absence of other specified parts of digestive tract; Z87.891 Personal history of nicotine dependence; Z79.4 Long term (current) use of insulin; Z79.85 Long-term (current) use of injectable non-insulin antidiabetic drugs; Z79.82 Long term (current) use of aspirin; X58.XXXA Exposure to other specified factors, initial encounter
CPT/HCPCS: 36415; 51702; 80053; 81001; 85025; 87086; 99283; A9270

== ENCOUNTER 2023-05-16 12:47 | Inpatient (IN) | payer MEDICARE, SELFPAY ==
--- NOTE | ~2023-05-16 | US_ITS ---
EXAMINATION: US renal BI DATE: 05/20/2023 19:26 INDICATION: Chronic kidney disease. Urinary tract infection. TECHNIQUE: Multiple ultrasound grayscale images of the kidneys were obtained. COMPARISON: Ultrasound kidneys 05/14/2023, CT abdomen and pelvis 04/25/2023 FINDINGS: The right kidney measures 13.6 x 6.1 x 4.6 cm. The left kidney measures 13.6 x 6.4 x 5.2 cm. The kidn eys demonstrate normal parenchymal echogenicity. There is no hydronephrosis. The bladder is normal. IMPRESSION: 1. Normal kidneys. No hydronephrosis. Reviewed, dictated and finalized at location E.
--- NOTE | ~2023-05-16 | CT_ITS ---
EXAMINATION: CT brain wo con DATE: 05/16/2023 20:30 INDICATION: Status post fall. Head injury. TECHNIQUE: Computed tomography (CT) of the head was performed without intravenous contrast. The dose- length product was 681.00 mGy-cm. Automated exposure control and iterative reconstruction technique were employed. COMPARISON: CT dated 12/04/2021 FINDINGS: Generalized brain parenchymal volume loss. There are scattered mild periventricular and sub cortical white matter changes, most likely related to small vessel ischemic disease (microangiopathy) . There is intracranial atherosclerosis. No depressed skull fractures. Paranasal sinuses and mastoids are pneumatized. IMPRESSION: 1. No acute intracranial abnormality. 2: Chronic age-related findings. Reviewed, dictated and finalized at location A.
--- NOTE | ~2023-05-16 | CT_ITS ---
EXAMINATION: CT cervical spine wo con DATE: 05/16/2023 20:26 INDICATION: Status post fall. Neck pain. TECHNIQUE: Computed tomography (CT) of the cervical spine was performed without intravenous contrast. The dose-length product was 610 mGy-cm. Automated exposure control and iterative reconstruction tech nique were employed. COMPARISON: 04/13/2023 FINDINGS: There is severe multilevel cervical spondylosis. Craniovertebral junction is normal. No bravo dence for perched facet. Vertebral body heights are maintained. There is carotid atherosclerosis. No paraspinal soft tissue abnormality. IMPRESSION: 1. No acute abnormality of the cervical spine. 2: Severe cervical spondylosis. Reviewed, dictated and finalized at location A.
--- NOTE | ~2023-05-16 | CT_ITS ---
EXAMINATION: CT thoracic lumbar wo con DATE: 05/16/2023 20:38 INDICATION: Status post fall. Back pain. TECHNIQUE: Computed tomography (CT) of the thoracic and lumbar was performed without intravenous cont rast. The dose-length product was 2042.06 mGy-cm. Automated exposure control and iterative reconstruc tion technique were employed. COMPARISON: None FINDINGS: Study extremely limited by motion artifact. There is severe multilevel thoracic and lumbar spondylosis. There is a Chance fracture of T12. There is a chronic wedge compression deformity of L1. There is mild superior endplate compression deformity of T8 which appears chronic. No thoracic lymph adenopathy. Borderline heart size. There is dependent atelectasis. IMPRESSION: 1. Acute Chance fracture of T12. Reviewed, dictated and finalized at location A.
--- NOTE | ~2023-05-16 | XR_ITS ---
AP view of the pelvis and AP and lateral views of the bilateral hips Clinical history: Pain Findings: No acute fracture or dislocation is seen. Osseous alignment is anatomic. There is minimal d egenerative change of both hip joints. Degenerative spondylosis of the visualized lower lumbar spine noted. Soft tissues are unremarkable. Impression: Minimal degenerative change of both hip joints. Moderate to advanced degenerative spondylosis of the visualized lower lumbar spine. Reviewed, dictated and finalized at location M. Impression: Minimal degenerative change of both hip joints. Moderate to advanced degenerative spondylosis of the visualized lower lumbar sp ine.
--- NOTE | ~2023-05-16 | US_ITS ---
EXAMINATION: US arterial ankle brachial ind DATE: 05/20/2023 19:13 INDICATION: Peripheral vascular disease. TECHNIQUE: Segmental pressures and plethysmographic and Doppler waveforms of the brachial and lower e xtremity arteries were obtained. COMPARISON: None. FINDINGS: Right and left brachial artery pressures of 200 mm Hg and 219 mm Hg, respectively, are concordant (no rmal difference <= 30 mmHg). The right ankle-brachial index (SRIKANTH) is 1.07 (normal >= 0.9-1.0). The right great toe-brachial index (TBI) is 0.67 (normal >= 0.65). Arterial Doppler waveforms are biphasic at the ankle. The left SRIKANTH is 1.42. The left TBI is 0.74. Arterial Doppler waveforms are multiphasic at the ankle. IMPRESSION: 1. No significant arterial occlusive disease. 2. High blood pressure. Reviewed, dictated and finalized at location E.
[2023-05-16 13:17] VITALS: BP 140/79; PULSE 73; RESP 16; TEMP 36.8; O2SAT 98
--- NOTE | 2023-05-16 17:17 | PC.NURSE ---
This RN educated pt on the importance and safety of remaining in bed. Pt attempting to crawl out of bed, pt standing at end of bed trying to redirect pt to stay in bed. Pt does not agree to stay in bed stating you don't know what kind of pain I'm in . pt agitated, unable to be redirected. made aware.
--- NOTE | 2023-05-16 17:17 | ED.GENADULT ---
HPI - General Adult General Chief complaint: Fall Stated complaint: frequent falls-decrease in orientation Time Seen by Provider: 05/16/23 17:15 Source: family and EMS Mode of arrival: EMS Limitations: altered mental status History of Present Illness HPI narrative: 73 years old white male came from [facility] because of increased confusion and at least 6 times falls, unwitnessed today. Patient was diagnosed of urinary tract infection yesterday and started on Cipro at that time. Patient been to the [facility] since April 22, 2023 for rehabilitation secondary to fracture T11 and T12. Patient currently on oxycodone as needed for back pain. Normally patient awake alert oriented x2-3, today oriented to his name only. Patient was full code, on arrival to the ED, his requested to change of CODE STATUS to DNR. Related Data Home Medications Medication Instructions Recorded Confirmed magnesium 250 mg tablet 400 mg PO DAILY 11/03/20 04/24/23 amitriptyline 25 mg tablet 25 mg PO HS 01/16/23 04/24/23 mirabegron 50 mg tablet,extended 50 mg PO DAILY 01/16/23 04/24/23 release 24 hr (Myrbetriq) solifenacin 10 mg tablet 10 mg PO DAILY 01/16/23 04/24/23 Allergy Relief (cetirizine) 10 mg PO DAILY PRN Allergy Symptoms 04/14/23 04/24/23 Centrum Men 1 tablet PO DAILY 04/14/23 04/24/23 Fish Oil 2 softgel PO DAILY 04/14/23 04/24/23 PreserVision AREDS-2 1 cap PO DAILY 04/14/23 04/24/23 Probiotic Digestive Care 1 tab-cap PO DAILY 04/14/23 04/24/23 Wixela Inhub See Rx Instructions .Route .COMPLEX 04/14/23 04/24/23 albuterol sulfate 2 puff inhalation Q4H PRN 04/14/23 04/24/23 Shortness Of Breath aspirin 325 mg PO DAILY 04/14/23 04/24/23 calcium carbonate-vitamin D3 See Rx Instructions .Route .COMPLEX 04/14/23 04/24/23 clotrimazole-betamethasone 1 1 applic topical BID PRN Increased 04/14/23 04/24/23 %-0.05 % topical cream redness to lower legs insulin human U-100 NPH-regulr 60 unit subcut BID 04/14/23 04/24/23 70-30 mix 100 unit/mL subcutaneous susp (Humulin 70/30 U-100 Insulin) levothyroxine 75 mcg tablet 75 mcg PO DAILY 04/14/23 04/24/23 pyridoxine (vitamin B6) 100 mg PO DAILY 04/14/23 04/24/23 semaglutide 1 mg/dose (4 mg/3 mL) 0.25 mg subcut WEEKLY 04/14/23 04/24/23 subcutaneous pen injector Allergies Allergy/AdvReac Type Severity Reaction Status Date / Time exenatide Allergy Unknown Unknown Verified 04/14/23 00:23 nebivolol Allergy Unknown Unknown Verified 04/14/23 00:23 metformin AdvReac Unknown Nausea Verified 04/14/23 00:23 pioglitazone AdvReac Unknown sleepiness Verified 04/14/23 00:23 Review of Systems Review of Systems: All systems reviewed & are unremarkable except as noted in HPI and below PMFSH Past Medical History Medical History Acquired lymphedema Acute confusion Acute renal failure superimposed on chronic kidney disease Adenomatous polyps repeat colonoscopy 2024 Cardiomyopathy CHF (congestive heart failure) echocardiogram 2015 demonstrating normal ejection fraction with moderate left ventricular hypertrophy and diastolic dysfunction with mild left atrial enlargement CHF exacerbation Chronic venous stasis dermatitis Dehydration Diabetes mellitus on long-term insulin therapy with a last hemoglobin A1c of 7.1 Diabetic neuropathy Diarrhea Dizziness Elevated lactic acid level Enteritis Essential (primary) hypertension Gastric polyp Hepatic steatosis Hypertension Hypertensive heart disease Lymphedema of upper extremity following lymphadenectomy Mixed hyperlipidemia Mucous in stools Narcolepsy per patient report. He has never had a multi sleep latency test. 8-20 he did have a multiple sleep latency test that showed the narcolepsy Obesity (BMI 30.0-34.9) Occult blood in stools LOU (obstructive sleep apnea) Other obesity Person under investigation for COVID-19 Sepsis Stress fracture, right foot, subsequent encounter for fracture with routine
--- NOTE | 2023-05-16 17:18 | ECG_ITS ---
Measurements Intervals [place] Rate: 85 P: [place]: 0 QRS: -16 QRSD: 126 T: 32 QT: 405 QTc: 483 Interpretive Statements SIGNIFICANT BASELINE ARTIFACT, PROBABLE SINUS RHYTHM INTRAVENTRICULAR CONDUCTION DELAY ST DEVIATION AND T-WAVE ABNORMALITY, CONSIDER ISCHEMIA Electronically Signed On 05-17-2023 17:10:00 CDT by Willis Lux M.D.
[2023-05-16] MEDS: ONDANSETRON INJ 4 MG/2 ML VIAL IV PUSH (17:47)
[2023-05-16] MEDS: HYDROmorphone HCL INJ (*CRX) 1 MG/ML SYR 0.5 MG IV PUSH ×2 (17:51→18:44)
[2023-05-16 18:14] LABS: Basophils Percent Auto 0.4 % (0.2-1.2); Eosinophils Absolute Auto 0.2 K/mm3 (0-0.3); Eosinophils Percent Auto 2.3 % (0-4.4); Hematocrit 29.4 % (42.0-52.0); Hemoglobin 9.6 g/dL (14.0-18.0); Immature Granulocyte Absolute 0.03 K/mm3 (0.00-0.031); Immature Granulocyte Percent A 0.3 % (0-0.5); Lymphocytes Absolute Auto 1.36 K/mm3 (0.9-3.2); Mean Corpuscular HGB Conc 32.7 g/dl (32-36); Mean Corpuscular Hemoglobin 29.4 pg (26-34); Mean Corpuscular Volume 90.2 fl (80-100); Mean Platelet Volume 10.6 fl (7.4-10.4); Monocytes Absolute Auto 0.7 K/mm3 (0.1-0.6); Monocytes Percent Auto 7.7 % (2.6-8.5); Neutrophils Absolute Auto 6.7 K/mm3 (1.3-6.7); Neutrophils Percent Auto 74.3 % (45.5-73.1); Platelet Count Result 227 k/mm3 (150-375); Red Blood Count 3.26 M/mm3 (4.6-6.20); Red Cell Distribution Width 14.4 % (11.5-14.5)
[2023-05-16 18:26] LABS: Alanine Aminotransferase 26 U/L (6-50); Albumin Level 4.1 g/dL (3.5-5.1); Alkaline Phosphatase 86 U/L (38-126); Anion Gap 9 mmol/L (8-16); Aspartate Amino Transferase 40 U/L (17-59); Bilirubin,Total 0.7 mg/dL (0.2-1.3); Blood Urea Nitrogen 30 mg/dL (9-20); Calcium 8.6 mg/dL (8.4-10.2); Carbon Dioxide 24 mmol/L (22-30); Chloride 97 mmol/L (98-107); Creatine Kinase 347 U/L (55-170); Estimated Glomerular Filt Rate 43; Glucose 102 mg/dL (65-110); Potassium 3.8 mmol/L (3.4-5.0); Sodium 130 mmol/L (137-145)
[2023-05-16 18:29] LABS: INR 1.3; Prothrombin Time 16.5 Seconds (11.1-14.7)
[2023-05-16 18:30] LABS: Appearance Urine Cloudy (Clear); Bacteria Urine None Seen /hpf; Bilirubin Urine Negative (Negative); Blood Urine 2+ (Negative); Budding Yeast Urine Present /hpf; Color Urine Yellow (Yellow); Glucose Urine UA Negative (Negative); Ketones Urine Trace mg/dL (Negative); Leukocyte Esterase Ur 2+ LEU/UL (Negative); Need Manual Microscopic Reviewed; Nitrate Urine Positive (Negative); Protein Urine 3+ mg/dL (Negative); Specific Grav Ur 1.013 (1.001-1.035); Squamous Epithelial Cell Urine None seen /hpf (Few); Urobilinogen Urine 0.2 mg/dL (<2.0); WBC Urine 51-100 /hpf; pH Urine 5.5 (5.0-9.0)
[2023-05-16 18:32] LABS: Add Urine Microscopic? YES
--- NOTE | 2023-05-16 19:20 | PC.NURSE ---
Pt refuses to keep pulse ox on finger or hold still for bp reading.
[2023-05-16] MEDS: KETAMINE HCL (*CRX) 500 MG/10 ML VIAL 100 MG IV PUSH (20:07)
--- NOTE | 2023-05-16 20:43 | PC.NURSE ---
pt unable to remain still for chest xray, made aware.
--- NOTE | 2023-05-16 22:43 | PM.IMHP ---
H&P: HPI History of Present Illness Date/Time: 05/16/23 22:43 Chief Complaint: Altered mental status Status post fall Narrative: 73-year-old gentleman who has a possible history of diabetes mellitus hypothyroidism recent urinary tract infection recent fall with some thoracic vertebral fracture he was found to be altered. He also had 6 falls unwitnessed. He continued to complain of back pain. He was being treated for urine tract infection at [facility]. He is unable to provide any history as he is sleepy at this time after a dose of ketamine in ER for CT scan.Patient was full code, on arrival to the ED, his requested to change of CODE STATUS to DNR. Review of Systems Review of Systems: All systems reviewed & are unremarkable except as noted in HPI and below Constitutional: Constitutional: Reports as per HPI Neurologic: Reports confusion PMFSH Past Medical History Medical History Acquired lymphedema Acute confusion Acute renal failure superimposed on chronic kidney disease Adenomatous polyps repeat colonoscopy 2024 Cardiomyopathy CHF (congestive heart failure) echocardiogram 2015 demonstrating normal ejection fraction with moderate left ventricular hypertrophy and diastolic dysfunction with mild left atrial enlargement CHF exacerbation Chronic venous stasis dermatitis Dehydration Diabetes mellitus on long-term insulin therapy with a last hemoglobin A1c of 7.1 Diabetic neuropathy Diarrhea Dizziness Elevated lactic acid level Enteritis Essential (primary) hypertension Gastric polyp Hepatic steatosis Hypertension Hypertensive heart disease Lymphedema of upper extremity following lymphadenectomy Mixed hyperlipidemia Mucous in stools Narcolepsy per patient report. He has never had a multi sleep latency test. 8-20 he did have a multiple sleep latency test that showed the narcolepsy Obesity (BMI 30.0-34.9) Occult blood in stools LOU (obstructive sleep apnea) Other obesity Person under investigation for COVID-19 Sepsis Stress fracture, right foot, subsequent encounter for fracture with routine healing Uncontrolled hypertension Surgical History Surgical History H/O foot surgery June 2016 debridement of the right diabetic foot ulcer with proximal resection of 2nd and 3rd metatarsal head performed by Dr. Chahal History of appendectomy in the History of cholecystectomy in the History of colonoscopy with polypectomy for polyps resected that were benign History of esophagogastroduodenoscopy (EGD) with gastric polypectomy December 2019 History of parotid gland excision 1998 with benign pathology Status post excision of lipoma left neck September 2018 Family History Family History Mother Diabetes mellitus Hypertension Cerebrovascular accident Pancreatic cancer Father Coronary artery disease his father had a total of 7 coronary stents and at age 71. Atrial fibrillation Sibling Healthy female adult Social History Social History Social History: Primary care physician: Dr. Bhavik Davidson Code status: Full code per patient request Smoking packs per day: 2 Smoking cigarettes per day: 40.0 Years smoked: 2 Smoking pack-years: 4.00 Smoking status: Former smoker Tobacco type: cigarettes Smoking end date: 08/04/94 Alcohol intake: current Drinks per week: 4 Alcohol use details: he reports he has not drank any alcohol in many years. He never drink alcohol to excess. Substance use: never Lack of Transportation: No Lack of Food: Never True Current Housing: I Have Housing Concerned About Future Housing: No Difficulty Paying Gas/Electric Bills: No Difficulty Paying for Meds: No Currently Unemployed: No Education: High School Diplom
--- NOTE | 2023-05-16 23:57 | ADMGEN ---
This patient, Gulshan Voss, was admitted to [facility] Surg Room 317-01. Patient/family oriented to hospital policies and general routines including ID bracelet, bed and alarms, visiting hours, pain management, procedures, bathroom and other care routines, personal items, smoking policy, room service/diet, and visiting hours. Information on how to activate the Rapid Response Team has been discussed. Patient/Family are encouraged to report perceived risks to care and to ask questions if they do not understand what they are told or what they should do.
[2023-05-17 00:39] LABS: Hemoglobin A1C 5.7 % (<5.7)
[2023-05-17] MEDS: SODIUM CHLORIDE 0.9% IV 1,000 ML 125 ML IV CONT (00:54)
[2023-05-17] MEDS: HYDROmorphone HCL INJ (*CRX) 1 MG/ML SYR 0.5 MG IV PUSH ×2 (03:00→13:35)
[2023-05-17 05:40] VITALS: BP 161/94; PULSE 87; RESP 14; O2SAT 94
[2023-05-17 06:56] LABS: Hematocrit 31.4 % (42.0-52.0); Hemoglobin 10.1 g/dL (14.0-18.0); Mean Corpuscular HGB Conc 32.2 g/dl (32-36); Mean Corpuscular Hemoglobin 29.1 pg (26-34); Mean Corpuscular Volume 90.5 fl (80-100); Mean Platelet Volume 10.5 fl (7.4-10.4); Platelet Count Result 245 k/mm3 (150-375); Red Blood Count 3.47 M/mm3 (4.6-6.20); Red Cell Distribution Width 14.1 % (11.5-14.5); White Blood Count 11.4 K/mm3 (4.5-10.0)
[2023-05-17 07:09] LABS: Alanine Aminotransferase 28 U/L (6-50); Albumin Level 3.9 g/dL (3.5-5.1); Alkaline Phosphatase 84 U/L (38-126); Anion Gap 9 mmol/L (8-16); Aspartate Amino Transferase 42 U/L (17-59); Bilirubin,Total 0.6 mg/dL (0.2-1.3); Blood Urea Nitrogen 26 mg/dL (9-20); Calcium 8.7 mg/dL (8.4-10.2); Carbon Dioxide 24 mmol/L (22-30); Chloride 98 mmol/L (98-107); Estimated Glomerular Filt Rate 43; Glucose 129 mg/dL (65-110); Potassium 4.2 mmol/L (3.4-5.0); Sodium 131 mmol/L (137-145)
[2023-05-17 07:24] LABS: Glucose Point of Care 117 mg/dl (65-105)
--- NOTE | 2023-05-17 08:08 | PM.IMPN ---
Progress Note: A&P Assessment and Plan (1) Urinary tract infection: Qualifiers: Hematuria presence: without hematuria Urinary tract infection type: site unspecified Qualified Code(s): N39.0 - Urinary tract infection, site not specified Code(s): N39.0 - Urinary tract infection, site not specified Status: Acute Assessment and Plan: UA is consistent with urinary tract infection, will continue IV antibiotics, ceftriaxone escalated to 2 g every 24 hours (2) Closed T12 fracture: Qualifiers: Encounter type: subsequent encounter Fracture healing: with delayed healing Fracture morphology: other fracture Qualified Code(s): S22.088G - Other fracture of T11-T12 vertebra, subsequent encounter for fracture with delayed healing Code(s): S22.089A - Unspecified fracture of T11-T12 vertebra, initial encounter for closed fracture Status: Acute Assessment and Plan: History of recurrent falls with thoracolumbar spine was compared with the previous CT scan done on April 22The horizontally oriented fracture extends posteriorly into the posterior third of the vertebral body at T12 with increasing ostial lysis surrounding the fracture compared with prior study. No evidence for significant retropulsion into the spinal canal. No spinal stenosis. There is stable alignment of healing left L1-L3 nondisplaced transverse process fractures, although these are not well seen due to motion artifact. (3) Encephalopathy: Code(s): G93.40 - Encephalopathy, unspecified Status: Acute Assessment and Plan: CT cervical spine?No acute abnormality of the cervical spine.? Severe cervical spondylosis. CT head is unremarkable Multifactorial Related to pain medication Also urine tract infection and recurrent falls 05/17: unable to redirect patient, frequently pulling out IVs. Nonviolent restraints (mittens) ordered. Family at bedside to keep patient from pulling out lines and catheter. Mittens removed because patient stated they made him feel hot and made him more agitated (4) Diabetes mellitus with chronic kidney disease: Code(s): E11.22 - Type 2 diabetes mellitus with diabetic chronic kidney disease Status: Acute Assessment and Plan: Monitor blood glucoses HS Continue home dose of insulin Consistent carb diet 05/17: CKD at or better than baseline function (5) Chronic venous stasis dermatitis: Code(s): I87.2 - Venous insufficiency (chronic) (peripheral) Status: Acute Assessment and Plan: Bilateral leg venous ulcers Daily dressing change Redness erythema noted concern for developing cellulitis (6) Hyponatremia: Code(s): E87.1 - Hypo-osmolality and hyponatremia Status: Chronic Assessment and Plan: 05/17: Chronic hyponatremia, currently 131 Time Spent With Patient Time: Over 30 minute spent sitting and talking with family to get better history and understanding of patient's baseline mentation. Time with patient: Greater than 35 minutes Subjective Date/time seen: 05/17/23 08:08 Interval history: Patient had multiple falls at the retirement reportedly unwitnessed yesterday. Was seen in the emergency department last night somewhat combative and unable to hold still for imaging. He was given ketamine for sedation for imaging. Worsening T12 fracture noted. Neurosurgery recommended TLSO brace continue no intervention at this time. UTI also found on urinalysis. IV antibiotics started. Patient continues to be encephalopathic, not always following commands often being combative and rolling around in the bed frequently. Patient pulling out multiple IVs. Ordered nonviolent restraints to keep IV access. He is not currently eating or drinking due to level of consciousness. IV fluids ordered for this reason. On afternoon follow-up, sat with the family and spoke with them for over 30 minutes trying to get a better understanding of patient's
[2023-05-17] MEDS: polyethylene glycoL 3350 17 GM POWD.PACK PO (08:28)
[2023-05-17] MEDS: PANTOPRAZOLE 40 MG TABLET PO (08:28)
[2023-05-17] MEDS: SPIRONOLACTONE 25 MG TABLET PO (08:28)
[2023-05-17] MEDS: ROSUVASTATIN 10 MG TABLET 20 MG PO (08:28)
[2023-05-17] MEDS: carvediloL 12.5 MG TABLET PO ×2 (08:29→20:09)
[2023-05-17] MEDS: lisinopriL 20 MG TABLET 40 MG PO (08:29)
[2023-05-17] MEDS: MAGNESIUM OXIDE 400 MG TABLET PO (08:29)
[2023-05-17] MEDS: PYRIDOXINE HCL 50 MG TABLET 100 MG PO (08:29)
[2023-05-17] MEDS: ACIDOPHILUS/BULGARICUS CHEWABLE TABLET 1 TABLET PO (08:29)
[2023-05-17] MEDS: ASPIRIN 325 MG TABLET PO (08:29)
[2023-05-17] MEDS: LEVOTHYROXINE SODIUM 75 MCG TABLET PO (08:29)
[2023-05-17] MEDS: oxyCODONE HCL (*CRX) 5 MG TAB IR PO ×2 (08:31→20:24)
[2023-05-17] MEDS: SOLIFENACIN 5 MG TABLET 10 MG PO (08:33)
[2023-05-17] MEDS: cefTRIAXone 2 GM/NS 100 ML 2 GM/100 ML BAG IVPB (08:35)
[2023-05-17] MEDS: HYDROmorphone HCL INJ (*CRX) 1 MG/ML SYR 0.5 MG IM (09:24)
[2023-05-17 11:54] LABS: Glucose Point of Care 150 mg/dl (65-105)
[2023-05-17] MEDS: ENOXAPARIN 40 MG/0.4 ML SYRINGE SUB-Q (13:35)
[2023-05-17] MEDS: diazePAM (*CRX) 5 MG TABLET PO ×2 (15:33→20:09)
[2023-05-17 16:44] LABS: Glucose Point of Care 118 mg/dl (65-105)
[2023-05-17] MEDS: HYDROmorphone HCL INJ (*CRX) 1 MG/ML SYR IV PUSH ×2 (17:20→20:12)
[2023-05-17 20:09] VITALS: PULSE 80
[2023-05-17] MEDS: AMITRIPTYLINE HCL 25 MG TABLET PO (20:09)
[2023-05-17 22:00] VITALS: BP 157/75; PULSE 79; RESP 16; TEMP 36.3; O2SAT 97
[2023-05-17 22:23] LABS: Glucose Point of Care 132 mg/dl (65-105)
[2023-05-18] MEDS: oxyCODONE HCL (*CRX) 5 MG TAB IR PO ×4 (00:19→20:05)
[2023-05-18] MEDS: HYDROmorphone HCL INJ (*CRX) 1 MG/ML SYR IV PUSH ×6 (01:43→23:05)
[2023-05-18] MEDS: SODIUM CHLORIDE 0.9% IV 1,000 ML 125 ML IV CONT (01:44)
[2023-05-18] MEDS: diazePAM (*CRX) 5 MG TABLET PO ×3 (03:05→20:05)
[2023-05-18 05:36] LABS: Basophils Absolute Auto 0.1 K/mm3 (0.0-0.1); Basophils Percent Auto 0.6 % (0.2-1.2); Eosinophils Absolute Auto 0.2 K/mm3 (0-0.3); Eosinophils Percent Auto 1.4 % (0-4.4); Hematocrit 32.3 % (42.0-52.0); Hemoglobin 10.4 g/dL (14.0-18.0); Immature Granulocyte Absolute 0.05 K/mm3 (0.00-0.031); Immature Granulocyte Percent A 0.5 % (0-0.5); Lymphocytes Absolute Auto 1.27 K/mm3 (0.9-3.2); Lymphocytes Percent Auto 12.2 % (18.3-44.2); Mean Corpuscular HGB Conc 32.2 g/dl (32-36); Mean Corpuscular Hemoglobin 29.3 pg (26-34); Mean Platelet Volume 10.4 fl (7.4-10.4); Monocytes Absolute Auto 0.7 K/mm3 (0.1-0.6); Monocytes Percent Auto 6.4 % (2.6-8.5); Neutrophils Absolute Auto 8.2 K/mm3 (1.3-6.7); Neutrophils Percent Auto 78.9 % (45.5-73.1); Platelet Count Result 258 k/mm3 (150-375); Red Blood Count 3.55 M/mm3 (4.6-6.20); White Blood Count 10.4 K/mm3 (4.5-10.0)
[2023-05-18 05:46] LABS: Ammonia < 9 umol/L (9-30)
[2023-05-18 05:59] VITALS: BP 169/90; PULSE 80; RESP 18; TEMP 36.2; O2SAT 96
[2023-05-18] MEDS: LEVOTHYROXINE SODIUM 75 MCG TABLET PO (06:23)
[2023-05-18 06:33] LABS: Alanine Aminotransferase 27 U/L (6-50); Albumin Level 3.6 g/dL (3.5-5.1); Alkaline Phosphatase 78 U/L (38-126); Anion Gap 5 mmol/L (8-16); Aspartate Amino Transferase 37 U/L (17-59); Bilirubin,Total 0.5 mg/dL (0.2-1.3); Blood Urea Nitrogen 25 mg/dL (9-20); Calcium 8.4 mg/dL (8.4-10.2); Carbon Dioxide 28 mmol/L (22-30); Chloride 100 mmol/L (98-107); Estimated Glomerular Filt Rate 46; Glucose 118 mg/dL (65-110); Potassium 3.9 mmol/L (3.4-5.0); Sodium 133 mmol/L (137-145)
[2023-05-18 06:59] LABS: Free T4 Free Thyroxine Reflex 1.65 ng/dL (0.78-2.19)
[2023-05-18 07:32] LABS: Glucose Point of Care 131 mg/dl (65-105)
[2023-05-18 07:57] LABS: Total Triiodothyronine (T3) 0.71 NG/ML (0.97-1.69)
[2023-05-18] MEDS: cefTRIAXone 2 GM/NS 100 ML 2 GM/100 ML BAG IVPB (08:09)
[2023-05-18] MEDS: INSULIN HUMAN ISOPHAN/REGULAR 70/30 (*BKC) 100 UNITS/ML 60 UNITS SUB-Q (08:16)
[2023-05-18] MEDS: ENOXAPARIN 40 MG/0.4 ML SYRINGE SUB-Q (08:18)
[2023-05-18] MEDS: ROSUVASTATIN 10 MG TABLET 20 MG PO (08:21)
[2023-05-18] MEDS: PANTOPRAZOLE 40 MG TABLET PO (08:21)
[2023-05-18] MEDS: SPIRONOLACTONE 25 MG TABLET PO (08:22)
[2023-05-18] MEDS: ASPIRIN 325 MG TABLET PO (08:22)
[2023-05-18] MEDS: ACIDOPHILUS/BULGARICUS CHEWABLE TABLET 1 TABLET PO (08:22)
[2023-05-18] MEDS: SOLIFENACIN 5 MG TABLET 10 MG PO (08:22)
[2023-05-18] MEDS: PYRIDOXINE HCL 50 MG TABLET 100 MG PO (08:22)
[2023-05-18] MEDS: polyethylene glycoL 3350 17 GM POWD.PACK PO (08:22)
[2023-05-18] MEDS: lisinopriL 20 MG TABLET 40 MG PO (08:22)
[2023-05-18] MEDS: MAGNESIUM OXIDE 400 MG TABLET PO (08:22)
[2023-05-18] MEDS: carvediloL 12.5 MG TABLET PO ×2 (08:27→20:05)
[2023-05-18 10:07] VITALS: O2SAT 95
[2023-05-18 11:12] LABS: Glucose Point of Care 77 mg/dl (65-105)
--- NOTE | 2023-05-18 11:12 | PM.IMPN ---
Progress Note: A&P Assessment and Plan (1) Urinary tract infection: Qualifiers: Hematuria presence: without hematuria Urinary tract infection type: site unspecified Qualified Code(s): N39.0 - Urinary tract infection, site not specified Code(s): N39.0 - Urinary tract infection, site not specified Status: Acute Assessment and Plan: UA is consistent with urinary tract infection, will continue IV antibiotics, ceftriaxone escalated to 2 g every 24 hours Urine culture Lelia tropicalis. Fungal blood culture ordered. Initiate IV micafungin. Patient had significant improvement neurologically with IV ceftriaxone, continue this treatment. (2) Closed T12 fracture: Qualifiers: Encounter type: subsequent encounter Fracture healing: with delayed healing Fracture morphology: other fracture Qualified Code(s): S22.088G - Other fracture of T11-T12 vertebra, subsequent encounter for fracture with delayed healing Code(s): S22.089A - Unspecified fracture of T11-T12 vertebra, initial encounter for closed fracture Status: Acute Assessment and Plan: History of recurrent falls with thoracolumbar spine was compared with the previous CT scan done on April 22The horizontally oriented fracture extends posteriorly into the posterior third of the vertebral body at T12 with increasing ostial lysis surrounding the fracture compared with prior study. No evidence for significant retropulsion into the spinal canal. No spinal stenosis. There is stable alignment of healing left L1-L3 nondisplaced transverse process fractures, although these are not well seen due to motion artifact. 05/18: Patient reports pain is less than usual. (3) Encephalopathy: Code(s): G93.40 - Encephalopathy, unspecified Status: Acute Assessment and Plan: CT cervical spine?No acute abnormality of the cervical spine.? Severe cervical spondylosis. CT head is unremarkable Multifactorial Related to pain medication Also urine tract infection and recurrent falls 05/17: unable to redirect patient, frequently pulling out IVs. Nonviolent restraints (mittens) ordered. Family at bedside to keep patient from pulling out lines and catheter. Mittens removed because patient stated they made him feel hot and made him more agitated 05/18: Currently improved mental status. Continue IV antibiotics add IV fungal. (4) Diabetes mellitus with chronic kidney disease: Code(s): E11.22 - Type 2 diabetes mellitus with diabetic chronic kidney disease Status: Acute Assessment and Plan: Monitor blood glucoses HS Continue home dose of insulin Consistent carb diet 05/17: CKD at or better than baseline function 05/18: Stable, no changes (5) Chronic venous stasis dermatitis: Code(s): I87.2 - Venous insufficiency (chronic) (peripheral) Status: Acute Assessment and Plan: Bilateral leg venous ulcers Daily dressing change (6) Hyponatremia: Code(s): E87.1 - Hypo-osmolality and hyponatremia Status: Chronic Assessment and Plan: 05/17: Chronic hyponatremia, currently 131 05/18: Currently 133, stable Plan Order PT and OT. Patient is much more awake and cooperative today. And IV micafungin for Lelia tropicalis in the urine, fungal blood culture ordered and collected by lab Continue IV antibiotics for lower extremity cellulitis concerns Time Spent With Patient Time with patient: 25 - 35 minutes Subjective Date/time seen: 05/18/23 11:12 Interval history: Patient is significantly more awake today he is interactive drinking at the bedside and answering questions. Patient notes that his pain in his back is a little less than normal. He denies any fever chills. Denies any nausea vomiting. Denies chest pain difficulty breathing. Review of labs shows urine culture growing Lelia tropicalis. Fungal blood culture ordered. Out of caution we will begin treatment with IV micafungin pen
[2023-05-18] MEDS: MICAFUNGIN SODIUM IVPB (12:22)
[2023-05-18] MEDS: SODIUM CHLORIDE 0.9% IVPB (12:22)
[2023-05-18] MEDS: DEXTROSE 50% 25 GM/50 ML SYRINGE IV PUSH ×2 (16:15→16:37)
[2023-05-18] MEDS: DEXTROSE 5% 1,000 ML 1,000 ML 75 ML IVPB (16:15)
[2023-05-18 16:35] LABS: Glucose Point of Care < 20 mg/dl (65-105)
[2023-05-18 16:35] LABS: Glucose Point of Care < 20 mg/dl (65-105)
[2023-05-18 16:35] LABS: Glucose Point of Care 203 mg/dl (65-105)
[2023-05-18 16:36] LABS: Glucose Point of Care 99 mg/dl (65-105)
[2023-05-18 16:36] LABS: Glucose Point of Care 157 mg/dl (65-105)
[2023-05-18 16:36] LABS: Glucose Point of Care 153 mg/dl (65-105)
[2023-05-18 17:34] LABS: Glucose Point of Care 105 mg/dl (65-105)
[2023-05-18 17:34] LABS: Anion Gap 8 mmol/L (8-16); Blood Urea Nitrogen 24 mg/dL (9-20); Calcium 8.5 mg/dL (8.4-10.2); Carbon Dioxide 26 mmol/L (22-30); Chloride 101 mmol/L (98-107); Estimated Glomerular Filt Rate 50; Glucose 70 mg/dL (65-110); Potassium 3.2 mmol/L (3.4-5.0); Sodium 135 mmol/L (137-145)
[2023-05-18 17:34] LABS: Glucose Point of Care 94 mg/dl (65-105)
[2023-05-18 18:24] LABS: Glucose Point of Care 126 mg/dl (65-105)
[2023-05-18 19:50] VITALS: BP 188/118; PULSE 78; RESP 18; O2SAT 100
[2023-05-18 19:58] LABS: Glucose Point of Care 129 mg/dl (65-105)
[2023-05-18 20:05] VITALS: PULSE 76
[2023-05-18] MEDS: AMITRIPTYLINE HCL 25 MG TABLET PO (20:05)
[2023-05-18] MEDS: hydrALAZINE HCL 20 MG/ML VIAL 10 MG IV PUSH (20:28)
[2023-05-18 21:40] VITALS: BP 189/89; PULSE 91; RESP 20; TEMP 36.3; O2SAT 100
[2023-05-18] MEDS: ACETAMINOPHEN 500 MG TABLET 1000 MG PO (21:55)
[2023-05-18] MEDS: HYDROmorphone HCL INJ (*CRX) 1 MG/ML SYR 0.5 MG IV PUSH (21:56)
[2023-05-18 23:45] VITALS: BP 210/98; PULSE 96; RESP 18; O2SAT 96
[2023-05-18 23:49] LABS: Glucose Point of Care 153 mg/dl (65-105)
[2023-05-19] VITALS (11 sets, daily range): BP systolic 134–196; BP diastolic 63–100; PULSE 77–95; RESP 16–18; TEMP 36.3–37.3; O2SAT 97–98
[2023-05-19] MEDS: oxyCODONE HCL (*CRX) 5 MG TAB IR PO ×5 (00:37→20:23)
[2023-05-19] MEDS: POTASSIUM CHLORIDE 20 MEQ ER TABLET 40 MEQ PO (00:37)
[2023-05-19] MEDS: hydrALAZINE HCL 20 MG/ML VIAL 10 MG IV PUSH ×3 (00:37→20:30)
[2023-05-19] MEDS: SODIUM CHLORIDE 0.9% IV 1,000 ML 125 ML IV CONT ×2 (01:58→12:12)
[2023-05-19] MEDS: diazePAM (*CRX) 5 MG TABLET PO ×4 (02:45→21:04)
[2023-05-19 03:58] LABS: Glucose Point of Care 126 mg/dl (65-105)
[2023-05-19] MEDS: BISACODYL 10 MG SUPPOSITORY RECTAL (05:27)
[2023-05-19] MEDS: LEVOTHYROXINE SODIUM 75 MCG TABLET PO (05:27)
[2023-05-19 06:42] LABS: Basophils Absolute Auto 0.1 K/mm3 (0.0-0.1); Basophils Percent Auto 0.6 % (0.2-1.2); Eosinophils Absolute Auto 0.4 K/mm3 (0-0.3); Eosinophils Percent Auto 3.5 % (0-4.4); Hematocrit 32.8 % (42.0-52.0); Hemoglobin 10.7 g/dL (14.0-18.0); Immature Granulocyte Absolute 0.04 K/mm3 (0.00-0.031); Immature Granulocyte Percent A 0.4 % (0-0.5); Lymphocytes Absolute Auto 1.52 K/mm3 (0.9-3.2); Lymphocytes Percent Auto 14.3 % (18.3-44.2); Mean Corpuscular HGB Conc 32.6 g/dl (32-36); Mean Corpuscular Hemoglobin 28.9 pg (26-34); Mean Corpuscular Volume 88.6 fl (80-100); Mean Platelet Volume 10.3 fl (7.4-10.4); Monocytes Absolute Auto 0.8 K/mm3 (0.1-0.6); Monocytes Percent Auto 7.9 % (2.6-8.5); Neutrophils Absolute Auto 7.8 K/mm3 (1.3-6.7); Neutrophils Percent Auto 73.3 % (45.5-73.1); Platelet Count Result 238 k/mm3 (150-375); Red Cell Distribution Width 13.9 % (11.5-14.5); White Blood Count 10.6 K/mm3 (4.5-10.0)
[2023-05-19 06:53] LABS: Alanine Aminotransferase 28 U/L (6-50); Albumin Level 3.5 g/dL (3.5-5.1); Alkaline Phosphatase 75 U/L (38-126); Anion Gap 5 mmol/L (8-16); Aspartate Amino Transferase 44 U/L (17-59); Bilirubin,Total 0.6 mg/dL (0.2-1.3); Blood Urea Nitrogen 22 mg/dL (9-20); Calcium 8.3 mg/dL (8.4-10.2); Carbon Dioxide 27 mmol/L (22-30); Chloride 99 mmol/L (98-107); Estimated CRCL calculation 68 ml/min; Estimated Glomerular Filt Rate 54; Glucose 123 mg/dL (65-110); Potassium 4.3 mmol/L (3.4-5.0); Sodium 131 mmol/L (137-145)
[2023-05-19] MEDS: HYDROmorphone HCL INJ (*CRX) 1 MG/ML SYR IV PUSH ×2 (07:36→17:00)
[2023-05-19 07:53] LABS: Glucose Point of Care 138 mg/dl (65-105)
[2023-05-19] MEDS: cefTRIAXone 2 GM/NS 100 ML 2 GM/100 ML BAG IVPB (08:56)
[2023-05-19] MEDS: ENOXAPARIN 40 MG/0.4 ML SYRINGE SUB-Q (09:30)
[2023-05-19] MEDS: LIDOCAINE 5% PATCH 1 PATCH TRANSDERM (09:31)
[2023-05-19] MEDS: polyethylene glycoL 3350 17 GM POWD.PACK PO (09:32)
[2023-05-19] MEDS: SOLIFENACIN 5 MG TABLET 10 MG PO (09:35)
[2023-05-19] MEDS: ACIDOPHILUS/BULGARICUS CHEWABLE TABLET 1 TABLET PO (09:35)
[2023-05-19] MEDS: MAGNESIUM OXIDE 400 MG TABLET PO (09:35)
[2023-05-19] MEDS: carvediloL 12.5 MG TABLET PO ×2 (09:36→20:23)
[2023-05-19] MEDS: PYRIDOXINE HCL 50 MG TABLET 100 MG PO (09:37)
[2023-05-19] MEDS: SPIRONOLACTONE 25 MG TABLET PO (09:37)
[2023-05-19] MEDS: PANTOPRAZOLE 40 MG TABLET PO (09:37)
[2023-05-19] MEDS: lisinopriL 20 MG TABLET 40 MG PO (09:37)
[2023-05-19] MEDS: ASPIRIN 325 MG TABLET PO (09:37)
[2023-05-19] MEDS: ROSUVASTATIN 10 MG TABLET 20 MG PO ×2 (09:38→20:23)
[2023-05-19] MEDS: MICAFUNGIN SODIUM IVPB (09:42)
[2023-05-19] MEDS: SODIUM CHLORIDE 0.9% IVPB (09:42)
[2023-05-19 11:41] LABS: Glucose Point of Care 162 mg/dl (65-105)
--- NOTE | 2023-05-19 15:57 | PM.IMPN ---
Progress Note: A&P Assessment and Plan (1) Urinary tract infection: Qualifiers: Hematuria presence: without hematuria Urinary tract infection type: site unspecified Qualified Code(s): N39.0 - Urinary tract infection, site not specified Code(s): N39.0 - Urinary tract infection, site not specified Status: Acute Assessment and Plan: UA is consistent with UTI. He was started on ceftriaxone. Patient had significant improvement neurologically with IV ceftriaxone UCx growing Lelia tropicalis. He had been on ciprofloxacin prior to admission which may have blunted the culture results. BCx NGTD Fungal blood culture ordered. Micafungin started but now changed to Diflucan per [facility] recommendation Check renal US (2) Closed T12 fracture: Qualifiers: Encounter type: subsequent encounter Fracture healing: with delayed healing Fracture morphology: other fracture Qualified Code(s): S22.088G - Other fracture of T11-T12 vertebra, subsequent encounter for fracture with delayed healing Code(s): S22.089A - Unspecified fracture of T11-T12 vertebra, initial encounter for closed fracture Status: Acute Assessment and Plan: Patient was brought in from [facility] because of increasing confusion and falls. Head CT showed no acute intracranial abnormalities. Cervical spine CT showed no acute abnormalities of the cervical spine. Thoracic/lumbar spine CT shows acute chance fracture of T12. This was noted 1 month ago. No spinal stenosis. Healing left L1-L3 nondisplaced transverse process fractures. Patient feeling better. Add bracing. (3) Encephalopathy: Code(s): G93.40 - Encephalopathy, unspecified Status: Acute Assessment and Plan: Patient with altered mental status on admission. CT the brain showed no acute findings. Possibly related to infection. Symptoms of better today. Continue to monitor. (4) Hypoglycemia: Code(s): E16.2 - Hypoglycemia, unspecified Status: Acute Assessment and Plan: Glucose dropped to 20 yesterday afternoon. Patient was started on 70/30 at 60 units b.i.d.. Per correction records, patient is actually on 20 units b.i.d.. Patient was treated appropriately. Glucose improved. Glucose has remained stable. He is currently off all 70/30 medications at this time. (5) Diabetes mellitus with chronic kidney disease: Code(s): E11.22 - Type 2 diabetes mellitus with diabetic chronic kidney disease Status: Acute Assessment and Plan: The patient's blood glucose was reviewed on 05/19 See above. glucose remains better control Continue AccuCheks covering with sliding scale. Hypoglycemia protocol available as needed. Continue to monitor (6) Hyponatremia: Code(s): E87.1 - Hypo-osmolality and hyponatremia Status: Chronic Assessment and Plan: Patient with mild hyponatremia with sodium running 130-135 range. Some is probably related to his hyperglycemia. Continue to monitor. (7) Chronic venous stasis dermatitis: Code(s): I87.2 - Venous insufficiency (chronic) (peripheral) Status: Acute Assessment and Plan: Patient with bilateral lower extremity venous stasis ulcers. Continue daily dressing changes. Start PT OT (8) Chronic kidney disease, stage IV (severe): Code(s): N18.4 - Chronic kidney disease, stage 4 (severe) Status: Chronic Assessment and Plan: Cr has dropped to 1.3. Probably rlated to excessive IV fluids. Stop IV fluids. Resume lasix. Monitor closely Plan DVT prophylaxis -Lovenox Code status -DNR Subjective Date/time seen: 05/19/23 15:57 Interval history: 73yo male with DM, CHF, HTN and CKD here for altered mental status. Assuming care. Chart reviewed. He is alert and mostly oriented. He complains of bilateral leg pain involving the entire leg. Pain with movement. Began yesterday. no CP or SOB. No n/v. Has
[2023-05-19 16:41] LABS: Glucose Point of Care 147 mg/dl (65-105)
[2023-05-19] MEDS: AMITRIPTYLINE HCL 25 MG TABLET PO (20:23)
[2023-05-19] MEDS: TAMSULOSIN HCL 0.4 MG CAPSULE PO (20:23)
[2023-05-19 20:32] LABS: Glucose Point of Care 137 mg/dl (65-105)
[2023-05-19] MEDS: METOPROLOL TARTRATE INJ 5 MG/5 ML VIAL IV PUSH (22:11)
[2023-05-20] VITALS (11 sets, daily range): BP systolic 126–208; BP diastolic 71–114; PULSE 88–95; RESP 13–18; TEMP 35.8–37.3; O2SAT 98–100; BMI 10.0
[2023-05-20] MEDS: hydrALAZINE HCL 20 MG/ML VIAL 10 MG IV PUSH ×3 (01:27→21:11)
[2023-05-20] MEDS: oxyCODONE HCL (*CRX) 5 MG TAB IR PO ×5 (02:13→23:25)
[2023-05-20] MEDS: LEVOTHYROXINE SODIUM 75 MCG TABLET PO (05:00)
[2023-05-20] MEDS: diazePAM (*CRX) 5 MG TABLET PO ×2 (05:00→20:21)
[2023-05-20 07:04] LABS: Basophils Absolute Auto 0.1 K/mm3 (0.0-0.1); Basophils Percent Auto 0.7 % (0.2-1.2); Eosinophils Absolute Auto 0.2 K/mm3 (0-0.3); Hematocrit 33.5 % (42.0-52.0); Hemoglobin 10.8 g/dL (14.0-18.0); Immature Granulocyte Absolute 0.05 K/mm3 (0.00-0.031); Immature Granulocyte Percent A 0.5 % (0-0.5); Lymphocytes Absolute Auto 1.13 K/mm3 (0.9-3.2); Lymphocytes Percent Auto 10.6 % (18.3-44.2); Mean Corpuscular HGB Conc 32.2 g/dl (32-36); Mean Corpuscular Volume 89.8 fl (80-100); Mean Platelet Volume 10.2 fl (7.4-10.4); Monocytes Absolute Auto 0.6 K/mm3 (0.1-0.6); Monocytes Percent Auto 5.5 % (2.6-8.5); Neutrophils Absolute Auto 8.6 K/mm3 (1.3-6.7); Neutrophils Percent Auto 80.7 % (45.5-73.1); Platelet Count Result 242 k/mm3 (150-375); Red Blood Count 3.73 M/mm3 (4.6-6.20); Red Cell Distribution Width 14.1 % (11.5-14.5); White Blood Count 10.6 K/mm3 (4.5-10.0)
[2023-05-20 07:24] LABS: Potassium 3.8 mmol/L (3.4-5.0)
[2023-05-20 07:26] LABS: Alanine Aminotransferase 33 U/L (6-50); Albumin Level 3.6 g/dL (3.5-5.1); Alkaline Phosphatase 78 U/L (38-126); Anion Gap 6 mmol/L (8-16); Aspartate Amino Transferase 38 U/L (17-59); Bilirubin,Total 0.6 mg/dL (0.2-1.3); Blood Urea Nitrogen 20 mg/dL (9-20); Calcium 8.1 mg/dL (8.4-10.2); Carbon Dioxide 24 mmol/L (22-30); Chloride 100 mmol/L (98-107); Estimated CRCL calculation 73 ml/min; Estimated Glomerular Filt Rate 60; Glucose 147 mg/dL (65-110); Sodium 130 mmol/L (137-145)
[2023-05-20 08:14] LABS: Glucose Point of Care 143 mg/dl (65-105)
[2023-05-20] MEDS: ACIDOPHILUS/BULGARICUS CHEWABLE TABLET 1 TABLET PO (08:56)
[2023-05-20] MEDS: PANTOPRAZOLE 40 MG TABLET PO (08:56)
[2023-05-20] MEDS: lisinopriL 20 MG TABLET 40 MG PO (08:56)
[2023-05-20] MEDS: FLUCONAZOLE 100 MG TABLET 200 MG PO (08:56)
[2023-05-20] MEDS: PYRIDOXINE HCL 50 MG TABLET 100 MG PO (08:56)
[2023-05-20] MEDS: OPTI-GEN TAB 1 TABLET PO (08:56)
[2023-05-20] MEDS: ASPIRIN 325 MG TABLET PO (08:56)
[2023-05-20] MEDS: MULTIVITAMINS THERAPEUTIC TAB (*BKC) 1 TABLET PO (08:56)
[2023-05-20] MEDS: MAGNESIUM OXIDE 400 MG TABLET PO (08:56)
[2023-05-20] MEDS: FUROSEMIDE 20 MG TABLET PO (08:56)
[2023-05-20] MEDS: carvediloL 12.5 MG TABLET PO ×2 (08:56→20:21)
[2023-05-20] MEDS: SPIRONOLACTONE 25 MG TABLET PO (08:57)
[2023-05-20] MEDS: SOLIFENACIN 5 MG TABLET 10 MG PO (08:57)
[2023-05-20] MEDS: DOCUSATE SODIUM 100 MG CAPSULE PO ×2 (08:57→17:26)
[2023-05-20] MEDS: polyethylene glycoL 3350 17 GM POWD.PACK PO (08:58)
[2023-05-20] MEDS: ENOXAPARIN 40 MG/0.4 ML SYRINGE SUB-Q (08:58)
[2023-05-20] MEDS: cefTRIAXone 2 GM/NS 100 ML 2 GM/100 ML BAG IVPB (08:58)
[2023-05-20] MEDS: LIDOCAINE 5% PATCH 1 PATCH TRANSDERM (08:58)
--- NOTE | 2023-05-20 09:47 | PM.IMPN ---
Progress Note: A&P Assessment and Plan (1) Encephalopathy: Code(s): G93.40 - Encephalopathy, unspecified Status: Acute Assessment and Plan: Patient with altered mental status on admission. CT the brain showed no acute findings. Possibly related to infection. Symptoms are improving overall Continue to monitor. (2) Urinary tract infection: Qualifiers: Hematuria presence: without hematuria Urinary tract infection type: site unspecified Qualified Code(s): N39.0 - Urinary tract infection, site not specified Code(s): N39.0 - Urinary tract infection, site not specified Status: Acute Assessment and Plan: UA is consistent with UTI. He was started on ceftriaxone. Patient had significant improvement neurologically with ceftriaxone. UCx growing Lelia tropicalis. He had been on ciprofloxacin prior to admission which may have blunted the urine culture results. BCx NGTD Fungal blood culture ordered. Micafungin was started but now changed to Diflucan per [facility] recommendations Renal US pending (3) Closed T12 fracture: Qualifiers: Encounter type: subsequent encounter Fracture healing: with delayed healing Fracture morphology: other fracture Qualified Code(s): S22.088G - Other fracture of T11-T12 vertebra, subsequent encounter for fracture with delayed healing Code(s): S22.089A - Unspecified fracture of T11-T12 vertebra, initial encounter for closed fracture Status: Acute Assessment and Plan: Patient was brought in from [facility] because of increasing confusion and falls. Head CT showed no acute intracranial abnormalities. Cervical spine CT showed no acute abnormalities of the cervical spine. T/L spine CT shows acute T12 fracture. This was noted 1 month ago. No spinal stenosis. Healing left L1-L3 nondisplaced transverse process fractures. Continue bracing when up PT/OT. Increase activity (4) Leg pain: Code(s): M79.606 - Pain in leg, unspecified Status: Acute Assessment and Plan: Patient still with considerable pain mostly in his legs. Baclofen remains on hold at this time. Not sure if this is related to OUD. Valium started here for agitation. Symptoms better overall Has chronic pain on PRN oxycodone. Check hip xrays. Check arterial dopplers to exclude claudication PT/OT. Increase activity. Remove Mullins. wean valium (5) Diabetes mellitus with chronic kidney disease: Code(s): E11.22 - Type 2 diabetes mellitus with diabetic chronic kidney disease Status: Acute Assessment and Plan: A1c 5.7. The patient's blood glucose was reviewed on 05/20 Glucose remains well controlled. Probably too well controlled prior to admission. Continue AccuCheks covering with sliding scale. Hypoglycemia protocol available as needed. Continue to hold 70/30 and semaglutide. Continue to monitor (6) Hyponatremia: Code(s): E87.1 - Hypo-osmolality and hyponatremia Status: Chronic Assessment and Plan: Patient with mild hyponatremia with sodium running 130-135 range. Check urine studies. Continue to monitor. (7) Chronic venous stasis dermatitis: Code(s): I87.2 - Venous insufficiency (chronic) (peripheral) Status: Acute Assessment and Plan: Patient with bilateral lower extremity venous stasis ulcers. Continue daily dressing changes. (8) Chronic kidney disease, stage IV (severe): Code(s): N18.4 - Chronic kidney disease, stage 4 (severe) Status: Chronic Assessment and Plan: Cr has dropped to 1.2. Monitor closely (9) Hypoglycemia: Code(s): E16.2 - Hypoglycemia, unspecified Status: Acute Assessment and Plan: Glucose dropped to 20 on 05/18. Patient was started on 70/30 at 60 units b.i.d.. Per [facility] records, patient is actually on 20 units b.i.d.. Patient was treated appropriately. Glucose improved. Glucose has remained stable.
[2023-05-20] MEDS: ACETAMINOPHEN 325 MG TABLET 650 MG PO (11:56)
[2023-05-20] MEDS: BISACODYL 10 MG SUPPOSITORY RECTAL (11:57)
[2023-05-20 12:15] LABS: Glucose Point of Care 217 mg/dl (65-105)
[2023-05-20 17:09] LABS: Glucose Point of Care 184 mg/dl (65-105)
[2023-05-20] MEDS: AMITRIPTYLINE HCL 25 MG TABLET PO (20:21)
[2023-05-20] MEDS: TAMSULOSIN HCL 0.4 MG CAPSULE PO (20:21)
[2023-05-20] MEDS: ROSUVASTATIN 10 MG TABLET 20 MG PO (20:21)
[2023-05-20] MEDS: KETOROLAC 15 MG/ML VIAL (*BKC) IV PUSH (20:22)
[2023-05-20 22:28] LABS: Glucose Point of Care 158 mg/dl (65-105)
[2023-05-21] VITALS (9 sets, daily range): BP systolic 126–199; BP diastolic 66–99; PULSE 80–94; RESP 12–18; TEMP 35.6–36.7; O2SAT 96–100
[2023-05-21] MEDS: hydrALAZINE HCL 20 MG/ML VIAL 10 MG IV PUSH ×2 (02:12→05:59)
[2023-05-21] MEDS: oxyCODONE HCL (*CRX) 5 MG TAB IR PO ×3 (05:17→21:05)
[2023-05-21] MEDS: LEVOTHYROXINE SODIUM 75 MCG TABLET PO (05:18)
[2023-05-21 06:19] LABS: Anion Gap 5 mmol/L (8-16); Blood Urea Nitrogen 22 mg/dL (9-20); Calcium 8.4 mg/dL (8.4-10.2); Carbon Dioxide 27 mmol/L (22-30); Chloride 101 mmol/L (98-107); Estimated CRCL calculation 63 ml/min; Estimated Glomerular Filt Rate 50; Glucose 147 mg/dL (65-110); Potassium 3.5 mmol/L (3.4-5.0); Sodium 133 mmol/L (137-145)
[2023-05-21 07:28] LABS: Creatinine Urine 143.4 mg/dL; Urea Random Urine 797 MG/DL
[2023-05-21 07:33] LABS: Sodium Urine Random 43 meq/L
[2023-05-21 07:52] LABS: Glucose Point of Care 142 mg/dl (65-105)
[2023-05-21] MEDS: MULTIVITAMINS THERAPEUTIC TAB (*BKC) 1 TABLET PO (09:28)
[2023-05-21] MEDS: polyethylene glycoL 3350 17 GM POWD.PACK PO (09:28)
[2023-05-21] MEDS: PYRIDOXINE HCL 50 MG TABLET 100 MG PO (09:28)
[2023-05-21] MEDS: ACIDOPHILUS/BULGARICUS CHEWABLE TABLET 1 TABLET PO (09:28)
[2023-05-21] MEDS: SPIRONOLACTONE 25 MG TABLET PO (09:28)
[2023-05-21] MEDS: DOCUSATE SODIUM 100 MG CAPSULE PO ×2 (09:28→18:04)
[2023-05-21] MEDS: FLUCONAZOLE 100 MG TABLET 200 MG PO (09:29)
[2023-05-21] MEDS: OPTI-GEN TAB 1 TABLET PO (09:29)
[2023-05-21] MEDS: ASPIRIN 325 MG TABLET PO (09:29)
[2023-05-21] MEDS: SOLIFENACIN 5 MG TABLET 10 MG PO (09:29)
[2023-05-21] MEDS: diazePAM (*CRX) 5 MG TABLET PO ×2 (09:29→21:06)
[2023-05-21] MEDS: PANTOPRAZOLE 40 MG TABLET PO (09:29)
[2023-05-21] MEDS: FUROSEMIDE 20 MG TABLET PO (09:29)
[2023-05-21] MEDS: MAGNESIUM OXIDE 400 MG TABLET PO (09:29)
[2023-05-21] MEDS: carvediloL 12.5 MG TABLET PO ×2 (09:29→21:06)
[2023-05-21] MEDS: LIDOCAINE 5% PATCH 1 PATCH TRANSDERM (09:30)
[2023-05-21] MEDS: ENOXAPARIN 40 MG/0.4 ML SYRINGE SUB-Q (09:30)
[2023-05-21] MEDS: cefTRIAXone 2 GM/NS 100 ML 2 GM/100 ML BAG IVPB (09:31)
[2023-05-21] MEDS: lisinopriL 20 MG TABLET 40 MG PO (09:37)
[2023-05-21 11:25] LABS: Glucose Point of Care 173 mg/dl (65-105)
--- NOTE | 2023-05-21 13:35 | P.PNIM_ITS ---
Progress Note: A&P Assessment and Plan (1) Encephalopathy: Code(s): G93.40 - Encephalopathy, unspecified Status: Acute Assessment and Plan: Patient with altered mental status on admission. CT the brain showed no acute findings. Possibly related to infection. Symptoms are improving overall Continue to monitor. Resolved (2) Urinary tract infection: Qualifiers: Hematuria presence: without hematuria Urinary tract infection type: site unspecified Qualified Code(s): N39.0 - Urinary tract infection, site not specified Code(s): N39.0 - Urinary tract infection, site not specified Status: Acute Assessment and Plan: UA is consistent with UTI. He was started on ceftriaxone. Patient had significant improvement neurologically with ceftriaxone. UCx growing Lelia tropicalis. He had been on ciprofloxacin prior to admission which may have blunted the urine culture results. BCx NGTD Fungal blood culture ordered. Micafungin was started but now changed to Diflucan per [facility] recommendations Renal US pending Discontinue antifungals, complete course of Rocephin (3) Closed T12 fracture: Qualifiers: Encounter type: subsequent encounter Fracture healing: with delayed healing Fracture morphology: other fracture Qualified Code(s): S22.088G - Other fracture of T11-T12 vertebra, subsequent encounter for fracture with delayed healing Code(s): S22.089A - Unspecified fracture of T11-T12 vertebra, initial encounter for closed fracture Status: Acute Assessment and Plan: Patient was brought in from [facility] because of increasing confusion and falls. Head CT showed no acute intracranial abnormalities. Cervical spine CT showed no acute abnormalities of the cervical spine. T/L spine CT shows acute T12 fracture. This was noted 1 month ago. No spinal stenosis. Healing left L1-L3 nondisplaced transverse process fractures. Continue bracing when up PT/OT. Increase activity (4) Leg pain: Code(s): M79.606 - Pain in leg, unspecified Status: Acute Assessment and Plan: Patient still with considerable pain mostly in his legs. Baclofen remains on hold at this time. Not sure if this is related to OUD. Valium started here for agitation. Symptoms better overall Has chronic pain on PRN oxycodone. Check hip xrays. Check arterial dopplers to exclude claudication PT/OT. Increase activity. Remove Mullins. wean valium (5) Diabetes mellitus with chronic kidney disease: Code(s): E11.22 - Type 2 diabetes mellitus with diabetic chronic kidney disease Status: Acute Assessment and Plan: A1c 5.7. The patient's blood glucose was reviewed on 05/21 Glucose remains well controlled. Probably too well controlled prior to admission. Continue AccuCheks covering with sliding scale. Hypoglycemia protocol available as needed. Continue to hold 70/30 and semaglutide. Continue to monitor (6) Hyponatremia: Code(s): E87.1 - Hypo-osmolality and hyponatremia Status: Chronic Assessment and Plan: Patient with mild hyponatremia with sodium running 130-135 range. Check urine studies. Continue to monitor. (7) Chronic venous stasis dermatitis: Code(s): I87.2 - Venous insufficiency (chronic) (peripheral) Status: Acute Assessment and Plan: Patient with bilateral lower extremity venous stasis ulcers. Continue daily dressing changes. (8) Chronic kidney disease, stage IV (severe): Code(s): N18.4 - Chronic kidney disease
[2023-05-21 17:14] LABS: Glucose Point of Care 179 mg/dl (65-105)
[2023-05-21] MEDS: BISACODYL 10 MG SUPPOSITORY RECTAL (18:06)
[2023-05-21] MEDS: ACETAMINOPHEN 325 MG TABLET 650 MG PO (18:06)
[2023-05-21] MEDS: TAMSULOSIN HCL 0.4 MG CAPSULE PO (21:06)
[2023-05-21] MEDS: ROSUVASTATIN 10 MG TABLET 20 MG PO (21:06)
[2023-05-21] MEDS: AMITRIPTYLINE HCL 25 MG TABLET PO (21:06)
[2023-05-21 21:16] LABS: Glucose Point of Care 199 mg/dl (65-105)
[2023-05-22] VITALS: BP 159/76; PULSE 91; RESP 16; TEMP 36.1; O2SAT 100
[2023-05-22] MEDS: MORPHINE SULFATE (*CRX) 2 MG/ML INJ IV PUSH ×2 (00:18→09:14)
[2023-05-22 04:00] VITALS: BP 168/77; PULSE 77; RESP 18; TEMP 35.9; O2SAT 99
[2023-05-22] MEDS: oxyCODONE HCL (*CRX) 5 MG TAB IR PO ×2 (05:26→12:31)
[2023-05-22] MEDS: LEVOTHYROXINE SODIUM 75 MCG TABLET PO (05:27)
[2023-05-22 08:00] VITALS: BP 194/92; PULSE 76; RESP 12; TEMP 36.5; O2SAT 98
[2023-05-22 08:00] LABS: Glucose Point of Care 140 mg/dl (65-105)
[2023-05-22] MEDS: lisinopriL 20 MG TABLET 40 MG PO (08:51)
[2023-05-22] MEDS: CEFDINIR 300 MG CAPSULE PO (08:52)
[2023-05-22] MEDS: SOLIFENACIN 5 MG TABLET 10 MG PO (08:52)
[2023-05-22 08:53] VITALS: PULSE 76
[2023-05-22] MEDS: FUROSEMIDE 20 MG TABLET PO (08:53)
[2023-05-22] MEDS: SPIRONOLACTONE 25 MG TABLET PO (08:53)
[2023-05-22] MEDS: ACIDOPHILUS/BULGARICUS CHEWABLE TABLET 1 TABLET PO (08:53)
[2023-05-22] MEDS: PYRIDOXINE HCL 50 MG TABLET 100 MG PO (08:53)
[2023-05-22] MEDS: OPTI-GEN TAB 1 TABLET PO (08:53)
[2023-05-22] MEDS: MULTIVITAMINS THERAPEUTIC TAB (*BKC) 1 TABLET PO (08:53)
[2023-05-22] MEDS: MAGNESIUM OXIDE 400 MG TABLET PO (08:53)
[2023-05-22] MEDS: PANTOPRAZOLE 40 MG TABLET PO (08:53)
[2023-05-22] MEDS: ASPIRIN 325 MG TABLET PO (08:53)
[2023-05-22] MEDS: carvediloL 12.5 MG TABLET PO (08:53)
[2023-05-22] MEDS: DOCUSATE SODIUM 100 MG CAPSULE PO (08:54)
[2023-05-22] MEDS: hydrALAZINE HCL 20 MG/ML VIAL 10 MG IV PUSH (08:54)
[2023-05-22] MEDS: diazePAM (*CRX) 5 MG TABLET PO (08:54)
[2023-05-22] MEDS: polyethylene glycoL 3350 17 GM POWD.PACK PO (08:54)
[2023-05-22] MEDS: LIDOCAINE 5% PATCH 1 PATCH TRANSDERM (08:58)
[2023-05-22] MEDS: ENOXAPARIN 40 MG/0.4 ML SYRINGE SUB-Q (08:58)
--- NOTE | 2023-05-22 10:54 | PM.DS ---
DS: Admitting Diagnosis Discharge Date 05/22/23 Admitting Diagnosis Altered mental status DS: Discharge Diagnosis Discharge Diagnosis (1) Encephalopathy: Code(s): G93.40 - Encephalopathy, unspecified Status: Acute Assessment and Plan: Patient with altered mental status on admission. CT the brain showed no acute findings. Possibly related to infection. Symptoms are improving overall Continue to monitor. Resolved (2) Urinary tract infection: Qualifiers: Hematuria presence: without hematuria Urinary tract infection type: site unspecified Qualified Code(s): N39.0 - Urinary tract infection, site not specified Code(s): N39.0 - Urinary tract infection, site not specified Status: Acute Assessment and Plan: UA is consistent with UTI. He was started on ceftriaxone. Patient had significant improvement neurologically with ceftriaxone. UCx growing Lelia tropicalis. He had been on ciprofloxacin prior to admission which may have blunted the urine culture results. BCx NGTD Fungal blood culture ordered. Micafungin was started but now changed to Diflucan per [facility] recommendations Renal US pending Discontinue antifungals, complete course of Rocephin (3) Closed T12 fracture: Qualifiers: Encounter type: subsequent encounter Fracture healing: with delayed healing Fracture morphology: other fracture Qualified Code(s): S22.088G - Other fracture of T11-T12 vertebra, subsequent encounter for fracture with delayed healing Code(s): S22.089A - Unspecified fracture of T11-T12 vertebra, initial encounter for closed fracture Status: Acute Assessment and Plan: Patient was brought in from [facility] because of increasing confusion and falls. Head CT showed no acute intracranial abnormalities. Cervical spine CT showed no acute abnormalities of the cervical spine. T/L spine CT shows acute T12 fracture. This was noted 1 month ago. No spinal stenosis. Healing left L1-L3 nondisplaced transverse process fractures. Continue bracing when up PT/OT. Increase activity (4) Leg pain: Code(s): M79.606 - Pain in leg, unspecified Status: Acute Assessment and Plan: Patient still with considerable pain mostly in his legs. Baclofen remains on hold at this time. Not sure if this is related to OUD. Valium started here for agitation. Symptoms better overall Has chronic pain on PRN oxycodone. Check hip xrays. Check arterial dopplers to exclude claudication PT/OT. Increase activity. Remove Mullins. wean valium (5) Diabetes mellitus with chronic kidney disease: Code(s): E11.22 - Type 2 diabetes mellitus with diabetic chronic kidney disease Status: Acute Assessment and Plan: A1c 5.7. The patient's blood glucose was reviewed on 05/21 Glucose remains well controlled. Probably too well controlled prior to admission. Continue AccuCheks covering with sliding scale. Hypoglycemia protocol available as needed. Continue to hold 70/30 and semaglutide. Continue to monitor (6) Hyponatremia: Code(s): E87.1 - Hypo-osmolality and hyponatremia Status: Chronic Assessment and Plan: Patient with mild hyponatremia with sodium running 130-135 range. Check urine studies. Continue to monitor. (7) Chronic venous stasis dermatitis: Code(s): I87.2 - Venous insufficiency (chronic) (peripheral) Status: Acute Assessment and Plan: Patient with bilateral lower extremity venous stasis ulcers. Continue daily dressing changes. (8) Chronic kidney disease, stage IV (severe): Code(s): N18.4 - Chronic kidney disease, stage 4 (severe) Status: Chronic Assessment and Plan: Cr has dropped to 1.2. Monitor closely (9) Hypoglycemia: Code(s): E16.2 - Hypoglycemia, unspecified Status: Acute Assessment and Plan: Glucose dropped to 20 on 05/18. Patient was started on 70/30 at
[2023-05-22 11:47] LABS: Glucose Point of Care 171 mg/dl (65-105)
[2023-05-22 12:00] VITALS: BP 185/84; PULSE 76; RESP 12; TEMP 36.3; O2SAT 100
[2023-05-22 13:46] LABS: SARS-CoV-2 RNA PCR Negative (Negative)
[2023-05-22 16:00] VITALS: BP 185/84; PULSE 71; RESP 26; TEMP 36.2; O2SAT 95
== END 2023-05-22 16:00 | DRG 728 ==
LOC: ANHED 21:59 → ANH3MEDSUR 05-20 14:18
PROVIDERS: Internal Medicine; Nurse Practitioner; Admitting Provider Internal Medicine; Emergency Provider Emergency Medicine; PCP Family Medicine; Visit Provider Student in an Organized Health Care Education/Training Program
DX: B37.49 Other urogenital candidiasis (principal); S22.089A Unspecified fracture of T11-T12 vertebra, initial encounter for closed fracture; I13.0 Hypertensive heart and chronic kidney disease with heart failure and stage 1 through stage 4 chronic kidney disease, or unspecified chronic kidney disease; I42.9 Cardiomyopathy, unspecified; G93.40 Encephalopathy, unspecified; L97.929 Non-pressure chronic ulcer of unspecified part of left lower leg with unspecified severity; L97.919 Non-pressure chronic ulcer of unspecified part of right lower leg with unspecified severity; E87.1 Hypo-osmolality and hyponatremia; N18.4 Chronic kidney disease, stage 4 (severe); I50.9 Heart failure, unspecified; I87.2 Venous insufficiency (chronic) (peripheral); I89.0 Lymphedema, not elsewhere classified; E11.22 Type 2 diabetes mellitus with diabetic chronic kidney disease; E11.40 Type 2 diabetes mellitus with diabetic neuropathy, unspecified; E11.649 Type 2 diabetes mellitus with hypoglycemia without coma; E78.2 Mixed hyperlipidemia; K76.0 Fatty (change of) liver, not elsewhere classified; S22.089G Unspecified fracture of T11-T12 vertebra, subsequent encounter for fracture with delayed healing; R29.6 Repeated falls; G47.419 Narcolepsy without cataplexy; G47.33 Obstructive sleep apnea (adult) (pediatric); Z11.52 Encounter for screening for COVID-19; Z79.82 Long term (current) use of aspirin; Z79.4 Long term (current) use of insulin; Z87.891 Personal history of nicotine dependence; Z86.010 Personal history of colon polyps
CPT/HCPCS: 36415; 70450; 72125; 72128; 72131; 73521; 76775; 80048; 80053; 81001; 82140; 82550; 82570; 82948; 83036; 83605; 84300; 84439; 84443; 84480; 84484; 84540; 85025; 85027; 85610; 85730; 87040; 87086; 87088; 87103; 87106; 87635; 93005; 93922; 96365; 96375; 96376; 97162; 97166; 97530; 99285; A9270; J0360; J0696; J1170; J1650; J1815; J1885; J2248; J2270; J2405; J7030; J7070

== ENCOUNTER 2023-06-19 17:10 | Emergency (ER) | payer MEDICARE, SELFPAY ==
--- NOTE | ~2023-06-19 | CT_ITS ---
EXAMINATION: CT cervical spine wo con DATE: 06/19/2023 17:38 INDICATION: Fall with possible head injury. Patient with dementia and unable to provide further infor mation. TECHNIQUE: Computed tomography (CT) of the cervical spine was performed without intravenous contrast. Automated exposure control and iterative reconstruction technique were employed. The dose-length pro duct was 598.98 mGy-cm. COMPARISON: None FINDINGS: Mild cervical levocurvature. Sagittal alignment is normal. Vertebral body heights are normal. No acut e fracture. Moderate to severe disc height loss with degenerative endplate changes at C3-C4, C5-C6 and C7-T1, moderate disc height loss at C2-C3 and C6-C7 and mild disc height loss at C4- C5, T1-T2 and T2-T3. Multilevel moderate to severe facet and uncovertebral osteoarthritis throughout the cervical spine with slight right-sided predominance. Disc bulges and posterior disc osteophyte co mplexes throughout the cervical spine resulting in mild to moderate central canal stenosis most promi nent at C3-C4 through C5-C6. There is also severe neural foraminal stenosis on the right at C3-C4 add itional mild to moderate neural foraminal stenosis at the remaining cervical levels most prominent bi laterally at C5-C6. Atherosclerotic calcifications at the left carotid bulb. Small posterior layering right pleural effusion. IMPRESSION: 1. Moderate to severe cervical spondylosis. No acute osseous abnormality. 2. Small dependently layering right pleural effusion. Reviewed, dictated and finalized at location [facility]. 3 PASTRY
--- NOTE | ~2023-06-19 | CT_ITS ---
EXAMINATION: CT brain wo con DATE: 06/19/2023 17:34 INDICATION: Fall. TECHNIQUE: Computed tomography (CT) of the head was performed without intravenous contrast. The mA wa s adjusted according to patient size. Iterative reconstruction technique was employed. Exam dose: 11 35.00 mGy-cm total exam DLP. COMPARISON: 05/16/2023 CT brain FINDINGS: Bilateral vertebral artery, basilar artery and bilateral carotid siphon internal carotid ar erasmo calcifications. There is nonspecific diminished attenuation of the cerebral white matter, likely due to to chronic sm all vessel ischemic changes. No intracranial mass lesion or hemorrhage or cerebrovascular accident, midline shift or mass effect i s detected. No subdural or epidural hematoma. There is central and cortical cerebral atrophy. Patchy opacification of ethmoid air cells and minimal mucoperiosteal thickening of the frontal sinuse s. There is minimal mucoperiosteal thickening of the right sphenoid sinus and a small fluid level of the left sphenoid sinus. Approximately 12 x 17 x 23 mm soft tissue opacity of the floor of the left maxillary sinus and mild m ucoperiosteal thickening of the maxillary sinuses. The mastoid air cells are well-developed and aerated. No fracture or bone destruction of the cranial vault. IMPRESSION: Cerebral atherosclerosis and chronic small vessel ischemic changes of the cerebral white matter Central and cortical cerebral atrophy Paranasal sinus disease No skull fracture or acute intracranial finding Reviewed, dictated and finalized at [facility]. Reviewed, dictated and finalized at location [facility]. [facility]
[2023-06-19 17:10] VITALS: BP 125/86; PULSE 85; RESP 22; TEMP 36.5; O2SAT 93
--- NOTE | 2023-06-19 17:44 | ED.FALL ---
HPI - Fall General Chief Complaint: Fall Stated Complaint: fell out of bed Time Seen by Provider: 06/19/23 17:43 History of Present Illness HPI Narrative: Patient is a 73-year-old male who presents to the emergency department at this afternoon from his extended care facility due to a fall from a height of 2 ft. EMS states that the patient fell from a bed and is on a blood thinner, although they did not specify which 1. Due to concern for intracranial hemorrhage he was sent to our facility for a CT scan. Patient is currently alert and oriented to person, difficult to assess his mental status as he is a poor historian and appears to be non-verbal. Son who is present at bedside states has been his baseline for the past 2 months. Son states that he has been gradually deteriorating ever since a fall which caused him multiple spinal fractures. Son states that his surgeon did not want to operate as his diabetes was not well controlled. Ever since then the patient has been gradually declining. He does appear to be alert and does seem to be aware of his surroundings and understands the conversation when his son are having at bedside. Son informed me that a family member was diagnosed with Lewy body dementia and is concerned that his father may be going through something similar as he told him that he has been seeing things and he recalls that lewy body dementia does cause some visual hallucinations. The remainder history of present illness and review of systems is limited due to the patients current baseline status. Related Data Home Medications Medication Instructions Recorded Confirmed magnesium 250 mg tablet 400 mg PO DAILY 11/03/20 05/16/23 amitriptyline 25 mg tablet 25 mg PO HS 01/16/23 05/16/23 solifenacin 10 mg tablet 10 mg PO DAILY 01/16/23 05/16/23 Fish Oil 2 softgel PO DAILY 04/14/23 05/16/23 PreserVision AREDS-2 1 cap PO DAILY 04/14/23 05/16/23 Wixela Inhub See Rx Instructions .Route .COMPLEX 04/14/23 05/16/23 albuterol sulfate 2 puff inhalation Q4H PRN 04/14/23 05/16/23 Shortness Of Breath aspirin 325 mg PO DAILY 04/14/23 05/16/23 clotrimazole-betamethasone 1 1 applic topical BID PRN Increased 04/14/23 05/16/23 %-0.05 % topical cream redness to lower legs levothyroxine 75 mcg tablet 75 mcg PO DAILY 04/14/23 05/16/23 pyridoxine (vitamin B6) 100 mg PO DAILY 04/14/23 05/16/23 semaglutide 1 mg/dose (4 mg/3 mL) 0.25 mg subcut WEEKLY 04/14/23 05/16/23 subcutaneous pen injector Lactobacillus acidophilus 100 mg PO DAILY 05/19/23 05/19/23 acetaminophen 500 mg tablet 1,000 mg PO Q12H 05/19/23 05/19/23 baclofen 5 mg tablet 5 mg PO TID 05/19/23 05/19/23 calcium carbonate 600 mg-vitamin 1 tablet PO DAILY 05/19/23 05/19/23 D3 5 mcg (200 unit) tablet cetirizine 10 mg tablet 10 mg PO DAILY PRN Allergy Symptoms 05/19/23 05/19/23 docusate sodium 100 mg tablet 100 mg PO BID 05/19/23 05/19/23 furosemide 20 mg tablet 20 mg PO DAILY 05/19/23 05/19/23 multivitamin 1 tablet PO DAILY 05/19/23 05/19/23 rosuvastatin 20 mg tablet 20 mg PO HS 05/19/23 05/19/23 tamsulosin 0.4 mg capsule 0.4 mg PO HS 05/19/23 05/19/23 Allergies Allergy/AdvReac Type Severity Reaction Status Date / Time exenatide Allergy Unknown Unknown Verified 04/14/23 00:23 nebivolol Allergy Unknown Unknown Verified 04/14/23 00:23 metformin AdvReac Unknown Nausea Verified 04/14/23 00:23 pioglitazone AdvReac Unknown sleepiness Verified 04/14/23 00:23 Review of Systems Review of Systems: All systems are reviewed and are negative unless stated otherwise in the HPI. [facility] Past Medical History Medical History Acquired lymphedema Acute confusion Acute renal failure superimposed on chronic kidney disease Adenomatous polyps repeat colonoscopy 2024 Cardiomyopathy CHF (congestive heart failure) echocardiogram 2015 demonstrating normal ejection fraction with moderate left ventricular hypertrophy and diastolic dysfunction with
[2023-06-19 19:16] VITALS: BP 153/90; PULSE 80; RESP 14; O2SAT 95
== END 2023-06-19 20:17 ==
PROVIDERS: Emergency Provider Emergency Medicine; PCP Family Medicine
DX: S09.90XA Unspecified injury of head, initial encounter (principal); S19.9XXA Unspecified injury of neck, initial encounter; E11.22 Type 2 diabetes mellitus with diabetic chronic kidney disease; I13.0 Hypertensive heart and chronic kidney disease with heart failure and stage 1 through stage 4 chronic kidney disease, or unspecified chronic kidney disease; N18.9 Chronic kidney disease, unspecified; I50.9 Heart failure, unspecified; I42.9 Cardiomyopathy, unspecified; E11.40 Type 2 diabetes mellitus with diabetic neuropathy, unspecified; I87.2 Venous insufficiency (chronic) (peripheral); I89.0 Lymphedema, not elsewhere classified; G47.33 Obstructive sleep apnea (adult) (pediatric); E66.8 Other obesity; Z68.31 Body mass index [BMI] 31.0-31.9, adult; Z87.891 Personal history of nicotine dependence; Z90.49 Acquired absence of other specified parts of digestive tract; Z79.01 Long term (current) use of anticoagulants; Z79.82 Long term (current) use of aspirin; Z79.85 Long-term (current) use of injectable non-insulin antidiabetic drugs; Z79.4 Long term (current) use of insulin; I67.2 Cerebral atherosclerosis; J32.9 Chronic sinusitis, unspecified; M47.816 Spondylosis without myelopathy or radiculopathy, lumbar region; W06.XXXA Fall from bed, initial encounter
CPT/HCPCS: 70450; 72125; 99284